=== PATIENT | male | born 1965 | race Caucasian/White ===

== ENCOUNTER 2017-02-23 14:18 | Inpatient (IN) | payer MEDICARE ==
[2017-02-23 14:49] LABS: #Lymphocytes 0.5 thou/uL (1.20-3.40); #Monocytes 0.7 thou/uL (0.11-0.59); #Neutrophils 11.6 thou/uL (1.40-6.50); %Basophils 0.2 % (0.0-1.0); %Eosinophils 0.1 % (0.0-10.0); %Lymphocytes 3.8 % (21.0-51.0); %Monocytes 5.2 % (0.0-10.0); Hematocrit 30.6 % (42.0-52.0); Mean Platelet Volume 8.8 fL (7.4-10.4); White Blood Cell (WBC) Count 12.8 thou/uL (4.8-10.8)
[2017-02-23] MEDS ORDERED: Calcium Chloride 1 GM/10 ML Abboject SYRINGE ONE (14:59)
[2017-02-23 15:01] LABS: Lactic Acid - Sepsis 1.6 mmol/L (0.5-2.2)
[2017-02-23] MEDS ORDERED: Sodium Chloride For Inhalation 0.9% 3 ML NEB ONE (15:05)
[2017-02-23] MEDS ORDERED: Albuterol Sulfate 2.5 mg/0.5 ml Neb ONE (15:05)
[2017-02-23] MEDS ORDERED: Insulin Regular 300 UNITS/3 ML VIAL ONE (15:05)
[2017-02-23] MEDS ORDERED: Dextrose 50% Abboject 50 ML SYRINGE ONE (15:05)
[2017-02-23 15:13] LABS: ALT (SGPT) 13 U/L (8-55); AST (SGOT) 18 U/L (5-34); Alkaline Phosphatase 51 U/L (40-150); Anion Gap 32 mmol/L (10-20); BUN (Urea Nitrogen) 142 mg/dL (8.4-25.7); Bilirubin, Total 0.5 mg/dL (0.2-1.2); Calc. Creatinine Clearance 0 mL/min (70-130); Carbon Dioxide 21 mmol/L (22-29); Chloride 86 mmol/L (98-107); Estimated GFR-MDRD 3; Globulin 3.4 g/dL (2.4-3.5); Lipase 28 U/L (8-78); Protein, Total 6.3 g/dL (6.0-8.3)
--- NOTE | 2017-02-23 15:26 | RAD ---
PORTABLE AP CHEST: Date: 02-23-17 History: Nausea, vomiting, dehydration. Comparison: 01-22-11 FINDINGS: Tunneled right internal jugular vein hemodialysis catheter has been removed. Cardiac silhouette is ma gnified by projection but does appear mildly enlarged. This is stable from prior exam. Linear densiti es are seen in the right perihilar location at the right lung base, probably related to linear areas of scarring versus atelectasis. There is mild atelectasis at the left lung base which mild elevation of the left hemidiaphragm. Lungs are otherwise clear. Pulmonary vasculature is within normal limits. No other interval change. IMPRESSION: 1. Cardiomegaly without overt CHF. 2. Mild scarring versus atelectasis in a right perihilar location and at the medial right lung base. POS: DREW
[2017-02-23] MEDS ORDERED: Norepinephrine 8 MG/0.9% NS 250 ML ONE (17:00)
[2017-02-23] MEDS ORDERED: Ondansetron ODT 4 MG TAB PO PRN (17:07)
[2017-02-23] MEDS ORDERED: Ondansetron HCl/PF 4 MG/2 ML Vial IVP PRN (17:07)
[2017-02-23] MEDS ORDERED: Acetaminophen 325 MG TAB PO PRN (17:07)
[2017-02-23] MEDS ORDERED: Bisacodyl 5 MG TAB PO PRN (17:07)
[2017-02-23] MEDS ORDERED: Sodium Chloride 0.9% 1,000 ML IV SCH (17:15)
[2017-02-23] MEDS ORDERED: Norepinephrine 8 MG/0.9% NS 250 ML IVPB SCH (17:15)
[2017-02-23] MEDS: Sodium Chloride 0.9% 1,000 ML IV SCH (18:06)
[2017-02-23] MEDS ORDERED: Digoxin 0.5 MG/2 ML AMP SLOW IVP SCH ×2 (18:30→19:30)
[2017-02-23] MEDS ORDERED: Amiodarone HCl 150 MG, Admixture Fee 1 EACH in Dextrose 5% in Water 100 ML IVPB SCH ×3 (19:30)
[2017-02-23] MEDS: Amiodarone HCl 450 MG in Dextrose 5% in Water 250 ML IVPB SCH ×2 (20:00)
--- NOTE | 2017-02-23 20:51 | CON ---
DATE OF CONSULTATION: 02/23/2017 CONSULTING PHYSICIAN: [facility]. REASON FOR CONSULTATION: ICU management. HISTORY OF PRESENT ILLNESS: The patient is a 51-year-old male who is on chronic peritoneal dialysis for polycystic kidney disease and chronic renal failure. He has not been able to dialyze completely for the last 5 days. He has had some type of gastrointestinal illness. He has been nauseated and chaudhari s had diarrhea. He has had vomiting. He says that he typically dialyzes 5 times a day, but has been unable to do more than 2 times a day. He has had significantly decreased oral intake. PAST MEDICAL HISTORY: 1. Chronic kidney disease. 2. Polycystic kidney disease. 3. Hypertension. PAST SURGICAL HISTORY: 1. Peritoneal dialysis catheter placement. 2. Bilateral knee surgery. SOCIAL HISTORY: Nonsmoker, does not consume alcohol. ALLERGIES: SULFA DRUGS. MEDICATIONS PRIOR TO ADMISSION: See chart. REVIEW OF SYSTEMS: Remarkable for the nausea, vomiting, poor oral intake. Denies any chest pain. PHYSICAL EXAMINATION: VITAL SIGNS: Blood pressure 100/59, heart rate 153, currently atrial fibrillation, right ventricular response, respiratory rate 25, O2 sat 95%. GENERAL: The patient is awake, has an ashen color. HEENT: Pupils react, sclera anicteric. Oropharynx is dry. NECK: No JVD. LUNGS: Fairly clear anteriorly. CARDIOVASCULAR: S1, S2 irregularly irregular, tachycardic. ABDOMEN: Soft and nontender. Peritoneal dialysis catheter is noted. EXTREMITIES: No clubbing, cyanosis, or edema. EKG demonstrated atrial fibrillation. He had some ST segment elevation, which is probably peaked T w aves from the hyperkalemia. Troponin was not significantly elevated. ASSESSMENT: 1. Acute hyperkalemia secondary to inability to do peritoneal dialysis completely over the last chilo ral days. 2. Gastroenteritis versus cholelithiasis. 3. Atrial fibrillation with rapid ventricular response. 4. Clinically dehydrated. PLAN: 1. The patient has been hydrated. He will receive either peritoneal dialysis or hemodialysis at the discretion of Dr. Raman. 2. Cardiology has been consulted for management of the atrial fibrillation. 3. Levophed has been started to help with the blood pressure. Thank you for the referral. We will follow.
[2017-02-23 21:27] LABS: Troponin I 0.694 ng/mL (< 0.028)
--- NOTE | 2017-02-23 21:52 | HP ---
PRIMARY BANQUET SERVER ON CALL: Dr. Raman. CHIEF COMPLAINT: Weakness and dehydration. HISTORY OF PRESENT ILLNESS: This is a 51-year-old white male with history of genetic polycystic kidn ey disease resulting in end-stage renal disease, who has been on peritoneal dialysis for the last 5 y ears. The patient reports that 3-5 days before admission, he had mid epigastric pain. The pain felt crampy, thought it might be as gallbladder. The patient took some Darvocet, which he had left over from years ago when they still made that, this resolved the pain. However, the next day, he noticed he was extremely constipated. He eventually took 3 laxatives tablets and then yesterday he started h aving diarrhea and vomiting. He had continuous diarrhea this morning, he has not vomited any more th an today. He went to see his doctor and was sent to the emergency room. In the ER, he was found to have blood pressure in the 80s and hyperkalemia with potassium greater than 6. He was also noted to have some ST elevation on his EKG in leads V2 and V3. Dr. Solorzano was notified and looked at the EKG al patricia with his enzymes, which were elevated, but not terribly for an end-stage renal disease. The joanne ent stated that he was treated with aspirin for now as he was not having any active pain and then be evaluated in the hospital he said that she will consult when he gets here. Dr. Raman was notified and prepared to dialyze the patient when he got here. As the patient was up to leave the ER, he converte d into atrial fibrillation with rapid ventricular rate in the 130s to 140s and his blood pressure marleni pped into the 60s. The patient had 2 liters of IV fluids of normal saline at the emergency room, his blood pressure came to the low 100s and he was transported here to the ICU. In the ICU, his blood p ressure dropped again to the 60s and then in the 50s. He was still awake, but felt tired, no active pain. The patient has had a fluid bolus, now started on Levophed drip with blood pressure back to a systolic of 100. His heart rate remains in the 130s to 140s. PAST MEDICAL HISTORY: 1. Polycystic kidney disease with end-stage renal disease, on peritoneal dialysis. 2. Previous heart problems. He is not certain what it was, but he was put on he thinks metoprolol t o control his heart rate because of it. PAST SURGICAL HISTORY: 1. Peritoneal dialysis shunt placement. 2. Bilateral knee surgeries. SOCIAL HISTORY: Patient denies tobacco, alcohol or illicit drug use. FAMILY HISTORY: There are family members who have polycystic kidney disease as well in his family. ALLERGIES: 1. CHLOROPHYLL. 2. IRON. 3. SULFA ANTIBIOTICS. CURRENT MEDICATIONS: Unknown, patient does not remember them. REVIEW OF SYSTEMS: Constitutional: No fevers, no chills, no weight changes. Eyes: No double visio n or blurred vision. ENT: No congestion, drainage or sore throat. Cardiovascular: No chest pain, no palpitations, no racing heart. Pulmonary: No coughing, wheezing or trouble breathing. He did chaudhari ve some shortness of breath with the mid epigastric pain a few days ago, but none since. Gastrointes tinal: No current abdominal pain. He had the midepigastric pain as per HPI several days ago. Nause a and vomiting has now resolved. He has had diarrhea with no blood in the bowel movements. Genitour inary: No dysuria or hematuria. Extremities: No muscle aches or joint pains. Skin: He has not no ticed any rashes or skin lesions. Neurologic: No numbness or tingling. He has not noticed any foca l weakness, just generalized weakness. PHYSICAL EXAMINATION: VITAL SIGNS: Currently, blood pressure 98/59, pulse 135, respirations 17, O2 sat currently difficult to read, was previously in the mid 90s on oxygen. GENERAL: This is a well-developed, obese white male who appears slightly ashen, but is alert. HEENT: Pupils are equal, round and reactive to light. Oropharynx is clear without lesions, erythema or exudate. He does have dry mucous membranes. HEART: Irregularly irregular rhythm. Tachycardic. No murmurs. He does have intact peripheral puls es, though they were weak before starting the Levophed. PULMONARY: Clear to auscultation bilaterally. No wheezes, crackles or rhonchi. ABDOMEN: Soft, obese and distended. Normoactive bowel sounds. No hepatosplenomegaly. He does have some tenderness in the right lower quadrant without any guarding. EXTREMITIES: He has some trace pretibial edema. No cyanosis, no clubbing. SKIN: Patient has few red sanchez what looked like petechiae on his knees. He states that he fell a c ouple of days ago and that is what that is from. NEUROLOGIC: He moves all extremities with equal strength. No lateralizing signs. He does have no f acial droop and has clear speech. PSYCHIATRIC: Alert and oriented x3, normal mood and affect. LABORATORY DATA: Complete metabolic panel was notable for a sodium of 132, potassium of 6.8, chlorid e is 86, bicarbonate of 21, anion gap of 32, BUN of 142, creatinine of 17.59, glucose of 96 and calci um of 9.0. Liver function tests are normal except for an albumin of 2.9. His initial cardiac marker set; CK-MB of 11.7, troponin was 0.94. Brain natriuretic peptide elevated at 353, lactic acid was n egative at 1.6. CBC with a white blood cell count of 12.8, hemoglobin 10, hematocrit 30, platelets 2 04, neutrophils 90. IMAGING DATA: EKG: I did review the EKGs done in the emergency room. Originally, EKG does show nor mal sinus rhythm with some ST elevation in V2, V3 and possibly in V4. A repeat EKG later showed atri al fibrillation with rate of [address] changes in V2. Chest x-ray: I did review th e chest x-ray done in the emergency room along with the radiologist's report. It does show cardiomeg rodri without overt CHF, some mild scarring atelectasis in the right perihilar location, also shows a t unneled right internal jugular vein. Hemodialysis catheter has been removed since previously. ASSESSMENT AND PLAN: 1. Hypotension appears to be due to volume depletion, though there may be a component of the atrial fibrillation with rapid ventricular response contributing. The patient is currently responding to IV fluids and now with some norepinephrine with his blood pressure stable in the low 100s. No current evidence for bleeding, most likely he is volume depleted from his recent diarrhea and vomiting. We d o need to take the consideration of possibly sepsis given his elevated white blood cell count and the diarrhea and vomiting. We will go ahead and draw a couple of blood cultures if patient allow us to draw one blood. He was refusing needle sticks earlier. We will hold off antibiotics for now unless his blood pressure becomes refractory or other source of infection is identified. He currently is no t having any vomiting or diarrhea, no significant pain anywhere. No pneumonia evident upon chest x-r ay. No other signs of infection. 2. Atrial fibrillation with rapid ventricular rate. The patient possibly has a history of paroxysma l atrial fibrillation. Given his history of a fast heart rate, it had to be controlled by metoprolol . Uncertain if the atrial fibrillation is just a response to his volume depleted hypertensive status or if it is a contributing instigator. At this time, he is too hypotensive to give beta-blockers or diltiazem too and with his ramp failure we cannot use digoxin. We will monitor and consult Cardiolo gy for evaluation and treatment. If his blood pressure does improve, we may be able to start him on a diltiazem drip. 3. End-stage renal disease with hyperkalemia. Dr. Raman has been consulted. He is going to do a low volume due low volume dialysis tonight to remove potassium. Patient did already receive Kayexalate, albuterol and insulin with dextrose and calcium chloride at the outside emergency room along with asp irin. We will recheck his potassium here. 4. Elevated troponins with ST elevation on the EKG. The patient has not had any active signs of isc hemia currently. He may have had some ischemic disease 3 days ago, but nothing to indicate his ST el evation myocardial infarction at this time. The troponin level was definitely elevated, may be more due to strain with the hypotension and then an acute ST elevation myocardial infarction. Given his e nd-stage renal disease, troponin less than [address] elevation myocardial infarction at t his time. Dr. Solorzano has been consulted and will follow. The patient will get repeat troponins overni t. The patient is on aspirin. 5. Gastrointestinal prophylaxis. We will put the patient on Protonix daily. 6. Deep venous thrombosis prophylaxis. We will put the patient on sequential compression devices an d SYL while in bed. CODE STATUS: I did discuss this with the patient, he is a FULL CODE. Should he be incapacitated, he states that his mother would be his medical power of clam treader; her name is Anthony Correa.
--- NOTE | 2017-02-23 23:32 | ADD-CON ---
DATE OF ADMISSION: 02/23/2017 DATE OF CONSULTATION: 02/23/2017 INDICATION FOR CONSULTATION: A 51-year-old patient with a history of end-stage renal disease on timoteo toneal dialysis, who had been doing relatively well, had no previous cardiac history except he does h ave some intermittent atrial fibrillation, he has noted in the past and was taking just metoprolol 25 mg b.i.d. and then he stopped, taking it only just once a day. He had been doing relatively well un til recently he has developed some abdominal discomfort. He has some abdominal pain, took some oral medication in the form of Darvocet and then he developed some diarrhea. He presented to the emergenc y room to an outside clinic and they were was advised to seek out emergency room help as he was found in the emergency room to have some nonspecific EKG changes and then prior to being transferred to [facility], he also was found to have borderline or indeterminate cardiac enzymes and then developed atrial fibrillation while even before the transfer to the emergency room to our main facility where sarah was at that time. Since being here, he continues to have atrial fibrillation. He denies any chest pain with atrial fibrillation, there have been no significant ST segment changes that would indicate ischemia. He has had no history in the past of coronary artery disease. He actually was on the tra nsplant list at one point in time, but became frustrated with the process and then decided to withdra w himself on the transplant list. He has polycystic kidney disease as the cause of his end-stage victorino al disease and has been doing relatively well with his peritoneal dialysis. At this time, his blood pressure is slightly decreased at 95/65, but approximately 15-20 minutes, his blood pressure was up a s much as 110 when the heart rate is slow, he was given 0.5 mg of IV digoxin in Intensive Care Unit f or heart rate in the 150s and it has dropped down in between the 120s to 150s again. We will need to try to start him on some amiodarone to hopefully convert him back to a sinus rhythm. At earlier tod ay, he was in a sinus rhythm prior to being transferred to our facility. At this time, the EKG did s how a right bundle branch block with the EKG changes noted, but cardiac enzymes do not indicate myoca rdial infarction. There was some suspicion of that, but does not appear to be myocardial infarction; if anything, he had possibly an old septal infarct, but there is a small R-wave in V2. Further caryl elodia of the past medical history, social history, family, and review of systems, please refer to the notes dictated by the nurse practitioner, Christiane. PHYSICAL EXAMINATION: GENERAL: Reveals a middle-aged gentleman who is in no acute distress. VITAL SIGNS: Blood pressure is 95/65, his heart rate 136 and irregular with atrial fibrillation. O2 saturation 95%. His respiratory rate is about 20 beats per minute. HEENT: Shows the head to be normocephalic, atraumatic. Carotid pulses are present. I could not hea r any bruits. CHEST: Clear to auscultation without any rales, rhonchi, or wheezing. CARDIOVASCULAR: Reveals an irregularly irregular rhythm. I did not hear any gross murmurs. ABDOMEN: Soft, but has large obesity. He does have a catheter in place. He does have some tenderne ss which he feels may be due to his polycystic kidney disease. EXTREMITIES: Showed no clubbing or cyanosis. He has trace ankle edema, but this is only minimal and would not be more than expected. Pedal pulses were present, but were difficult to palpate. NEUROLOGIC: The patient appears to be intact. LABORATORY DATA: Please refer to the notes already dictated. Troponin was 0.9. Hemoglobin was 10.2 . His potassium level was 6.8 and the patient will be dialyzed this evening. His creatinine was 17. 59 with a BUN of 142. His MB was 11.7 and BNP was 353. We are more than happy to continue to follow the patient with you. IMPRESSION: 1. End-stage renal disease for which he is on peritoneal dialysis for most likely he will need to un dergo a peritoneal dialysis tonight. 2. Atrial fibrillation with rapid ventricular response. We will try to start amiodarone since he chaudhari s not responded to the digoxin and was started on amiodarone and see whether or not he may convert to sinus rhythm. 3. Abnormal EKG that appears to be a sinus rhythm with some early repolarization changes which may b e due associated with some of his hyperkalemia with peak T waves in V2. 4. Diarrhea, which has just started the last day or two after taking medications for constipation.
--- NOTE | 2017-02-23 23:57 | CON ---
DATE OF CONSULTATION: 02/23/2017 LOCATION: Room number, C11. CUSTOMER SUPPORT ANALYST: Edwige Solorzano M.D. REFERRING PHYSICIAN: Jair Short M.D. REASON FOR CARDIOLOGY CONSULTATION: Atrial fibrillation with RVR and elevated troponin. HISTORY OF PRESENT ILLNESS: Mr. Kamara is a 51-year-old male with significant history of end-stage renal disease and peritoneal dialysis 5 times per week with weak and hypertension and hyperlipidemia . The patient presents to [facility] due to worsening fatigue, weakness and vom iting. According to patient's report, some kidney phosphorus medication was increased since 02/18 by patient's partner integration planner and since then, the patient feels weak, fatigued, nauseated, vomited and also constipation since then. The patient denies shortness of breath, dizziness, palpitation or flutteri ng in his chest or any other cardiac complaints besides very light chest tightness in his middle ster nal area. He has a history of gallbladder issue, he is not sure what, however, he was prescribed Cip ro and Levophed. He took those medications because he thought the symptom was from the gallbladder i ssue. His normal blood pressure at home was 120/70s and heart rate in the 90s. He denies any cardia c related problem. At this moment, he complained about cold, but denies any cardiac complaints. Acc ording to all of patient's chart and computer records, he does have any cardiac related workup studie s. A 12-lead EKG at the ER shows the patient in sinus rhythm with heart rate of 87. However, when anila hung arrived to urinate right before 5:00 p.m. today, patient's heart rhythm was in atrial fibrilla tion with rapid ventricular response with heart rates in 140-150s and he is on the Levophed for hypot ension. PAST MEDICAL HISTORY: 1. End-stage kidney disease with peritoneal dialysis 5 times a week. 2. Hypertension. 3. Hyperlipidemia. 4. Some gallbladder issue. 5. Restless leg syndrome. He is taking clonazepam. PAST SURGICAL HISTORY: Peritoneal catheter placement by Dr. Mullins. FAMILY HISTORY: There is history in the patient's father and his brother has kidney problems. The anila hung's brother has a blood pressure issue also. SOCIAL HISTORY: Patient is . He lives with his mother. 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 He denies tobacco abuse, ETOH abuse or illicit drug abuse. ALLERGIES: He is allergic to CHLOROPHYLL, IRON SUPPLEMENT and SULFA DRUGS. REVIEW OF SYSTEMS: The review following complete review of systems was negative, unless otherwise me ntioned in the HPI or below. Constitutional: Weight loss or gain, sense of well being, ability to conduct usual activities, exerc ise tolerance. Skin: Rash, itching, change in hair growth or loss, nail changes, breast lumps, tend erness, swelling, nipple discharge. Eyes: Vision change, double vision, tearing, blind spots or lilo n. HEENT: Headache, vertigo, lightheadedness, nasal bleeding, cold obstruction or discharge, dental difficulties, gingival bleeding, dentures. Neck: Neck stiffness, pain, tenderness, mass in the thy roid or other areas. Cardiovascular: Precordial pain, substernal distress, palpitations, syncope, d yspnea on exertion, orthopnea, nocturnal dyspnea, edema, cyanosis, heart murmur, varicosis, claudicat ion. Respiratory: Pain, shortness of breath, wheezing, stridor, cough, hemoptysis. Gastrointestina l: Poor appetite, dysphagia, indigestion, abdominal pain, heartburn, eructation, nausea, vomiting, j aundice. Constipation and diarrhea besides history of 3 days of constipation prior to this admission , bloody stool or recent abnormal stool. Genitourinary: Urgency, frequency, dysuria, nocturia, brandie turia, polyuria, oliguria. He is still making urine even though he has peritoneal dialysis. Musculo skeletal: Pain, swelling, redness, heat of muscle or joint, limitation of motion. Neurologic: Conv ersion, seizure, paralysis, tremor, incoordination, difficulty with memory of speech. Psychiatric: Emotional problem, anxiety, depression, previous psychiatric care, unusual perception, hallucinations . PHYSICAL EXAMINATION: VITAL SIGNS: Last blood pressure is 109/60, heart rate is 147 and atrial fibrillation, respiratory r ate 25, O2 sat 95% with 2 liters nasal cannula, temperature 97.5. GENERAL: Well-developed, well-nourished without any acute distress. HEAD: Normocephalic, atraumatic. EYES: Extraocular muscle movements are intact. ENT: Oral and nasal mucosa moist without lesion. NECK: No JVD. Neck is supple. Normal range of motion. LUNGS: Clear to auscultation bilaterally, but diminished at the bases. No wheezing, rales or rhonch i noted. CARDIOVASCULAR: Irregularly irregular. No significant murmur, hives, thrill, bruit or rub noted. EXTREMITIES: There are 2+ pulses in the bilateral dorsal pedis, posterior tibial, and popliteal and left femoral pulses, but unable to assess the pulsation in his right femoral pulse due to central atnia e present. Carotid pulses are present without bruit or thrill. There is 1 pitting edema in his bila teral lower extremities, more in the right side than left side. ABDOMEN: Soft, nontender or mass to palpate, nondistended. Bowel sounds are present, but diminished . MUSCULOSKELETAL: The patient is able to move all extremities. SKIN: Warm and dry. No skin rash, lesion, or bruise noted. NEUROLOGIC: Alert, oriented x4, awake. Normal affect. Nonfocal. PSYCHIATRIC: The patient seem to be anxious. Other than that, affect are normal. EKG: A 12-lead EKG in the ER shows sinus rhythm with ST elevation in almost all lead. LABORATORY DATA: WBC 12.8, hemoglobin 10.2, hematocrit 30.6, platelet 204,000. Chemistry: Sodium 1 32, potassium 6.8, BUN is 142, creatinine 7.59. Lactic acid 1.6. AST is 18, ALT is 13, CK-MB 11.7, troponin 0.940. BNP is 353.8. IMAGING: The patient's chest x-ray revealed no cardiomegaly without overt congestive heart failure a nd mild scarring versus atherosclerosis in the right perihilar location and at the medial right lung base. The patient's abdomen ultrasound shows enlarged polycystic right kidney, trace ascites, no shasta dence of gallstones. ASSESSMENT AND PLAN: 1. Atrial fibrillation with rapid ventricular response. The 12-lead EKG in the ER showed sinus rhyt hm; however, when the patient arrived to our unit, patient's heart rhythm already have been in atrial fibrillation with rapid ventricular response with heart rate of 140 to 150s. We would like to start diltiazem 5 mg per an hour and we would like to titrate. Also, patient's blood pressure tend to low side. He is on the Levophed. So hopefully patient's blood pressure is stabilized with that and als o once the patient's heart rates were going down hopefully patient's blood pressure will increase. 2. Elevated troponin level. The patient's first troponin level increased to 0.940, possibly due to atrial fibrillation with rapid ventricular response or dehydration. He is receiving normal saline a t 150 mL/hour at this moment, we would like to continue to monitor with diltiazem and IV drip and we may add digoxin if we cannot control the patient's heart rate with diltiazem drip. Because patient's 12-lead EKG shows no significant ST segment change besides ST segment changes in all leads. The pat ient denies any cardiac related complaints. We like to continue to recheck the patient's troponin le kayla. 3. End-stage renal disease. The patient is going to have a peritoneal dialysis tonight which is man aged by the patient's partner integration planner. 4. Hypertension. At this moment, the patient's blood pressure tends to hypotensive. Patient is on the Levophed 15 mg per minute at this moment and we like to hold the patient's blood pressure medicin e at this moment. 5. Hyperlipidemia. Once patient's condition is stable, we like to resume patient on cholesterol med icine. Thank you very much for Cardiology service to participate in the care of the patient. We will follow with the patient's care team and make further recommendations as appropriate.
[2017-02-24] MEDS: Sodium Chloride 0.9% 1,000 ML IV SCH ×4 (00:29→21:08)
[2017-02-24] MEDS: Digoxin 0.5 MG/2 ML AMP SLOW IVP SCH ×2 (00:33→07:54)
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
[2017-02-24 06:14] LABS: Anion Gap 24 mmol/L (10-20); Calc. Creatinine Clearance 9 mL/min (70-130); Calcium 8.2 mg/dL (7.8-10.44); Carbon Dioxide 19 mmol/L (22-29); Chloride 94 mmol/L (98-107); Estimated GFR-MDRD 3
[2017-02-24 06:19] LABS: Critical Call Chem Troponin I RESULT DECREASING; Troponin I 0.622 ng/mL (< 0.028)
[2017-02-24 06:25] LABS: BUN (Urea Nitrogen) 117 mg/dL (8.4-25.7)
[2017-02-24 06:27] LABS: #Lymphocytes 0.5 thou/uL (1.20-3.40); #Monocytes 0.9 thou/uL (0.11-0.59); #Neutrophils 14.2 thou/uL (1.40-6.50); %Eosinophils 0.2 % (0.0-10.0); %Lymphocytes 3.3 % (21.0-51.0); %Monocytes 5.6 % (0.0-10.0); Hematocrit 31.4 % (42.0-52.0); Mean Platelet Volume 8.1 fL (7.4-10.4); Red Blood Cell (RBC) Count 3.38 mill/uL (4.70-6.10); White Blood Cell (WBC) Count 15.7 thou/uL (4.8-10.8)
[2017-02-24] MEDS: Amiodarone HCl 450 MG in Dextrose 5% in Water 250 ML IVPB SCH ×4 (06:47→21:03)
--- NOTE | 2017-02-24 09:23 | PRG ---
DATE OF SERVICE: 02/24/2017 SUBJECTIVE: The patient is more awake and alert today. He is no longer having abdominal pain. PHYSICAL EXAMINATION: VITAL SIGNS: His temperature is 98.0, pulse 96, blood pressure 132/83, total intake for the last 24 hours was about 6000 in, including what was given in the emergency room, 724 out net from the dialysi s. HEENT: Unremarkable. NECK: No JVD, no bruits. LUNGS: Clear anteriorly. CARDIOVASCULAR: S1, S2 regular. ABDOMEN: Soft. EXTREMITIES: No edema. LABORATORY DATA: White blood cell count 15.7, hemoglobin 10, hematocrit 31.4, platelet count 333. S odium 131, potassium 5.8, chloride 94, CO2 19, BUN 117, creatinine 15, glucose 157. Troponin 0.6. ASSESSMENT: Ineffective peritoneal dialysis which led to electrolyte abnormalities and dehydration. PLAN: 1. Continue peritoneal dialysis. 2. Management per Dr. Raman. 3. Wean off the Levophed drip as tolerated.
--- NOTE | 2017-02-24 10:39 | PRG ---
DATE OF SERVICE: 02/24/2017 SUBJECTIVE: Mr. Kamara has been seen by the Renal Service for his maintenance peritoneal dialysis. He was noted to be hypertensive when he came in. He was also hyperkalemic. Emergent peritoneal di alysis was done with the patient. This morning he is feeling a little better, but he complains of be ing tired. PHYSICAL EXAMINATION: VITAL SIGNS: Blood pressure is 104/76, heart rate 97, respiratory rate 36, pulse ox 98%. GENERAL: Awake, supine, comfortable, morbidly obese. SKIN: Adequate turgor. HEENT: Pinkish conjunctivae, anicteric sclerae. NECK: No neck mass, no carotid bruits, no JVD. CHEST: No deformities. LUNGS: Clear breath sounds. No wheezing, no crackles. HEART: Normal sinus rhythm. No murmur, no gallops or rubs. ABDOMEN: Globular, soft. Positive for PD catheter. EXTREMITIES: No edema. MEDICATIONS 02/24/2017 - Reviewed. LABORATORY: 02/24/2017 - Sodium 131, potassium 4.8, chloride 94, carbon dioxide 19, BUN 170, creatin ine 15.03, calcium 8.2. Troponin I 0.622. White count 15.7, hemoglobin 10. ASSESSMENT AND PLAN: 1. Hypertension, improving. Continue current pressor support and normal saline. We will adjust nor mal saline from 150 to 100 mL per hour. 2. End-stage renal disease, stable. Continuing current CCPD regimen. Tolerating said treatment. 3. Hyperkalemia, much improved with initiation of dialysis. 4. Tachycardia/supraventricular tachycardia IV amiodarone. I agree with current management.
--- NOTE | 2017-02-24 12:37 | PDOC.PN ---
- Subjective Encounter Start Date: 02/24/17 Encounter Start Time: 12:30 Subjective: Patient feeling better. No SOB/CP. No abdominal pain/N/V/D. Heart rate -: improved on amio drip. Still requiring some Levophed, but titrated shelter -: off. - Objective Resuscitation Status: Resuscitation Status FULL:Full Resuscitation MAR Reviewed: Yes Vital Signs & Weight: Vital Signs (12 hours) Temp Pulse Resp Pulse Ox 02/24/17 08:00 95.1 F L 92 31 H 99 02/24/17 07:54 120 H 02/24/17 04:00 98.8 F Weight Admit Weight 248 lb 7.375 oz Weight 250 lb 14.177 oz Most Recent Monitor Data Heart Rate from ECG 89 NIBP 114/86 NIBP BP-Mean 93 Respiration from ECG 18 SpO2 100 I&O: 02/23/17 02/24/17 02/25/17 06:59 06:59 06:59 Intake Total 3437 Balance 3437 Result Diagrams: 02/24/17 06:00 02/24/17 05:30 EKG Reviewed by me: Yes (strip with alternating Afib with occ. SR runs) Phys Exam - Physical Examination Constitutional: NAD HEENT: moist MMs Respiratory: no wheezing, no rales, no rhonchi Cardiovascular: no significant murmur, irregular Gastrointestinal: soft, positive bowel sounds distended, soft Neurological: non-focal, moves all 4 limbs Psychiatric: normal affect, A&O x 3 Dx/Plan (1) Hypotension Status: Resolved (2) Atrial fibrillation with RVR Code(s): I48.91 - UNSPECIFIED ATRIAL FIBRILLATION Status: Acute (3) Hyperkalemia Code(s): E87.5 - HYPERKALEMIA Status: Acute Comment: Improved to 5.8 after dialysis yesterday (4) Polycystic kidney, adult type Code(s): Q61.2 - POLYCYSTIC KIDNEY, ADULT TYPE Status: Chronic (5) ESRD on peritoneal dialysis Code(s): N18.6 - END STAGE RENAL DISEASE; Z99.2 - DEPENDENCE ON RENAL DIALYSIS Status: Chronic Comment: Dr. Raman managing dialysis - Plan cont current plan of care, DVT proph w/SCDs * . - Discharge Day Encounter end time: 12:55
--- NOTE | 2017-02-24 13:07 | PDOC.CTH ---
<Christiane Ryan - Last Filed: 02/24/17 13:05> Cardiology Progress Note - Subjective the pt was seen and examined. No overnight events. No cardiac complaints. - Objective Vital Signs Temp Pulse Resp Pulse Ox 02/24/17 08:00 95.1 F L 92 31 H 99 02/24/17 07:54 120 H 02/24/17 04:00 98.8 F Admit Weight 248 lb 7.375 oz Weight 250 lb 14.177 oz 02/23/17 02/24/17 02/25/17 06:59 06:59 06:59 Intake Total 3437 Balance 3437 - Physical Examination General/Neuro: alert & oriented x3 Neck: no JVD present Lungs: CTA Heart: RRR Abdomen: soft, other: (distended) Extremities: other: (No edemas) - Telemetry Telemetry Rhythm: SR 90s - Labs Result Diagrams: 02/24/17 06:00 02/24/17 05:30 Troponin/CKMB CK-MB (CK-2) 11.7 ng/mL (0-6.6) H* 02/23/17 14:45 Troponin I 0.622 ng/mL (< 0.028) H* 02/24/17 05:30 - Assessment/Plan 1. Afib with RVR - Converted back to SR at 0952 today with Amiodarone driip; cont. monitor on tele 2. ESRD - his K level is better today; managed by Dr. Raman 3. Hypotension - Stable with Levophed 5mg/mins; cont. monitor MAR reviewed Review of Systems - Review of Systems Constitutional: reports: no symptoms reported EENTM: reports: no symptoms reported Respiratory: reports: no symptoms reported Cardiac (ROS): reports: no symptoms reported ABD/GI: reports: no symptoms reported : reports: no symptoms reported Musculoskeletal: reports: no symptoms reported <Barrett Solorzano - Last Filed: 02/24/17 17:17> Cardiology Progress Note - Objective Vital Signs Temp Pulse Pulse Resp BP Pulse Ox Pulse Ox 02/24/17 15:00 97.4 F L 02/24/17 14:33 93 88/64 L 94 L 02/24/17 13:40 93 107/84 02/24/17 12:00 96.7 F L 02/24/17 08:00 95.1 F L 92 31 H 99 02/24/17 07:54 120 H Admit Weight 248 lb 7.375 oz Weight 250 lb 14.177 oz 02/23/17 02/24/17 02/25/17 06:59 06:59 06:59 Intake Total 3437 200 Balance 3437 200 - Labs Result Diagrams: 02/24/17 06:00 02/24/17 05:30 Troponin/CKMB CK-MB (CK-2) 11.7 ng/mL (0-6.6) H* 02/23/17 14:45 Troponin I 0.622 ng/mL (< 0.028) H* 02/24/17 05:30 - Assessment/Plan Pt. seen and eval. by me. He has remained in NSR today. He denies any cardiac symptoms. I spoke with him again today about his pre-transplant workup and he says that he has had 3 cardiac caths in the past without any significant stenosis. It would be helpful perhaps if we had that info. I will order an echo to eval. his LV function and chamber dimensions. His exam is as above by the REFRIGERATION MECHANIC HELPER. I agree with the A/P.
[2017-02-25] MEDS: Sodium Chloride 0.9% 1,000 ML IV SCH ×4 (03:13→20:12)
[2017-02-25 06:21] LABS: #Lymphocytes 0.5 thou/uL (1.20-3.40); #Monocytes 0.7 thou/uL (0.11-0.59); #Neutrophils 7.1 thou/uL (1.40-6.50); %Eosinophils 0.5 % (0.0-10.0); %Lymphocytes 5.4 % (21.0-51.0); %Monocytes 8.8 % (0.0-10.0); Hematocrit 29.8 % (42.0-52.0); Mean Platelet Volume 8.3 fL (7.4-10.4); Red Blood Cell (RBC) Count 3.21 mill/uL (4.70-6.10); White Blood Cell (WBC) Count 8.4 thou/uL (4.8-10.8)
[2017-02-25 06:43] LABS: Anion Gap 23 mmol/L (10-20); BUN (Urea Nitrogen) 117 mg/dL (8.4-25.7); Calc. Creatinine Clearance 11 mL/min (70-130); Calcium 7.7 mg/dL (7.8-10.44); Carbon Dioxide 19 mmol/L (22-29); Chloride 97 mmol/L (98-107); Estimated GFR-MDRD 4
--- NOTE | 2017-02-25 08:34 | PRG ---
DATE OF SERVICE: 02/25/2017 The patient is doing reasonably well, he had no acute complaints. He has been able to keep his food down. PHYSICAL EXAMINATION: VITAL SIGNS: On exam, his temperature is 97.9, pulse 88, blood pressure 109/63. 24 hour intake 3780 , output is all peritoneal dialysis. HEENT: Unremarkable. NECK: No JVD. CHEST: Clear to auscultation. CARDIAC: S1 and S2 now regular since last night. ABDOMEN: Soft, nontender. EXTREMITIES: No edema. LABORATORY DATA: Sodium 134, potassium 5.1, chloride 97, CO2 23, BUN 117, creatinine 13.2, glucose 1 09, white blood cell count 8.4, hematocrit 29.8, platelet count 208. ASSESSMENT: 1. Status post hyperkalemia and profound uremia. 2. Dehydration, which resolved. PLAN: The patient will be transferred out to the telemetry floor. He will continue amiodarone as lo ng as needed per Cardiology. He has been taken off the Levophed drip. There are no active pulmonary issues at this time. We will sign off. Please recall if further assistance needed.
--- NOTE | 2017-02-25 08:42 | PDOC.CTH ---
<Christiane Ryan - Last Filed: 02/25/17 12:26> Cardiology Progress Note - Subjective The Pt seen and examined. No overnight events. No cardiac complaints. - Objective Vital Signs Temp Pulse Resp Pulse Ox 02/25/17 08:00 97.7 F 86 19 99 02/25/17 07:00 97.7 F 02/25/17 00:00 97.9 F Admit Weight 248 lb 7.375 oz Weight 256 lb 6.362 oz 02/24/17 02/25/17 02/26/17 06:59 06:59 06:59 Intake Total 3437 3780 169 Balance 3437 3780 169 - Physical Examination General/Neuro: alert & oriented x3 Neck: no JVD present Lungs: CTA Heart: RRR Abdomen: soft Extremities: other: (No edemas) - Telemetry Telemetry Rhythm: SR 80s - Labs Result Diagrams: 02/25/17 05:50 02/25/17 05:50 Troponin/CKMB CK-MB (CK-2) 11.7 ng/mL (0-6.6) H* 02/23/17 14:45 Troponin I 0.622 ng/mL (< 0.028) H* 02/24/17 05:30 - Assessment/Plan 1. Afib with RVR - Converted back to SR at 0952 today with Amiodarone drip; Will start Amiodarone 200mg PO BID from tonight; cont. monitor on tele 2. ESRD - his K and Cr level are better today; managed by Dr. Raman 3. Hypotension - Stable; Off Levophed at this moment; cont. monitor MAR reviewed Review of Systems - Review of Systems Constitutional: reports: no symptoms reported EENTM: reports: no symptoms reported Respiratory: reports: no symptoms reported Cardiac (ROS): reports: no symptoms reported ABD/GI: reports: no symptoms reported : reports: no symptoms reported Musculoskeletal: reports: no symptoms reported Skin: reports: no symptoms reported <Barrett Solorzano - Last Filed: 02/25/17 12:59> Cardiology Progress Note - Objective Vital Signs Temp Pulse Resp BP Pulse Ox 02/25/17 11:41 97.5 F L 85 20 108/67 02/25/17 09:50 97.9 F 87 18 104/62 97 02/25/17 08:00 97.7 F 86 19 99 02/25/17 07:00 97.7 F Admit Weight 248 lb 7.375 oz Weight 256 lb 6.362 oz 02/24/17 02/25/17 02/26/17 06:59 06:59 06:59 Intake Total 3437 3780 416 Balance 3437 3780 416 - Labs Result Diagrams: 02/25/17 05:50 02/25/17 05:50 Troponin/CKMB CK-MB (CK-2) 11.7 ng/mL (0-6.6) H* 02/23/17 14:45 Troponin I 0.622 ng/mL (< 0.028) H* 02/24/17 05:30 - Assessment/Plan Pt. seen and evaluated. No significant change. Note that the pt. converted back to NSR yest. AM. Echo reveals a moderate pericardial effusion. I discussed this with Dr. Raman and he will try to modify the peritoneal dialysis and see if the effusion will decrease. I agree with the A/P by the SINGLE FOLD MACHINE OPERATOR. Continue po amiodarone .
[2017-02-25] MEDS ORDERED: Epoetin (ESRD) 20,000 UNITS/ML SC SCH (09:15)
--- NOTE | 2017-02-25 09:43 | PRG ---
DATE OF SERVICE: 02/25/2017 SUBJECTIVE: Mr. Kamara is a 51-year-old white male being followed by the Renal Service for his maintenance peritoneal dialysis. He is tolerating current CCPD regimen. His hyperkalemia also has resolved. He feels better this morning. He has no new complaints. The plan is to transfer him to telemetry. PHYSICAL EXAMINATION: VITAL SIGNS: Blood pressure is 106/67, heart rate 86, respiratory rate 19, temperature 97.7, pulse ox 99%. GENERAL: Noted to be awake, alert, comfortable, not in distress. SKIN: Adequate turgor. HEENT: He has pinkish conjunctivae, anicteric sclerae. NECK: No neck mass, no carotid bruits, no JVD. CHEST: No deformities. LUNGS: Clear breath sounds. HEART: Normal sinus rhythm. No murmur, no gallops, no rubs. ABDOMEN: Globular, soft, nontender, no masses. EXTREMITIES: No edema, no deformities. Please note he is positive for PD catheter. MEDICATIONS 02/25/2017 - Reviewed. LABORATORY: 02/25/2017 - White count 8.4, hemoglobin 9.6, hematocrit 29.8. Sodium 134, potassium 5.1, chloride 97, carbon dioxide 19, BUN 117, creatinine 13.28, calcium 7.7. ASSESSMENT AND PLAN: 1. Hyperkalemia, resolved with hemodialysis. Most recent potassium 5.1. 2. End-stage renal disease. Continue current CCPD regimen. Improving creatinine, BUN is still the same at 117. We can consider increasing dialysis time with this patient. I will review another lab work in a.m. 3. Anemia. Start Epogen 10,000 units subcu q. week. 4. Hypertension, much improved. Addendum: Case discussed with Dr. Solorzano - early pericardial tamponad - for pericardial window placement. [facility]
--- NOTE | 2017-02-25 09:46 | PQF ---
CLINICAL DOCUMENTATION IMPROVEMENT CLARIFICATION FORM: ICD-10 Updated PLEASE DO AN ADDENDUM TO THE PROGRESS NOTE WITH ANY DOCUMENTATION UPDATES OR ADDITIONS AND CARRY THROUGH TO DC SUMMARY. THANK YOU. DATE: 02/25 ATTN: DR. ZEKE RAHMAN Please exercise your independent, professional judgment in responding to the clarification form. Clinical indicators are provided on the bottom of this form for your review Please check appropriate box(s): [ ] Shock (please further specify type): [ ] Hypovolemic [ ] Shock Unspecified [ ] Other diagnosis [ ] Unable to determine For continuity of documentation, please document condition throughout progress notes and discharge summary. Thank You. CLINICAL INDICATORS - SIGNS / SYMPTOMS / LABS ER PRESENTATION 02/23: BP 68/41-88/60 HR: 151 ER PHYSICIAN DOCUMENTATION 02/23: PRESENTS WITH N/V/D SINCE THURSDAY. ...PT IS A PERITONEAL DIALYSIS PT & HAS BEEN UNABLE TO DIALYZE SCHEDULED DUE TO ILLNESS. DIAGNOSES: HYPERKALEMIA; DEHYDRATION W/HYPOTENSION PHYSICIAN H&P DOCUMENTATION 02/23: ASSESSMENT/PLAN: 1. HYPOTENSION APPEARS TO BE D/T VOLUME DEPLETION. THE PT IS CURRENTLY RESPONDING TO IVF & NOW WITH SOME NOREPINEPHRINE WITH HIS BLOOD PRESSURE STABLE IN THE LOW 100S. ...MOST LIKELY HE IS VOLUME DEPLETED FROM HIS RECENT DIARRHEA & VOMITING. ATTENDING PN DATED 02/24: STILL REQUIRING SOME LEVOPHED PULMONOLOGY CONSULT DOCUMENTATION 02/24: ASSESSMENT: 4. CLINICALLY DEHYDRATED ; PLAN: 3. LEVOPHED HAS BEEN STARTED TO HELP W/THE BLOOD PRESSURE RISK FACTORS: VOLUME DEPLETION D/T N/V/D METABOLIC ACIDOSIS AFIB W/RVR TREATMENTS: ICU MONITORING IV LEVOPHED (02/23 -) IVF (NS 02/23 - PRESENT) THANK YOU! Dorita (This form is maintained as a part of the permanent medical record) 2014 [employer]. All Rights Reserved Dorita Morton RN, BSN [email or web address] Office: [phone] [facility]
--- NOTE | 2017-02-25 11:10 | PDOC.PN ---
- Subjective Encounter Start Date: 02/25/17 Encounter Start Time: 10:15 doing better today. converted to NSR earlier this morning. no acute night events - Objective Resuscitation Status: Resuscitation Status FULL:Full Resuscitation Vital Signs & Weight: Vital Signs (12 hours) Temp Pulse Resp BP Pulse Ox 02/25/17 09:50 97.9 F 87 18 104/62 97 02/25/17 08:00 97.7 F 86 19 99 02/25/17 07:00 97.7 F 02/25/17 00:00 97.9 F Weight Admit Weight 248 lb 7.375 oz Weight 256 lb 6.362 oz Most Recent Monitor Data Heart Rate from ECG 85 NIBP 113/65 NIBP BP-Mean 95 Respiration from ECG 18 SpO2 97 I&O: 02/24/17 02/25/17 02/26/17 06:59 06:59 06:59 Intake Total 3437 3780 416 Balance 3437 3780 416 Result Diagrams: 02/25/17 05:50 02/25/17 05:50 Phys Exam - Physical Examination Constitutional: NAD HEENT: PERRLA, moist MMs Neck: no JVD Respiratory: no wheezing Cardiovascular: RRR Gastrointestinal: soft, non-tender Musculoskeletal: pulses present Neurological: non-focal Psychiatric: normal affect, A&O x 3 Dx/Plan (1) Hypovolemic shock Code(s): R57.1 - HYPOVOLEMIC SHOCK Status: Acute (2) Atrial fibrillation with RVR Code(s): I48.91 - UNSPECIFIED ATRIAL FIBRILLATION Status: Acute (3) Hyperkalemia Code(s): E87.5 - HYPERKALEMIA Status: Acute Comment: Improved to 5.8 after dialysis yesterday (4) ESRD on peritoneal dialysis Code(s): N18.6 - END STAGE RENAL DISEASE; Z99.2 - DEPENDENCE ON RENAL DIALYSIS Status: Chronic Comment: Dr. Raman managing dialysis - Plan cont current plan of care, plan discussed w/ family * . to be switched to amio PO BID. drip stopped this morning.
[2017-02-25] MEDS ORDERED: Fentanyl 250 MCG/5 ML VIAL ONE (16:54)
[2017-02-25] MEDS ORDERED: Bupivacaine/Epinephrine 0.25% 30 ML VIAL ONE (18:15)
[2017-02-25] MEDS ORDERED: PHENYLEPHRINE-NS 100 MCG/ML 10 ML SYRINGE ONE (18:39)
[2017-02-25] MEDS ORDERED: Ondansetron HCl/PF 4 MG/2 ML Vial ONE (18:39)
[2017-02-25] MEDS ORDERED: Glycopyrrolate 0.2 MG/ML 5 ML SYRINGE ONE (18:39)
[2017-02-25] MEDS ORDERED: Sterile Water 10 ML VIAL ONE (18:39)
[2017-02-25] MEDS ORDERED: CEFAZOLIN 1 GM VIAL ONE (18:39)
[2017-02-25] MEDS ORDERED: Esmolol 100 MG/10 ML VIAL ONE (18:54)
[2017-02-25] MEDS ORDERED: Ondansetron HCl/PF 4 MG/2 ML Vial IVP PRN (18:57)
[2017-02-25] MEDS ORDERED: Promethazine HCl 25 MG/ML VIAL IM PRN (18:57)
[2017-02-25] MEDS ORDERED: Promethazine HCl 25 MG/ML VIAL SLOW IVP PRN (18:57)
--- NOTE | 2017-02-25 20:06 | CON ---
DATE OF CONSULTATION: 02/25/2017 HISTORY OF PRESENT ILLNESS: Mr. Kamara is a 51-year-old gentleman who is admitted to the emergency room. He is on chronic peritoneal dialysis for polycystic kidneys and chronic renal failure. He has had lots of gastrointestinal problems recently and had difficulty dialyzing. While he was in the Intensive Care Unit, echocardiogram was performed showing a large pericardial effusion with right ventricular and right atrial compression and early tamponade signs on mitral valve interrogation. I have been asked to see him to perform a pericardial window. PAST MEDICAL HISTORY: 1. Chronic renal failure. 2. Polycystic kidney disease. 3. Hypertension. 4. Atrial fibrillation PAST SURGICAL HISTORY: 1. Peritoneal dialysis catheter. 2. Bilateral knee surgery. SOCIAL HISTORY: He does not use tobacco or alcohol. ALLERGIES: SULFA. CURRENT MEDICATIONS: Noted. REVIEW OF SYSTEMS: Ten point review of systems is performed and is negative except as above. PHYSICAL EXAMINATION: GENERAL: This is an obese gentleman resting in bed upright. VITAL SIGNS: Height 5 feet 11 inches, weight 256 pounds, BSA is 2.41. Heart rate 86 and regular, blood pressure 108/65. LUNGS: Clear bilaterally. HEART: Tones are muffled with a swish. ABDOMEN: Obese, soft and nontender. Peritoneal dialysis catheter in his right lower quadrant. EXTREMITIES: There is 1-2+ pitting edema. LABORATORY DATA: Hemoglobin is 9.6, platelet count is 208,000. Creatinine is 13.2, potassium is 5.1. ASSESSMENT AND PLAN: This is a morbidly obese gentleman with early pericardial tamponade from poor dialysis via peritoneal catheter. I feel that this is urgent enough that we need to go ahead and proceed this evening with a pericardial window. He shows early tamponade signs on echocardiogram. I have discussed the procedure in detail with him and he is consented. NESTOR
--- NOTE | 2017-02-25 22:05 | OP ---
DATE OF OPERATION: 02/25/2017 PREOPERATIVE DIAGNOSIS: Pericardial effusion with early tamponade. POSTOPERATIVE DIAGNOSIS: Pericardial effusion with early tamponade. PROCEDURE: Pericardial window. SURGEON: Jose Martin Osborne MD ANESTHESIA: General endotracheal. ESTIMATED BLOOD LOSS: Less than 50 mL DRAINS: 24-Setswana Jorge drain. SPECIMENS: 1. Pericardium for routine pathologic exam. 2. Pericardial fluid for cytology and culture. FINDINGS: 700 mL of bloody pericardial fluid. DESCRIPTION OF PROCEDURE: After consent was obtained, the patient was brought to the operating room and placed in the supine position on the operating room table. Appropriate anesthetic monitor was pl aced and general endotracheal anesthesia induced. Chest was prepped and draped in usual sterile fash ion. Skin incision was made over the xiphoid. Xiphoid was excised. Dissection was then carried ashleigh n toward the pericardium. The pericardium was sharply incised and fluid evacuated. A 700 mL total o f bloody fluid was evacuated and sent for the above studies. An approximately 1 square centimeter pi james of pericardium was then removed. After evacuating all the fluid, a 24-Setswana Jorge drain was chilango megan within the pericardium, brought to the chest wall and secured with silk suture. The wound was in filtrated with 0.25% Marcaine with epinephrine. The fascia was closed with 0 Vicryl suture. Wound w as then closed in layers and Dermabond was applied to the skin. The patient tolerated the procedure well, was awakened, extubated, and transferred to the recovery room in stable condition.
[2017-02-26] MEDS: CEFAZOLIN/Water 2 GM/20 ML SYRINGE SLOW IVP SCH ×5 (03:42→20:27)
[2017-02-26] MEDS: Amiodarone HCl 450 MG in Dextrose 5% in Water 250 ML IVPB SCH ×4 (04:20→20:27)
[2017-02-26 06:16] LABS: #Lymphocytes 0.4 thou/uL (1.20-3.40); #Monocytes 0.9 thou/uL (0.11-0.59); #Neutrophils 7.7 thou/uL (1.40-6.50); %Basophils 0.2 % (0.0-1.0); %Eosinophils 0.4 % (0.0-10.0); %Lymphocytes 3.9 % (21.0-51.0); %Monocytes 9.6 % (0.0-10.0); Hematocrit 31.1 % (42.0-52.0); Mean Platelet Volume 8.1 fL (7.4-10.4); Red Blood Cell (RBC) Count 3.36 mill/uL (4.70-6.10); White Blood Cell (WBC) Count 8.9 thou/uL (4.8-10.8)
[2017-02-26 06:36] LABS: Anion Gap 22 mmol/L (10-20); BUN (Urea Nitrogen) 117 mg/dL (8.4-25.7); Calc. Creatinine Clearance 11 mL/min (70-130); Calcium 7.7 mg/dL (7.8-10.44); Carbon Dioxide 20 mmol/L (22-29); Chloride 96 mmol/L (98-107); Estimated GFR-MDRD 4
--- NOTE | 2017-02-26 09:39 | PRG ---
DATE OF SERVICE: 02/26/2017 SERVICE: Renal Medicine. SUBJECTIVE: Mr. Kamara is a 51-year-old white male being followed up for his end-stage renal disea se. He is currently on maintenance peritoneal dialysis. I have extended his peritoneal dialysis fro m 9 hours to a total of 10 hours. Currently, we are using 1.5% PD solution. A cardiology evaluation was done and the patient and was found to have significant pericardial effusion. The concern is patricia t he might be bordering on pericardial tamponade. For this reason, a surgical consult was done and a pericardial window placement was also done. This morning, he is feeling better. He denies any chest pain or shortness of breath. He does compla in of postoperative pain. OBJECTIVE: VITAL SIGNS: Blood pressure is 114/61, heart rate 83, respiratory rate 18, temperature 97.7, pulse o x 94%. GENERAL: Noted to be awake, alert, comfortable, not in overt distress. SKIN: Adequate turgor. HEENT: He has pinkish conjunctivae, anicteric sclerae. NECK: No neck mass, no carotid bruits, no JVD. CHEST: No deformities. LUNGS: Clear breath sounds. HEART: Normal sinus rhythm. No murmur, no gallops, no rubs. Positive for pericardial window tube. ABDOMEN: Globular, soft, nontender, no masses. EXTREMITIES: No edema, no deformities. MEDICATIONS: Of 02/26/2017 was reviewed. LABORATORY DATA: Of 02/26/2017, white count 8.9, hemoglobin 9.9, hematocrit 31.1. Sodium 133, potas sium 5, chloride 96, carbon dioxide 20, BUN 117, creatinine 12.82, glucose 129, calcium 7.7. ASSESSMENT AND PLAN: 1. Pericardial effusion - status post pericardial window placement, doing well. Surgery is followin g. 2. End-stage renal disease - stable. We will continue current peritoneal dialysis regimen. Please note, his peritoneal dialysis time has increased from 9 hours to 10 hours to max out fluid removal wi th this patient. We may need to consider changing the PD solution with 1.5% alternating with 2.5% PD solution. The patient has history of compliance issues regarding with his dialysis regimen in the p ast. 3. Anemia - patient started on weekly Epogen. Overall, agree with current management.
--- NOTE | 2017-02-26 10:07 | RAD ---
PORTABLE AP CHEST: Date: 02/26/17 HISTORY: Post pericardial window. COMPARISON: 02/23/17. FINDINGS: Cardiac silhouette is magnified by projection, but does appear mildly enlarged. There are increased i nterstitial densities in the perihilar regions bilaterally, which may be related to atelectasis. Bron chovascular markings are accentuated by shallow depth of inspiration. Radiopaque tubing overlies the upper abdomen and lower aspect of the mediastinum. No pneumothorax is seen. Pulmonary vasculature is within normal limits. No other interval change. IMPRESSION: 1. Enlargement of the cardiac silhouette. 2. Increased perihilar and interstitial densities, probably related to atelectasis. 3. Radiopaque tubing overlying the upper abdomen and lower mediastinum. POS: [facility]
--- NOTE | 2017-02-26 11:18 | PDOC.PN ---
- Subjective Encounter Start Date: 02/26/17 Encounter Start Time: 11:16 Patient seen at bedside. No overnight events, no new complaints. - Objective Resuscitation Status: Resuscitation Status FULL:Full Resuscitation MAR Reviewed: Yes Vital Signs & Weight: Vital Signs (12 hours) Temp Pulse Resp BP Pulse Ox 02/26/17 08:33 97.7 F 83 18 114/61 94 L 02/26/17 08:10 97.7 F 83 18 02/26/17 04:00 97.6 F 75 20 109/70 Weight Admit Weight 248 lb 7.375 oz Weight 254 lb 11.2 oz Most Recent Monitor Data Heart Rate from ECG 85 NIBP 113/65 NIBP BP-Mean 95 Respiration from ECG 18 SpO2 97 I&O: 02/25/17 02/26/17 02/27/17 06:59 06:59 06:59 Intake Total 3780 1288 Output Total 30 Balance 3780 1258 Result Diagrams: 02/26/17 06:00 02/26/17 06:00 Phys Exam - Physical Examination Constitutional: NAD HEENT: moist MMs Respiratory: clear to auscultation bilateral Cardiovascular: irregular Gastrointestinal: soft Musculoskeletal: pulses present Psychiatric: A&O x 3 Deviation from normal: Surgical site clean Dx/Plan (1) Pericardial effusion Code(s): I31.3 - PERICARDIAL EFFUSION (NONINFLAMMATORY) Status: Acute Comment: s/p Pericardial window (2) Atrial fibrillation with RVR Code(s): I48.91 - UNSPECIFIED ATRIAL FIBRILLATION Status: Acute (3) ESRD on peritoneal dialysis Code(s): N18.6 - END STAGE RENAL DISEASE; Z99.2 - DEPENDENCE ON RENAL DIALYSIS Status: Chronic Comment: Dr. Raman managing dialysis - Plan cont current plan of care, plan discussed w/ family, PT/OT, administrator social welfare, DVT proph w/SCDs * Continue with postoperative care per [facility]. * Monitor ROSA drainage * Dialysis per Nephrology * Daily labs * Amiodarone IV for atrial fibrillation *
--- NOTE | 2017-02-26 17:21 | PRG ---
DATE OF SERVICE: 02/26/2017 SUBJECTIVE: Mr. Kamara is doing well, no chest pain or pressure noted. He recently had a pericard ial window with 700 mL is removed. OBJECTIVE: VITAL SIGNS: Blood pressure 114/61, pulse 83, and temperature 97.7. LUNGS: Clear to auscultation. HEART: Regular rate and rhythm. ABDOMEN: Soft, nontender, nondistended. EXTREMITIES: No edema. IMPRESSION: 1. Pericardial effusion status post window. 2. End-stage renal disease. RECOMMENDATIONS: 1. Continue current treatment. 2. CV surgery following. 3. Continue amiodarone IV, would change to p.o.
[2017-02-27] MEDS: Sodium Chloride 0.9% 1,000 ML IV SCH (03:49)
[2017-02-27 06:06] LABS: #Eosinphils 0.1 thou/uL (0.0-0.7); #Lymphocytes 0.6 thou/uL (1.20-3.40); #Monocytes 1.2 thou/uL (0.11-0.59); %Basophils 0.1 % (0.0-1.0); %Eosinophils 0.9 % (0.0-10.0); %Lymphocytes 5.7 % (21.0-51.0); %Monocytes 10.9 % (0.0-10.0); Hematocrit 32.8 % (42.0-52.0); Mean Platelet Volume 7.9 fL (7.4-10.4); Red Blood Cell (RBC) Count 3.55 mill/uL (4.70-6.10); White Blood Cell (WBC) Count 10.9 thou/uL (4.8-10.8)
[2017-02-27 06:25] LABS: Anion Gap 21 mmol/L (10-20); BUN (Urea Nitrogen) 113 mg/dL (8.4-25.7); Calc. Creatinine Clearance 12 mL/min (70-130); Calcium 7.9 mg/dL (7.8-10.44); Carbon Dioxide 20 mmol/L (22-29); Chloride 97 mmol/L (98-107); Estimated GFR-MDRD 4
--- NOTE | 2017-02-27 10:17 | PDOC.PN ---
- Subjective Encounter Start Date: 02/27/17 Encounter Start Time: 10:15 Patient seen at bedside. Overnight converted to NSR. Still feels weak, with mild SOB. - Objective Resuscitation Status: Resuscitation Status FULL:Full Resuscitation Vital Signs & Weight: Vital Signs (12 hours) Temp Pulse Resp BP Pulse Ox 02/27/17 09:08 97.2 F L 100 16 120/69 97 02/27/17 03:51 97.5 F L 88 20 109/76 Weight Admit Weight 248 lb 7.375 oz Weight 255 lb 14.4 oz Most Recent Monitor Data Heart Rate from ECG 85 NIBP 113/65 NIBP BP-Mean 95 Respiration from ECG 18 SpO2 97 I&O: 02/26/17 02/27/17 02/28/17 06:59 06:59 06:59 Intake Total 1288 1387 Output Total 30 551 Balance 1258 836 Result Diagrams: 02/27/17 05:55 02/27/17 05:55 Phys Exam - Physical Examination Constitutional: NAD HEENT: moist MMs Neck: no JVD Respiratory: clear to auscultation bilateral Cardiovascular: RRR Gastrointestinal: soft Musculoskeletal: pulses present Neurological: moves all 4 limbs Psychiatric: A&O x 3 Deviation from normal: ROSA Drain in place Dx/Plan (1) Pericardial effusion Code(s): I31.3 - PERICARDIAL EFFUSION (NONINFLAMMATORY) Status: Acute Comment: s/p Pericardial window (2) Atrial fibrillation with RVR Code(s): I48.91 - UNSPECIFIED ATRIAL FIBRILLATION Status: Resolved (3) ESRD on peritoneal dialysis Code(s): N18.6 - END STAGE RENAL DISEASE; Z99.2 - DEPENDENCE ON RENAL DIALYSIS Status: Chronic Comment: Dr. Raman managing dialysis - Plan cont current plan of care, PT/OT, social insurance administrator, out of bed/ambulate, DVT proph w/SCDs * Continue with Amiodarone. Transition to PO when ok with cardiology. * Will hold anticoagulation due to bloody pericardial effusion. Will D/W cardiology at time of discharge * Monitor ROSA drain output * Incentive spirometer * Dialysis per nephrology * OOB as tolerates *
--- NOTE | 2017-02-27 11:03 | PRG ---
DATE OF SERVICE: 02/27/2017 SUBJECTIVE: Mr. Kamara is a 51-year-old white male with ESRD and being followed up by the Renal Service for his peritoneal dialysis. He did develop pericardial effusion with early tamponade. Pericardial window has been placed. Last night he complained of some belly pain with the drainage of the peritoneal dialysis. The plan is to place him back on a 1.5% PD solution and placing a tidal volume to cushion the draining of the PD fluid. He agrees with this current management. He voices no complaints of chest pain. However, he had some shortness of breath on exertion. PHYSICAL EXAMINATION: VITAL SIGNS: Blood pressure 120/69, heart rate 100, respiratory rate 16, temperature 97.2, pulse ox 97%. GENERAL: Noted to be awake, supine, obese, not in distress. SKIN: Adequate turgor. HEENT: He has slightly pale conjunctivae, anicteric sclerae. NECK: No neck mass, no carotid bruits, no JVD. CHEST: No deformities. LUNGS: Decreased breath sounds. HEART: Normal sinus rhythm. No murmur, no gallops, no rubs. ABDOMEN: Globular, soft, nontender, no masses. Positive for PD catheter. EXTREMITIES: Trace edema. MEDICATIONS: 02/27/2017 - Reviewed. LABORATORY: 02/27/2017 - White count 10.9, hemoglobin 10.3. Sodium 133, potassium 4.5, chloride 97, carbon dioxide 20, BUN 113, creatinine 12.43, glucose 112, calcium 7.9. ASSESSMENT AND PLAN: 1. End-stage renal disease, stable. I have increased his dialysis time - peritoneal dialysis total of 10 hours. Currently, requesting to go down to his fill volume. Currently, he is a 2 liter fill volume. I will try to use a 2 liter volume. If the patient declines he can go to 1.5 fill volume. I did advise against this with the patient. 2. Anemia, will resume continuing weekly Epogen 10,000 units daily. 3. History of hyperphosphatemia. I would start this patient back on PhosLo 667 mg 2 tabs t.i.d. 4. Pericardial effusion - s/p pericardial window placement - Stable; surgery following with meals. MTDD
[2017-02-27] MEDS: Calcium Acetate 667 MG CAP PO SCH ×2 (11:50→17:38)
[2017-02-28] MEDS: Calcium Acetate 667 MG CAP PO SCH ×3 (08:20→18:30)
--- NOTE | 2017-02-28 10:51 | PDOC.PN ---
- Subjective Encounter Start Date: 02/28/17 Encounter Start Time: 09:30 Subjective: no sob, has pain around surgical site - Objective Resuscitation Status: Resuscitation Status FULL:Full Resuscitation MAR Reviewed: Yes Vital Signs & Weight: Vital Signs (12 hours) Temp Pulse Resp BP Pulse Ox 02/28/17 08:20 98.1 F 116 H 18 102/70 100 02/28/17 04:25 97.1 F L 101 H 18 124/78 100 02/28/17 00:15 100 Weight Admit Weight 248 lb 7.375 oz Weight 256 lb 4.8 oz Most Recent Monitor Data Heart Rate from ECG 85 NIBP 113/65 NIBP BP-Mean 95 Respiration from ECG 18 SpO2 97 I&O: 02/27/17 02/28/17 03/01/17 06:59 06:59 06:59 Intake Total 1387 620 Output Total 551 441 Balance 836 179 Result Diagrams: 02/27/17 05:55 02/27/17 05:55 Phys Exam - Physical Examination HEENT: PERRLA, moist MMs Neck: no JVD, supple Respiratory: no wheezing, no rales Cardiovascular: no significant murmur, irregular pericardial drain+ Gastrointestinal: soft, non-tender, positive bowel sounds Musculoskeletal: pulses present, edema present Neurological: non-focal, moves all 4 limbs Psychiatric: A&O x 3 Dx/Plan (1) Pericardial effusion Code(s): I31.3 - PERICARDIAL EFFUSION (NONINFLAMMATORY) Status: Acute Comment: s/p Pericardial window with removal of 700ml 02/25/17 (2) Hypoalbuminemia Code(s): E88.09 - OTH DISORDERS OF PLASMA-PROTEIN METABOLISM, NEC Status: Chronic (3) Metabolic acidosis Code(s): E87.2 - ACIDOSIS Status: Acute (4) ESRD on peritoneal dialysis Code(s): N18.6 - END STAGE RENAL DISEASE; Z99.2 - DEPENDENCE ON RENAL DIALYSIS Status: Chronic Comment: Dr. Raman managing dialysis (5) Atrial fibrillation with RVR Code(s): I48.91 - UNSPECIFIED ATRIAL FIBRILLATION Status: Resolved (6) Hypotension Status: Resolved - Plan his renal function numbers are still very high -: high protein diet -: afib per cardio advice, not on any av marly blockers now -: alb is low at 2.8 due to renal disease -: sbp around 100 * . Review of Systems - Medications/Allergies Allergies/Adverse Reactions: Allergies Allergy/AdvReac Type Severity Reaction Status Date / Time iron Allergy Verified 02/23/17 17:27 Sulfa (Sulfonamide Allergy Verified 02/23/17 17:27 Antibiotics) Medications: Current Medications Acetaminophen (Tylenol) 650 mg PO Q4H PRN PRN Reason: Headache/Fever or Pain Last Admin: 02/26/17 08:48 Dose: 650 mg Bisacodyl (Dulcolax) 10 mg PO DAILYPRN PRN PRN Reason: Constipation Calcium Acetate (Phoslo) 1,334 mg PO TID-[facility] Last Admin: 02/28/17 08:20 Dose: 1,334 mg Epoetin Ayaz (Procrit) 10,000 units SC Q7D [facility] Last Admin: 02/25/17 11:29 Dose: 10,000 units Ondansetron HCl (Zofran Odt) 4 mg PO Q6H PRN PRN Reason: Nausea/Vomiting Ondansetron HCl (Zofran) 4 mg IVP Q6H PRN PRN Reason: Nausea/Vomiting Pantoprazole Sodium (Protonix) 40 mg PO DAILY [facility] Last Admin: 02/28/17 08:20 Dose: 40 mg Sodium Chloride (Flush - Normal Saline) 10 ml IVF Q12HR [facility] Last Admin: 02/28/17 08:20 Dose: 10 ml Sodium Chloride (Flush - Normal Saline) 10 ml IVF PRN PRN PRN Reason: Saline Flush
--- NOTE | 2017-02-28 14:50 | PRG ---
DATE OF SERVICE: 02/28/2017 SERVICE: Renal Medicine. SUBJECTIVE: Mr. Kamara was admitted with a history of hypertension. He was found to have very sig nificant pericardial effusion with early tamponade. Pericardial window has been placed. His speakin g is slowly improving. He still complains of some abdominal pain during the drainage of the PD early this morning. Otherwise, he was tolerating the current peritoneal dialysis. We are currently using a fill volume 2 liters with 1.5% PD solution. No other new complaints. OBJECTIVE: VITAL SIGNS: Blood pressure 124/78, heart rate 101, respiratory rate 18, temperature 97.1, pulse ox 100%. GENERAL: Noted to be awake, supine, comfortable, obese, not in distress. SKIN: Adequate turgor. HEENT: He has pinkish conjunctivae, anicteric sclerae. NECK: No neck mass, no carotid bruits, no JVD. CHEST: No deformities. LUNGS: Clear breath sounds. No wheezing, no crackles. HEART: Normal sinus rhythm. No murmur, no gallops, no rubs. ABDOMEN: Globular, soft, nontender, no masses. Positive for PD catheter. EXTREMITIES: No edema. MEDICATIONS: Medications of 02/28/2017 reviewed. LABORATORY DATA: Laboratories of 02/27/2017, white count 10.9, hemoglobin 10.3, sodium 133, potassiu m 4.5, chloride 97, carbon dioxide 20, BUN 113, creatinine 12.43, calcium 7.9. Troponin I 0.6-2. ASSESSMENT AND PLAN: 1. Early pericardial tamponade -- status post pericardial window placement, doing well. Shortness o f breath is improving. 2. End-stage renal disease, stable. We will continue current peritoneal dialysis regimen -- CCPD. Of interest, this patient does not do CCPD at home, but he does 5 exchanges with his PD. 3. Anemia. We will continue current weekly Epogen with this patient. Continue supportive care. Re check base met and CBC in a.m.
--- NOTE | 2017-02-28 16:26 | PDOC.CTH ---
Cardiology Progress Note - Subjective Mr Asad is doing well. he had his drain removed and is doing well. He is cursing a lot during our visit. He does not like to be in the hospital and does not like hospital personnel no matter who you are or how well you treat him. - Objective Vital Signs Temp Pulse Pulse Pulse Resp BP BP 02/28/17 15:20 97.9 F 106 H 12 02/28/17 15:15 106 H 109 H 118/72 127/63 02/28/17 12:55 97.7 F 100 16 02/28/17 08:20 98.1 F 116 H 18 02/28/17 04:25 97.1 F L 101 H 18 BP Pulse Ox 02/28/17 15:20 118/72 98 02/28/17 15:15 02/28/17 12:55 116/57 L 100 02/28/17 08:20 102/70 100 02/28/17 04:25 124/78 100 Admit Weight 248 lb 7.375 oz Weight 256 lb 4.8 oz 02/27/17 02/28/17 03/01/17 06:59 06:59 06:59 Intake Total 1387 620 Output Total 551 441 Balance 836 179 - Physical Examination General/Neuro: alert & oriented x3, NAD Neck: no JVD present Lungs: CTA Heart: RRR Abdomen: NT/ND Extremities: + edema B (2+) - Telemetry Telemetry Rhythm: NSR - Labs Result Diagrams: 02/27/17 05:55 02/27/17 05:55 Troponin/CKMB CK-MB (CK-2) 11.7 ng/mL (0-6.6) H* 02/23/17 14:45 Troponin I 0.622 ng/mL (< 0.028) H* 02/24/17 05:30 - Assessment/Plan 1. Pericardial effusion 2. Tamponade physiology 3. S/P Window. 4. ESRD PLAN: - Will switch Amio to PO. - Repeat echo tomorrow.
[2017-03-01] MEDS ORDERED: Metoprolol Tartrate 5 MG/5 ML VIAL IVP SCH (03:45)
[2017-03-01 08:21] LABS: Anion Gap 20 mmol/L (10-20); BUN (Urea Nitrogen) 116 mg/dL (8.4-25.7); Calc. Creatinine Clearance 12 mL/min (70-130); Calcium 8.6 mg/dL (7.8-10.44); Carbon Dioxide 24 mmol/L (22-29); Chloride 96 mmol/L (98-107); Estimated GFR-MDRD 4
[2017-03-01] MEDS: Calcium Acetate 667 MG CAP PO SCH ×3 (08:35→17:45)
--- NOTE | 2017-03-01 08:45 | EKG ---
Test Reason : Blood Pressure : / mmHG Vent. Rate : 123 BPM Atrial Rate : 092 BPM P-R Int : 000 ms QRS Dur : 120 ms QT Int : 308 ms P-R-T Axes : 000 041 043 degrees QTc Int : 440 ms Atrial fibrillation with rapid ventricular response Low voltage QRS Non-specific intra-ventricular conduction delay Nonspecific T wave abnormality Abnormal ECG When compared with ECG of 22-JAN-2011 11:41, Atrial fibrillation has replaced Sinus rhythm Questionable change in QRS duration Confirmed by Gisela TINOCO ([id number]) on 03/01/2017 8:45:12 AM Referred By: ZACH Confirmed By:Gisela TINOCO
--- NOTE | 2017-03-01 09:59 | PDOC.PN ---
- Subjective Encounter Start Date: 03/01/17 Encounter Start Time: 09:10 Subjective: no chest pain/palp or sob now -: had an episode of things going anticlockwise last night - Objective Resuscitation Status: Resuscitation Status FULL:Full Resuscitation MAR Reviewed: Yes Vital Signs & Weight: Vital Signs (12 hours) Pulse BP Pulse Ox 03/01/17 03:07 51 L 123/78 03/01/17 02:53 92 L Weight Admit Weight 248 lb 7.375 oz Weight 260 lb 8 oz Most Recent Monitor Data Heart Rate from ECG 85 NIBP 113/65 NIBP BP-Mean 95 Respiration from ECG 18 SpO2 97 I&O: 02/28/17 03/01/17 03/02/17 06:59 06:59 06:59 Intake Total 620 840 Output Total 441 1180 Balance 179 -340 Result Diagrams: 02/27/17 05:55 03/01/17 07:25 Phys Exam - Physical Examination HEENT: PERRLA, moist MMs Neck: no JVD, supple Respiratory: no wheezing, no rales Cardiovascular: RRR, no significant murmur Gastrointestinal: soft, non-tender, positive bowel sounds abd wall edema+ Musculoskeletal: pulses present, edema present Neurological: non-focal, moves all 4 limbs Psychiatric: A&O x 3 Dx/Plan (1) Pericardial effusion Code(s): I31.3 - PERICARDIAL EFFUSION (NONINFLAMMATORY) Status: Acute Comment: s/p Pericardial window with removal of 700ml 02/25/17 (2) Hypoalbuminemia Code(s): E88.09 - OTH DISORDERS OF PLASMA-PROTEIN METABOLISM, NEC Status: Chronic (3) Metabolic acidosis Code(s): E87.2 - ACIDOSIS Status: Acute (4) ESRD on peritoneal dialysis Code(s): N18.6 - END STAGE RENAL DISEASE; Z99.2 - DEPENDENCE ON RENAL DIALYSIS Status: Chronic Comment: Dr. Raman managing dialysis (5) Atrial fibrillation with RVR Code(s): I48.91 - UNSPECIFIED ATRIAL FIBRILLATION Status: Resolved (6) Hypotension Status: Resolved - Plan is on amiodarone, this am pt is in sinus rhythm -: had an episode of rvr with hr going to 160's, got lopressor iv 5mgx1 -: dc plan per cardio advice -: not sure if he is compliant with PD at home? -: still has elevated renal function, low alb and anasarca * . Review of Systems - Medications/Allergies Allergies/Adverse Reactions: Allergies Allergy/AdvReac Type Severity Reaction Status Date / Time iron Allergy Verified 02/23/17 17:27 Sulfa (Sulfonamide Allergy Verified 02/23/17 17:27 Antibiotics) Medications: Current Medications Acetaminophen (Tylenol) 650 mg PO Q4H PRN PRN Reason: Headache/Fever or Pain Last Admin: 02/26/17 08:48 Dose: 650 mg Amiodarone HCl (Cordarone) 400 mg PO BID [facility] Last Admin: 02/28/17 21:25 Dose: 400 mg Bisacodyl (Dulcolax) 10 mg PO DAILYPRN PRN PRN Reason: Constipation Calcium Acetate (Phoslo) 1,334 mg PO TID-F [facility] Last Admin: 03/01/17 08:35 Dose: 1,334 mg Epoetin Ayaz (Procrit) 10,000 units SC Q7D [facility] Last Admin: 02/25/17 11:29 Dose: 10,000 units Ondansetron HCl (Zofran Odt) 4 mg PO Q6H PRN PRN Reason: Nausea/Vomiting Ondansetron HCl (Zofran) 4 mg IVP Q6H PRN PRN Reason: Nausea/Vomiting Pantoprazole Sodium (Protonix) 40 mg PO DAILY [facility] Last Admin: 03/01/17 08:35 Dose: 40 mg Sodium Chloride (Flush - Normal Saline) 10 ml IVF Q12HR [facility] Last Admin: 03/01/17 08:36 Dose: 10 ml Sodium Chloride (Flush - Normal Saline) 10 ml IVF PRN PRN PRN Reason: Saline Flush
[2017-03-01 10:04] LABS: #Eosinphils 0.2 thou/uL (0.0-0.7); #Lymphocytes 0.8 thou/uL (1.20-3.40); #Monocytes 1.1 thou/uL (0.11-0.59); #Neutrophils 13.9 thou/uL (1.40-6.50); %Eosinophils 1.4 % (0.0-10.0); %Lymphocytes 4.9 % (21.0-51.0); %Monocytes 6.9 % (0.0-10.0); Hematocrit 33.2 % (42.0-52.0); Mean Platelet Volume 7.9 fL (7.4-10.4); Red Blood Cell (RBC) Count 3.58 mill/uL (4.70-6.10)
[2017-03-01] MEDS: Amiodarone HCl 450 MG, Admixture Fee 1 EACH in Dextrose 5% in Water 250 ML IVPB SCH ×3 (11:12)
--- NOTE | 2017-03-01 15:04 | PRG ---
DATE OF SERVICE: 03/01/2017 SUBJECTIVE: Mr. Kamara is a 51-year-old white male with ESRD - currently on peritoneal dialysis, d eveloped rapid atrial fibrillation. He was restarted back on his IV amiodarone. He was complaining of some visual changes with IV amiodarone. My plan is to hold the p.o. amiodarone while he is on IV amiodarone. No complaints of chest pain or shortness of breath. He is tolerating the current perito juan dialysis. PHYSICAL EXAMINATION: VITAL SIGNS: Blood pressure is 109/71, heart rate is 118, respiratory rate 18, temperature 96.8, pul se ox 95%. GENERAL: Noted to be awake, alert, comfortable, obese. SKIN: Adequate turgor. HEENT: He has pinkish conjunctivae, anicteric sclerae. NECK: No neck mass, no carotid bruits, no JVD. CHEST: No deformities. LUNGS: Clear breath sounds. HEART: Normal sinus rhythm. No murmur, no gallops, no rubs. ABDOMEN: Globular, soft, nontender, no masses. Positive for PD catheter. EXTREMITIES: No edema. MEDICATIONS: on 03/01/2017 reviewed. LABORATORY: From 03/01/2017, white count 16, hemoglobin 10.7. Sodium 135, potassium 4.6, chloride 9 6, carbon dioxide 24, BUN 116, creatinine 12.37, glucose 90, calcium 8.6. ASSESSMENT AND PLAN: 1. End-stage renal disease, stable. Continue current continuous cycling peritoneal dialysis regimen . Peritoneal dialysis time is currently noted at 10 hours. No changes to be made today. 2. Atrial fibrillation - rapid rate - restarted intravenous amiodarone. P.o. amiodarone is currentl y on hold. 3. Anemia, on weekly Epogen. 4. Pericardial effusion - status post pericardial window placement, doing well. Agree with current management.
--- NOTE | 2017-03-01 15:11 | PDOC.CTH ---
Cardiology Progress Note - Subjective He is doing well. No new issues. He remains very belligerent to staff. - Objective Vital Signs Temp Pulse Resp BP Pulse Ox 03/01/17 11:15 97.4 F L 20 109/71 03/01/17 09:45 96/57 L 03/01/17 09:15 96.8 F L 118 H 18 96/57 L 95 Admit Weight 248 lb 7.375 oz Weight 260 lb 8 oz 02/28/17 03/01/17 03/02/17 06:59 06:59 06:59 Intake Total 620 840 Output Total 441 1180 Balance 179 -340 - Physical Examination General/Neuro: alert & oriented x3, NAD Neck: no JVD present Lungs: unlabored respirations Heart: other: (Irreg) Abdomen: NT/ND Extremities: + edema B (2+) - Telemetry Telemetry Rhythm: Afib HR 110's. - Labs Result Diagrams: 03/01/17 09:57 03/01/17 07:25 Troponin/CKMB CK-MB (CK-2) 11.7 ng/mL (0-6.6) H* 02/23/17 14:45 Troponin I 0.622 ng/mL (< 0.028) H* 02/24/17 05:30 - Assessment/Plan 1. Pericardial effusion 2. Tamponade physiology 3. S/P Window. 4. ESRD 5. Afib rvr PLAN: - Rate control better now that we switched back to amiodarone drip. - Repeat echo shows trace effusion, no tamponade. Large pleural effusion .
[2017-03-02] MEDS: Amiodarone HCl 450 MG, Admixture Fee 1 EACH in Dextrose 5% in Water 250 ML IVPB SCH ×3 (02:59)
[2017-03-02] MEDS ORDERED: Terazosin HCl 5 MG CAP PO SCH ×2 (08:15→21:00)
--- NOTE | 2017-03-02 08:50 | PRG ---
DATE OF SERVICE: 03/02/2017 SUBJECTIVE: Mr. Kamara is a 51-year-old white male with ERSD - currently on maintenance CCPD. No peritoneal dialysis - and also developed early tamponade. He underwent a pericardial window placemen t. He has also developed intermittent atrial fibrillation and has been placed on IV amiodarone. He is complaining about PhosLo is making his stomach upset. We will discontinue the PhosLo. He wants t o take his home medications - phosphate binders. I told him he can do that, but he needs to notified the nurse. No complaints of chest pain or shortness of breath. PHYSICAL EXAMINATION: VITAL SIGNS: Blood pressure 101/59, heart rate 77, respiratory rate 18, temperature 97.6, pulse ox 9 7%. GENERAL: Noted to be awake, supine, comfortable, obese, not in distress. SKIN: Adequate turgor. HEENT: He has pinkish conjunctivae, anicteric sclerae. NECK: No neck mass, no carotid bruits, no JVD. CHEST: No deformities. LUNGS: Clear breath sounds. No wheezing, no crackles. HEART: Normal sinus rhythm. No murmur, no gallops or rubs. ABDOMEN: Globular, soft, nontender. No masses. Positive for PD catheter. EXTREMITIES: Trace edema. MEDICATIONS: 03/02/2017 - Reviewed. LABORATORY: 03/01/2017 - White count 16, hemoglobin 10.7. Sodium 135, potassium 4.6, chloride 96, c arbon dioxide 24, BUN 116, creatinine 12.37, glucose 90, calcium 8.6. ASSESSMENT AND PLAN: 1. Hyperphosphatemia - the patient is declining PhosLo. We will convert back to his home medication s - phosphate binders of Renvela and Arixia. Note; the patient told to notify the nurse. 2. End-stage renal disease, stable. Continue current continuous cycling peritoneal dialysis regimen . No changes to be made. The patient is declining to make any adjustments with his peritoneal dialy sis. 3. Anemia, continuing weekly Epogen. 4. Early pericardial tamponade - status post pericardial window placement, doing well. Surgery is f ollowing. Recheck basic met and CBC in a.m.
[2017-03-02] MEDS ORDERED: Sevelamer Carbonate 800 MG TAB PO SCH (09:00)
[2017-03-02] MEDS ORDERED: Calcitriol 0.25 MCG CAP PO SCH (09:00)
[2017-03-02] MEDS: Calcium Acetate 667 MG CAP PO SCH (09:00)
--- NOTE | 2017-03-02 09:13 | PDOC.CTH ---
Cardiology Progress Note - Subjective Pt. seen and evaluated. He converted back to NSR after about 12 hours of Afib/ flutter. He denies any cardiac complaints. He feels that he had an adverse reaction to po amiodarone. No problem with IV amiodarone.. - Objective Vital Signs Temp Pulse Resp BP Pulse Ox 03/02/17 08:29 97.6 F 77 20 167/94 H 03/02/17 04:00 97.6 F 77 18 101/59 L 97 03/02/17 00:15 83 107/58 L Admit Weight 248 lb 7.375 oz Weight 257 lb 14.4 oz 03/01/17 03/02/17 03/03/17 06:59 06:59 06:59 Intake Total 840 1020 Output Total 1180 Balance -340 1020 - Physical Examination General/Neuro: alert & oriented x3 Lungs: CTA Heart: RRR Abdomen: NT/ND, soft Other PE findings: some discomfort with movement around the central line site in the R groin. - Labs Result Diagrams: 03/01/17 09:57 03/01/17 07:25 Troponin/CKMB CK-MB (CK-2) 11.7 ng/mL (0-6.6) H* 02/23/17 14:45 Troponin I 0.622 ng/mL (< 0.028) H* 02/24/17 05:30 - Assessment/Plan 1. Pericardial effusion: resolved. 2. Tamponade physiology. Resolved. 3. S/P Window. 4. ESRD. on peritoneal dialysis. refuses hemodialysis. 5. Afib / flutter with rvr. On IV amio and back in NSR. He feels that he had an adverse reaction to po Amio. but this occurred 10 min after he took the medication. The options are to try po amio again or multaq. I will ask EP to see him, not only for the Afib but for the flutter. This may be atypical fib. but if flutter he may need an ablation to control the rate. PLAN: - back in NSR now that we switched back to amiodarone drip. - Repeat echo shows trace effusion, no tamponade. Large pleural effusion . Review of Systems - Review of Systems Respiratory: reports: no symptoms reported Cardiac (ROS): reports: no symptoms reported ABD/GI: reports: no symptoms reported Musculoskeletal: reports: no symptoms reported
--- NOTE | 2017-03-02 09:37 | PDOC.PN ---
- Subjective Encounter Start Date: 03/02/17 Encounter Start Time: 08:00 Subjective: no sob or chest pain or palp now -: tolerating iv amio with no untoward events - Objective Resuscitation Status: Resuscitation Status FULL:Full Resuscitation MAR Reviewed: Yes Vital Signs & Weight: Vital Signs (12 hours) Temp Pulse Resp BP Pulse Ox 03/02/17 08:29 97.6 F 77 20 167/94 H 03/02/17 04:00 97.6 F 77 18 101/59 L 97 03/02/17 00:15 83 107/58 L Weight Admit Weight 248 lb 7.375 oz Weight 257 lb 14.4 oz Most Recent Monitor Data Heart Rate from ECG 85 NIBP 113/65 NIBP BP-Mean 95 Respiration from ECG 18 SpO2 97 I&O: 03/01/17 03/02/17 03/03/17 06:59 06:59 06:59 Intake Total 840 1020 Output Total 1180 Balance -340 1020 Result Diagrams: 03/01/17 09:57 03/01/17 07:25 Phys Exam - Physical Examination HEENT: PERRLA, moist MMs Neck: no JVD, supple Respiratory: no wheezing, no rales Cardiovascular: RRR, no significant murmur Gastrointestinal: soft, non-tender, positive bowel sounds Musculoskeletal: pulses present, edema present Neurological: non-focal, moves all 4 limbs Psychiatric: A&O x 3 Dx/Plan (1) Pericardial effusion Code(s): I31.3 - PERICARDIAL EFFUSION (NONINFLAMMATORY) Status: Acute Comment: s/p Pericardial window with removal of 700ml 02/25/17 (2) Hypoalbuminemia Code(s): E88.09 - OTH DISORDERS OF PLASMA-PROTEIN METABOLISM, NEC Status: Chronic (3) Metabolic acidosis Code(s): E87.2 - ACIDOSIS Status: Acute (4) ESRD on peritoneal dialysis Code(s): N18.6 - END STAGE RENAL DISEASE; Z99.2 - DEPENDENCE ON RENAL DIALYSIS Status: Chronic Comment: Dr. Raman managing dialysis (5) Atrial fibrillation with RVR Code(s): I48.91 - UNSPECIFIED ATRIAL FIBRILLATION Status: Chronic Comment: in sinus rhythm now (6) Hypotension Status: Resolved - Plan pt is on iv amio, d/w and -: EP consultation -: will get PICC line for access, he wants his femoral central line removed -: PT to mobilize pt as tolerated -: stool for cdiff (diarrhea 2-3 times) * . is ok with his renal numbers and to continue PD as of now. Pt refuses HD anyway. Review of Systems - Medications/Allergies Allergies/Adverse Reactions: Allergies Allergy/AdvReac Type Severity Reaction Status Date / Time iron Allergy Verified 02/23/17 17:27 Sulfa (Sulfonamide Allergy Verified 02/23/17 17:27 Antibiotics) Medications: Current Medications Acetaminophen (Tylenol) 650 mg PO Q4H PRN PRN Reason: Headache/Fever or Pain Last Admin: 02/26/17 08:48 Dose: 650 mg Amiodarone HCl (Cordarone) 400 mg PO BID [facility] Last Admin: 03/02/17 09:12 Dose: Not Given Bisacodyl (Dulcolax) 10 mg PO DAILYPRN PRN PRN Reason: Constipation Calcitriol (Rocaltrol) 0.5 mcg PO DAILY [facility] Last Admin: 03/02/17 09:12 Dose: Not Given Cholecalciferol (Vitamin D3) 200 units PO DAILY [facility] Epoetin Ayaz (Procrit) 10,000 units SC Q7D [facility] Last Admin: 02/25/17 11:29 Dose: 10,000 units Amiodarone HCl 450 mg/Miscellaneous Medication 1 each/ Dextrose/Water 259 mls @ 0 mls/hr IVPB INF PATRICIA; As Directed PRN Reason: Protocol Last Admin: 03/02/17 02:59 Dose: 259 mls Ondansetron HCl (Zofran Odt) 4 mg PO Q6H PRN PRN Reason: Nausea/Vomiting Ondansetron HCl (Zofran) 4 mg IVP Q6H PRN PRN Reason: Nausea/Vomiting Pantoprazole Sodium (Protonix) 40 mg PO DAILY [facility] Last Admin: 03/01/17 08:35 Dose: 40 mg Sevelamer Carbonate (Renvela) 2,400 mg PO TID PATRIC[facility] Sodium Chloride (Flush - Normal Saline) 10 ml IVF Q12HR [facility] Last Admin: 03/01/17 21:58 Dose: 10 ml Sodium Chloride (Flush - Normal Saline) 10 ml IVF PRN PRN PRN Reason: Saline Flush Terazosin HCl (Hytrin) 5 mg PO QPM [facility] Terazosin HCl (Hytrin) 5 mg PO 0815 [facility] Stop: 03/02/17 10:00 Last Admin: 03/02/17 09:12 Dose: Not Given
--- NOTE | 2017-03-02 11:56 | CON ---
DATE OF CONSULTATION: 03/02/2017 REFERRING PHYSICIAN: Dr. Solorzano HISTORY OF PRESENT ILLNESS: I am seeing Mr. 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 Paroxysmal atrial arrhythmias. A. Newly found atrial fibrillation in the setting of uremic pericarditis requiring IV amiodarone for suppression. B. Development of atrial flutter, possibly typical on IV amiodarone then spontaneously converted to s inus rhythm. C. Not on anticoagulation due to recent pericardial window placement. 2. Possible uremic pericarditis with tamponade like physiology prompting a pericardial window placem ent and 700 mL of bloody pericardial fluid drainage on 02/25/2017. 3. No prior history of heart disease. A. 2D echo on 02/23/2017, post-pericardial window previous ejection fraction 60-65%, mild LVH, mild M R and TR, large pleural effusion as well. B. Prior history of a heart catheterization without significant stenosis noted in the past. 4. End-stage renal disease due to polycystic kidney disease, on peritoneal dialysis. 5. Diarrhea. ALLERGIES: IRON and SULFA. MEDICATIONS AT HOME: Included vitamin D3, terazosin, lactobacillus, metoprolol succinate 25 mg daily , clonazepam, Renvela, Calcitriol. SUBJECTIVE: Mr. Kamara was admitted on 02/23/2017 with abdominal pain, constipation and diarrhea a nd had borderline cardiac enzymes, but then developed atrial fibrillation while being transferred to our facility at an outside facility. Due to persistent atrial fibrillation he was transferred to [place]. He denies any chest pains. No fever, chills, cough. He does not feel his palpitations. D oes not pass out, but has borderline blood pressures at that time. No stroke-like symptoms, no neuro logical deficits, no fever, chills or cough. REVIEW OF SYSTEMS: Twelve point system otherwise unremarkable apart from that noted above. PAST MEDICAL HISTORY: As above. SOCIAL HISTORY: Patient denies smoking, ETOH or drug abuse. He lives independently. PAST SURGICAL HISTORY: Significant for bilateral knee surgery and peritoneal dialysis shunt placemen t as well as the recent pericardial window placement. FAMILY HISTORY: Significant for polycystic kidney disease runs in the family. OBJECTIVE DATA: VITAL SIGNS: Blood pressure is 167/94, heart rate 77, respirations 20, temperature 97.6 degrees Fahr enheit. GENERAL: He is alert and oriented man in no apparent distress. NECK: Supple. Jugular veins not distended. CHEST: Coarse without crackles. CARDIAC: Regular rate and rhythm, no murmur, gallop or rub is appreciated. ABDOMEN: Distended, tender at the peritoneal dialysis catheter site. EXTREMITIES: Lower extremity with is 1+ edema. Pulses are diminished. NEUROLOGIC: Patient is nonfocal. MUSCULOSKELETAL: No joint swelling or deformities. SKIN: Without rash. DATABASE: The EKG is reviewed initially reveals sinus rhythm with low amplitude QRSs with ST elevati on, global ST elevation and SD depression, present pericarditis. Subsequent EKGs reveal resolution o f ST elevation, but atrial fibrillation ensues at rate of 125 beats per minute. Subsequent EKG again on reveals continued atrial fibrillation. Eventually rhythm strips also suggestive of more organize d atrial flutter as of last night, eventually converting the atrial arrhythmia to sinus rhythm. LABORATORY DATA: White cell count is 16, hemoglobin 10.7, platelet count is 243. Sodium 135, potass ium 4.6, BUN is 116, creatinine is 12.37. Troponin I is 0.622 on the , 0.94 the . ASSESSMENT AND PLAN: Mr. Kamara is a 51-year-old man with end-stage renal disease due to polycysti c kidneys, who presented with abdominal discomfort. Evaluation of constipation, diarrhea, but also w as noted to have a large pericardial effusion with borderline tamponade physiology requiring a perica rdial window placement. He also developed atrial fibrillation, which I suspect is due to the possibl e uremic pericarditis process. He has no prior history of atrial fibrillation prior to this. He was started on IV amiodarone. Initially tried to transition to p.o. amiodarone at 400 mg twice a day do se. He had some spinning sensation and dizziness, with no definite documentation of confirmed hypert ension. On the other hand, he did have episodes of low blood pressure ranging below 90 at one point yesterday. Most of the time his blood pressure is between 110-120 range. Heart rates also 118, decr easing to 77, now back in sinus rhythm. I discussed the mechanism of atrial fibrillation especially in relation to his pericarditis process a s well as potential treatment options. I agree with the use of amiodarone. Hence atrial fibrillatio n with pericardial process was usually difficult to suppress. He is doing well in sinus rhythm. Himanshu downing is how to transition him to p.o. dose, hence he had some abnormal response to higher dose. We will try to lower the loading dose to 400 mg a day in 4 divided dosages. He seems to be in agreement with this plan. I did mention potential risk involving amiodarone therapy. Custodial tapering amiod arone down to 200, even maybe 100 mg dose could be considered and after resolution of his pericarditi s process it could be discontinued to see if he has atrial fibrillation after that. If atrial flutte r seems to be an issue, consideration for cavotricuspid isthmus ablation could be made. At this poin t he is somewhat suboptimal candidate for pulmonary venous isolation procedure until the resolution o f his pericarditis process. Anticoagulation is an issue, likely now due to the history of pericarditis and risk for hemorrhagic t ransformation would prefer not to start it despite obvious stroke risk. alf this could be cons idered. I will follow with you. Thank you again for allowing me to participate in the care of this patient.
[2017-03-02] MEDS: Sevelamer Carbonate 800 MG TAB PO SCH ×2 (12:11→19:14)
[2017-03-02 14:19] VITALS: BMI 35.9
[2017-03-02] MEDS: Terazosin HCl 1 MG CAP PO SCH (19:13)
[2017-03-02] MEDS: Vancomycin HCl 25 MG/ML Oral PO SCH ×2 (19:13→21:53)
--- NOTE | 2017-03-02 20:35 | ULT ---
RIGHT LOWER EXTREMITY VENOUS ULTRASOUND WITH DOPPLER: Date: 03/02/17 HISTORY: Right leg swelling. COMPARISON: None. TECHNIQUE: Tomas scale, color flow, Doppler imaging, and spectral waveform analysis performed of the right lower extremity venous system. FINDINGS: There is compressibility, presence of flow, and augmentation of the common femoral vein, femoral vein , and popliteal vein. There is flow in the profunda vein, greater saphenous vein, and posterior tibia l vein. Incidental triple lumen catheter in the common femoral vein is noted. Minimal soft tissue swelling. IMPRESSION: 1. No evidence of thrombus in the right lower extremity deep venous system. 2. Minimal soft tissue swelling in the groin, at the level of the common femoral vein. POS: VIVIEN
[2017-03-02] MEDS: Calcitriol 0.25 MCG CAP PO SCH (20:48)
[2017-03-03] MEDS: Sevelamer Carbonate 800 MG TAB PO SCH ×4 (08:01→21:11)
[2017-03-03] MEDS: Vancomycin HCl 25 MG/ML Oral PO SCH (08:03)
[2017-03-03] MEDS: Terazosin HCl 1 MG CAP PO SCH ×2 (08:03→18:35)
--- NOTE | 2017-03-03 08:27 | PDOC.CTH ---
<Christiane Ryan - Last Filed: 03/03/17 08:27> Cardiology Progress Note - Subjective The pe seen and examined. No overnight events. No cardiac complaints. His heart rhythm was back to AFib at 0530 this AM. He was asymptomatic. He still refuses any blood work, IV placement, and HD. - Objective Vital Signs Temp Pulse Resp BP Pulse Ox 03/03/17 07:55 97.6 F 98 16 102/58 L 100 03/03/17 04:00 97.7 F 90 18 110/53 L 99 03/03/17 03:54 99 Admit Weight 248 lb 7.375 oz Weight 252 lb 03/02/17 03/03/17 03/04/17 06:59 06:59 06:59 Intake Total 1020 1280 Balance 1020 1280 - Physical Examination General/Neuro: alert & oriented x3 Neck: no JVD present Lungs: CTA (diminished at bases) Heart: other: (Irregular) Abdomen: other: (distended) Extremities: other: (3+ pitting edema in BLE) - Telemetry Telemetry Rhythm: Afib HR 90-100s - Labs Result Diagrams: 03/01/17 09:57 03/01/17 07:25 Troponin/CKMB CK-MB (CK-2) 11.7 ng/mL (0-6.6) H* 02/23/17 14:45 Troponin I 0.622 ng/mL (< 0.028) H* 02/24/17 05:30 - Assessment/Plan 1. Afib / flutter with RVR - Back to Afib @ 0530 this AM; He is on Amiodarone 100mg QID instead of 400mg BID due to questionable adverse reaction to po Amiodarone which occurred 10 min after he took the medication. Not on OAC at this moment due to high risk of hemorrhage from pericardial efusion and s/p Window. 2. Pericardial effusion with Tamponade physiology and S/P Window on - Repeat echo shows trace effusion, no tamponade. Large pleural effusion . 3. ESRD. on peritoneal dialysis. refuses hemodialysis. Managed by seismic survey assistant 4. Hypotension - stable with current medication. Cont. monitor 5. C diff - on PO Vancomycin; managed by PCP 6. Edema - 3+ pitting edema in BLE; order SYL and instructed to watch his fluid and Na intakes, and raise his BLE while resting MAR reviewed Review of Systems - Review of Systems Constitutional: reports: weakness EENTM: reports: no symptoms reported Respiratory: reports: no symptoms reported Cardiac (ROS): reports: no symptoms reported ABD/GI: reports: no symptoms reported : reports: no symptoms reported Musculoskeletal: reports: no symptoms reported <Barrett Solorzano - Last Filed: 03/03/17 11:33> Cardiology Progress Note - Objective Vital Signs Temp Pulse Resp BP Pulse Ox 03/03/17 07:55 97.6 F 98 16 102/58 L 100 03/03/17 04:00 97.7 F 90 18 110/53 L 99 03/03/17 03:54 99 Admit Weight 248 lb 7.375 oz Weight 252 lb 03/02/17 03/03/17 03/04/17 06:59 06:59 06:59 Intake Total 1020 1280 Balance 1020 1280 - Labs Result Diagrams: 03/01/17 09:57 03/01/17 07:25 Troponin/CKMB CK-MB (CK-2) 11.7 ng/mL (0-6.6) H* 02/23/17 14:45 Troponin I 0.622 ng/mL (< 0.028) H* 02/24/17 05:30 - Assessment/Plan Pt. seen and evaluated. I agree with the A/P by the PIG BREEDER. Difficult pt. to deal with. He refuses an IV and therefore i can not give IV meds for the Afib. At this time the rate is reasonable well controlled. Exam as above. and 2+edema. Will apply SYL hose.
--- NOTE | 2017-03-03 09:07 | PRG ---
DATE OF SERVICE: 03/03/2017 RENAL MEDICINE SUBJECTIVE: Mr. Kamara is a 51-year-old white male with ESRD, currently on CCPD. I have been adju sting his peritoneal dialysis due to abdominal fullness. I did explain to the patient eventually whe n he gets home. We will go back to his regular CCPD regimen over minimum of 2.5 liters fill volume. He will be alternating 1.5-2.5% solution. Please note that the patient's PD volume has been increas ed in the past, but he did not tolerate it because of his big kidney size secondary to polycystic kid noemy disease. He has in the past declined any nephrectomy. This morning, he is feeling better. He has declined PhosLo. PHYSICAL EXAMINATION: VITAL SIGNS: Blood pressure 110/53, heart rate 90, respiratory rate 18, temperature 97.7. GENERAL: Noted to be awake, alert, supine, comfortable, obese, and not in distress. SKIN: Adequate turgor. HEENT: Pinkish conjunctivae. Anicteric sclerae. NECK: No neck mass, no carotid bruits, no JVD. CHEST: No deformities. LUNGS: Clear breath sounds. No wheezing, no crackles. HEART: Normal sinus rhythm. No murmur, no gallops, no rubs. ABDOMEN: Globular, soft, nontender, no masses. Positive for PEG tube. EXTREMITIES: No edema. MEDICATIONS: Medications of 03/03/2017 reviewed. LABORATORY DATA: Laboratories of 03/01/2017; hemoglobin 10.7. Sodium 135, potassium 4.6, chloride 9 6, carbon dioxide 24, BUN 116, creatinine 12.37, and calcium 8.6. ASSESSMENT AND PLAN: 1. Early pericardial tamponade - status post pericardial window placement, stable, doing well. 2. Anemia, continuing weekly Epogen. 3. End-stage renal disease, stable. We will continue current continuous cycling peritoneal dialysis regimen. He is tolerating between 1.8 liters to 2.0 liters of fill volume. We are doing 5 exchange s at the nocturnal cycle. Continuous cycling peritoneal dialysis regimen once the patient is home. Agree with current management.
--- NOTE | 2017-03-03 11:24 | PDOC.PN ---
- Subjective Encounter Start Date: 03/03/17 Encounter Start Time: 12:00 Subjective: Patient with afib overnight, but no symptoms. Getting up some with PT, -: was quite SOB, but getting better. Eager to try again today. Patient -: adamantly refusing any more IVs. On Amiodarone small dose QID. - Objective Resuscitation Status: Resuscitation Status FULL:Full Resuscitation MAR Reviewed: Yes Vital Signs & Weight: Vital Signs (12 hours) Temp Pulse Resp BP Pulse Ox 03/03/17 07:55 97.6 F 98 16 102/58 L 100 03/03/17 04:00 97.7 F 90 18 110/53 L 99 03/03/17 03:54 99 Weight Admit Weight 248 lb 7.375 oz Weight 252 lb Most Recent Monitor Data Heart Rate from ECG 85 NIBP 113/65 NIBP BP-Mean 95 Respiration from ECG 18 SpO2 97 I&O: 03/02/17 03/03/17 03/04/17 06:59 06:59 06:59 Intake Total 1020 1280 Balance 1020 1280 Result Diagrams: 03/01/17 09:57 03/01/17 07:25 Phys Exam - Physical Examination Constitutional: NAD HEENT: moist MMs Respiratory: no wheezing, no rales, no rhonchi decrease BS in bilateral bases Cardiovascular: irregular rate well controlled currently Gastrointestinal: soft, positive bowel sounds bilateral significant edema Neurological: non-focal, moves all 4 limbs Psychiatric: normal affect, A&O x 3 Dx/Plan (1) Hypotension Status: Resolved (2) Atrial fibrillation with RVR Code(s): I48.91 - UNSPECIFIED ATRIAL FIBRILLATION Status: Chronic Comment: in sinus rhythm, now returned to afib but with controlled rate (3) Hyperkalemia Code(s): E87.5 - HYPERKALEMIA Status: Resolved (4) Polycystic kidney, adult type Code(s): Q61.2 - POLYCYSTIC KIDNEY, ADULT TYPE Status: Chronic (5) ESRD on peritoneal dialysis Code(s): N18.6 - END STAGE RENAL DISEASE; Z99.2 - DEPENDENCE ON RENAL DIALYSIS Status: Chronic Comment: Dr. Raman managing dialysis (6) C. difficile diarrhea Code(s): A04.72 - ENTEROCOLITIS D/T CLOSTRIDIUM DIFFICILE, NOT SPCF RECUR Status: Acute Comment: Will switch to oral metronidazole. Not severe and never had before. Will continue for 14 days. - Plan cont current plan of care, continue antibiotics, out of bed/ambulate Patient refusing repeat IV for more Amiodarone bolus. Rate decent on po -: currently. If patient continues to be stable on oral meds only, can -: consider d/c home if ok with cardiology. * . - Discharge Day Encounter end time: 12:30
--- NOTE | 2017-03-03 14:51 | PRG ---
DATE OF SERVICE: 03/03/2017 SUBJECTIVE: Mr. Kamara is here, doing fairly much the same as yesterday, although his abdominal di scomfort may be better. He has gone back to atrial fibrillation, was not markedly symptomatic, his r ates are mildly elevated. OBJECTIVE. VITAL SIGNS: Blood pressure is 92/52, heart rate 103, respirations 18, temperature 98 degrees Fahren heit. GENERAL: He is alert and oriented man in no apparent distress. NECK: Supple. Jugular veins not distended. CHEST: Coarse without crackles. CARDIOVASCULAR: Heart sounds are irregularly irregular. S1, S2, variable. No rub noted. The thora costomy scar is noted. ABDOMEN: Benign. Distended, bowel sounds positive. EXTREMITIES: With 1-2+ bilateral edema in support stockings. DATABASE: The telemetry strips reveals recurrent atrial fibrillation with variable rates in the 90-1 10 beats per range. LABORATORY DATA: White cell count 16, hemoglobin 10.7, platelet count is 243. This is from 03/01/20 17. No new labs were drawn today. ASSESSMENT AND PLAN: 1. Mr. Kamara is a 51-year-old man with prior history of end-stage renal disease due to polycystic kidney disease who presented with a large pericardial effusion. He has required a window placement this admission. Subsequent to that, he developed atrial fibrillation which he was well suppressed wi th IV amiodarone, but there were some issues with high dose of p.o. amiodarone with him being dizzy w ith that. We attempted to transition him to a lower dose of amiodarone at 100 mg 4 times a day, but he went back to atrial fibrillation. My plan would be at this point to increase the amiodarone to 20 0 mg 4 times a day and consider cardioversion tomorrow. 2. He is not on anticoagulation currently due to the recent cardiac surgery and the bloody pericardi al effusion. 3. Lower extremity edema, likely due to fluid overload. Continue dialysis as per Dr. Raman. 3. History of Clostridium difficile on vancomycin.
[2017-03-03] MEDS: metroNIDAZOLE 500 MG TAB PO SCH ×2 (16:13→21:12)
[2017-03-03 16:27] LABS: #Eosinphils 0.2 thou/uL (0.0-0.7); #Lymphocytes 0.7 thou/uL (1.20-3.40); #Monocytes 0.7 thou/uL (0.11-0.59); #Neutrophils 9.2 thou/uL (1.40-6.50); %Basophils 0.1 % (0.0-1.0); %Eosinophils 1.8 % (0.0-10.0); %Lymphocytes 6.2 % (21.0-51.0); %Monocytes 6.5 % (0.0-10.0); Hematocrit 31.6 % (42.0-52.0); Mean Platelet Volume 8.8 fL (7.4-10.4); Red Blood Cell (RBC) Count 3.37 mill/uL (4.70-6.10); White Blood Cell (WBC) Count 10.8 thou/uL (4.8-10.8)
[2017-03-03 16:50] LABS: Anion Gap 22 mmol/L (10-20); BUN (Urea Nitrogen) 109 mg/dL (8.4-25.7); Calc. Creatinine Clearance 11 mL/min (70-130); Calcium 7.9 mg/dL (7.8-10.44); Carbon Dioxide 17 mmol/L (22-29); Chloride 100 mmol/L (98-107); Estimated GFR-MDRD 4
[2017-03-03] MEDS: Calcitriol 0.25 MCG CAP PO SCH (21:12)
--- NOTE | 2017-03-04 08:09 | PDOC.PN ---
- Subjective Encounter Start Date: 03/04/17 Encounter Start Time: 08:15 Subjective: Patient doing better this AM. Converted to SR with increased Amiodarone -: dose. No more hypotension since conversion and stopped Terazosin. - Objective Resuscitation Status: Resuscitation Status FULL:Full Resuscitation MAR Reviewed: Yes Vital Signs & Weight: Vital Signs (12 hours) Temp Pulse Resp BP BP Pulse Ox 03/04/17 04:00 97.8 F 87 22 H 106/58 L 99 03/04/17 01:50 95 03/04/17 00:00 98.6 F 91 20 107/57 L 96 03/03/17 21:18 97.5 F L 97 16 108/60 95 03/03/17 21:07 97.5 F L 97 16 95 Weight Admit Weight 248 lb 7.375 oz Weight 252 lb 9.6 oz Most Recent Monitor Data Heart Rate from ECG 85 NIBP 113/65 NIBP BP-Mean 95 Respiration from ECG 18 SpO2 97 I&O: 03/03/17 03/04/17 03/05/17 06:59 06:59 06:59 Intake Total 1280 840 Balance 1280 840 Result Diagrams: 03/03/17 16:14 03/03/17 16:14 Phys Exam - Physical Examination Constitutional: NAD HEENT: moist MMs Respiratory: no wheezing, no rales, no rhonchi decreased BS in bases bilaterally Cardiovascular: RRR, no significant murmur Gastrointestinal: soft, positive bowel sounds Neurological: non-focal, moves all 4 limbs Psychiatric: normal affect, A&O x 3 Dx/Plan (1) Hypotension Status: Resolved Plan: recurred during attempted ambulation with PT yesterday and dizzy on standing, now resolved again (2) Atrial fibrillation with RVR Code(s): I48.91 - UNSPECIFIED ATRIAL FIBRILLATION Status: Chronic Comment: Back in sinus rhythm with increase Amiodarone (3) Hyperkalemia Code(s): E87.5 - HYPERKALEMIA Status: Resolved (4) Polycystic kidney, adult type Code(s): Q61.2 - POLYCYSTIC KIDNEY, ADULT TYPE Status: Chronic (5) ESRD on peritoneal dialysis Code(s): N18.6 - END STAGE RENAL DISEASE; Z99.2 - DEPENDENCE ON RENAL DIALYSIS Status: Chronic Comment: Dr. Raman managing dialysis (6) C. difficile diarrhea Code(s): A04.72 - ENTEROCOLITIS D/T CLOSTRIDIUM DIFFICILE, NOT SPCF RECUR Status: Acute Comment: Will switch to oral metronidazole. Not severe and never had before. Will continue for 14 days. - Plan cont current plan of care, continue antibiotics patient cleared from cardio standpoint to d/c. Will need to get him up and -: moving without hypotension. Once ambulating well and renal ok will d/c home * . - Discharge Day Encounter end time: 08:45
[2017-03-04 08:29] VITALS: TEMP 97.5
[2017-03-04] MEDS: metroNIDAZOLE 500 MG TAB PO SCH (08:32)
[2017-03-04] MEDS: Sevelamer Carbonate 800 MG TAB PO SCH ×2 (08:32→12:17)
--- NOTE | 2017-03-04 08:39 | PRG ---
DATE OF SERVICE: 03/04/2017 SUBJECTIVE: Mr. Kamara is a 51-year-old white male followed up for his ESRD. Currently on CCPD. He declined to use the nocturnal CCPD machine. I did discuss it with him and we will try to use it, we will try to use the nocturnal CCPD. He was complaining of more leg edema. For this reason, I am going to convert him to a 2.5% PD solution all throughout the night. In addition, his blood pressure has been running low and we will discontinue the terazosin. No other complaints. No chest pain or shortness of breath. He has agreed not to use CAPD. PHYSICAL EXAMINATION: VITAL SIGNS: Blood pressure 106/58, heart rate 87, respiratory rate 22, temperature 97.8, pulse ox 9 9%. GENERAL: Noted to be awake, feeling comfortable, obese. SKIN: Adequate turgor. HEENT: He has pinkish conjunctivae, anicteric sclerae. NECK: No neck mass, no carotid bruits, no JVD. CHEST: No deformities. LUNGS: Clear breath sounds. No wheezing, no crackles. HEART: Normal sinus rhythm. No murmur, no gallops or rubs. ABDOMEN: Globular, soft, nontender, no masses. Positive for PD catheter. EXTREMITIES: Positive for edema. MEDICATIONS: 03/04/2017 - Reviewed. LABORATORY: 03/03/2017 - Sodium 135, potassium 4.3, chloride 100, carbon dioxide 17, BUN 109, creati nine 12.85, glucose 115, calcium 7.9, hemoglobin 10. ASSESSMENT AND PLAN: 1. Anemia - currently on weekly Epogen. 2. End-stage renal disease, stable. We will continue current CCPD regimen. He has agreed to use th e nocturnal peritoneal dialysis. We will use a 2.5% peritoneal dialysis solution to enhance fluid re moval with this patient. 3. Pericardial effusion - status post pericardial window placement. 4. Hypotension - will discontinue terazosin.
--- NOTE | 2017-03-04 09:07 | PDOC.CTH ---
<Christiane Ryan - Last Filed: 03/04/17 09:10> Cardiology Progress Note - Subjective The pt seen and examined. No overnight events. No cardiac complaints. Converted back to SR from Afib at 1900 on 03/03/17. - Objective Vital Signs Temp Pulse Resp BP BP Pulse Ox 03/04/17 08:38 97.5 F L 82 18 100 03/04/17 08:28 97.5 F L 82 18 101/60 100 03/04/17 04:00 97.8 F 87 22 H 106/58 L 99 03/04/17 01:50 95 03/04/17 00:00 98.6 F 91 20 107/57 L 96 03/03/17 21:18 97.5 F L 97 16 108/60 95 03/03/17 21:07 97.5 F L 97 16 95 Admit Weight 248 lb 7.375 oz Weight 252 lb 9.6 oz 03/03/17 03/04/17 03/05/17 06:59 06:59 06:59 Intake Total 1280 840 Balance 1280 840 - Physical Examination General/Neuro: alert & oriented x3 Neck: no JVD present Lungs: CTA Heart: RRR Abdomen: soft Extremities: + edema B (2-3+ pitting edemas w/o TEDs) - Telemetry Telemetry Rhythm: Sr 70-80s - Labs Result Diagrams: 03/03/17 16:14 03/03/17 16:14 Troponin/CKMB CK-MB (CK-2) 11.7 ng/mL (0-6.6) H* 02/23/17 14:45 Troponin I 0.622 ng/mL (< 0.028) H* 02/24/17 05:30 - Assessment/Plan 1. Afib / flutter with RVR - Converted back to SR at 1900 on 03/03/17 with Amiodarone 200mg PO QID and no adverse reaction from the medication Not on OAC at this moment due to high risk of hemorrhage from pericardial effusion and s/p Window. 2. Pericardial effusion with Tamponade physiology and S/P Window on - Repeat echo shows trace effusion, no tamponade. Large pleural effusion . 3. ESRD. on peritoneal dialysis. refuses hemodialysis. Managed by title supervisor 4. Hypotension - stable with current medication. Cont. monitor 5. C diff - on PO Vancomycin; managed by PCP 6. Edema - 2+ pitting edema in BLE; reufsed TEDmaxim; re-instructed to watch his fluid and Na intakes, and raise his BLE while resting MAR reviewed * From Cardiac standpoint, the pt is stable to d/c home. The pt will f/u with Dr Solorzano' office within 2-4 wks. Thank you very much for cardiology consult request Review of Systems - Review of Systems Constitutional: reports: no symptoms reported EENTM: reports: no symptoms reported Respiratory: reports: no symptoms reported Cardiac (ROS): reports: no symptoms reported ABD/GI: reports: no symptoms reported : reports: no symptoms reported Musculoskeletal: reports: no symptoms reported <Barrett Solorzano - Last Filed: 03/04/17 11:08> Cardiology Progress Note - Objective Vital Signs Temp Pulse Resp BP Pulse Ox 03/04/17 08:38 97.5 F L 82 18 100 03/04/17 08:28 97.5 F L 82 18 101/60 100 03/04/17 04:00 97.8 F 87 22 H 106/58 L 99 03/04/17 01:50 95 03/04/17 00:00 98.6 F 91 20 107/57 L 96 Admit Weight 248 lb 7.375 oz Weight 252 lb 9.6 oz 03/03/17 03/04/17 03/05/17 06:59 06:59 06:59 Intake Total 1280 840 Balance 1280 840 - Labs Result Diagrams: 03/03/17 16:14 03/03/17 16:14 Troponin/CKMB CK-MB (CK-2) 11.7 ng/mL (0-6.6) H* 02/23/17 14:45 Troponin I 0.622 ng/mL (< 0.028) H* 02/24/17 05:30 - Assessment/Plan Pt. seen and evaluated. he continues to be in and out of atrial fibrillation and sinus rhythm. This AM around 9:45 he again returned to A-fib. HR is presently in the 120's. otherwise I agree with the A/P by the COUNTER ATTENDANT.I would suggest starting coumadin to decrease the risk of embolic phenomenon if no contraindications from a surgical standpoint. He will need to have the INR followed by the coumadin clinic.
[2017-03-04 12:16] VITALS: BP 99/51
--- NOTE | 2017-03-04 12:36 | PDOC.EVN ---
Event Note - Event Note Event Note: Patient ambulated well. No hypotension since stopped alpha rhona. Cleared by cardiology to d/c home. Patient feels better and eager to get back home. Has plenty of dialysis supplies at home.
--- NOTE | 2017-03-04 15:59 | PRG ---
DATE OF SERVICE: 03/04/2017 SUBJECTIVE: Mr. Kamara seems to be doing well today. He has no dizziness or loss of consciousness. No palpitations noted. His atrial fibrillation has resolved as of 5:00 p.m. yesterday. OBJECTIVE DATA: VITAL SIGNS: Blood pressure is 101/60, heart rate is 80, respirations 18, temperature 97.5 degrees Fahrenheit. GENERAL: He is alert and oriented man in no apparent distress. NECK: Supple. Jugular veins not distended. CHEST: Coarse without crackles. CARDIOVASCULAR: Heart sounds are regular to rate and rhythm. No murmur or gallop. Thoracotomy scar is noted. ABDOMEN: Benign. Bowel sounds positive. EXTREMITIES: Lower extremities without edema, clubbing, or cyanosis. DATABASE: Telemetry strips revealed resolution of atrial fibrillation at 5:00 p.m., in sinus rhythm. LABORATORY DATA: White count 10.8, hemoglobin 10, platelet count is 177. Sodium 135, potassium 4.3, BUN 109, creatinine 12.85. ASSESSMENT AND PLAN: Mr. Kamara is a pleasant 51-year-old man with prior history of polycystic kidney disease rated end-stage renal disease, who presented with bloody pericardial effusion, possibly to uremic pericarditis, had developed atrial fibrillation postoperative requiring amiodarone suppression. He has been p.o. amiodarone taper. Yesterday, we had to increase amiodarone to a total dose of 800 mg with recurrence of atrial fibrillation noted, but . 1. As we discussed, he still continues to load with amiodarone at his current dose. He should be staying on this at least 1 more week, then considering cutting it back to a total dose of 400 mg a day for the next 1 weeks, 200BID for 2 more weeks then after that to decrease his dose to 200 mg a day. We did discuss the pros and cons of continuing amiodarone therapy. Consideration should be made after bringing him off entirely from the amiodarone or switch him to Multaq once his acute pericarditis spell has resolved. 2. We discussed also option of anticoagulation, likely only realistic medication for him would be Coumadin hence renal insufficiency. 3. Pericardial effusion, now resolved. Continue monitoring. 4. Routine followup as an outpatient is requested. MIRELLAD
--- NOTE | 2017-03-04 18:56 | DIS ---
PRIMARY CARE PHYSICIAN: Dr. Felix Dow. PRIMARY SAP INTEGRATION ARCHITECT: Dr. Raman. DIAGNOSES ON ADMISSION: 1. Hypotension secondary to volume depletion. 2. Atrial fibrillation with rapid ventricular rate. 3. End-stage renal disease with hyperkalemia. 4. Elevated troponins with abnormal EKG. DISCHARGE DIAGNOSES: 1. Hypotension, resolved. 2. Atrial fibrillation with rapid ventricular rate, improved control with amiodarone. 3. Hyperkalemia, resolved. 4. End-stage renal disease, on peritoneal dialysis. 5. Clostridium difficile diarrhea. CONSULTATIONS: 1. Pulmonology, Dr. Price. 2. Cardiology, Dr. Solorzano. 3. Nephrology, Dr. Raman. 4. Cardiovascular Surgery, Dr. Osborne. PROCEDURES: 1. Transthoracic echocardiogram showing an ejection fraction of 60% to 65%, mild left ventricular hypertrophy and mildly dilated left atrium and a large pleural effusion initially showed tamponade. A repeat echocardiogram after pericardial window showed resolution of that. 2. Pericardial window with evidence of a bloody pericardial effusion. 3. Right lower extremity venous Doppler showing no evidence for thrombosis in the deep venous system and some minimal soft tissue swelling in the groin at the level of the common femoral vein. SUMMARY OF HOSPITAL COURSE: This is a 51-year-old white male with a history of genetic polycystic kidney disease and end-stage renal disease who has been on peritoneal dialysis last 5 days. Three to five days prior to admission, he had some mid epigastric pain and took some really old Darvocet, and that made him very constipated, and it also made him nauseated. He took some laxatives and eventually the constipation resolved. Then, he started having diarrhea and vomiting. He went to see his doctor for this and was sent to the emergency room. In the ER, he was found to be hypotensive in the 80s systolic with hyperkalemia, potassium of greater than 6 and noted to have some ST changes on EKG. He was admitted to the hospital. Cardiology and Critical Care were consulted along with Dr. Raman for Nephrology. The patient was initially in the ICU, was on pressors and fluids along with amiodarone and digoxin for his heart rate. Eventually, his AFib did convert back to sinus rhythm and he has converted to oral amiodarone. His blood pressure also improved, though he did have some excess fluid on his body after that. The patient had an echocardiogram that did show significant pericardial effusion that was causing some tamponade, this was relieved with a pericardial window. Post-surgery, patient was able to be transferred to the floor. He had some intermittent return of atrial fibrillation in spite of titrating up his oral amiodarone; however, this was asymptomatic. The patient did have a return of hypotension on the floor the day before discharge; however, because he started taking his home BPH alpha-rhona that he had brought with him. We had him stop this and his blood pressure returned to normal. He was able to ambulate in the hallway well with a rolling walker and was felt ready to go home. On the day of discharge, he was cleared by Dr. Solorzano for Cardiology. She did talk to him about using anticoagulants for his atrial fibrillation; however, he decided he did not wanted Coumadin, then he has a low AVA score, he will be sent home on daily aspirin. The patient did develop diarrhea after his cefazolin was given preoperatively for his pericardial window. This came back positive for C. difficile toxin and antigen. He was started on oral vancomycin, which was later switched to oral metronidazole. The patient had resolution of his diarrhea that formed stool by the time of discharge. DISCHARGE MANAGEMENT: Discharge home. DISCHARGE FOLLOWUP: The patient is to follow up with Dr. Solorzano in 2-3 weeks, with Dr. Raman in 2 weeks and with his primary care doctor as needed. DISCHARGE ACTIVITY: As tolerated. Ambulate with rolling walker initially. DISCHARGE DIET: Healthy heart, low sodium and fluid restricted diet. DISCHARGE PLAN: He is to continue peritoneal dialysis. DISCHARGE MEDICATIONS: 1. Amiodarone 200 mg 4 times a day for 2 weeks followed by amiodarone 200 mg twice a day after that. 2. Metronidazole 500 mg 3 times a day for 2 weeks. 3. Aspirin 325 mg daily, 30 tablets dispensed. 4. Resume Calcitriol 0.5 mcg daily. 5. Renvela 2400 mg 3 times a day. 6. Velphoro 500 mg 3 times a day. 7. Clonazepam 1 mg q.p.m. as needed. 8. Lactobacillus 1 capsule daily. 9. Vitamin D3 2000 units p.o. daily. The patient is to stop his terazosin. MTDD
== END 2017-03-04 14:38 | disposition home or self-care (01) | DRG 981 ==
LOC: SCSER 14:18 → CCU 15:27 → 2NO 02-25 09:31
PROVIDERS: ADMIT Internal Medicine; ATTEND Internal Medicine
PROC: 3E1M39Z Irrigation of Peritoneal Cavity using Dialysate, Percutaneous Approach (ICD-10-PCS; 2017-02-23)
PROC: 06HY33Z Insertion of Infusion Device into Lower Vein, Percutaneous Approach (ICD-10-PCS; 2017-02-23)
PROC: 0W9D00Z Drainage of Pericardial Cavity with Drainage Device, Open Approach (ICD-10-PCS; principal; 2017-02-25)
DX: E86.0 Dehydration (principal); N18.6 End stage renal disease; A04.72 Enterocolitis due to Clostridium difficile, not specified as recurrent; R57.1 Hypovolemic shock; I31.4 Cardiac tamponade; I12.0 Hypertensive chronic kidney disease with stage 5 chronic kidney disease or end stage renal disease; E87.2 Acidosis; I95.9 Hypotension, unspecified; I31.3 Pericardial effusion (noninflammatory); I48.3 Typical atrial flutter; Q61.2 Polycystic kidney, adult type; I48.2 Chronic atrial fibrillation; E83.39 Other disorders of phosphorus metabolism; E87.5 Hyperkalemia; Z99.2 Dependence on renal dialysis; D64.9 Anemia, unspecified; I08.1 Rheumatic disorders of both mitral and tricuspid valves; E66.01 Morbid (severe) obesity due to excess calories; E78.5 Hyperlipidemia, unspecified; G25.81 Restless legs syndrome; Z91.19 Patient's noncompliance with other medical treatment and regimen; Z68.34 Body mass index [BMI] 34.0-34.9, adult
CPT/HCPCS: 36415; 36556; 71010; 80048; 80053; 82553; 83605; 83690; 83880; 84484; 85025; 87040; 87070; 87205; 87324; 87340; 87449; 88112; 88305; 88312; 90945; 93005; 93010; 93306; 94760; 96374; 96375; A4216; G0257; G8978-GP-CK; G8979-GP-CH; G8987-GO-CJ; G8988-GO-CI; J0282; J0690; J1160; J1815; J2405; J3010; J7050; J7070; J7611; Q4081

== ENCOUNTER 2017-08-23 18:34 | Inpatient (IN) | payer MEDICARE, OTHER ==
[2017-08-23 20:06] LABS: #Lymphocytes 0.5 thou/uL (1.20-3.40); #Monocytes 0.6 thou/uL (0.11-0.59); #Neutrophils 8.4 thou/uL (1.40-6.50); %Eosinophils 0.2 % (0.0-10.0); %Lymphocytes 5.1 % (21.0-51.0); %Monocytes 6.6 % (0.0-10.0); %Neutrophils 88.1 % (42.0-75.0); Hemoglobin 4.8 g/dL (14.0-18.0); Mean Corpuscular HGB CONC 31.3 g/dL (32.0-36.0); Mean Corpuscular Hemoglobin 24.4 pg (27.0-31.0); Mean Platelet Volume 8.5 fL (7.4-10.4); Platelet Count 321 thou/uL (130-400); RBC Distribution Width 19.8 % (11.5-14.5); Red Blood Cell (RBC) Count 1.96 mill/uL (4.70-6.10); White Blood Cell (WBC) Count 9.5 thou/uL (4.8-10.8)
[2017-08-23 20:18] LABS: ALT (SGPT) 23 U/L (8-55); AST (SGOT) 42 U/L (5-34); Albumin 1.6 g/dL (3.5-5.0); Alkaline Phosphatase 320 U/L (40-150); Anion Gap 21 mmol/L (10-20); Anisocytosis SLIGHT = 6-15 cells (100X) (0-5/hpf); Bilirubin, Total 0.5 mg/dL (0.2-1.2); Calc. Creatinine Clearance 0 mL/min (70-130); Calcium 6.2 mg/dL (7.8-10.44); Carbon Dioxide 19 mmol/L (22-29); Chloride 87 mmol/L (98-107); Estimated GFR-MDRD 5; Globulin 3.7 g/dL (2.4-3.5); Glucose 90 mg/dL (70-105); MDiff Complete? YES; Microcytosis SLIGHT = 6-15 cells (100X) (0-5/hpf); Ovalocytes SLIGHT = 2-5 cells (100X) (0-1/hpf); PLT Morphology Comment Appears Adequate; Polychromasia SLIGHT = 2-3 cells (100X) (0-2/hpf); Potassium 6.1 mmol/L (3.5-5.1); Protein, Total 5.3 g/dL (6.0-8.3); Reflex for Review?? YES; Schistocytes SLIGHT = 2-5 cells (100X) (0-1/hpf); Sodium 121 mmol/L (136-145)
[2017-08-23 20:30] LABS: BUN (Urea Nitrogen) 129 mg/dL (8.4-25.7)
--- NOTE | 2017-08-23 21:10 | RAD ---
AP CHEST: History: Dehydration. Patient on dialysis. Date: 08-23-17 Comparison: 02-26-17 FINDINGS: There is mild cardiomegaly and pulmonary vascular congestion. No evidence of effusions seen. No evide nce of pneumonia or pneumothorax is seen. IMPRESSION: Cardiomegaly. Otherwise, unremarkable AP chest. POS: [facility]
[2017-08-23] MEDS ORDERED: Calcium Gluc 4.6 MEQ/10 ML (100 MG/ML) SLOW IVP SCH (22:20)
[2017-08-23] MEDS ORDERED: Dextrose 50% Abboject 50 ML SYRINGE SLOW IVP PRN ×2 (22:21)
[2017-08-23] MEDS ORDERED: Insulin Regular 300 UNITS/3 ML VIAL IVP SCH (22:30)
[2017-08-23] MEDS ORDERED: cefTRIAXone\\ROCEPHIN 2 GM in Sodium Chloride 0.9% 100 ML IVPB SCH (22:45)
[2017-08-23 23:03] VITALS: BMI 33.8
[2017-08-23] MEDS ORDERED: clonazePAM 0.5 MG TAB PO SCH (23:45)
[2017-08-23] MEDS: clonazePAM 1 MG TAB PO SCH (23:50)
[2017-08-24] MEDS: clonazePAM 1 MG TAB PO SCH (00:57)
--- NOTE | 2017-08-24 02:27 | HP ---
CHIEF COMPLAINT: Generalized weakness. HISTORY OF PRESENT ILLNESS: Patient is a 52-year-old male who has a history of end-stage renal disea se on PD dialysis, who presents to the hospital with complaints of generalized weakness. Patient sta av that for the past few days, he has not been feeling well. Patient states that he has been having low energy. He has been doing his dialysis. Patient also complains of lower leg cramping for the p ast 3 or 4 days. He denies any chest pain or chest pressure or any shortness of breath, however, jus t has not been feeling well for the past few days. Patient states that he lives with his mother and came into the ER for further evaluation. Patient denies any fevers, chills, any shortness of breath, any nausea, vomiting, or diarrhea. Patient just stated that he did not feel well for the past few d ays and is unable to ambulate as he normally does. PAST MEDICAL HISTORY: History of polycystic kidney disease on PD dialysis at home. PAST SURGICAL HISTORY: He has a PD shunt placement, bilateral knee surgery. SOCIAL HISTORY: Denies any alcohol, drugs, or tobacco use. FAMILY HISTORY: Patient's family members will also have polycystic kidney disease. ALLERGIES: He is allergic to IRON, SULFA ANTIBIOTICS, and CHLOROPHYLL. CURRENT MEDICATIONS: Patient does not have a list of his medications. REVIEW OF SYSTEMS: Constitutional: No fevers, chills. No weight loss. Eyes: No double vision or blurry vision. ENT: No congestion, drainage or sore throat. Cardiovascular: No chest pain or palp itation, no racing heart. Pulmonary: No cough, wheezing, or trouble breathing. Gastrointestinal: No abdominal pain or midepigastric pain. No nausea, vomiting, and no diarrhea. Genitourinary: Sarai ent is on dialysis. Extremities: No muscle aches, joint pain. Skin: No rashes or lesions noted pe r patient. Neurologic: No numbness or tingling. He has not noticed any focal weakness or focal def icits. PHYSICAL EXAMINATION: VITAL SIGNS: He is 97.6, 16, 100, 85, 104/54. GENERAL: He is awake, alert, oriented x3, does not appear in any distress, is lying flat in bed. HEENT: Normocephalic, atraumatic. NECK: No lymphadenopathy. Patient, however, does appear very pale. Conjunctivae is also pale. CV: S1, S2 present. No murmurs, rubs, or gallops. CHEST: Clear to auscultation. No rhonchi, wheezes noted. ABDOMEN: Obese. Bowel sounds are present x2. His PD catheter is intact. No tenderness upon palpat ion. EXTREMITIES: Mild lower extremity, +1 pitting edema. NEURO: No focal deficits noted. Oriented x3. SKIN: No rashes or lesions noted. PSYCH: Affect is good. LABORATORY DATA: WBCs of 9.5, hemoglobin of 4.8, hematocrit of 15.3, MCV of 78. Chemistry: Sodium of 121, potassium of 6.1, BUN of 129, creatinine of 11.3. Serum osmolality is 311. Calcium 6.2, alk catrachito phosphatase 320 and AST is 42. ASSESSMENT AND PLAN: Patient is a very pleasant 52-year-old male who presents to the hospital with c omplaints of generalized weakness. 1. Anemia, we will check unknown cause of the anemia. I am not sure secondary to underlying kidney disease; however, patient denies any use of any ibuprofen or any Excedrin. He did state that he took two ibuprofens yesterday because he was having significant lower extremity cramping; however, prior to that he has not taken any ibuprofen. Denies any diarrhea or bloody stools; however, we will check stool for occult blood. We will check iron studies. We will give him 2 units of blood. Nephrology has been consulted. Patient might need Epogen. 2. Hyperkalemia. This could be secondary to his underlying end-stage renal disease. We will give h im D50 and insulin. We will also give him Kayexalate. We will repeat the BMP. 3. Hyponatremia, this could be secondary to delusional. We will check serum osmolality and we will continue to monitor. 4. End-stage renal disease. Patient is on PD dialysis. We will consult Dr. Raman. 5. Deep venous thrombosis prophylaxis. We will put patient on sequential compression devices. We w ill unable to put him on Lovenox or heparin due to his anemia.
[2017-08-24 05:43] LABS: Reticulocyte Count 3.3 % (0.5-1.5)
[2017-08-24 05:46] LABS: #Lymphocytes 0.3 thou/uL (1.20-3.40); #Monocytes 0.5 thou/uL (0.11-0.59); #Neutrophils 6.4 thou/uL (1.40-6.50); %Eosinophils 0.3 % (0.0-10.0); %Lymphocytes 4.7 % (21.0-51.0); %Monocytes 6.6 % (0.0-10.0); %Neutrophils 88.4 % (42.0-75.0); Hemoglobin 4.1 g/dL (14.0-18.0); Mean Corpuscular HGB CONC 31.3 g/dL (32.0-36.0); Mean Corpuscular Hemoglobin 25.2 pg (27.0-31.0); Mean Corpuscular Volume 80.7 fl (80.0-94.0); Mean Platelet Volume 7.9 fL (7.4-10.4); Platelet Count 330 thou/uL (130-400); RBC Distribution Width 16.2 % (11.5-14.5); Red Blood Cell (RBC) Count 1.64 mill/uL (4.70-6.10); White Blood Cell (WBC) Count 7.3 thou/uL (4.8-10.8)
[2017-08-24 05:49] LABS: Anion Gap 20 mmol/L (10-20); Calc. Creatinine Clearance 12 mL/min (70-130); Calcium 6.6 mg/dL (7.8-10.44); Carbon Dioxide 21 mmol/L (22-29); Chloride 88 mmol/L (98-107); Estimated GFR-MDRD 5; Glucose 93 mg/dL (70-105); Sodium 124 mmol/L (136-145)
[2017-08-24 06:02] LABS: BUN (Urea Nitrogen) 126 mg/dL (8.4-25.7)
[2017-08-24 06:20] LABS: Iron 26 ug/dL (65-175); Iron Binding Capacity, Total 86 mcg/dL (261-462)
[2017-08-24] MEDS: Sevelamer Carbonate 800 MG TAB PO SCH ×3 (08:25→22:06)
[2017-08-24] MEDS: Famotidine/PF 20 mg/2ml Vial SLOW IVP SCH (11:04)
[2017-08-24 11:39] LABS: Anion Gap 19 mmol/L (10-20); Calc. Creatinine Clearance 12 mL/min (70-130); Calcium 6.6 mg/dL (7.8-10.44); Carbon Dioxide 22 mmol/L (22-29); Chloride 89 mmol/L (98-107); Estimated GFR-MDRD 5; Glucose 83 mg/dL (70-105); Potassium 4.9 mmol/L (3.5-5.1); Sodium 125 mmol/L (136-145)
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
[2017-08-24 11:50] LABS: BUN (Urea Nitrogen) 120 mg/dL (8.4-25.7)
[2017-08-24] MEDS: Epoetin (ESRD) 10,000 UNITS/ML VIAL SC SCH (13:32)
[2017-08-24] MEDS: Calcium Acetate 667 MG CAP PO SCH ×3 (13:32→17:25)
--- NOTE | 2017-08-24 13:32 | PDOC.PN ---
- Subjective Encounter Start Date: 08/24/17 Encounter Start Time: 14:25 Subjective: Patient tired, otherwise without complaint. No chest pain. No SOB. - Objective MAR Reviewed: Yes Vital Signs & Weight: Vital Signs (12 hours) Temp Pulse Pulse Resp BP BP Pulse Ox 08/24/17 13:20 97.6 F 83 16 109/82 100 08/24/17 11:23 97.7 F 81 18 112/68 100 08/24/17 09:52 97.7 F 85 16 123/69 100 08/24/17 08:00 98.5 F 85 18 100 08/24/17 07:18 98.5 F 85 18 112/60 100 08/24/17 06:17 98 F 91 18 117/64 100 08/24/17 04:07 97.9 F 89 16 104/62 98 Weight Weight 237 lb I&O: 08/23/17 08/24/17 08/25/17 06:59 06:59 06:59 Intake Total 560 590 Output Total 1150 Balance 560 -560 Result Diagrams: 08/24/17 05:21 08/24/17 11:04 Additional Labs: Accuchecks 08/23/17 23:42 POC Glucose 85 Phys Exam - Physical Examination Constitutional: NAD HEENT: moist MMs Respiratory: no wheezing, no rales, no rhonchi Cardiovascular: RRR, no significant murmur Gastrointestinal: soft, positive bowel sounds Neurological: non-focal, moves all 4 limbs Psychiatric: normal affect, A&O x 3 Dx/Plan (1) Anemia due to end stage renal disease Code(s): N18.6 - END STAGE RENAL DISEASE; D63.1 - ANEMIA IN CHRONIC KIDNEY DISEASE Status: Chronic Comment: Severe anemia, due to renal failure and possible GI loss as well. Hemoccult pending. Transfuse blood as needed to get Hgb over 7. (2) ESRD on peritoneal dialysis Code(s): N18.6 - END STAGE RENAL DISEASE; Z99.2 - DEPENDENCE ON RENAL DIALYSIS Status: Chronic Comment: Dr. Raman managing dialysis (3) Hyperkalemia Code(s): E87.5 - HYPERKALEMIA Status: Resolved (4) Hyponatremia Code(s): E87.1 - HYPO-OSMOLALITY AND HYPONATREMIA Status: Acute - Plan cont current plan of care * . - Discharge Day Encounter end time: 14:35
[2017-08-24 18:48] LABS: Hemoglobin 7.7 g/dL (14.0-18.0)
[2017-08-24 18:59] LABS: INR-International Normal Ratio 1.2; PTT 35.4 SEC (22.9-36.1); Prothrombin Time 15.9 SEC (12.0-14.7)
--- NOTE | 2017-08-24 19:16 | CON ---
DATE OF CONSULTATION: 08/24/2017 SERVICE: Pulmonary Medicine. REASON FOR CONSULTATION: IMCU patient. HISTORY OF PRESENT ILLNESS: The patient is a 52-year-old white male with past medical history significant for polycystic kidney disease. He is in his usual state of health when he started having increasing weakness. He presented to the Emergency Department and was discovered to have anemia. This was not present to the severity late last year. His bowel habits have been essentially normal. He remembers having some diarrhea, which was black recently. That being said, he always has black stools based on his recollection. He has never had an EGD and colonoscopy before. He denies any current fevers, chills, nausea or vomiting. He is not coughing up any sputum and has not had any dysuria. He has got no hot, red, swollen joints or new rashes that are present. He is on peritoneal dialysis and has been like that for many years. PAST MEDICAL HISTORY: 1. Polycystic kidney disease. 2. Hypertension. 3. Dyslipidemia. 4. Iron deficiency anemia. 5. History of atrial fibrillation. 6. Anxiety disorder. PAST SURGICAL HISTORY: 1. Peritoneal dialysis catheter placement. 2. Knee surgeries, bilateral. SOCIAL HISTORY: Negative for alcohol, tobacco or illicit drug use. FAMILY HISTORY: Noncontributory outside of the polycystic kidney disease. ALLERGIES: IRON, SULFA, CHLOROPHYLL. MEDICATIONS: List of his inpatient medications were reviewed. No specific updates were made at this time. REVIEW OF SYSTEMS: General, head, ears, eyes, nose, throat, cardiovascular, respiratory, GI, , musculoskeletal, neurologic and skin is negative except as mentioned in the HPI. PHYSICAL EXAMINATION: VITAL SIGNS: Afebrile, pulse 81, blood pressure 112/68, respirations 18, saturation 100% on room air. GENERAL: The patient is awake and alert, no apparent distress. LUNGS: Decent air entry. There is no prolonged expiratory phase, wheezing, rhonchi, or crackles present. HEART: Normal rate, regular. ABDOMEN: Soft, nontender, nondistended. Bowel sounds are positive. MUSCULOSKELETAL: No cyanosis or clubbing. There is trace 1+ pitting in the bilateral lower extremities. NEUROLOGIC: Grossly nonfocal. LABORATORY DATA: Creatinine 11.4, BUN 126, sodium 124. Hemoglobin 4.1 and down trending. CBC is otherwise unremarkable/stable. Platelets 330,000. IMAGING: Chest x-ray demonstrates cardiomegaly without acute cardiopulmonary abnormality. ASSESSMENT: 1. Anemia, chronicity unknown. 2. End-stage renal disease, on peritoneal dialysis. 3. Polycystic kidney disease. PLAN: We will send a stool for guaiac. I will consult Gastroenterology as the patient will likely need to undergo an EGD/colonoscopy either on inpatient or outpatient basis. I will check an INR with tomorrow morning's labs. We will give him 1 more unit of blood and repeat hemoglobin this afternoon. He will need to stay in the IMCU until he more clearly has a stable hemoglobin. 70 minutes have been devoted to this patient in various activities. I personally reviewed all imaging studies and laboratory data noted within this document. For fifty percent of this time, I was interacting with the patient at the bedside or coordinating care with the care team. For the remainder of the time I was immediately available to the patient in the hospital unit. NESTOR
[2017-08-24] MEDS ORDERED: clonazePAM 1 MG TAB PO SCH (21:00)
[2017-08-24] MEDS: clonazePAM 0.5 MG TAB PO SCH (22:04)
--- NOTE | 2017-08-24 23:00 | CON ---
DATE OF CONSULTATION: 08/24/2017 HISTORY OF PRESENT ILLNESS: The patient is a 52-year-old male with end-stage renal disease on ambulatory peritoneal dialysis, who presented with progressive weakness over the last several wee ks. He was noted to have a hemoglobin of 4. Reviewing previous hemoglobin on the electronic medical record, his last hemoglobin was in the 10 range. He denies any abdominal pain, any nausea or vomiti ng, any weight loss, any melena or hematochezia. He does report his stools were quite dark from medi cation which he takes. He has not had prior GI evaluation. He denies any NSAID use. PAST MEDICAL HISTORY: Includes polycystic kidney disease, on ambulatory peritoneal dialysis. PAST SURGICAL HISTORY: Peritoneal dialysis shunt placement and knee surgery. SOCIAL HISTORY: Does not smoke or drink. ALLERGIES: IRON and SULFA. MEDICATIONS: Ferrous sulfate 1 p.o. daily, ferric citrate 3 p.o. t.i.d., calcitriol 0.5 mcg p.o. lisa ly, aspirin 325 mg p.o. daily, amiodarone 200 mg p.o. b.i.d., Renvela 2400 mg p.o. t.i.d., clonazepam 1.5 mg p.o. q.p.m. FAMILY HISTORY: Negative for GI or liver disease. REVIEW OF SYSTEMS: Constitutional: No fever, chills. No weight loss. Eyes: No blurred vision or double vision. ENT: No sore throat or earache. Cardiovascular: No chest pain or palpitation. Pul monary: No shortness of breath, cough, or wheezing. Gastrointestinal: See above. Genitourinary: No hematuria or dysuria. Musculoskeletal: No joint pain or muscle weakness. Skin: No rashes. PHYSICAL EXAMINATION: GENERAL: Shows overweight male in no acute distress. VITAL SIGNS: Temperature is 97.8, pulse 92, respiratory rate 16, blood pressure 111/66. HEENT: Unremarkable. NECK: Supple. CHEST: Clear. CARDIOVASCULAR: Regular rate and rhythm. ABDOMEN: Soft, obese. Peritoneal dialysis catheter is in the right upper quadrant. RECTAL: Deferred. EXTREMITIES: Normal. NEUROLOGIC: Nonfocal. LABORATORY DATA: Shows a hemoglobin on admission of 4.8, this decreased to 4.1; hematocrit 15.3 with an MCV of 78. Retic count is 3.3, immature retic fraction is 0.391. Chemistry shows sodium 125, ch loride 89, BUN 120, creatinine 10.63, calcium 6.6, iron of 26, TIBC of 86, total bilirubin 0.5, AST o f 42, alkaline phosphatase of 320, albumin of 1.6. ASSESSMENT: 1. Severe microcytic anemia. 2. End-stage renal disease. 3. Hypoalbuminemia. RECOMMENDATIONS: 1. EGD and colonoscopy on Thursday. 2. Clear liquid diet tomorrow. 3. Transfuse at least to hemoglobin of 7.
[2017-08-25 04:25] LABS: Actual Bicarbonate (HCO3v) 20 mEq/L (22-26); Analyzer IN Cardio ER; Base Excess -1.8 mEq/L (0 (+/- 2.5)); pH (venous) 7.54 (7.35-7.45)
[2017-08-25 04:26] LABS: Calcium, Ionized 0.76 mmol/L (1.16-1.32); Chloride (ABG LAB) 94 mmol/L (98-106); Hematocrit-VBG 28.2 % (39-50); Hemoglobin (Hb) 7.3 g/dL (13.1-17.2); Potassium - ABG Lab 4.1 mmol/L (3.70-5.30); Sodium 120.9 mmol/L (133-146)
[2017-08-25 07:56] LABS: Anion Gap 21 mmol/L (10-20); BUN (Urea Nitrogen) 118 mg/dL (8.4-25.7); Calc. Creatinine Clearance 13 mL/min (70-130); Carbon Dioxide 20 mmol/L (22-29); Chloride 91 mmol/L (98-107); Estimated GFR-MDRD 5; Glucose 82 mg/dL (70-105); Phosphorus 7.7 mg/dL (2.3-4.7); Potassium 4.6 mmol/L (3.5-5.1); Sodium 127 mmol/L (136-145); Transferrin, Serum 84 mg/dL (174-364)
[2017-08-25 08:21] LABS: HBSAg Index 0.19 S/CO (0-0.99); Hep B Surf Ag Non-Reactive S/CO (NonReactive)
[2017-08-25] MEDS: Calcium Acetate 667 MG CAP PO SCH ×3 (08:31→15:53)
[2017-08-25] MEDS: Famotidine/PF 20 mg/2ml Vial SLOW IVP SCH (08:31)
[2017-08-25] MEDS: Sevelamer Carbonate 800 MG TAB PO SCH ×3 (08:32→20:35)
--- NOTE | 2017-08-25 09:54 | PDOC.PN ---
- Subjective Encounter Start Date: 08/25/17 Encounter Start Time: 11:50 Subjective: Patient reports continued fatigue. Mostly discouraged by how weak he has -: gotten and realizes he will need to go to SNF/rehab before can go home. -: Some pain in abdomen after dialysis, improving. Ready to start HD. - Objective MAR Reviewed: Yes Vital Signs & Weight: Vital Signs (12 hours) Temp Pulse Resp BP BP Pulse Ox 08/25/17 07:45 90 17 105/63 95 08/25/17 04:04 97.1 F L 84 18 123/71 98 08/24/17 23:52 97.0 F L 91 19 106/65 96 Weight Weight 234 lb 6 oz I&O: 08/24/17 08/25/17 08/26/17 06:59 06:59 06:59 Intake Total 560 1180 Output Total 1250 Balance 560 -70 Result Diagrams: 08/24/17 18:01 08/25/17 07:22 Phys Exam - Physical Examination Constitutional: NAD obese HEENT: moist MMs Respiratory: no wheezing, no rales, no rhonchi Cardiovascular: RRR, no significant murmur Gastrointestinal: soft, non-tender, positive bowel sounds Neurological: non-focal, moves all 4 limbs Psychiatric: normal affect, A&O x 3 Dx/Plan (1) Anemia due to end stage renal disease Code(s): N18.6 - END STAGE RENAL DISEASE; D63.1 - ANEMIA IN CHRONIC KIDNEY DISEASE Status: Chronic Comment: Severe anemia, due to renal failure and possible GI loss as well. Hemoccult negative. Hgb 7.7 after 2 units. (2) ESRD on peritoneal dialysis Code(s): N18.6 - END STAGE RENAL DISEASE; Z99.2 - DEPENDENCE ON RENAL DIALYSIS Status: Chronic Comment: Dr. Raman managing dialysis (3) Hyperkalemia Code(s): E87.5 - HYPERKALEMIA Status: Resolved (4) Hyponatremia Code(s): E87.1 - HYPO-OSMOLALITY AND HYPONATREMIA Status: Acute - Plan cont current plan of care Plan for EGD/Colonoscopy by GI. -: Plan for switch to hemodialysis. * . - Discharge Day Encounter end time: 13:00
--- NOTE | 2017-08-25 10:12 | PRG ---
DATE OF SERVICE: 08/25/2017 SUBJECTIVE: Mr. Kamara is a 52-year-old White male with ESRD from autosomal dominant polycystic ki dney disease and admitted for symptomatic anemia. He received several units of packed RBC. He is al so undergoing peritoneal dialysis without any difficulty. He underwent PD yesterday with some fluid removal done. Please note we are using 1.5% PD solution due to the relatively lower BP. On evaluati on, he voiced his wish to proceed with hemodialysis. Surgical consult will be done for AV fistula pl acement. No other complaints, no chest pain or shortness of breath. PHYSICAL EXAMINATION: VITAL SIGNS: Blood pressure 105/63, heart rate 90, respiratory rate 17, pulse ox 95% on room air. GENERAL: Awake, alert, sitting comfortable. SKIN: Adequate turgor. HEENT: Pale conjunctivae, anicteric sclerae. NECK: No neck mass, no carotid bruits, no JVD. CHEST: No deformities. LUNGS: Clear breath sounds, no wheezing, no crackles. HEART: Normal sinus rhythm. No murmur, no gallops or rubs. ABDOMEN: Globular, soft, nontender. No masses. EXTREMITIES: No edema. MEDICATIONS: Of 08/25/2017 was reviewed. LABORATORY DATA: Of 08/24/2017, white count 7.7. 08/25/2017, sodium 127, potassium 4.6, chloride 91 , carbon dioxide 20, BUN 118, creatinine 10.1, phosphorus 7.7, calcium 87. PTH is 1202. ASSESSMENT AND PLAN: 1. End-stage renal disease - stable. Continue current continuous cycling peritoneal dialysis regime n. The patient rested hemodialysis. We will consult surgery for placement of AV fistula. 2. Anemia - will be ruling out for gastrointestinal bleed. GI is following for planned endoscopy in a.m. 3. Secondary hyperparathyroidism/hypocalcemia - calcitriol 0.25 mcg tab daily was started. In addit ion, he has been placed on PhosLo due to the hyperphosphatemia. Agree with current management. Will check base met and CBC in a.m.
--- NOTE | 2017-08-25 10:18 | PRG ---
DATE OF SERVICE: 08/25/2017 SERVICE: Pulmonary Medicine INTERVAL HISTORY: There was absolutely no events overnight. He made an appropriate response to the units of blood that we gave him. Otherwise, there has been no interval change to his condition. GI saw him and are planning on doing a colonoscopy and EGD tomorrow morning. Otherwise, there has been no change to his condition. The loose stool was negative for fecal occult blood. PHYSICAL EXAMINATION: VITAL SIGNS: Afebrile, pulse 84, blood pressure 123/71, respirations 18, saturation 98% on room air. GENERAL: The patient is awake, alert, in no apparent distress. LUNGS: Excellent air entry. There is no prolonged expiratory phase, wheezing, rhonchi, or crackles present. HEART: Normal rate, regular. ABDOMEN: Soft, nontender, nondistended. Bowel sounds are positive. MUSCULOSKELETAL: No cyanosis or clubbing. No pitting in the bilateral lower extremities. NEUROLOGIC: Grossly nonfocal. LABORATORY DATA: Hemoglobin 7.6. ASSESSMENT: 1. Anemia, severe, chronicity unknown. 2. End-stage renal disease on peritoneal dialysis. 3. Polycystic kidney disease. PLAN: The patient is stable for transition out of the IMCU to the medical unit as he had an appropri ate response to his transfusion. I will repeat hemoglobin tomorrow morning. Pulmonary Critical Care will continue to follow along for the time being.
--- NOTE | 2017-08-25 12:43 | PRG ---
DATE OF SERVICE: 08/25/2017 SUBJECTIVE: The patient is feeling much better today, a little bit more energetic. OBJECTIVE: VITAL SIGNS: Temperature 97.4, pulse 73, respiratory rate 18, blood pressure 110/76. HEENT: Unremarkable. CHEST: Clear. CARDIOVASCULAR: Regular rate and rhythm. ABDOMEN: Soft, nontender, without organomegaly or masses. LABORATORY DATA: Shows hemoglobin 7.7, hematocrit 24.4. Retic count is 3.3. Chemistry showed a sod ium of 127, chloride 91, CO2 of 20, BUN 118, creatinine 10.19, calcium 7.0, phosphorus 7.7, transferr in 84. ASSESSMENT: 1. Severe microcytic anemia. 2. End-stage renal disease. 3. Hypoalbuminemia. RECOMMENDATIONS: EGD and colonoscopy tomorrow.
--- NOTE | 2017-08-25 12:46 | EKG ---
Test Reason : Blood Pressure : / mmHG Vent. Rate : 082 BPM Atrial Rate : 082 BPM P-R Int : 176 ms QRS Dur : 116 ms QT Int : 414 ms P-R-T Axes : 063 020 058 degrees QTc Int : 483 ms Sinus rhythm with occasional Premature ventricular complexes Possible Lateral infarct , age undetermined Abnormal ECG Confirmed by BECKY SALMON, RONIT ([id number]), editor managing newspaper ZARI PENN ([id number]) on 08/25/2017 12:45:53 PM Referred By: AL PENA Confirmed By:RONIT PENA MD
--- NOTE | 2017-08-25 16:21 | ULT ---
VENOUS MAPPING OF THE UPPER EXTREMITIES: HISTORY: Dialysis access. The patient currently undergoes peritoneal dialysis. End-stage renal disease. COMPARISON: None. TECHNIQUE: Tomas-scale, color-flow, Doppler imaging, and spectral wave-form analysis was performed to the left an d right upper extremity venous and arterial system. FINDINGS: RIGHT UPPER EXTREMITY: CEPHALIC VEIN: Partial compressibility in the proximal, mid, and distal humerus and mid and distal f orearm. Noncompressibility in the antecubital fossa and proximal forearm. PROXIMAL HUMERUS: 0.6 mm MID HUMERUS: 0.6 mm DISTAL HUMERUS: 0.8 mm ANTECUBITAL FOSSA: 1.8 mm PROXIMAL FOREARM: 1.3 mm MID FOREARM: 0.6 mm DISTAL FOREARM: 0.5 mm BRACHIAL ARTERY: 4.2 mm RADIAL ARTERY: 1.8 mm ULNAR ARTERY: 1.29 mm BASILIC VEIN: PROXIMAL HUMERUS: 1.9 mm MID HUMERUS: 0.9 mm DISTAL HUMERUS: 1.6 mm ANTECUBITAL FOSSA: 1.4 mm PROXIMAL FOREARM: 1.2 mm MID FOREARM: 0.9 mm DISTAL FOREARM: 1.1 mm There is extensive edema in the right upper extremity. BRACHIAL ARTERY: 4.2 mm RADIAL ARTERY: 1.8 mm ULNAR ARTERY: 1.29 mm LEFT UPPER EXTREMITY: CEPHALIC VEIN: Partial compressibility in the proximal, mid, and distal humerus, and in the antecubi rogers fossa. PROXIMAL HUMERUS: 0.6 mm MID HUMERUS: 0.5 mm DISTAL HUMERUS: 0.3 mm ANTECUBITAL FOSSA: 0.6 mm PROXIMAL FOREARM: 0.8 mm MID FOREARM: 0.6 mm DISTAL FOREARM: 0.6 mm BASILIC VEIN: The humerus has partial compressibility in the proximal and mid aspects. Partial comp ressibility in the antecubital fossa. PROXIMAL HUMERUS: 1.0 mm MID HUMERUS: 1.3 mm DISTAL HUMERUS: 1.5 mm ANTECUBITAL FOSSA: 1.0 mm PROXIMAL FOREARM: 0.8 mm MID FOREARM: 0.5 mm DISTAL FOREARM: 0.6 mm BRACHIAL ARTERY: 3.3 mm RADIAL ARTERY: 1.7 mm ULNAR ARTERY: 1.8 mm There is extensive edema in the left upper extremity. IMPRESSION: 1. Edema in both upper extremities. 2. Partial compressibility and noncompressibility, as defined above. POS: [facility]
[2017-08-25] MEDS ORDERED: GoLYTELY 4,000 ml Bottle PO SCH (18:00)
[2017-08-25] MEDS: clonazePAM 0.5 MG TAB PO SCH (20:35)
--- NOTE | 2017-08-25 21:19 | PDOC.EVN ---
Event Note - Event Note Event Note: RN called - Patient refusing to drink Golytely. Advised RN to notify Dr Skyler Tomas in AM.
--- NOTE | 2017-08-25 21:36 | HP ---
HISTORY OF PRESENT ILLNESS: Shaheen Kamara is a 52-year-old male patient, who 11 years ago, I place d a laparoscopic peritoneal dialysis catheter and he has been dialyzing using that. In 02/2017, Dr. Osborne performed a pericardial window for tamponade. On 01/22/2011, for polycystic kidney disease, he underwent placement of hemodialysis catheter and laparoscopic placement of a peritoneal dialysis cat heter and he required sedation to remove his hemodialysis catheter due to his needle phobia. The pat jose has a long history of morbid obesity, polycystic kidneys. He has been admitted to [facility] and seen by Dr. Raman in consultation and Dr. Skyler Tomas. I have been asked to see him regardin g placement of a hemodialysis catheter in the arm fistula. His veins are very poor in his arms. He has extensive ecchymosis in his right arm from IV access, blood draws. The patient has not been comi ng to the renal clinic for his erythropoietin shots. Dr. Raman has required that he be placed on hemod ialysis. The patient admits that he has been noncompliant in followup resulting in his deteriorated state at this time. Ultrasound reveals poor veins for dialysis access. Plan is to place a hemodialy sis catheter on Thursday and left arm fistula, probably prosthetic graft. He understands the risk and benefits and consents. Echocardiogram in 02/2017 reveals 60%-65% ejection fraction, mild LVH. ALLERGIES: IRON, SULFA. TOBACCO: None. ALCOHOL: None. MEDICATIONS AT HOME: Iron sulfate, ferric citrate, ezetimibe, calcitriol, aspirin, amiodarone 300 mg b.i.d., clonazepam daily, sevelamer. PAST MEDICAL HISTORY: Polycystic kidney disease, on peritoneal dialysis. PAST SURGICAL HISTORY: The patient has surgical history of peritoneal dialysis, laparoscopic placeme nt, bilateral knee surgery, pericardial window, inguinal hernia repair. PHYSICAL EXAMINATION: GENERAL: Morbidly obese. 5 feet 10 inches, 234 pounds, 33 BMI. VITAL SIGNS: 97.3, 87, 114/78. HEAD, EARS, EYES, NOSE, AND THROAT: Unremarkable. LUNGS: Clear to auscultation. CARDIAC: Regular rate and rhythm without murmur or gallop. ABDOMEN: Obese, soft, protuberant. EXTREMITIES: Unremarkable. ASSESSMENT AND PLAN: Extensive polycystic disease, inadequate dialysis, on peritoneal dialysis. He has a colonoscopy planned tomorrow. We will plan on Thursday hemodialysis catheter, left arm dialysis graft, possible fistula placement pending availability of veins. By ultrasound vein mapping, veins a re poor.
[2017-08-26 04:48] LABS: #Eosinphils 0.1 thou/uL (0.0-0.7); #Lymphocytes 0.6 thou/uL (1.20-3.40); #Monocytes 0.4 thou/uL (0.11-0.59); #Neutrophils 4.7 thou/uL (1.40-6.50); %Eosinophils 0.9 % (0.0-10.0); %Lymphocytes 9.9 % (21.0-51.0); %Monocytes 7.1 % (0.0-10.0); %Neutrophils 82.1 % (42.0-75.0); Hemoglobin 7.6 g/dL (14.0-18.0); Mean Corpuscular HGB CONC 32.4 g/dL (32.0-36.0); Mean Corpuscular Hemoglobin 26.8 pg (27.0-31.0); Mean Corpuscular Volume 82.7 fl (80.0-94.0); Mean Platelet Volume 8.2 fL (7.4-10.4); Platelet Count 301 thou/uL (130-400); RBC Distribution Width 15.7 % (11.5-14.5); Red Blood Cell (RBC) Count 2.82 mill/uL (4.70-6.10); White Blood Cell (WBC) Count 5.8 thou/uL (4.8-10.8)
[2017-08-26 04:58] LABS: Anion Gap 17 mmol/L (10-20); BUN (Urea Nitrogen) 108 mg/dL (8.4-25.7); Calc. Creatinine Clearance 14 mL/min (70-130); Calcium 6.8 mg/dL (7.8-10.44); Carbon Dioxide 23 mmol/L (22-29); Chloride 91 mmol/L (98-107); Estimated GFR-MDRD 6; Glucose 82 mg/dL (70-105); Potassium 4.2 mmol/L (3.5-5.1); Sodium 127 mmol/L (136-145)
[2017-08-26] MEDS: Calcium Acetate 667 MG CAP PO SCH ×3 (07:32→16:33)
[2017-08-26] MEDS: Calcitriol 0.25 MCG CAP PO SCH (07:32)
[2017-08-26] MEDS: Sevelamer Carbonate 800 MG TAB PO SCH ×3 (07:32→20:33)
[2017-08-26] MEDS: Famotidine/PF 20 mg/2ml Vial SLOW IVP SCH (10:51)
[2017-08-26] MEDS ORDERED: PHENYLEPHRINE-NS 100 MCG/ML 10 ML SYRINGE ONE (12:45)
[2017-08-26] MEDS ORDERED: PROPOFOL 200 MG/20 ML VIAL ONE (12:45)
[2017-08-26] MEDS ORDERED: Ondansetron HCl/PF 4 MG/2 ML Vial ONE (12:45)
[2017-08-26] MEDS ORDERED: Lidocaine 1% PF 5 ML VIAL ONE (12:45)
[2017-08-26] MEDS ORDERED: Succinylcholine Chloride 20 MG/ML 10 ml SYRINGE FS ONE (12:45)
[2017-08-26] MEDS ORDERED: Fentanyl 100 MCG/2 ML VIAL ONE (13:51)
--- NOTE | 2017-08-26 15:23 | OP ---
DATE OF PROCEDURE: 08/26/2017 PROCEDURE: Esophagogastroduodenoscopy. PHYSICIAN: Dr. Jacobs. PREMEDICATION: Given by Anesthesiology Department. PREPROCEDURE DIAGNOSES: 1. Severe anemia with hemoglobin of 4+ g/dL. 2. Recurrent nausea and vomiting. POSTOPERATIVE DIAGNOSIS: Normal upper endoscopy. PROCEDURE IN DETAIL: A written consent was obtained prior to procedure. After adequate sedation, th e forward-viewing endoscope was advanced down the hypopharynx under direct vision to the third portio n of duodenum. Second and third portion appeared normal. The duodenal bulb appeared normal. Pyloru s is patent. The gastric antrum, body, fundus, and cardia all appeared normal. GE junction is locat ed at 45 cm from incisors. The Z-line was well demarcated. The distal, mid, and upper esophagus mary eared normal. No source of bleeding was identified. The patient tolerated the procedure well. ASSESSMENT: Normal upper endoscopy. PLAN: We will try a different bowel prep regimen diarrhea and schedule colonoscopy in a.m.
[2017-08-26] MEDS ORDERED: Polyethylene Glycol 3350 17 GM Packet PO SCH (15:30)
[2017-08-26] MEDS ORDERED: Ondansetron HCl/PF 4 MG/2 ML Vial IVP PRN (15:53)
--- NOTE | 2017-08-26 16:28 | PRG ---
DATE OF SERVICE: 08/26/2017 SERVICE: Pulmonary Medicine. INTERVAL HISTORY: The patient is doing great from a respiratory standpoint. His hemoglobins have re mained stable. He could not tolerate his bowel prep yesterday. Otherwise, there has been no interva l change to his condition. Denies any current fevers, chills, nausea, vomiting or overnight events. He is quite cantankerous this morning. PHYSICAL EXAMINATION: VITAL SIGNS: Afebrile, pulse 88, blood pressure 104/66, respirations 16, saturation 100% on room air . GENERAL: The patient is awake and alert. No apparent distress. LUNGS: Excellent air entry with no prolonged expiratory phase, wheezing, rhonchi or crackles. HEART: Normal rate, regular. ABDOMEN: Soft, nontender, nondistended. Bowel sounds are positive. MUSCULOSKELETAL: No cyanosis or clubbing. There is no pitting in the bilateral lower extremities. NEUROLOGIC: Grossly nonfocal. LABORATORY DATA: Creatinine 9.54, BUN 108. Basic metabolic profile is otherwise unremarkable. Calc ium 6.8. Hemoglobin 7.6. Basic metabolic profile is otherwise unremarkable. ASSESSMENT: 1. Anemia, severe, likely subacute. 2. End-stage renal disease, on peritoneal dialysis. 3. Polycystic kidney disease. PLAN: The patient has no further requirements for inpatient Pulmonary or Critical Care opinion. As such, I will sign off. I will provide him with some p.r.n. [place]. He has demonstrated some stabili ty with his hemoglobins over the last 2 days. There is no active site of bleeding identified. If he becomes unstable, please give me a phone call.
--- NOTE | 2017-08-26 18:04 | PRG ---
DATE OF SERVICE: 08/26/2017 Mr. Kamara is in need of left arm dialysis fistula, most likely prosthetic graft and placement of a central line. I have discussed with Dr. Dov Raman today, who wants to hold off hemodialysis cat heter. He does need a central line for IV access. We will plan placement of that tomorrow along wit h his left arm graft. Also, Dr. Raman has asked me to talk to the patient regarding nephrectomy. He h as been turned down for renal placement due to the fact that his kidneys are too large. I have asked Dr. Raman to obtain Cardiology consultation for cardiac evaluation anticipating future nephrectomy. O nce cardiac clearance is obtained, could consider nephrectomy in the future. He is a very large poly cystic right kidney without evidence of gallstones. He will discuss with Dr. Raman previous imaging fo r his kidneys.
[2017-08-26] MEDS ORDERED: Ondansetron ODT 8 MG TAB SL PRN (18:34)
--- NOTE | 2017-08-26 18:37 | PDOC.PN ---
- Subjective Encounter Start Date: 08/26/17 Encounter Start Time: 18:30 Subjective: f/u for ESRD secondary to polycystic kidney disease. s/p EGD with normal -: findings. Planning on AV fistula placement and colonoscopy. Pt c/o nausea -: and emesis after EGD. Feels confused and disoriented. - Objective MAR Reviewed: Yes Vital Signs & Weight: Vital Signs (12 hours) Temp Pulse Resp BP Pulse Ox 08/26/17 08:08 97.4 F L 88 16 104/66 100 08/26/17 08:00 97.4 F L 88 16 99 Weight Weight 234 lb 6 oz I&O: 08/25/17 08/26/17 08/27/17 06:59 06:59 06:59 Intake Total 1180 1280 Output Total 1250 500 Balance -70 780 Result Diagrams: 08/26/17 03:56 08/26/17 03:56 Additional Labs: Microbiology 08/24/17 23:45 Stool - Loose Stool Occult Blood (GARCIA) - Final Laboratory Tests 08/23/17 08/24/17 08/24/17 19:58 05:21 05:21 Hgb 4.8 L* 4.1 L* Retic Count 3.3 H Haptoglobin Sodium Whole Bld Sodium BUN Creatinine Hep Bs Antigen 08/24/17 08/24/17 08/24/17 05:21 11:04 18:01 Hgb 7.7 L Retic Count Haptoglobin 364 H Sodium Whole Bld Sodium BUN 120 H Creatinine 10.63 H Hep Bs Antigen 08/25/17 08/25/17 08/25/17 03:30 07:22 07:22 Hgb Retic Count Haptoglobin Sodium 127 L Whole Bld Sodium 120.9 L BUN 118 H Creatinine 10.19 H Hep Bs Antigen Non-Reactive Radiology Reviewed by me: Yes (CT abd/pel - massive bilateral hydronephrosis with global polycyst changes) Phys Exam - Physical Examination alert, talkative, ill-appearing HEENT: PERRLA, moist MMs, sclera anicteric, oral pharynx no lesions Neck: no nodes, no JVD, supple diminished in bases Respiratory: no wheezing, no rales, no rhonchi, clear to auscultation bilateral Cardiovascular: RRR, no significant murmur, no rub, gallop distended with palpable masses consistent with hydronephrosis mild TTP Gastrointestinal: positive bowel sounds Musculoskeletal: no edema, pulses present Neurological: non-focal, normal sensation, moves all 4 limbs Psychiatric: normal affect, A&O x 3 Deviation from normal: RUE with ecchymosis of forearm Skin: normal turgor, cap refill <2 seconds Dx/Plan (1) Anemia due to end stage renal disease Code(s): N18.6 - END STAGE RENAL DISEASE; D63.1 - ANEMIA IN CHRONIC KIDNEY DISEASE Status: Chronic Comment: Severe anemia, due to renal failure and possible GI loss as well. Hemoccult negative. s/p 3u PRBC's, Hbg stabilizing, plan for colonoscopy 08/27/17 (2) Hyponatremia Code(s): E87.1 - HYPO-OSMOLALITY AND HYPONATREMIA Status: Acute Comment: multifactorial including poor nutrition and ESRD, serial monitoring, expect improvement with volume removal (3) ESRD on peritoneal dialysis Code(s): N18.6 - END STAGE RENAL DISEASE; Z99.2 - DEPENDENCE ON RENAL DIALYSIS Status: Chronic Comment: PD with plans on eventual HD (4) Polycystic kidney, adult type Code(s): Q61.2 - POLYCYSTIC KIDNEY, ADULT TYPE Status: Chronic Comment: Advanced disease and likely will need nephrectomies, Gen surg evaluating (5) Hyperkalemia Code(s): E87.5 - HYPERKALEMIA Status: Acute Comment: Improved after PD, serial monitoring - Plan licensed clinical social worker, DVT proph w/SCDs Continue supportive mgmt -: Zofran 4mg IV q6h prn nausea/emesis -: Plan for AV fistula placement -: Continue bowel prep for planned colonoscopy to complete anemia workup -: AM lab: BMP, CBC, PO3 * .
--- NOTE | 2017-08-26 19:26 | CT ---
CT ABDOMEN AND PELVIS WITHOUT CONTRAST: 08/26/2017 PROVIDED CLINICAL HISTORY: Polycystic kidney disease. COMPARISON: CT examination dated 06/06/2010. FINDINGS: There are small bilateral pleural effusions. There is patchy bilateral ground glass opacity involvin g the visualized portions of the lung bases. There is marked enlargement of both kidneys due to enumerable bilateral cystic masses. The right kid noemy measures about 20.5 x 24.3 cm in greatest transverse dimensions by at least 29.3 cm in craniocaud al dimension. The left kidney measures about 21 cm x 20.5 cm in greatest axial dimensions by at leas t 24.2 cm in craniocaudal dimension. Both kidneys are further enlarged when compared to the prior st udy. Hyperdense cysts, as well as cysts with associated calcification and septa, are noted. Evaluat ion for associated renal malignancy is limited on this study without contrast. The solid abdominal organs are suboptimally evaluated without IV contrast but demonstrate an otherwis e unremarkable CT appearance, as visualized. The adrenal glands are poorly seen. There is diffuse r egional atherosclerotic vascular calcification. There is free intraperitoneal fluid seen, to a mild degree. The urinary bladder is conspicuously distended. There is no evidence for pneumoperitoneum, bowel obstruction, or lymphadenopathy. A peritoneal dialysis catheter is noted with the tip in the l eft lower quadrant. The osseous structures demonstrate no concerning lytic or blastic lesions. IMPRESSION: 1. Prominent changes of polycystic kidney disease bilaterally. This appears worsened with respect t o the prior study. 2. Small bilateral pleural effusions and mild free intraperitoneal fluid. 3. Patchy ground glass opacity involving the visualized portions of each lower lung. Differential c onsiderations would include infectious, edema, and, less likely, neoplasm. Followup is recommended. POS: DREW
--- NOTE | 2017-08-26 19:42 | PRG ---
DATE OF SERVICE: 08/26/2017 SUBJECTIVE: Mr. Kamara is a 52-year-old White male who was admitted for symptomatic anemia. Hemog lobin was noted at 4.6 at that time. He received several units of packed RBC. The patient was inter ested in doing hemodialysis. For that reason has been referred to Dr. Mullins for placement of AV fis tisha/AV graft. Request for central line placement has also been made. He underwent an upper GI endo scopy with negative findings. He is scheduled for a colonoscopy in a.m. Patient is interested in pu rsuing red cliff kidney nephrectomy so that he can qualify for renal transplantation. The transplant pr tae in the past had told them that they could not do the renal transplant due to the red [place] kidneys being too large. No other complaints today. PHYSICAL EXAMINATION: VITAL SIGNS: Blood pressure is 104/66, heart rate 88, respiratory rate 16, temperature 97.4, pulse o x 100%. GENERAL: Patient is awake, confused, not in overt distress. SKIN: Adequate turgor. HEENT: He has slightly pale conjunctivae, anicteric sclerae. NECK: No neck mass, no carotid bruits, no JVD. CHEST: No deformities. LUNGS: Clear breath sounds. HEART: Normal sinus rhythm. No murmur, no gallops, no rubs. ABDOMEN: Globular, soft, nontender, no masses. EXTREMITIES: No edema, no deformities. MEDICATIONS: 08/26/2017 reviewed. LABORATORY DATA: Of 08/26/2017, shows a white count 5.8, hemoglobin 7.6. Sodium 127, potassium 4.2, chloride 91, carbon dioxide 23, BUN 108, creatinine 9.54, glucose 82, calcium 6.8. ASSESSMENT AND PLAN: 1. Hypocalcemia. Patient has been started on Florastor as well as calcitriol. 2. Hyperphosphatemia, on Florastor as well as Renvela. 3. Status post symptomatic anemia - GI workup being done. Initial upper GI endoscopy was normal. H e will undergo colonoscopy. 4. End-stage renal disease, stable. We will continue current continuous cycling peritoneal dialysis regimen. No changes will be made with the current peritoneal dialysis regimen. 5. Autosomal dominant polycystic kidney disease - the patient' [place] kidneys are significantly lar ge and preventing to be placed in the renal transplant list. The plan is to consult Dr. Mullins for a planned nephrectomy. In addition, a Cardiology consultation will be done for cardiac clearance. Overall, agree with current management.
[2017-08-26] MEDS: clonazePAM 0.5 MG TAB PO SCH (20:33)
[2017-08-27] MEDS: Calcium Acetate 667 MG CAP PO SCH ×3 (08:50→15:52)
[2017-08-27] MEDS: Sevelamer Carbonate 800 MG TAB PO SCH ×3 (08:50→21:34)
[2017-08-27] MEDS: Calcitriol 0.25 MCG CAP PO SCH (08:50)
[2017-08-27] MEDS ORDERED: Polyethylene Glycol 3350 17 GM Packet PO SCH ×3 (09:15→09:45)
[2017-08-27 09:30] LABS: #Eosinphils 0.1 thou/uL (0.0-0.7); #Lymphocytes 0.5 thou/uL (1.20-3.40); #Monocytes 0.5 thou/uL (0.11-0.59); %Basophils 0.2 % (0.0-1.0); %Eosinophils 0.7 % (0.0-10.0); %Lymphocytes 6.4 % (21.0-51.0); %Monocytes 6.4 % (0.0-10.0); %Neutrophils 86.3 % (42.0-75.0); Hemoglobin 7.5 g/dL (14.0-18.0); Mean Corpuscular HGB CONC 31.3 g/dL (32.0-36.0); Mean Corpuscular Hemoglobin 25.4 pg (27.0-31.0); Mean Corpuscular Volume 81.1 fl (80.0-94.0); Mean Platelet Volume 8.1 fL (7.4-10.4); Platelet Count 298 thou/uL (130-400); Red Blood Cell (RBC) Count 2.97 mill/uL (4.70-6.10); White Blood Cell (WBC) Count 8.1 thou/uL (4.8-10.8)
[2017-08-27 09:37] LABS: Anion Gap 15 mmol/L (10-20); BUN (Urea Nitrogen) 96 mg/dL (8.4-25.7); Calc. Creatinine Clearance 14 mL/min (70-130); Calcium 7.1 mg/dL (7.8-10.44); Carbon Dioxide 25 mmol/L (22-29); Chloride 90 mmol/L (98-107); Estimated GFR-MDRD 6; Glucose 79 mg/dL (70-105); Phosphorus 7.6 mg/dL (2.3-4.7); Sodium 126 mmol/L (136-145)
[2017-08-27] MEDS: Famotidine/PF 20 mg/2ml Vial SLOW IVP SCH (11:27)
[2017-08-27] MEDS ORDERED: PHENYLEPHRINE-NS 100 MCG/ML 10 ML SYRINGE ONE (13:24)
[2017-08-27] MEDS ORDERED: Lidocaine 1% PF 5 ML VIAL ONE (13:24)
[2017-08-27] MEDS ORDERED: PROPOFOL 200 MG/20 ML VIAL ONE (13:24)
[2017-08-27] MEDS ORDERED: Calcium Chloride 1 GM/10 ML Abboject SYRINGE ONE (13:24)
--- NOTE | 2017-08-27 13:41 | HP ---
RENAL MEDICINE HISTORY OF PRESENT ILLNESS: Mr. Kamara is a 52-year-old white male with ESRD and currently on timoteo toneal dialysis. He underwent upper GI endoscopy with no significant findings. He is again reschedu led for colonoscopy. He is still confused today. He denies any chest pain or shortness of breath. Patient tells me that his memory is not as good in the last few days. OBJECTIVE: VITAL SIGNS: Blood pressure is 112/92, heart rate 79, respiratory rate 18, temperature 95.8, pulse o x 100%. GENERAL: Awake, alert, comfortable, not in distress. SKIN: Adequate turgor. HEENT: He has slightly pale conjunctivae, anicteric sclerae. NECK: No neck mass, no carotid bruits, no JVD. CHEST: No deformities. LUNGS: Clear breath sounds, no wheezing, no crackles. HEART: Normal sinus rhythm. No murmurs, no gallops or rubs. ABDOMEN: Globular, soft, nontender, no masses. Positive for PD catheter. EXTREMITIES: No edema. MEDICATIONS: Medications of 08/27/2017 was reviewed. LABORATORY DATA: Laboratories of 08/26/2017; white count 5.8, hemoglobin 7.6. Sodium 127, potassium 4.2, chloride 91, BUN 108, creatinine 9.54, calcium 6.8, PTH 1202. Base met and CBC for 08/27/2017 pending. ASSESSMENT AND PLAN: 1. End-stage renal disease, stable. Tolerating current continuous cycling peritoneal dialysis regim en. No changes will be made with the current peritoneal dialysis regimen. In the future, patient wa s converted to hemodialysis and AV fistula will be placed tomorrow. 2. Anemia/ ? gastrointestinal bleed - GI following. P.r.n. blood transfusion. Continuing Epogen - weekly regimen. 3. Secondary hyperparathyroidism. Calcitriol has been started. 4. Hypocalcemia. Currently on PhosLo and calcitriol. Recheck base met and CBC in a.m.
--- NOTE | 2017-08-27 15:30 | PDOC.PN ---
- Subjective Encounter Start Date: 08/27/17 Encounter Start Time: 15:25 Subjective: f/u for ESRD on nocturnal PD. Tolerating currently but likely will need -: transition to HD. Workup continuing for anemia with colonoscopy planned -: today. EGD unremarkable. Nausea and emesis resolved. - Objective MAR Reviewed: Yes Vital Signs & Weight: Vital Signs (12 hours) Temp Pulse Resp BP Pulse Ox 08/27/17 11:23 97.3 F L 87 18 107/67 98 08/27/17 09:11 97.4 F L 08/27/17 08:27 95.8 F L 79 18 112/92 H 100 08/27/17 08:00 95.8 F L 79 18 100 Weight Weight 234 lb 6 oz I&O: 08/26/17 08/27/17 08/28/17 06:59 06:59 06:59 Intake Total 1280 1500 Output Total 500 100 Balance 780 1400 Result Diagrams: 08/27/17 09:14 08/27/17 09:14 Additional Labs: Microbiology 08/24/17 23:45 Stool - Loose Stool Occult Blood (GARCIA) - Final Laboratory Tests 08/23/17 08/24/17 08/24/17 19:58 05:21 05:21 Hgb 4.8 L* 4.1 L* Retic Count Haptoglobin Sodium Whole Bld Sodium BUN Creatinine Iron 26 L TIBC 86 L Hep Bs Antigen 08/24/17 08/24/17 08/24/17 05:21 05:21 05:21 Hgb Retic Count 3.3 H Haptoglobin 364 H Sodium 124 L Whole Bld Sodium BUN 126 H Creatinine 11.04 H Iron TIBC Hep Bs Antigen 08/24/17 08/24/17 08/25/17 11:04 18:01 03:30 Hgb 7.7 L Retic Count Haptoglobin Sodium Whole Bld Sodium 120.9 L BUN 120 H Creatinine 10.63 H Iron TIBC Hep Bs Antigen 08/25/17 08/25/17 08/26/17 07:22 07:22 03:56 Hgb 7.6 L Retic Count Haptoglobin Sodium 127 L Whole Bld Sodium BUN 118 H Creatinine 10.19 H Iron TIBC Hep Bs Antigen Non-Reactive Radiology Reviewed by me: Yes (CT abd/pel - massive enlargement of bilat kidneys , progressive) Phys Exam - Physical Examination Constitutional: NAD alert, nods to questions HEENT: PERRLA, moist MMs, sclera anicteric, oral pharynx no lesions Neck: no nodes, no JVD, supple, full ROM diminished in bases Respiratory: no wheezing, no rales, no rhonchi, clear to auscultation bilateral Cardiovascular: RRR, no significant murmur, no rub, gallop distended with palpable kidneys bilat PD catheter in place Gastrointestinal: non-tender, positive bowel sounds Musculoskeletal: no edema, pulses present Neurological: non-focal, normal sensation, moves all 4 limbs Psychiatric: A&O x 3 Skin: no rash, normal turgor, cap refill <2 seconds Dx/Plan (1) Anemia due to end stage renal disease Code(s): N18.6 - END STAGE RENAL DISEASE; D63.1 - ANEMIA IN CHRONIC KIDNEY DISEASE Status: Chronic Comment: Severe anemia, due to renal failure and possible GI loss as well. Hemoccult negative. s/p 3u PRBC's, Hbg stabilizing, plan for colonoscopy 08/27/17 (2) Hyponatremia Code(s): E87.1 - HYPO-OSMOLALITY AND HYPONATREMIA Status: Acute Comment: multifactorial including poor nutrition and ESRD, serial monitoring, expect improvement with volume removal (3) ESRD on peritoneal dialysis Code(s): N18.6 - END STAGE RENAL DISEASE; Z99.2 - DEPENDENCE ON RENAL DIALYSIS Status: Chronic Comment: PD with plans on eventual HD (4) Polycystic kidney, adult type Code(s): Q61.2 - POLYCYSTIC KIDNEY, ADULT TYPE Status: Chronic Comment: Advanced disease and likely will need nephrectomies, Gen surg evaluating (5) Hyperkalemia Code(s): E87.5 - HYPERKALEMIA Status: Acute Comment: Improved after PD, serial monitoring - Plan PT/OT, social services technician, out of bed/ambulate, DVT proph w/SCDs Stable currently -: Serial H/H monitoring -: Colonoscopy planned 08/27/17 -: Continue Calcitriol, Phoslo -: Continue Epo weekly * PD nocturnally * Zofran prn * Plan for AV fistula placement 08/28/17
[2017-08-27] MEDS ORDERED: Bupivacaine HCl 0.5%/Epinephrine 1:200,000/PF 30 ml Vial ONE (16:01)
[2017-08-27] MEDS ORDERED: Ioversol 68 % 50 ML VIAL ONE (16:01)
[2017-08-27] MEDS ORDERED: Protamine Sulfate 50 MG/5 ML VIAL ONE (16:01)
[2017-08-27] MEDS ORDERED: Heparin 5,000 UNITS/ML VIAL ONE (16:01)
[2017-08-27] MEDS ORDERED: Lidocaine 2% 10 ML INJ ONE (16:01)
[2017-08-27] MEDS ORDERED: CEFAZOLIN/Water 2 GM/20 ML SYRINGE ONE (16:30)
--- NOTE | 2017-08-27 18:24 | RAD ---
PORTABLE CHEST: 08/27/2017 PROVIDED CLINICAL HISTORY: Central line placement. COMPARISON: 08/23/2017 FINDINGS: The cardiac and mediastinal silhouette are unchanged in appearance. Interval placement of left IJ ce ntral line, the tip of which terminates in the region of the cavoatrial junction. The lungs remain c lear. No pleural fluid or pneumothorax apparent. IMPRESSION: Interval central line placement, as above. POS: DREW
[2017-08-27] MEDS ORDERED: Sodium Chloride 0.65% Nasal 44 ML BOT EA NARE PRN (20:16)
--- NOTE | 2017-08-27 20:19 | OP ---
DATE OF PROCEDURE: 08/27/2017 PREOPERATIVE DIAGNOSIS: Anemia. PROCEDURE IN DETAIL: After informed consent was obtained, the patient placed in the left lateral dec ubitus position. Anesthesia was administered per the Anesthesia Department. Forward-viewing endosco pe was inserted into the rectum after perianal inspection and rectal exam were normal, passed to the cecum with ease. The cecum, ileocecal valve and appendiceal orifice were normal. The prep was excel lent. The terminal ileum was normal. The ascending, transverse, descending, sigmoid and rectum were normal. Retroflexion in the rectum was normal except for small internal hemorrhoids. A small 3-mm polyp was noted in the rectum and this was removed with cold snare polypectomy. Diverticula were not ed in the cecum, ascending, transverse, descending and sigmoid. ASSESSMENT: 1. Diffuse diverticulosis coli. 2. Small rectal polyp -- status post cold snare polypectomy. 3. Internal hemorrhoids. 4. Otherwise, normal colonoscopy. RECOMMENDATIONS: 1. Await histopathology. 2. Anemia, likely secondary to renal disease. No need for further GI evaluation.
[2017-08-27] MEDS: clonazePAM 0.5 MG TAB PO SCH (21:34)
--- NOTE | 2017-08-28 02:48 | OP ---
DATE OF PROCEDURE: 08/27/2017 PREOPERATIVE DIAGNOSES: Poor IV access, end-stage renal disease, anemia. POSTOPERATIVE DIAGNOSES: Poor IV access, end-stage renal disease, anemia. PROCEDURE: Left IJ triple-lumen central line. Successful access right IJ cannulation, but could not thread the wire, indicative of outflow obstruction due to previous hemodialysis catheter. Ultrasoun d used. SURGEON: Bharat Mullins M.D. ANESTHESIA: 1% Xylocaine. PROCEDURE IN DETAIL: At the patient's bedside in the Endo suite after Dr. Tomas completed colonoscopy , neck was prepared with ChloraPrep, draped in routine fashion. Local anesthetic infiltrated into th e skin and subcutaneous tissue about the operative site. A 1% Xylocaine was used. On the right side , I could visualize the internal jugular vein. It was cannulated with trocar catheter, but J wire wo uld not thread. Despite using the straight end. This site was aborted. On the left side, left inte rnal jugular vein was cannulated with trocar catheter and J-wire threaded. Trocar catheter removed a nd skin was then entry site enlarged sharply and dilator placed and removed. Seldinger technique use d to place a triple lumen catheter, removing the wire, securing the catheter two sutures of 3-0 silk and Biopatch Sterile dressing applied. Patient tolerated the procedure well. The patient's left arm fistula graft was canceled due to intraoperative hypotension. We will plan th is next week under regional anesthesia.
--- NOTE | 2017-08-28 04:59 | CON ---
DATE OF CONSULTATION: 08/27/2017 DATE OF ADMISSION: 08/23/2017 INDICATION FOR CONSULTATION: A 52-year-old patient with end-stage renal disease due to polycystic ki dney disease, who has been on peritoneal dialysis, who was admitted with severe anemia. We were aske d to see him from a cardiology standpoint due to his overall fatigue and history of atrial fibrillati on in the past. He has been on amiodarone and has not had any further episodes. He was last seen in the office on March 26, at which time he was in sinus rhythm. At this time, he mainly complain s that he is fatigued. He said he was having difficulty talking, but he could talk very easily durin g my evaluation. He did not have any problems apparently to do this. He just mainly complains of hi s fatigue. He denied any significant chest discomfort and otherwise appears to be relatively stable despite having a severe decrease in his hemoglobin. When he arrived, I believe, the hemoglobin was 4 .1. It is now increased up to 7.5 after he has been given transfusions. He mainly presented after h e had complained of just having no energy and being very fatigued, and it continued to worse over the last week or so, saying that the fact that he could hardly even walk. PAST MEDICAL HISTORY: Significant for history of paroxysmal atrial fibrillation; end-stage renal dis ease, on peritoneal dialysis. He has a history of hypertension, but at this time he became hypotensi ve. He has dyslipidemia, history of anxiety, history of C. diff in the past. He has history of timoteo cardial effusion in the past, which required pericardial window. He has also had peritoneal dialysis shunts placed. He had bilateral knee surgery. SOCIAL HISTORY: He has no history of alcohol or tobacco abuse. He lives with family members. ALLERGIES: He is allergic to SULFA ANTIBIOTICS, CHLOROPHYLL, and IRON. MEDICATIONS: His present medications prior to admission included vitamins; clonazepam 1 mg q.p.m.; R envela 800 mg 3 tablets t.i.d.; calcitriol 0.5 mcg capsules, 1 capsule daily; aspirin 325 mg a day; m etronidazole, he had been taking this from previous admission; amiodarone 200 mg p.o. daily. FAMILY HISTORY: Noncontributory from a cardiac standpoint. There may be some history of polycystic kidney disease according to the records. REVIEW OF SYSTEMS: He mainly complained of fatigue and some difficulty with weakness in lower extrem ities and not being able to walk very well. He also now complained of some problems with speaking; h owever, I did not elicit any problems with his speech during our evaluation. Otherwise, the 12-point review of systems is unremarkable. He complained of some atypical-type chest discomfort, but this d oes not appear to be cardiac related, appeared to be more musculoskeletal. PHYSICAL EXAMINATION: GENERAL: Reveals an ill-appearing gentleman. VITAL SIGNS: His blood pressure is 112/92, heart rate was 79 and regular, respiratory rate is 18, he is afebrile, O2 saturations 100%. HEENT: Shows the head to be normocephalic, atraumatic. NECK: Carotid pulses are present. I did not hear any significant bruits. CHEST: Clear to auscultation without rales, rhonchi, or wheezing. CARDIOVASCULAR: Reveals a regular rate and rhythm. There is a normal S1 and S2. I cannot hear an S 3 nor an S4. There were no significant murmurs, heaves, thrills, bruits, or rubs. ABDOMEN: Obesity. He has a large palpable mass in the left lower quadrant, which most likely is sim ilar to polycystic kidney disease, at least a fullness on both sides actually. Positive bowel sounds are present. EXTREMITIES: Mild lower extremity edema. Pedal pulses are present. NEUROLOGIC: The patient overall is fatigued and I could not elicit a very good and full evaluation. He did not get out of the bed for further evaluation. LABORATORY AND X-RAY FINDINGS: Hemoglobin of 4.1, which increased up to 7.5; WBC of 8.1; and hematoc rit of 24.1 with platelet count 298,000. Sodium was 126, creatinine was 9.36 with a BUN of 96 and po tassium of 4. His LDH was 33. Parathyroid hormone was 1202. His EKG shows a normal sinus rhythm with occasional PVCs. Chest x-ray was relatively unremarkable. I will order an echocardiogram for evaluation of his ejection fraction and also to ensure that there are no further pericardial effusions. IMPRESSION: 1. Elderly gentleman with multiple medical problems, who was admitted with severe anemia, which most likely is due to renal problems. He will be seen by the cell biology scientist and will undergo an endo scopy. He has been given a transfusion and this has improved his hematocrit and hemoglobin. It is p ossible that his anemia is just due to severe end-stage renal disease. 2. History of intermittent atrial fibrillation. He remains in sinus rhythm at this time. I will ac tually decrease his amiodarone 200 mg a day down to 100 mg a day and see whether or not he continues to maintain sinus rhythm. I suspect he will. 3. History of hypertension. He has actually been hypotensive and this is stable at this time. 4. Anemia, which has been most likely to his renal stage, but we will wait for the results of the en doscopy. 5. Hypercholesterolemia. We will continue his medications. I believe he is on Zetia at this time o r has been on Zetia in the past. 6. History of atrial fibrillation. He remains in sinus rhythm and as noted, we will decrease the am iodarone to 100 mg a day. We would be more than happy to continue to follow this patient with you, b ut at this time, I believe he remains relatively stable from a cardiac standpoint. His last ejection fraction in 02/2017 showed evidence of ejection fraction of 60%-65%. At that time, he had pleural a nd pericardial effusion, for which he underwent a pericardial window. Thank you very much for the consultation. We will continue to follow the patient with you. Further recommendations will depend on the results of the echocardiogram.
--- NOTE | 2017-08-28 07:44 | PRG ---
DATE OF SERVICE: 08/28/2017 SUBJECTIVE: Mr. Kamara is a 52-year-old white male being [facility] by [facility] He underwent peritoneal dialysis without any difficulty last night. He was initially admitted for symptomatic anemia. In the interim, a central line has also been place d on this patient. No other complaints except for a dry mouth and this gives him hard time articulating. No complaints of chest pain, shortness of breath. OBJECTIVE: VITAL SIGNS: Blood pressure is 117/72, heart rate is 89, respiratory rate 18, pulse ox 97%, and temp erature 98.3. GENERAL: Awake, alert, comfortable, not in distress, coherent. SKIN: Adequate turgor. HEENT: Slightly pale conjunctivae, anicteric sclerae. NECK: No neck mass, no carotid bruits. No JVD. CHEST: No deformities. LUNGS: Clear breath sounds. No wheezing, no crackles. HEART: Normal sinus rhythm. No murmur, no gallops, no rubs. ABDOMEN: Globular, soft, nontender, no masses. Positive for PD catheter. EXTREMITIES: No edema. NEUROLOGIC: Oriented to 3 spheres. Moving all extremities. No tremors, no asterixis. MEDICATIONS: 08/28/2017 - reviewed. LABORATORY DATA: On 08/27/2017, white count 8.1, hemoglobin 7.1. Sodium 126, potassium 4, chloride 90, carbon dioxide 25, BUN 96, creatinine 9.39, phosphorus 7.6, calcium 7.1. Base met for 08/28/2017, pending. ASSESSMENT AND PLAN: 1. End-stage renal disease, stable. We will continue current maintenance peritoneal dialysis. Arlin rating said treatment. 2. Case discussed with Dr. Mullins. We will delay placement of AV fistula. In addition, Dr. Mullins feels that he may need to be referred to his original transplant program for the planned nephrectomy. 3. Symptomatic anemia, much improved. Continue Epogen, p.r.n. blood transfusion. Patient underwent colonoscopy yesterday without any significant findings. In addition, he has undergone an upper GI e ndoscopy without any problems. No significant findings also with that said procedure.
--- NOTE | 2017-08-28 08:22 | PDOC.CTH ---
<Christiane Ryan - Last Filed: 08/28/17 08:18> Cardiology Progress Note - Subjective The pt seen and examined. No overnight events. No cardiac complaints. He complains of mild clamps to BLE. He also complains of intermittent discomfort in throat. He stated he can swallow fluid and solid food well. - Objective Vital Signs Temp Pulse Pulse Resp BP BP Pulse Ox 08/28/17 07:26 97.4 F L 90 16 109/75 98 08/28/17 03:20 98.3 F 89 18 117/72 97 08/27/17 23:36 97.7 F 103 H 18 110/61 08/27/17 23:26 97.7 F 98 18 120/73 Weight 234 lb 6 oz 08/27/17 08/28/17 08/29/17 06:59 06:59 06:59 Intake Total 1500 420 Output Total 100 Balance 1400 420 - Physical Examination General/Neuro: alert & oriented x3 Neck: no JVD present Lungs: CTA Heart: RRR Abdomen: soft Extremities: other: (2+ pitting BLE edema) - Labs Result Diagrams: 08/27/17 09:14 08/27/17 09:14 - Assessment/Plan 1. Anemia due to end stage renal disease - stable after receiving 4 units of PRBCs. Colonoscopy and EGD were negative. Cont. Epogen q 7 days per office support specialist. 2. ESRD on peritoneal dialysis - Tolerates PD; plan for transition to HD 3. Polycystic kidney - Possible nephrectomy in [place], [place] 4. Paroxysmal Afib - Regularly regular by auscultation; start Amiodarone 100mg daily from today. 5. Hyponatremia - gradually improving; Fluid restriction 1200ml/day 6. Hyperkalemia - improving; cont. to monitor MAR reviewed Review of Systems - Review of Systems Constitutional: reports: no symptoms reported EENTM: reports: see HPI Respiratory: reports: no symptoms reported Cardiac (ROS): reports: no symptoms reported ABD/GI: reports: no symptoms reported : reports: no symptoms reported Musculoskeletal: reports: no symptoms reported <Barrett Solorzano - Last Filed: 08/28/17 14:20> Cardiology Progress Note - Objective Vital Signs Temp Pulse Pulse Resp BP BP Pulse Ox 08/28/17 11:43 97.4 F L 88 16 107/70 98 08/28/17 08:00 97.4 F L 90 16 98 08/28/17 07:26 97.4 F L 90 16 109/75 98 08/28/17 03:20 98.3 F 89 18 117/72 97 Weight 234 lb 6 oz 08/27/17 08/28/17 08/29/17 06:59 06:59 06:59 Intake Total 1500 420 Output Total 100 Balance 1400 420 - Labs Result Diagrams: 08/27/17 09:14 08/27/17 09:14 - Assessment/Plan Pt. seen and eval. by me. I agree with the A/P by the VENTILATOR SPECIALIST. Chest clear. RRR. Echo indicates a possible small vegetation oin the MV or a possible small torn chordea tendinae. He denies fever and does not appear like someone with endocarditis but A PETTY may be considered prior to D/C depending on his clinical progress.
[2017-08-28] MEDS: Amiodarone 200 MG TAB PO SCH (08:40)
[2017-08-28] MEDS: Famotidine/PF 20 mg/2ml Vial SLOW IVP SCH (08:40)
[2017-08-28] MEDS: Calcium Acetate 667 MG CAP PO SCH ×4 (08:40→16:55)
[2017-08-28] MEDS: Sevelamer Carbonate 800 MG TAB PO SCH ×3 (08:41→21:31)
[2017-08-28] MEDS: Calcitriol 0.25 MCG CAP PO SCH (08:41)
--- NOTE | 2017-08-28 13:02 | PDOC.PN ---
- Subjective Encounter Start Date: 08/28/17 Encounter Start Time: 10:20 Pt seen for followup re: hyponatremia. Denies chest pain, shortness of breath, fevers or chills. - Objective MAR Reviewed: Yes Vital Signs & Weight: Vital Signs (12 hours) Temp Pulse Pulse Resp BP BP Pulse Ox 08/28/17 11:43 97.4 F L 88 16 107/70 98 08/28/17 08:00 97.4 F L 90 16 98 08/28/17 07:26 97.4 F L 90 16 109/75 98 08/28/17 03:20 98.3 F 89 18 117/72 97 Weight Weight 234 lb 6 oz I&O: 08/27/17 08/28/17 08/29/17 06:59 06:59 06:59 Intake Total 1500 420 Output Total 100 Balance 1400 420 Result Diagrams: 08/31/17 03:36 08/31/17 03:36 Additional Labs: Labs reviewed by me Phys Exam - Physical Examination Constitutional: NAD HEENT: moist MMs Neck: supple Respiratory: clear to auscultation bilateral Cardiovascular: RRR Gastrointestinal: soft Neurological: moves all 4 limbs Psychiatric: normal affect Dx/Plan (1) Hyponatremia Code(s): E87.1 - HYPO-OSMOLALITY AND HYPONATREMIA Status: Acute Comment: chronic due to poor nutrition, ESRD (2) ESRD on dialysis Code(s): N18.6 - END STAGE RENAL DISEASE; Z99.2 - DEPENDENCE ON RENAL DIALYSIS Status: Chronic Comment: plan for AV fistula next week. Gen surgery and nephrology following (3) Anemia due to end stage renal disease Code(s): N18.6 - END STAGE RENAL DISEASE; D63.1 - ANEMIA IN CHRONIC KIDNEY DISEASE Status: Chronic Comment: EGD/Colonoscopy negative, s/p 5u total PRBC 's, serial H/H, continue Epogen q7 days - Plan * . Review of Systems - Review of Systems Respiratory: negative: Cough, Shortness of Breath, SOB with Excertion, Pleuritic Pain, Wheezing Cardiovascular: negative: chest pain, palpitations, orthopnea, paroxysmal nocturnal dyspnea, edema, light headedness - Medications/Allergies Allergies/Adverse Reactions: Allergies Allergy/AdvReac Type Severity Reaction Status Date / Time iron Allergy Verified 08/24/17 02:16 Sulfa (Sulfonamide Allergy Verified 08/24/17 02:16 Antibiotics) Medications: Current Medications Amiodarone HCl (Cordarone) 100 mg PO DAILY [facility] Last Admin: 08/28/17 08:40 Dose: 100 mg Calcitriol (Rocaltrol) 0.25 mcg PO DAILY [facility] Last Admin: 08/28/17 08:41 Dose: 0.25 mcg Calcium Acetate (Phoslo) 1,334 mg PO TID-WM [facility] Last Admin: 08/28/17 12:16 Dose: Not Given Clonazepam (Klonopin) 1 mg PO QPM [facility] Last Admin: 08/27/17 21:34 Dose: Not Given Dextrose/Water (Dextrose 50%) 25 gm SLOW IVP ONE PRN PRN Reason: Hypoglycemia Stop: 09/22/17 22:22 Dextrose/Water (Dextrose 50%) 25 gm SLOW IVP PRN PRN PRN Reason: Hypoglycemia Epoetin Ayaz (Procrit) 10,000 units SC Q7D [facility] Last Admin: 08/24/17 13:32 Dose: 10,000 units Famotidine (Pepcid) 20 mg SLOW IVP 0900 [facility] Last Admin: 08/28/17 08:40 Dose: 20 mg Ondansetron HCl (Zofran) 4 mg IVP Q6H PRN PRN Reason: Nausea/Vomiting Last Admin: 08/26/17 19:30 Dose: 4 mg Ondansetron HCl (Zofran Odt) 8 mg SL BID PRN PRN Reason: Nausea/Vomiting Sevelamer Carbonate (Renvela) 2,400 mg PO TID [facility] Last Admin: 08/28/17 12:19 Dose: 2,400 mg Sodium Chloride (Flush - Normal Saline) 10 ml IVF Q12HR [facility] Last Admin: 08/28/17 08:41 Dose: 10 ml Sodium Chloride (Flush - Normal Saline) 10 ml IVF PRN PRN PRN Reason: Saline Flush Last Admin: 08/26/17 19:32 Dose: 10 ml Sodium Chloride (Juab Nasal Ione 0.65%) 0 ml EA NARE TIDPRN PRN PRN Reason: Nasal Dryness Last Admin: 08/27/17 21:31 Dose: 2 spr
--- NOTE | 2017-08-28 16:39 | PRG ---
DATE OF SERVICE: 08/28/2017 SUBJECTIVE: Mr. Kamara's central line was placed yesterday to facilitate IV access. During his co lonoscopy, his blood pressures in the 50s to 60s. Decision was made to not perform a dialysis access yesterday. He did stabilize and we thought it better to transfuse him first. Plan is to place a le ft arm dialysis fistula, possible dialysis graft next Thursday after holidays. We will do this as an outpatient. We will transfuse 2 units of blood, I have given one last night. We will order another one today. I have communicated to Dr. Dov Raman and also to the patient that I am unwilling to d o a bilateral nephrectomies and patient probably have this in [place]. He has already discontinued U rology Services with local urologist. At this point, I will plan on operation Thursday, aft er which he can go home, pending his medical condition.
[2017-08-28] MEDS: clonazePAM 0.5 MG TAB PO SCH (21:30)
[2017-08-29] MEDS: Calcium Acetate 667 MG CAP PO SCH ×3 (08:53→17:51)
[2017-08-29] MEDS: Sevelamer Carbonate 800 MG TAB PO SCH ×3 (08:54→17:51)
[2017-08-29] MEDS: Amiodarone 200 MG TAB PO SCH (08:58)
[2017-08-29] MEDS: Famotidine/PF 20 mg/2ml Vial SLOW IVP SCH (08:59)
[2017-08-29] MEDS: Calcitriol 0.25 MCG CAP PO SCH (08:59)
--- NOTE | 2017-08-29 11:13 | PRG ---
DATE OF SERVICE: 08/29/2017 RENAL MEDICINE SUBJECTIVE: Mr. Kamara is a 52-year-old white male with ESRD, currently on CCPD, and admitted for symptomatic anemia. He was given several units of packed RBC. In addition, he has undergone an uppe r and lower GI endoscopy without significant findings of active bleeding. He has also been seen by Gage reid. A central line has been placed with him. He has opted to consider hemodialysis. For that r ricardo, the patient is scheduled for AV fistula placement. Initially, consideration for nephrectomy was done for this patient, but as per discussion with Dr. Stuton, he recommended sending the patient back to his original transplant program. No other complaint s today. He tells me he had some indigestion after eating chicken yesterday. Please note he is stat us post colonoscopy with polypectomy. Patient denies any chest pain and shortness of breath. OBJECTIVE: VITAL SIGNS: Blood pressure is 121/83, heart rate 84, respiratory rate 18, temperature 97.5, pulse o x 100%. GENERAL: Awake, alert, comfortable, not in distress. SKIN: Adequate turgor. HEENT: Slightly pale conjunctivae, anicteric sclerae. NECK: No neck mass, no carotid bruits, no JVD. CHEST: No deformities. LUNGS: Clear breath sounds, no wheezing, no crackles. HEART: Normal sinus rhythm. No murmur, no gallops, no rubs. ABDOMEN: Globular, soft, nontender. No masses. EXTREMITIES: No edema, no deformities. Positive for PD catheter in the abdomen. MEDICATIONS: Medications of 08/29/2017 was reviewed. LABORATORY DATA: Laboratories of 08/27/2017; hemoglobin 7.5. Sodium 126, potassium 4, chloride 90, BUN 96, creatinine 9.39. On 08/28/2017, glucose 82. ASSESSMENT AND PLAN: 1. End-stage renal disease. Continuing current CCPD regimen. Fluid removal only as tolerated by th e patient. No changes will be made with his current PD regimen. 2. Secondary hyperparathyroidism. Patient has been restarted on calcitriol 0.25 mcg tab daily. 3. Hyperphosphatemia/hypocalcemia - on calcitriol. 4. Anemia. Continue p.r.n. blood transfusion. Continue weekly Epogen. 5. Status post symptomatic anemia - patient has received several units of blood. Upper and lower GI endoscopy showed no active bleeding. 6. We will recheck base met and CBC in a.m.
--- NOTE | 2017-08-29 15:29 | PDOC.PN ---
- Subjective Encounter Start Date: 08/29/17 Encounter Start Time: 15:25 Subjective: f/u for ESRD on PD. Apparently had hypotension 08/28/17 receiving -: 2u PRBC's and total of 5u PRBC's this hospital stay. Some abd pain -: but overall feels better. Weakness and fatigue with minimal movement - Objective MAR Reviewed: Yes Vital Signs & Weight: Vital Signs (12 hours) Temp Pulse Resp BP Pulse Ox 08/29/17 08:00 97.5 F L 84 18 100 08/29/17 07:54 97.5 F L 84 18 121/83 100 Weight Weight 234 lb 6 oz I&O: 08/28/17 08/29/17 08/30/17 06:59 06:59 06:59 Intake Total 420 350 Balance 420 350 Result Diagrams: 08/27/17 09:14 08/27/17 09:14 Additional Labs: Accuchecks 08/28/17 15:59 POC Glucose 82 Radiology Reviewed by me: Yes (2D echo - EF 55%, diast dysfxn) Phys Exam - Physical Examination Constitutional: NAD HEENT: PERRLA, moist MMs, sclera anicteric, oral pharynx no lesions Neck: no nodes, no JVD, supple Respiratory: no wheezing, no rales, no rhonchi, clear to auscultation bilateral PD catheter in place Gastrointestinal: soft, non-tender, no distention, positive bowel sounds Musculoskeletal: no edema, pulses present Neurological: normal sensation, moves all 4 limbs Psychiatric: normal affect, A&O x 3 Skin: no rash, normal turgor, cap refill <2 seconds Dx/Plan (1) Anemia due to end stage renal disease Code(s): N18.6 - END STAGE RENAL DISEASE; D63.1 - ANEMIA IN CHRONIC KIDNEY DISEASE Status: Chronic Comment: EGD/Colonoscopy negative, s/p 5u total PRBC 's, serial H/H, continue Epogen q7 days (2) Hyponatremia Code(s): E87.1 - HYPO-OSMOLALITY AND HYPONATREMIA Status: Acute Comment: chronic due to poor nutrition, ESRD (3) ESRD on peritoneal dialysis Code(s): N18.6 - END STAGE RENAL DISEASE; Z99.2 - DEPENDENCE ON RENAL DIALYSIS Status: Chronic Comment: PD with plans on eventual HD, plan for AV fistula in next 3 days (4) Polycystic kidney, adult type Code(s): Q61.2 - POLYCYSTIC KIDNEY, ADULT TYPE Status: Chronic Comment: Advanced disease and likely will need nephrectomies, will have perfomed in [place] (5) Hyperkalemia Code(s): E87.5 - HYPERKALEMIA Status: Acute Comment: Improved after PD, serial monitoring - Plan 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
[2017-08-29] MEDS: clonazePAM 0.5 MG TAB PO SCH (20:31)
[2017-08-30 05:40] LABS: Band 8 % (5-11); Eosinophils 1 % (0-10); Hemoglobin 9.3 g/dL (14.0-18.0); Lymphocytes 7 % (21-51); MDiff Complete? YES; Mean Corpuscular Hemoglobin 26.9 pg (27.0-31.0); Mean Corpuscular Volume 81.4 fl (80.0-94.0); Mean Platelet Volume 8.9 fL (7.4-10.4); Monocytes 6 % (0-10); Neutrophil 78 % (42-75); Platelet Count 199 thou/uL (130-400); RBC Distribution Width 16.3 % (11.5-14.5); Red Blood Cell (RBC) Count 3.45 mill/uL (4.70-6.10); White Blood Cell (WBC) Count 9.7 thou/uL (4.8-10.8)
[2017-08-30] MEDS: Sevelamer Carbonate 800 MG TAB PO SCH ×3 (07:45→16:25)
[2017-08-30] MEDS: Amiodarone 200 MG TAB PO SCH (07:45)
[2017-08-30] MEDS: Calcium Acetate 667 MG CAP PO SCH ×3 (07:45→16:24)
[2017-08-30] MEDS: Calcitriol 0.25 MCG CAP PO SCH (07:46)
--- NOTE | 2017-08-30 11:09 | PRG ---
DATE OF SERVICE: 08/30/2017 RENAL MEDICINE SUBJECTIVE: No new complaints except for some abdominal discomfort. He is able to tolerate p.o. He denies any chest pain or shortness of breath. He is also tolerating current continuous cycling timoteo toneal dialysis regimen. No changes will be made with the current peritoneal dialysis. He has been evaluated by Dr. Mullins and due to his desire to eventually convert to hemodialysis, an AV fistula wi ll be replaced this coming Thursday. Please note he was initially admitted for symptomatic anemia. H is hemoglobin was noted to be in the range of 4.6 mg percent. Please note that he received several u nits of packed RBC. Upper and lower GI endoscopy was done which showed no active gastrointestinal bleed. OBJECTIVE: VITAL SIGNS: Blood pressure is 102/72, heart rate 86, respiratory rate 20, temperature 97.9, pulse o x 100%. GENERAL: Noted to be awake, alert, comfortable, not in overt distress. SKIN: Adequate turgor. HEENT: He has slightly pale conjunctivae, anicteric sclerae. NECK: No neck mass, no carotid bruits, no JVD. CHEST: No deformities. LUNGS: Clear breath sounds, no wheezing, no crackles. HEART: Normal sinus rhythm. No murmurs, no gallops, no rubs. ABDOMEN: Globular, soft, nontender, no masses. Positive for bowel sounds. Positive for PD catheter . EXTREMITIES: No edema. MEDICATIONS: Medications of 08/30/2017 was reviewed. LABORATORY DATA: Laboratories of 08/30/2017; white count 9.7, hemoglobin 9.3. Sodium 126, potassium 4, chloride 90, carbon dioxide 25, BUN 96, creatinine 9.39, calcium 7.1, phosphorus 7.6. White count 9.7, hemoglobin 9.3. ASSESSMENT AND PLAN: 1. Symptomatic anemia, much improved with blood transfusion. No evidence of active gastrointestinal bleed. Continue current management. P.r.n. blood transfusion. Continue weekly Epogen. 2. End-stage renal disease, stable. We will continue current continuous cycling peritoneal dialysis regimen. He is tolerating current peritoneal dialysis regimen. 3. Hyperphosphatemia. The patient is currently on Renvela at 800 mg - 3 tabs t.i.d. with meals. Agree with current management. Recheck base met and CBC in a.m.
[2017-08-30] MEDS: Famotidine/PF 20 mg/2ml Vial SLOW IVP SCH (11:12)
[2017-08-30] MEDS ORDERED: Gentamicin 80 MG/2 ML VIAL IRR SCH (13:00)
--- NOTE | 2017-08-30 13:05 | PRG ---
DATE OF SERVICE: 08/30/2017 SUBJECTIVE: The patient has been having some abdominal pain. He says after his colonoscopy, he desc ribes as sharp periumbilical pain radiating down into the lower quadrants. He says it is after he ea ts. PHYSICAL EXAMINATION: VITAL SIGNS: Temperature is 97.9, pulse 86, respiratory rate 20, blood pressure 102/72. HEENT: Unremarkable. NECK: Supple. CHEST: Clear. CARDIOVASCULAR: Regular rate and rhythm. ABDOMEN: Diffusely tender, protuberant. LABORATORY DATA AND IMAGING DATA: Shows a white blood cell count of 9.7, hemoglobin 9.3, hematocrit of 28, platelet count 199. Chemistry shows sodium 126, chloride 90, BUN 96, and creatinine 9.39. Ab dominal and pelvic CT prior to procedure showed prominent polycystic kidney disease, small bilateral pleural effusion. ASSESSMENT: 1. Abdominal pain - unclear etiology. 2. Severe microcytic anemia - felt to be secondary to end-stage renal disease. 3. End-stage renal disease. RECOMMENDATIONS: Continue to observe the patient for worsening abdominal pain. May need to get resc anned if this occurs.
[2017-08-30 15:04] LABS: BF Color White; Body Fluid Source Dialysate Fluid; Clarity Hazy (Clear); Tube # EDTA; WBC/NonHematic-Auto 5750 /cumm
[2017-08-30 15:46] LABS: BF RBC Count - Manual 13 /cumm
[2017-08-30 15:53] LABS: BF Segmented Neutrophils 90 %; Cell Count Non Hematic 4 %; Lymphocytes 6 %
--- NOTE | 2017-08-30 19:57 | PDOC.PN ---
- Subjective Encounter Start Date: 08/30/17 Encounter Start Time: 19:45 Subjective: f/u for severe anemia s/p 5 total units PRBC's during hospital stay. States -: abd pain intermittent. Peritoneal fluid showing increase WBC's with plans -: for IP Gentamicin/Vancomycin. - Objective MAR Reviewed: Yes Vital Signs & Weight: Vital Signs (12 hours) Temp Pulse Resp BP Pulse Ox 08/30/17 08:00 97.9 F 86 20 99 08/30/17 07:55 97.9 F 86 20 102/72 100 Weight Weight 234 lb 6 oz I&O: 08/29/17 08/30/17 08/31/17 06:59 06:59 06:59 Intake Total 350 600 720 Output Total 358 Balance 350 242 720 Result Diagrams: 08/30/17 03:57 08/27/17 09:14 Additional Labs: Microbiology 08/24/17 23:45 Stool - Loose Stool Occult Blood (GARCIA) - Final 08/30/17 12:20 Dialysate Fluid Culture Body Fluid Culture - Preliminary Laboratory Tests 08/23/17 08/24/17 08/24/17 19:58 05:21 05:21 Hgb 4.8 L* 4.1 L* Retic Count Haptoglobin Sodium Whole Bld Sodium BUN Creatinine Iron 26 L TIBC 86 L Hep Bs Antigen 08/24/17 08/24/17 08/24/17 05:21 05:21 05:21 Hgb Retic Count 3.3 H Haptoglobin 364 H Sodium 124 L Whole Bld Sodium BUN 126 H Creatinine 11.04 H Iron TIBC Hep Bs Antigen 08/24/17 08/24/17 08/25/17 11:04 18:01 03:30 Hgb 7.7 L Retic Count Haptoglobin Sodium Whole Bld Sodium 120.9 L BUN 120 H Creatinine 10.63 H Iron TIBC Hep Bs Antigen 08/25/17 08/25/17 08/26/17 07:22 07:22 03:56 Hgb Retic Count Haptoglobin Sodium 127 L 127 L Whole Bld Sodium BUN 118 H 108 H Creatinine 10.19 H Iron TIBC Hep Bs Antigen Non-Reactive 08/26/17 03:56 Hgb 7.6 L Retic Count Haptoglobin Sodium Whole Bld Sodium BUN Creatinine Iron TIBC Hep Bs Antigen Phys Exam - Physical Examination Constitutional: NAD HEENT: PERRLA, moist MMs, sclera anicteric, oral pharynx no lesions Neck: no nodes, no JVD, supple, full ROM diminished in bases Respiratory: no wheezing, no rales, no rhonchi, clear to auscultation bilateral Cardiovascular: RRR, no significant murmur, no rub, gallop mild TTP generalized PD catheter in place Gastrointestinal: soft, no distention, positive bowel sounds Musculoskeletal: pulses present, edema present Neurological: non-focal, normal sensation, moves all 4 limbs Psychiatric: normal affect, A&O x 3 Skin: no rash, normal turgor, cap refill <2 seconds Dx/Plan (1) Peritonitis Code(s): K65.9 - PERITONITIS, UNSPECIFIED Status: Acute Comment: suspected with hazy peritoneal fluid with WBC's, peritoneal cx pending, Gentamicin and Vancomycin IP with nocturnal PD (2) Anemia due to end stage renal disease Code(s): N18.6 - END STAGE RENAL DISEASE; D63.1 - ANEMIA IN CHRONIC KIDNEY DISEASE Status: Chronic Comment: EGD/Colonoscopy negative, s/p 5u total PRBC 's, serial H/H, continue Epogen q7 days (3) Hyponatremia Code(s): E87.1 - HYPO-OSMOLALITY AND HYPONATREMIA Status: Acute Comment: chronic due to poor nutrition, ESRD (4) ESRD on peritoneal dialysis Code(s): N18.6 - END STAGE RENAL DISEASE; Z99.2 - DEPENDENCE ON RENAL DIALYSIS Status: Chronic Comment: PD with plans on eventual HD, plan for AV fistula in next 3 days (5) Polycystic kidney, adult type Code(s): Q61.2 - POLYCYSTIC KIDNEY, ADULT TYPE Status: Chronic Comment: Advanced disease and likely will need nephrectomies, will have perfomed in [place] (6) Physical deconditioning Code(s): R53.81 - OTHER MALAISE Status: Acute Comment: PT for mobilization, SNF options pending (7) Hyperkalemia Code(s): E87.5 - HYPERKALEMIA Status: Acute Comment: Improved after PD, serial monitoring - Plan continue antibiotics, PT/OT, social worker aide, out of bed/ambulate, DVT proph w/ SCDs Stable overall -: Continue PT for mobilization -: Gentamicin and Vancomycin IP with PD -: Serial H/H monitoring -: Epo 10K units sc q7 days * AM lab: BMP, CBC
[2017-08-30] MEDS: clonazePAM 0.5 MG TAB PO SCH (22:54)
[2017-08-31 04:23] LABS: #Lymphocytes 0.5 thou/uL (1.20-3.40); #Monocytes 0.5 thou/uL (0.11-0.59); #Neutrophils 8.2 thou/uL (1.40-6.50); %Eosinophils 0.2 % (0.0-10.0); %Monocytes 5.8 % (0.0-10.0); Hemoglobin 8.1 g/dL (14.0-18.0); Mean Corpuscular HGB CONC 31.9 g/dL (32.0-36.0); Mean Corpuscular Hemoglobin 26.1 pg (27.0-31.0); Mean Corpuscular Volume 81.9 fl (80.0-94.0); Mean Platelet Volume 8.6 fL (7.4-10.4); Platelet Count 154 thou/uL (130-400); RBC Distribution Width 16.3 % (11.5-14.5); Red Blood Cell (RBC) Count 3.11 mill/uL (4.70-6.10); White Blood Cell (WBC) Count 9.2 thou/uL (4.8-10.8)
[2017-08-31 04:50] LABS: Anion Gap 13 mmol/L (10-20); BUN (Urea Nitrogen) 75 mg/dL (8.4-25.7); Calc. Creatinine Clearance 17 mL/min (70-130); Calcium 7.2 mg/dL (7.8-10.44); Carbon Dioxide 27 mmol/L (22-29); Chloride 92 mmol/L (98-107); Estimated GFR-MDRD 8; Glucose 116 mg/dL (70-105); Potassium 3.3 mmol/L (3.5-5.1); Sodium 129 mmol/L (136-145)
[2017-08-31] MEDS: Amiodarone 200 MG TAB PO SCH (08:02)
[2017-08-31] MEDS: Calcitriol 0.25 MCG CAP PO SCH (08:02)
[2017-08-31] MEDS: Calcium Acetate 667 MG CAP PO SCH ×3 (08:04→17:29)
[2017-08-31] MEDS: Sevelamer Carbonate 800 MG TAB PO SCH ×3 (08:04→17:30)
[2017-08-31] MEDS ORDERED: Acetaminophen 500 MG TAB PO PRN (09:47)
[2017-08-31] MEDS: traMADol HCl 50 MG TAB PO PRN ×2 (10:24→16:47)
--- NOTE | 2017-08-31 10:32 | PRG ---
DATE OF SERVICE: 08/31/2017 SUBJECTIVE: The patient's pain is much worse today. He has been diagnosed with peritonitis. OBJECTIVE: VITAL SIGNS: Temperature 97.5, pulse 85, respiratory rate 20, blood pressure 107/74. CHEST: Clear. CARDIOVASCULAR: Regular rate and rhythm. ABDOMEN: Diffusely tender, protuberant. LABORATORY DATA: Shows a white blood cell count of 9.2, hemoglobin 8.1, hematocrit 25.5. Chemistry shows sodium 129, potassium 3.3, chloride 92, BUN 75, creatinine 7.6 peritoneal fluid shows 5750 wbcs with 90% neutrophils. ASSESSMENT: Peritonitis, secondary to infected peritoneal dialysate. RECOMMENDATIONS: We will sign off.
[2017-08-31] MEDS: Famotidine/PF 20 mg/2ml Vial SLOW IVP SCH (11:27)
[2017-08-31] MEDS: Cefepime 1 GM in Sodium Chloride 0.9% 100 ML IVPB SCH (11:42)
--- NOTE | 2017-08-31 11:54 | PRG ---
DATE OF SERVICE: 08/31/2017 SUBJECTIVE: Mr. Kamara is a 52-year-old white male being followed up for his ESRD and currently on maintenance peritoneal dialysis. We noted his PD fluid was cloudy. We sent it for culture, gram st ain and cell count. Initial PD culture showed gram positive cocci and gram negative sundeep. He was emp irically treated with vancomycin and gentamicin intraperitoneally. My plan is to convert him to intr avenous vancomycin. We will be checking a vancomycin level in a.m. In addition, I will be starting him on cefepime at 1 gram IV daily and discontinue the gentamicin. His abdominal pain is still there . No complaints of chest pain or shortness of breath. PHYSICAL EXAMINATION: VITAL SIGNS: Blood pressure is 107/74, heart rate 85, respiratory rate 20, temperature 97.5, pulse o x 96%. GENERAL: Awake, alert, comfortable, not in distress. SKIN: Adequate turgor. HEENT: He has pinkish conjunctivae, anicteric sclerae. NECK: No neck mass, no carotid bruits, no JVD. CHEST: No deformities. LUNGS: Clear breath sounds. HEART: Normal sinus rhythm. No murmur, no gallops or rubs. ABDOMEN: Globular, soft, nontender. No masses. EXTREMITIES: No edema, no deformities. MEDICATIONS: 08/31/2017 - Reviewed. LABORATORY: 08/31/2017 - White count 9.2, hemoglobin 8.1. Sodium 129, potassium 3.3, chloride 92, c arbon dioxide 27, BUN 75, creatinine 7.6, glucose 116, calcium 7.2. PD fluid culture showed gram pos itive cocci, gram negative sundeep. ASSESSMENT AND PLAN: 1. Peritonitis - finding of gram positive cocci, gram negative sundeep was noted. We will start on cefe pime 1 gram IV daily. In addition, we will continue vancomycin depending on the blood level of the v ancomycin. We will be rechecking a vancomycin level in a.m. 2. End-stage renal disease, stable. We will continue current CCPD regimen. Recheck base met and CBC in a.m. Check vancomycin level in a.m.
[2017-08-31] MEDS: Epoetin (ESRD) 10,000 UNITS/ML VIAL SC SCH (13:40)
--- NOTE | 2017-08-31 14:20 | PDOC.CTH ---
Cardiology Progress Note - Subjective Patient awake, watching tv c/ family at bedside. Denies chest pain, shortness of breath, N/V/D. Complains of persistent abdominal pain, worse after eating. No cardiac events, no overnight events. - Objective Vital Signs Temp Pulse Resp BP Pulse Ox 08/31/17 08:00 97.5 F L 85 20 97 08/31/17 07:35 97.5 F L 85 20 107/74 96 Weight 234 lb 6 oz 08/30/17 08/31/17 09/01/17 06:59 06:59 06:59 Intake Total 600 720 Output Total 358 Balance 242 720 - Physical Examination General/Neuro: alert & oriented x3, NAD Neck: no JVD present Lungs: unlabored respirations Heart: RRR Abdomen: other: (tender to palpation) Extremities: + edema B (1+ nonpitting BLE edema) - Labs Result Diagrams: 08/31/17 03:36 08/31/17 03:36 - Assessment/Plan 1. Anemia 2/2 ESRD - stable after receiving 4 units of PRBCs, Colonoscopy/EGD normal. Cont. Epogen q 7 days per section leader screen printing. 2. ESRD on peritoneal dialysis - Tolerating PD, followed by 3. Peritonitis-PD fluid gram + cocci, gram - rods, continue Cefepime 4. Polycystic kidney disease 5. Paroxysmal AFib-RRR, PO amiodarone 6. Hyponatremia -slowly improving; Fluid restriction 1200ml/day 7. Hyperkalemia 8.? vegetation on MV vs torn chordae tendinae
--- NOTE | 2017-08-31 14:45 | PDOC.PN ---
- Subjective Encounter Start Date: 08/31/17 Encounter Start Time: 14:40 Subjective: f/u for peritonitis and abd pain on current Cefepime with cx showing GNR -: and GPC. Still has some abd pain but no fever. Appetite decreased. -: No N/V. - Objective MAR Reviewed: Yes Vital Signs & Weight: Vital Signs (12 hours) Temp Pulse Resp BP Pulse Ox 08/31/17 08:00 97.5 F L 85 20 97 08/31/17 07:35 97.5 F L 85 20 107/74 96 Weight Weight 234 lb 6 oz I&O: 08/30/17 08/31/17 09/01/17 06:59 06:59 06:59 Intake Total 600 720 Output Total 358 Balance 242 720 Result Diagrams: 08/31/17 03:36 08/31/17 03:36 Additional Labs: Microbiology 08/30/17 12:20 Dialysate Fluid Culture Body Fluid Culture - Preliminary Gram Positive Cocci Gram Negative Andres 08/30/17 12:20 Dialysate Fluid Culture Body Fluid Culture - Preliminary Laboratory Tests 08/23/17 08/24/17 08/24/17 19:58 05:21 05:21 Hgb 4.8 L* 4.1 L* Hct Neutrophils % Neutrophils % (Manual) Retic Count Haptoglobin Sodium Whole Bld Sodium Potassium BUN Creatinine Iron 26 L TIBC 86 L Hep Bs Antigen 08/24/17 08/24/17 08/24/17 05:21 05:21 05:21 Hgb Hct Neutrophils % Neutrophils % (Manual) Retic Count 3.3 H Haptoglobin 364 H Sodium 124 L Whole Bld Sodium Potassium BUN 126 H Creatinine 11.04 H Iron TIBC Hep Bs Antigen 08/24/17 08/24/17 08/25/17 11:04 18:01 03:30 Hgb 7.7 L Hct Neutrophils % Neutrophils % (Manual) Retic Count Haptoglobin Sodium Whole Bld Sodium 120.9 L Potassium BUN 120 H Creatinine 10.63 H Iron TIBC Hep Bs Antigen 08/25/17 08/25/17 08/26/17 07:22 07:22 03:56 Hgb Hct Neutrophils % Neutrophils % (Manual) Retic Count Haptoglobin Sodium 127 L 127 L Whole Bld Sodium Potassium BUN 118 H 108 H Creatinine 10.19 H Iron TIBC Hep Bs Antigen Non-Reactive 08/26/17 08/27/1718 03:56 09:14 03:57 Hgb 7.6 L 9.3 L Hct 28.0 L Neutrophils % Neutrophils % (Manual) 78 H Retic Count Haptoglobin Sodium 126 L Whole Bld Sodium Potassium 4.0 BUN Creatinine Iron TIBC Hep Bs Antigen 08/31/17 03:36 Hgb Hct Neutrophils % 89.0 H Neutrophils % (Manual) Retic Count Haptoglobin Sodium Whole Bld Sodium Potassium BUN Creatinine Iron TIBC Hep Bs Antigen Phys Exam - Physical Examination ill-appearing, lethargic, answers questions HEENT: PERRLA, moist MMs, sclera anicteric, oral pharynx no lesions Neck: no nodes, no JVD, supple, full ROM Respiratory: no wheezing, no rales, no rhonchi, clear to auscultation bilateral S1, S2 Cardiovascular: RRR, no significant murmur, no rub, gallop mild TTP, PD catheter in place, mild distention Gastrointestinal: positive bowel sounds Musculoskeletal: pulses present, edema present Neurological: normal sensation, moves all 4 limbs Psychiatric: normal affect, A&O x 3 Skin: no rash, normal turgor, cap refill <2 seconds Dx/Plan (1) Peritonitis Code(s): K65.9 - PERITONITIS, UNSPECIFIED Status: Acute Comment: suspected with hazy peritoneal fluid with WBC's, peritoneal cx GNR/GPC, Gentamicin and Vancomycin IP with last PD, currently on Cefepime 1gm IV daily (2) Anemia due to end stage renal disease Code(s): N18.6 - END STAGE RENAL DISEASE; D63.1 - ANEMIA IN CHRONIC KIDNEY DISEASE Status: Chronic Comment: EGD/Colonoscopy negative, s/p 5u total PRBC 's, serial H/H, continue Epogen q7 days (3) Hyponatremia Code(s): E87.1 - HYPO-OSMOLALITY AND HYPONATREMIA Status: Acute Comment: chronic due to poor nutrition, ESRD (4) ESRD on peritoneal dialysis Code(s): N18.6 - END STAGE RENAL DISEASE; Z99.2 - DEPENDENCE ON RENAL DIALYSIS Status: Chronic Comment: PD with plans on eventual HD, plan for AV fistula in next 3 days (5) Polycystic kidney, adult type Code(s): Q61.2 - POLYCYSTIC KIDNEY, ADULT TYPE Status: Chronic Comment: Advanced disease and likely will need nephrectomies, will have perfomed in [place] (6) Physical deconditioning Code(s): R53.81 - OTHER MALAISE Status: Acute Comment: PT for mobilization, SNF options pending (7) Hypokalemia Code(s): E87.6 - HYPOKALEMIA Status: Acute Comment: KCL 40meq x 1 dose today , serial monitoring - Plan continue antibiotics, PT/OT, social media director, DVT proph w/SCDs Continue Cefepime 1mg IV daily -: Pain control with Tramadol 50mg po q6h -: Change Pepcid 20mg po BID -: AV fistula planned 09/01/17 -: CM for SNF options * AM lab: BMP, CBC
[2017-08-31] MEDS: clonazePAM 0.5 MG TAB PO SCH (20:20)
[2017-09-01 03:47] LABS: #Lymphocytes 0.5 thou/uL (1.20-3.40); #Monocytes 0.6 thou/uL (0.11-0.59); #Neutrophils 8.1 thou/uL (1.40-6.50); %Basophils 0.3 % (0.0-1.0); %Eosinophils 0.5 % (0.0-10.0); %Lymphocytes 4.9 % (21.0-51.0); %Monocytes 6.4 % (0.0-10.0); %Neutrophils 87.9 % (42.0-75.0); Hemoglobin 9.2 g/dL (14.0-18.0); Mean Corpuscular HGB CONC 31.8 g/dL (32.0-36.0); Mean Corpuscular Hemoglobin 26.4 pg (27.0-31.0); Mean Platelet Volume 9.1 fL (7.4-10.4); Platelet Count 125 thou/uL (130-400); RBC Distribution Width 16.4 % (11.5-14.5); White Blood Cell (WBC) Count 9.2 thou/uL (4.8-10.8)
[2017-09-01] MEDS: traMADol HCl 50 MG TAB PO PRN ×2 (03:58→18:46)
[2017-09-01 04:13] LABS: Vancomycin, Trough 4.7 ug/mL
[2017-09-01 04:21] LABS: Anion Gap 14 mmol/L (10-20); BUN (Urea Nitrogen) 65 mg/dL (8.4-25.7); Calcium 7.4 mg/dL (7.8-10.44); Carbon Dioxide 23 mmol/L (22-29); Chloride 94 mmol/L (98-107); Glucose 116 mg/dL (70-105); Potassium 3.4 mmol/L (3.5-5.1); Sodium 128 mmol/L (136-145)
[2017-09-01 05:08] LABS: Calc. Creatinine Clearance 18 mL/min (70-130); Estimated GFR-MDRD 8
--- NOTE | 2017-09-01 08:09 | PDOC.CTH ---
Cardiology Progress Note - Subjective The pt seen and examined. No overnight events. No cardiac complaints. He denied ABD pain or discomfort at this time. - Objective Vital Signs Temp Pulse Resp BP Pulse Ox 09/01/17 07:11 98.5 F 97 16 132/59 L 95 09/01/17 05:27 97.5 F L 84 20 101/70 94 L 09/01/17 00:00 90 20 102/68 Weight 234 lb 6 oz 08/31/17 09/01/17 09/02/17 06:59 06:59 06:59 Intake Total 720 325 Balance 720 325 - Physical Examination General/Neuro: alert & oriented x3 Neck: no JVD present Lungs: CTA Heart: RRR Abdomen: soft Extremities: other: (1-2+ non-pitting edema to bilat foot) - Labs Result Diagrams: 09/01/17 03:32 09/01/17 03:32 - Assessment/Plan 1. Anemia due to end stage renal disease - stable after receiving 4 units of PRBCs. Colonoscopy and EGD were negative. Cont. Epogen q 7 days per manager of tax. 2. ESRD on peritoneal dialysis - Tolerates PD; plan for transition to HD; HD fistula placement on 09/02/17 3. Polycystic kidney - Possible nephrectomy in [place], tx 4. Paroxysmal Afib - Regularly regular by auscultation with Amiodarone 100mg qd. 5. Hyponatremia - no changed; Cont. Fluid restriction 1200ml/day 6. Peritonitis - PD fluid gram + cocci, gram - rods, continue Cefepime 7. possible small vegetation oin the MV or a possible small torn chordea tendinae - Possible PETTY prior to D/c MAR reviewed Review of Systems - Review of Systems Constitutional: reports: no symptoms reported EENTM: reports: no symptoms reported Respiratory: reports: no symptoms reported Cardiac (ROS): reports: no symptoms reported ABD/GI: reports: no symptoms reported : reports: no symptoms reported Musculoskeletal: reports: no symptoms reported
--- NOTE | 2017-09-01 08:31 | PRG ---
DATE OF SERVICE: 09/01/2017 SUBJECTIVE: Mr. Kamara is a 52-year-old white male with ESRD, currently on CCPD regimen and admitt ed for symptomatic anemia. GI workup was essentially negative. He has undergone upper and lower GI endoscopy. In the interim, a central line was placed. The planned by surgery is to place an AV fist dejuan with this patient since he plans to convert to hemodialysis. Furthermore, he did develop periton itis. Cultures showed a gram positive cocci and gram negative sundeep. He is currently on cephalosporin and IV vancomycin. We are redosing vancomycin. Due to the mixed dian of gram positive cocci and g terrence negative sundeep we will consult Infectious Disease. We will also consult Pharmacy for vancomycin do sing. He feels lethargic today. Denies any chest pain, shortness of breath. He underwent peritonea l dialysis without any difficulty last night. PHYSICAL EXAMINATION: VITAL SIGNS: Blood pressure is 132/59, heart rate 97, respiratory rate 16, temperature 98.5, pulse o x 95%. GENERAL: Awake, alert, comfortable, not in distress. SKIN: Adequate turgor. HEENT: He has slightly pale conjunctivae, anicteric sclerae. NECK: No neck mass, no carotid bruits, no JVD. CHEST: No deformities. LUNGS: Clear breath sounds, no wheezing, no crackles. HEART: Normal sinus rhythm. No murmur, no gallops or rubs. ABDOMEN: Globular, soft, mildly tender. Positive for PD catheter. EXTREMITIES: No edema, no deformities. MEDICATIONS: 09/01/2017 - Reviewed. LABORATORY DATA: 09/01/2017 - White count 9.2, hemoglobin 9.2, hematocrit 29. Sodium 128, potassium 3.4, chloride 94, carbon dioxide 24, BUN 65, creatinine 7.03, glucose 116, calcium 7.4. ASSESSMENT AND PLAN: 1. Peritonitis - PD fluid showed gram positive cocci and gram negative sundeep. Currently on IV cefepim e. Redose IV vancomycin. Consult ID. Pharmacy consult for dosing of vancomycin will be done. 2. End-stage renal disease, stable. We will continue current continuous cycling peritoneal dialysis regimen. No changes will be made with his peritoneal dialysis regimen. 3. Anemia - much improved. Currently on Epogen and p.r.n. blood transfusion. Upper and lower GI en doscopy has been negative. The patient will have AV fistula in a.m.
[2017-09-01] MEDS ORDERED: CEFAZOLIN/Water 2 GM/20 ML SYRINGE SLOW IVP SCH (08:45)
[2017-09-01] MEDS: Calcitriol 0.25 MCG CAP PO SCH (08:52)
[2017-09-01] MEDS: Famotidine 20 MG TAB PO SCH (08:52)
[2017-09-01] MEDS: Amiodarone 200 MG TAB PO SCH (08:53)
[2017-09-01] MEDS: Calcium Acetate 667 MG CAP PO SCH ×3 (08:53→17:17)
[2017-09-01] MEDS: Sevelamer Carbonate 800 MG TAB PO SCH ×4 (08:53→17:57)
[2017-09-01] MEDS ORDERED: VANCOMYCIN IVPB PRN (09:33)
[2017-09-01] MEDS ORDERED: Vancomycin HCl 1.5 GM in Sodium Chloride 0.9% 250 ML 300 ML IVPB SCH ×2 (10:00→11:00)
--- NOTE | 2017-09-01 10:28 | PRG ---
DATE OF SERVICE: 09/01/2017 Mr. Kamara was scheduled for a left arm fistula, possible dialysis graft today, but due to OR sched uling issues, the plan is to perform this tomorrow. We will plan to perform this tomorrow morning, l ater in the morning or early afternoon as opposed to this evening. This has been discussed with the patient and he is aware of. We will resume his diet today and plan n.p.o. after midnight tonight for tomorrow's surgery.
[2017-09-01] MEDS ORDERED: Vancomycin HCl 750 MG in Sodium Chloride 0.9% 250 ML 250 ML IVPB SCH (11:00)
[2017-09-01] MEDS ORDERED: Vancomycin HCl 1 GM in Premix Bag 1 BAG IVPB SCH (11:00)
[2017-09-01] MEDS ORDERED: HOLD VANCOMYCIN FOR LEVEL >20 FS SCH (11:00)
[2017-09-01] MEDS ORDERED: Vancomycin HCl 1.25 GM in Sodium Chloride 0.9% 250 ML 250 ML IVPB SCH (11:00)
--- NOTE | 2017-09-01 11:05 | PDOC.PN ---
- Subjective Encounter Start Date: 09/01/17 Encounter Start Time: 10:50 Subjective: f/u for peritonitis on Cefepime and Vancomycin. Polymicrobial peritoneal cx -: Enterococcus, pseudomonas, GNR, strep spp. Less abd pain today. AV fistula -: planned for 09/02/17. - Objective MAR Reviewed: Yes Vital Signs & Weight: Vital Signs (12 hours) Temp Pulse Resp BP Pulse Ox 09/01/17 08:00 98.5 F 97 16 95 09/01/17 07:11 98.5 F 97 16 132/59 L 95 09/01/17 05:27 97.5 F L 84 20 101/70 94 L 09/01/17 00:00 90 20 102/68 Weight Weight 234 lb 6 oz I&O: 08/31/17 09/01/17 09/02/17 06:59 06:59 06:59 Intake Total 720 325 Balance 720 325 Result Diagrams: 09/01/17 03:32 09/01/17 03:32 Additional Labs: Microbiology 08/30/17 12:20 Dialysate Fluid Culture Body Fluid Culture - Preliminary Gram Positive Cocci Gram Negative Andres 08/30/17 12:20 Dialysate Fluid Culture Body Fluid Culture - Preliminary Enterococcus species Gram Negative Andres Pseudomonas aeruginosa Alpha-Hemolytic Streptococcus 08/30/17 12:20 Dialysate Fluid Culture Body Fluid Culture - Preliminary Laboratory Tests 08/23/17 08/24/17 08/24/17 19:58 05:21 05:21 Hgb 4.8 L* 4.1 L* Hct Neutrophils % Neutrophils % (Manual) Retic Count Haptoglobin Sodium Whole Bld Sodium Potassium BUN Creatinine Iron 26 L TIBC 86 L Hep Bs Antigen 08/24/17 08/24/17 08/24/17 05:21 05:21 05:21 Hgb Hct Neutrophils % Neutrophils % (Manual) Retic Count 3.3 H Haptoglobin 364 H Sodium 124 L Whole Bld Sodium Potassium BUN 126 H Creatinine 11.04 H Iron TIBC Hep Bs Antigen 08/24/17 08/24/17 08/25/17 11:04 18:01 03:30 Hgb 7.7 L Hct Neutrophils % Neutrophils % (Manual) Retic Count Haptoglobin Sodium Whole Bld Sodium 120.9 L Potassium BUN 120 H Creatinine 10.63 H Iron TIBC Hep Bs Antigen 08/25/17 08/25/17 08/26/17 07:22 07:22 03:56 Hgb Hct Neutrophils % Neutrophils % (Manual) Retic Count Haptoglobin Sodium 127 L 127 L Whole Bld Sodium Potassium BUN 118 H 108 H Creatinine 10.19 H Iron TIBC Hep Bs Antigen Non-Reactive 08/26/17 08/27/17 08/30/17 03:56 09:14 03:57 Hgb 7.6 L 9.3 L Hct 28.0 L Neutrophils % Neutrophils % (Manual) 78 H Retic Count Haptoglobin Sodium 126 L Whole Bld Sodium Potassium 4.0 BUN Creatinine Iron TIBC Hep Bs Antigen 08/31/17 03:36 Hgb Hct Neutrophils % 89.0 H Neutrophils % (Manual) Retic Count Haptoglobin Sodium Whole Bld Sodium Potassium BUN Creatinine Iron TIBC Hep Bs Antigen Phys Exam - Physical Examination Constitutional: NAD HEENT: PERRLA, moist MMs, sclera anicteric, oral pharynx no lesions Neck: no nodes, no JVD, supple, full ROM diminished in bases Respiratory: no wheezing, no rales, no rhonchi, clear to auscultation bilateral S1, S2 Cardiovascular: RRR, no significant murmur, no rub, gallop mild TTP diffusely, PD catheter in place Gastrointestinal: soft, positive bowel sounds RUE with eccymosis Musculoskeletal: pulses present, edema present Neurological: non-focal, normal sensation, moves all 4 limbs Psychiatric: A&O x 3 Skin: normal turgor, cap refill <2 seconds Dx/Plan (1) Peritonitis Code(s): K65.9 - PERITONITIS, UNSPECIFIED Status: Acute Comment: suspected with hazy peritoneal fluid with WBC's, peritoneal cx polymicrobial with pseudomonas, Enterococcus, strep and GNR spp, Gentamicin and Vancomycin IP with last PD, currently on Cefepime 1gm IV daily and Vancomycin renally dosed (2) Anemia due to end stage renal disease Code(s): N18.6 - END STAGE RENAL DISEASE; D63.1 - ANEMIA IN CHRONIC KIDNEY DISEASE Status: Chronic Comment: EGD/Colonoscopy negative, s/p 5u total PRBC 's, serial H/H, continue Epogen q7 days (3) Hyponatremia Code(s): E87.1 - HYPO-OSMOLALITY AND HYPONATREMIA Status: Acute Comment: chronic due to poor nutrition, ESRD (4) ESRD on peritoneal dialysis Code(s): N18.6 - END STAGE RENAL DISEASE; Z99.2 - DEPENDENCE ON RENAL DIALYSIS Status: Chronic Comment: PD with plans on eventual HD, plan for AV fistula (5) Polycystic kidney, adult type Code(s): Q61.2 - POLYCYSTIC KIDNEY, ADULT TYPE Status: Chronic Comment: Advanced disease and likely will need nephrectomies, will have perfomed in [place] (6) Physical deconditioning Code(s): R53.81 - OTHER MALAISE Status: Acute Comment: PT for mobilization, SNF options pending, encourage pt to work with PT (7) Hypokalemia Code(s): E87.6 - HYPOKALEMIA Status: Acute Comment: KCL 40meq po BID, serial monitoring - Plan plan discussed w/ family, continue antibiotics, PT/OT, social media job titles, out of bed/ambulate, DVT proph w/SCDs Continue Vancomycin sliding scale and Cefepime -: Pain control with Tramadol -: Plan for AV fistula in am 09/02/17 -: SNF options limited if pt continues on PD, most facilities will not take -: Change Klor con to KCL 40meq po BID * AM lab: BMP, CBC
[2017-09-01] MEDS ORDERED: Potassium Chloride 20 MEQ TAB PO SCH (12:00)
[2017-09-01] MEDS: Cefepime 1 GM in Sodium Chloride 0.9% 100 ML IVPB SCH (12:38)
--- NOTE | 2017-09-01 13:29 | CON ---
DATE OF CONSULTATION: 09/01/2017 REASON FOR CONSULTATION: Peritonitis. HISTORY OF PRESENT ILLNESS: A 52-year-old with history of end-stage renal disease secondary to polycystic kidney disease, on peritoneal dialysis for the past 6 years, who for the past 2 weeks has noticed weakness and what he describes as dehydration due to decreased oral intake and increased removal of fluids and minerals through dialysis. He was reportedly trying to increase his oral intake with [id number] electrolyte solutions and was admitted according to Dr. aRman's note for preparation for colonoscopy. A few days before this admission, he was seen at the emergency room for "dehydration." He had some leg swelling as well. The diagnosis upon discharge was anemia, chronic renal failure, and hypernatremia. He was given IV sodium chloride and then released. The patient underwent colonoscopy on 08/27/2017, which was normal except for some diverticulosis and a small polyp. On 08/30, this is about 4 days after admission, the patient developed progressively worsening diffuse abdominal pain after colonoscopy. This was noticed by Dr. Tomas initially and this progressed and the patient had a noticeable cloudiness of the peritoneal dialysis fluid, the sample which Dr. Raman proceeded to submit for testing. The results of the fluid showed 5700 WBCs with 90% segmented neutrophils, and cultures have revealed Enterococcus, gram-negative sundeep, Pseudomonas aeruginosa, and alpha hemolytic streptococcus. Currently, Mr. Kamara is being prepared for placement of an AV fistula. I believe that the peritoneal dialysis catheter is going to be removed. The patient is still with pain, but not as much as before in part, because of the administration of analgesia. REVIEW OF SYSTEMS: He denies any headaches, no visual symptoms, sore throat, odynophagia, dysphagia, no chest pain or dyspnea. Some chronic low back pain, which is unchanged. He does not have urinary output. Some loose stool noticeable. No joint symptoms. No lower extremity issues. No neurological symptoms. PAST MEDICAL HISTORY: Polycystic kidney disease, on peritoneal dialysis for the past 6 years, with no prior episodes of peritonitis; bilateral knee replacements. SOCIAL HISTORY: Never a smoker, no alcoholic beverage use. ALLERGIES: SULFA DRUGS with rash, mild. CURRENT MEDICATIONS: Include Cordarone, Rocaltrol, PhosLo, Ancef, cefepime, Klonopin, Pepcid, Procrit, potassium, and vancomycin. PHYSICAL EXAMINATION: VITAL SIGNS: T-max 98.5, blood pressure 95/67, pulse 62, respirations 16, O2 sat 97%. SKIN EXAM: Shows the left IJ catheter, does not have Connolly catheter, area of extensive bruising in the right forearm. He has a little bit of erythema and a little bit of early pressure ulceration in presacral region. There is a little fissure in his scrotal area in the lower aspect of the scrotal skin. Patient appears chronically ill. He is awake. He is not very happy at this time with this new development. He has no lymphadenopathy noticeable. HEENT: Ocular movements conjugate. Pale conjunctivae. Nasal passages patent. Oral cavity moist, still quite a few teeth in place with the expected decay and gum disease. NECK: Supple, no jugular distention or carotid bruits. LUNGS: Symmetric air entry without crackles or wheezing. HEART: S1 and S2, regular rate. No significant murmurs. No S3 or S4. ABDOMEN: Soft, moderately distended with mild diffuse tenderness. Some rebound tenderness. EXTREMITIES: No joint inflammatory activity. A 1+ edema in lower extremities. Pulses are 1+ in dorsalis pedis. He is able to move extremities equally, although he is diffusely weak. NEUROLOGIC: His cognitive function appears to be intact. LATEST LABORATORY DATA: White cell count 9.2, hemoglobin 9.2, MCV 83, platelets 125,000. Sodium 128, creatinine 7.03, AST 42, ALT 23, alkaline phosphatase 320, bilirubin total 0.5, albumin 1.6, and globulin 3.7. We have occult blood in stool, which was negative. The patient had abdomen and pelvis CT from 08/26/2017, which showed prominent changes of polycystic kidney disease. Small bilateral pleural effusions, patchy ground-glass opacity. ASSESSMENT: 1. Polycystic kidney disease with end-stage renal disease, on peritoneal dialysis for 6 years without complications until now. 2. Admitted for anemia and dehydration, status post colonoscopy and EGD. 3. Development of peritonitis with polymicrobial dian. DISCUSSION: The main concern is with a secondary form of peritonitis rather than continuous ambulatory peritoneal dialysis-associated peritonitis. Continuous ambulatory peritoneal dialysis-associated peritonitis is rarely secondary to multiple organisms such as the picture the patient presents. This is very indicative of GI tract source. Since the patient had a procedure right before the development of symptoms, it is more likely that he developed a small area of perforation that is leading to peritonitis. We will need to repeat a CT of abdomen and pelvis, preferably with contrast. We will need to adjust the regimen. We will switch him from cefepime to meropenem to add anaerobic coverage, and continue vancomycin for the time being. MTDD
[2017-09-01] MEDS: Meropenem 500 MG in Sodium Chloride 0.9% 100 ML IVPB SCH (15:04)
[2017-09-01] MEDS: Potassium Chloride 20 MEQ TAB PO SCH (17:57)
[2017-09-01] MEDS: clonazePAM 0.5 MG TAB PO SCH (21:11)
[2017-09-02 05:44] LABS: Calcium 7.1 mg/dL (7.8-10.44); Chloride 98 mmol/L (98-107); Potassium 5.2 mmol/L (3.5-5.1); Sodium 131 mmol/L (136-145)
[2017-09-02 08:34] LABS: BUN (Urea Nitrogen) 68 mg/dL (8.4-25.7); Calc. Creatinine Clearance 19 mL/min (70-130); Carbon Dioxide 25 mmol/L (22-29); Estimated GFR-MDRD 9; Glucose 92 mg/dL (70-105)
[2017-09-02] MEDS: Potassium Chloride 20 MEQ TAB PO SCH (08:38)
[2017-09-02] MEDS: Sevelamer Carbonate 800 MG TAB PO SCH ×3 (08:38→18:22)
[2017-09-02] MEDS: Calcium Acetate 667 MG CAP PO SCH ×3 (08:38→18:22)
[2017-09-02] MEDS: Famotidine 20 MG TAB PO SCH (08:41)
[2017-09-02] MEDS: Amiodarone 200 MG TAB PO SCH (08:41)
[2017-09-02] MEDS: Calcitriol 0.25 MCG CAP PO SCH (08:41)
[2017-09-02 09:32] LABS: #Lymphocytes 0.5 thou/uL (1.20-3.40); #Monocytes 0.4 thou/uL (0.11-0.59); #Neutrophils 8.4 thou/uL (1.40-6.50); %Eosinophils 0.5 % (0.0-10.0); %Lymphocytes 5.4 % (21.0-51.0); %Monocytes 3.9 % (0.0-10.0); %Neutrophils 90.3 % (42.0-75.0); Mean Corpuscular HGB CONC 31.8 g/dL (32.0-36.0); Mean Corpuscular Hemoglobin 26.1 pg (27.0-31.0); Mean Corpuscular Volume 82.1 fl (80.0-94.0); Mean Platelet Volume 9.1 fL (7.4-10.4); Platelet Count 123 thou/uL (130-400); RBC Distribution Width 16.1 % (11.5-14.5); Red Blood Cell (RBC) Count 3.44 mill/uL (4.70-6.10); White Blood Cell (WBC) Count 9.3 thou/uL (4.8-10.8)
[2017-09-02 09:57] LABS: Anion Gap 13 mmol/L (10-20)
--- NOTE | 2017-09-02 10:57 | HP ---
HISTORY OF PRESENT ILLNESS: Mr. Kamara is a 52-year-old white male with ESRD on peritoneal dialysis, admitted for symptomatic anemia and is now much better from the anemia point of view. During this hospital course, he did develop peritonitis. This could have been related from his colonoscopy and an ID consult has been done and the feeling there may have been a perforation of his colon. He is clinically improved. As per ID recommendation, meropenem was added to the current IV antibiotics. This morning, he is feeling better. His abdominal pain is improved. He is scheduled for an AV fistula placement. No complaints of chest pain or shortness of breath. PHYSICAL EXAMINATION: VITAL SIGNS: Blood pressure 100/64, heart rate 96, respiratory rate 16, temperature 97.6, and pulse oximetry 100%. GENERAL: Awake, supine, comfortable, not in distress. SKIN: Adequate turgor. HEENT: He has Pinkish conjunctivae, anicteric sclerae. NECK: No neck mass, no carotid bruits, no JVD. CHEST: No deformities. LUNGS: Clear breath sounds, no wheezing, no crackles. HEART: Normal sinus rhythm. No murmur, no gallops, no rubs. ABDOMEN: Globular, soft, nontender. Positive for PD catheter. EXTREMITIES: No edema. MEDICATIONS: 09/02/2017 was reviewed. LABORATORY DATA: On 09/01/2017, white count 9.2, hemoglobin 9.2. Sodium 131, potassium 5.2, chloride 98, carbon dioxide 25, BUN 68, creatinine 6.84, glucose 92, calcium is 7.1. ASSESSMENT AND PLAN: 1. Mild hyperkalemia - we will be discontinuing the patient's potassium supplementation. 2. End-stage renal disease, stable. Tolerating current continuous cycling peritoneal dialysis regimen. No changes will be made with the peritoneal dialysis. 3. Anemia, stable. Continue weekly Epogen. 4. Peritonitis - ID following. Meropenem has been added to cover for anaerobes at the same time. He is also on IV vancomycin. The patient is scheduled for AV fistula placement. [facility]
[2017-09-02] MEDS ORDERED: CEFAZOLIN/Water 2 GM/20 ML SYRINGE ONE (11:23)
[2017-09-02] MEDS ORDERED: Lidocaine 2% 10 ML INJ ONE (12:04)
[2017-09-02] MEDS ORDERED: Bupivacaine HCl 0.5%/Epinephrine 1:200,000/PF 30 ml Vial ONE (12:04)
[2017-09-02] MEDS ORDERED: Ioversol 68 % 50 ML VIAL ONE (12:04)
[2017-09-02] MEDS ORDERED: Protamine Sulfate 250 MG/25 ML VIAL ONE (12:04)
[2017-09-02] MEDS ORDERED: Heparin 5,000 UNITS/ML VIAL ONE (12:04)
[2017-09-02] MEDS ORDERED: Protamine Sulfate 50 MG/5 ML VIAL ONE (12:05)
[2017-09-02] MEDS ORDERED: Fentanyl 100 MCG/2 ML VIAL ONE (12:07)
[2017-09-02] MEDS ORDERED: traMADol HCl 50 MG TAB PO PRN (12:57)
[2017-09-02] MEDS ORDERED: Acetaminophen 500 MG TAB PO PRN (12:57)
[2017-09-02] MEDS ORDERED: Phenylephrine HCL 10 MG/ML VIAL ONE (13:31)
[2017-09-02] MEDS ORDERED: PROPOFOL 200 MG/20 ML VIAL ONE (14:28)
[2017-09-02] MEDS ORDERED: Heparin 10,000 UNITS/ 10 ML VIAL ONE (14:28)
[2017-09-02] MEDS ORDERED: Dexamethasone 20 MG/5 ML VIAL ONE (14:28)
[2017-09-02] MEDS ORDERED: ePHEDrine/0.9% NaCl/PF SYRINGE 50 mg/10 ml ONE (14:28)
[2017-09-02] MEDS ORDERED: PHENYLEPHRINE-NS 100 MCG/ML 10 ML SYRINGE ONE (14:28)
[2017-09-02] MEDS ORDERED: Ondansetron HCl/PF 4 MG/2 ML Vial ONE (14:28)
[2017-09-02] MEDS: Meropenem 500 MG in Sodium Chloride 0.9% 100 ML IVPB SCH (16:07)
--- NOTE | 2017-09-02 18:56 | PDOC.PN ---
- Subjective Encounter Start Date: 09/02/17 Encounter Start Time: 18:54 seen after AV fistula placement . no nausea or vomiting, sob or chest pain - Objective MAR Reviewed: Yes Vital Signs & Weight: Vital Signs (12 hours) Temp Pulse Resp BP Pulse Ox 09/02/17 18:26 97.5 F L 103 H 18 93/63 94 L 09/02/17 15:25 96.4 F L 117 H 20 91/58 L 93 L 09/02/17 10:30 97.9 F 101 H 18 112/79 98 09/02/17 08:00 97.6 F 96 16 100 09/02/17 07:56 97.6 F 96 16 100/64 100 Weight Weight 234 lb 6 oz I&O: 09/01/17 09/02/17 09/03/17 06:59 06:59 06:59 Intake Total 325 1010 120 Output Total 500 Balance 325 510 120 Result Diagrams: 09/02/17 09:28 09/02/17 04:58 Phys Exam - Physical Examination Constitutional: NAD HEENT: moist MMs, sclera anicteric Neck: no nodes, no JVD, supple Respiratory: no wheezing, no rales, no rhonchi Cardiovascular: RRR, no significant murmur, no rub Gastrointestinal: soft, non-tender, no distention Musculoskeletal: no edema, pulses present Dx/Plan (1) Peritonitis Code(s): K65.9 - PERITONITIS, UNSPECIFIED Status: Acute Comment: suspected with hazy peritoneal fluid with WBC's, peritoneal cx polymicrobial with pseudomonas, Enterococcus, strep and GNR spp, Gentamicin and Vancomycin IP with last PD, currently on Cefepime 1gm IV daily and Vancomycin renally dosed (2) Anemia due to end stage renal disease Code(s): N18.6 - END STAGE RENAL DISEASE; D63.1 - ANEMIA IN CHRONIC KIDNEY DISEASE Status: Chronic Comment: EGD/Colonoscopy negative, s/p 5u total PRBC 's, serial H/H, continue Epogen q7 days (3) Metabolic acidosis Code(s): E87.2 - ACIDOSIS Status: Acute (4) Atrial fibrillation with RVR Code(s): I48.91 - UNSPECIFIED ATRIAL FIBRILLATION Status: Chronic Comment: Back in sinus rhythm with increase Amiodarone (5) ESRD on peritoneal dialysis Code(s): N18.6 - END STAGE RENAL DISEASE; Z99.2 - DEPENDENCE ON RENAL DIALYSIS Status: Chronic Comment: PD with plans on eventual HD, plan for AV fistula today - Plan cont current plan of care, continue antibiotics * . cont IV abx fistula placement today. continue PD until fistula matures -hopefully d/c to rehab?
[2017-09-02] MEDS: clonazePAM 0.5 MG TAB PO SCH (22:37)
--- NOTE | 2017-09-03 03:51 | OP ---
DATE OF PROCEDURE: 09/02/2017 PREOPERATIVE DIAGNOSES: End-stage renal disease, peritoneal dialysis status, very large polycystic k idneys, fibrotic veins iatrogenic, no veins available for primary fistula, at least on the left arm s mall veins, right arm ultrasound vein mapping. PROCEDURES PERFORMED: Exploration of left antecubital fossa finding the veins to be fibrosed. The l eft upper extremity dialysis graft tapered 4 P07 PTFE graft between the brachial artery of excellent caliber and axillary vein of excellent caliber. SURGEON: Dr. Bharat Mullins. ANESTHESIA: General. Local 0.5% Marcaine with epinephrine 30 mL mixed with 2% Xylocaine, 10 mL ESTIMATED BLOOD LOSS: 250 mL DESCRIPTION OF PROCEDURE: The patient was taken to the operating room where under general anesthesia , left upper extremity, axilla prepared with ChloraPrep, draped in routine fashion. Incision made lo ngitudinally in the antecubital fossa and below the antecubital fossa on the proximal volar forearm c arried down skin and subcutaneous tissue. Antecubital vein was fibrotic, subcutaneous tissues approx imated with 3-0 Monocryl, skin with subdermal 4-0 Monocryl. Incision made just above the antecubital fossa overlying the brachial artery. Incision carried through skin and subcutaneous tissue. Brachi al artery dissected free. Silastic vessel loop. Incision made in the left axilla carried skin and subcutaneous tissue in deep fashion. A large axillary vein identified and surrounded with Tj tic vessel loop in loop fashion proximally and distally. A Carol-Wick tunneler was used to create a tunnel and patient was given 6000 units of heparin intravenously. The graft was then placed in the t unnel, placing the 4 mm antecubital fossa. After adequate heparin circulation time, the brachi al artery was clamped proximally and distally with vascular clamp. Longitudinal arteriotomy made sha rply and elongated with [place] scissors and graft tapered in 4 mm likewise tailored for a Cobra head a nastomosis created in the end graft to side brachial artery anastomosis with continuous suture of 6-0 Prolene. At completion of the anastomosis, vascular clamps were released and they were excellent ar terial flow through the graft. Clamp placed on the graft. Surgicel applied. Axillary vein controll ed proximally and distally with [place] Silastic vessel loops and longitudinal venotomy made sharply an d elongated for 3.5 cm anastomosis and graft 7 mm end likewise tailored accordingly. End graft to si de axillary vein anastomosis created with continuous suture of 6-0 Prolene. At completion of the maricarmen stomosis, vascular clamps were released and there was good flow in the graft. The patient had excell ent thrill in the vein beyond the graft vein anastomosis to the axilla. The patient was given 50 mg of protamine intravenously. Local anesthetic infiltrated into the skin and subcutaneous tissue about the operative site. Subcutaneous tissues approximated with 3-0 Monocryl, skin with subdermal 4-0 Mo nocryl and DermaGlue applied. The patient tolerated the procedure well.
[2017-09-03 06:14] LABS: Band 3 % (5-11); Hemoglobin 7.3 g/dL (14.0-18.0); Lymphocytes 9 % (21-51); MDiff Complete? YES; Mean Corpuscular HGB CONC 31.8 g/dL (32.0-36.0); Mean Corpuscular Hemoglobin 26.3 pg (27.0-31.0); Mean Corpuscular Volume 82.6 fl (80.0-94.0); Monocytes 2 % (0-10); Neutrophil 86 % (42-75); PLT Morphology Comment Appears Decreased; Platelet Count 98 thou/uL (130-400); RBC Distribution Width 16.1 % (11.5-14.5); Red Blood Cell (RBC) Count 2.77 mill/uL (4.70-6.10); White Blood Cell (WBC) Count 6.9 thou/uL (4.8-10.8)
[2017-09-03] MEDS ORDERED: Polyethylene Glycol 3350 17 GM Packet PO SCH (09:00)
[2017-09-03] MEDS: Sevelamer Carbonate 800 MG TAB PO SCH ×2 (09:10→12:09)
[2017-09-03] MEDS: Amiodarone 200 MG TAB PO SCH (09:11)
[2017-09-03] MEDS: Calcitriol 0.25 MCG CAP PO SCH (09:11)
[2017-09-03] MEDS: Calcium Acetate 667 MG CAP PO SCH ×2 (09:11→12:09)
[2017-09-03] MEDS: Famotidine 20 MG TAB PO SCH (09:12)
--- NOTE | 2017-09-03 10:57 | PRG ---
DATE OF SERVICE: 09/03/2017 RENAL MEDICINE SUBJECTIVE: Ms. Kamara is a 52-year-old white male who was initially admitted for symptomatic anem ia. We are currently following up for his peritoneal dialysis. He is tolerating the said peritoneal dialysis. During the course of his hospitalization, he developed an iatrogenic peritonitis. He is going to receive IV antibiotics for these. ID is following. No new complaints today. Yesterday, he had an AV fistula placed. No complaints of chest pain, shortness of breath. His abdominal pain is improved. PHYSICAL EXAMINATION: VITAL SIGNS: Blood pressure 102/71, heart rate 98, respiratory rate 16, temperature 97.6, and pulse oximetry 100%. GENERAL: Awake, alert, comfortable, not in distress. SKIN: Adequate turgor. HEENT: Slightly pale conjunctivae, anicteric sclerae. NECK: No neck mass, no carotid bruits, no JVD. CHEST: No deformities. LUNGS: Clear breath sounds. HEART: Normal sinus rhythm. No murmur, no gallops, no rubs. ABDOMEN: Globular, soft, nontender, no masses. EXTREMITIES: No edema. Positive for PD catheter. Positive for left AV fistula. Positive for bruit . MEDICATIONS: Of 09/03/2017 reviewed. LABORATORY DATA: Of 09/03/2017, white count 6.9, hemoglobin 7.3. Sodium 131, potassium 5.2, chlorid e 98, carbon dioxide 25, BUN 60, creatinine 6.84, calcium 7.1. ASSESSMENT AND PLAN: 1. Anemia - Continue weekly Epogen, p.r.n. blood transfusion. 2. End-stage renal disease, stable. Continue current CCPD regimen. 3. Peritonitis - currently on IV antibiotics. 4. Mild hyperkalemia. We will continue to observe. Continue current dialysis regimen. Overall, agree with current management.
[2017-09-03] MEDS ORDERED: Vancomycin Sliding Scale 1 EACH IVPB SCH (12:00)
[2017-09-03 12:44] VITALS: BP 104/73; TEMP 96.1
--- NOTE | 2017-09-03 12:59 | PRG ---
DATE OF SERVICE: 09/03/2017 Mr. Kamara is doing well today. His surgical wounds in the left arm with good. He has a good brui t in his left upper arm dialysis graft. The patient is doing well at this point with good left hand function. The patient is stable for transfer to rehabilitation or discharge anytime from surgical [facility]. I will see him as needed this hospitalization. He should follow up with me in my office i n 2-3 weeks. The left arm dialysis graft could be used in 3-4 weeks. At this point, I will see him as necessary and follow up as an outpatient and not in the hospital.
[2017-09-03] MEDS: Meropenem 500 MG in Sodium Chloride 0.9% 100 ML IVPB SCH (13:37)
--- NOTE | 2017-09-03 19:03 | PDOC.EVN ---
Event Note - Event Note Event Note: discharge summary dictated [id number]
--- NOTE | 2017-09-04 04:05 | DIS ---
DATE OF ADMISSION: 08/23/2017 DATE OF DISCHARGE: 09/03/2017 ADMISSION AND DISCHARGE DIAGNOSES: 1. Peritonitis, likely secondary to microperforation from polypectomy. 2. End-stage renal disease on peritoneal dialysis. 3. Metabolic acidosis. 4. Atrial fibrillation. 5. Anemia secondary to end-stage renal disease. 6. Status post atrioventricular fistula placement on 09/02/2017. HOSPITAL COURSE: The patient is a 52-year-old gentleman with a past medical history of end-stage victorino al disease on peritoneal dialysis, secondary to polycystic kidney disease who presented initially wit h complaints of generalized weakness. He was discovered to be fairly anemic in the ED. The patient underwent an EGD which was negative. He initially had a hemoglobin of 4. Patient did undergo a colo noscopy that showed a small rectal polyp, which was taken with biopsies via polypectomy on 08/28/2017 with internal hemorrhoids, otherwise this is a normal colonoscopy. However, the patient developed s ome abdominal pain afterwards and was actually found to have a peritonitis. The patient was started on broad-spectrum antibiotics. His peritoneal fluid eventually grew out Enterococcus, Citrobacter fr eundii, Pseudomonas aeruginosa as well as alpha-hemolytic streptococcus. Infectious Disease was cons ulted. The patient actually had an echocardiogram done as well that demonstrated an EF of 50-55% wit h diastolic dysfunction, normal RV size and function with a possible small vegetation on the mitral v alve leaflet or small torn-chordae tendineae. Patient did undergo an AV fistula placement on [address] Mullins with placement of the left upper extremity dialysis graft. Once cultures are fin alized, the patient will be on 3 weeks of vancomycin, Flagyl, as well as Cipro to cover the organisms that were growing. He was cleared to discharge by all consulting services. Dr. Solorzano did not think that a repeat PETTY before discharge was warranted at this time. The patient was discharged to [facility] as the detention facility would not take him on peritoneal dialysis. DISCHARGE PHYSICAL EXAMINATION: VITAL SIGNS: Temperature 96.1, pulse 92, respiration 16, pressure is 104/73. GENERAL: Awake, alert, oriented, pale. HEENT: Mucous membranes dry. HEART: Regular rate and rhythm. No murmurs, rubs, or gallops. LUNGS: Clear to auscultation bilaterally. ABDOMEN: Distended; however, bowel sounds present. EXTREMITIES: A 2+ edema in the bilateral lower extremities. DISCHARGE MEDICATIONS: 1. Amiodarone 100 mg p.o. daily. 2. Aspirin 81 mg p.o. daily. 3. Calcitriol 0.25 mcg p.o. daily. 4. Calcium acetate 1333 mg p.o. t.i.d. 5. Cipro 250 mg p.o. daily for 3 weeks. 6. Clonazepam 1.5 mg p.o. q.p.m. 7. Zetia 10 mg p.o. daily. 8. Pepcid 20 mg p.o. daily. 9. Ferrous sulfate 1 tab p.o. daily. 10. Flagyl 250 mg p.o. t.i.d. for 3 weeks. 11. Renvela 2400 mg p.o. t.i.d. 12. Vancomycin to be dosed for 3 weeks according to the peritoneal dialysis protocol. DISCHARGE FOLLOWUP: The patient to be followed up with Cardiology with Dr. Solorzano, Nephrology with Dr. Raman and Dr. Madison from Infectious Disease within 3 weeks. At the time, he will get a repeat CT scan of the abdomen and pelvis. He will also get a repeat PETTY at the time.
== END 2017-09-03 16:29 | DRG 673 ==
LOC: ERS 18:34 → IMCU/EMU 22:21 → T4-B 08-25 10:32
PROVIDERS: ADMIT Family Medicine; ATTEND Family Medicine
PROC: 30233N1 Transfusion of Nonautologous Red Blood Cells into Peripheral Vein, Percutaneous Approach (ICD-10-PCS; 2017-08-24)
PROC: 0DJ08ZZ Inspection of Upper Intestinal Tract, Via Natural or Artificial Opening Endoscopic (ICD-10-PCS; 2017-08-26)
PROC: 02HV33Z Insertion of Infusion Device into Superior Vena Cava, Percutaneous Approach (ICD-10-PCS; 2017-08-27)
PROC: 0DBP8ZZ Excision of Rectum, Via Natural or Artificial Opening Endoscopic (ICD-10-PCS; 2017-08-27)
PROC: 03180JD Bypass Left Brachial Artery to Upper Arm Vein with Synthetic Substitute, Open Approach (ICD-10-PCS; principal; 2017-09-02)
DX: N18.6 End stage renal disease (principal); K65.8 Other peritonitis; Q61.2 Polycystic kidney, adult type; E87.1 Hypo-osmolality and hyponatremia; N25.81 Secondary hyperparathyroidism of renal origin; K91.89 Other postprocedural complications and disorders of digestive system; E87.2 Acidosis; D63.1 Anemia in chronic kidney disease; E66.01 Morbid (severe) obesity due to excess calories; D50.9 Iron deficiency anemia, unspecified; E86.0 Dehydration; E87.5 Hyperkalemia; K64.8 Other hemorrhoids; E78.5 Hyperlipidemia, unspecified; E83.51 Hypocalcemia; E83.39 Other disorders of phosphorus metabolism; R93.1 Abnormal findings on diagnostic imaging of heart and coronary circulation; E87.6 Hypokalemia; K57.30 Diverticulosis of large intestine without perforation or abscess without bleeding; I10 Essential (primary) hypertension; I48.0 Paroxysmal atrial fibrillation; I95.89 Other hypotension; Y84.8 Other medical procedures as the cause of abnormal reaction of the patient, or of later complication, without mention of misadventure at the time of the procedure; Y92.239 Unspecified place in hospital as the place of occurrence of the external cause; B95.2 Enterococcus as the cause of diseases classified elsewhere; B96.5 Pseudomonas (aeruginosa) (mallei) (pseudomallei) as the cause of diseases classified elsewhere; B95.4 Other streptococcus as the cause of diseases classified elsewhere; Z96.89 Presence of other specified functional implants; Z87.39 Personal history of other diseases of the musculoskeletal system and connective tissue; Z84.1 Family history of disorders of kidney and ureter; Z79.899 Other long term (current) drug therapy; Z88.2 Allergy status to sulfonamides; Z99.2 Dependence on renal dialysis; Z91.048 Other nonmedicinal substance allergy status; K62.1 Rectal polyp; Z68.34 Body mass index [BMI] 34.0-34.9, adult; Z86.79 Personal history of other diseases of the circulatory system; Z91.14 Patient's other noncompliance with medication regimen; Z91.19 Patient's noncompliance with other medical treatment and regimen; Z79.82 Long term (current) use of aspirin; Z87.442 Personal history of urinary calculi
CPT/HCPCS: 36415; 36416; 36430; 71045; 74176; 80048; 80053; 80202; 82805; 83010; 83540; 83550; 83615; 83930; 83970; 84100; 84466; 85007; 85025; 85027; 85046; 85060; 85610; 85730; 86850; 86900; 86901; 87070; 87077; 87186; 87205; 87340; 88305; 89051; 90945; 93005; 93306; 93970; 96360; A4216; G0257; G0365; G8978-GP-CN; G8979-GP-CK; G8987-GO-CL; G8988-GO-CJ; J0670; J0692; J0696; J1100; J1580; J1644; J2001; J2185; J2370; J2405; J2704; J2720; J3010; J3370; J7050; L8670; P9016; Q4081; Q9967; S0028

== ENCOUNTER 2017-09-14 10:50 | Inpatient (IN) | payer MEDICARE ==
[2017-09-14 12:59] LABS: #Eosinphils 0.1 thou/uL (0.0-0.7); #Lymphocytes 0.6 thou/uL (1.20-3.40); #Monocytes 0.5 thou/uL (0.11-0.59); #Neutrophils 6.1 thou/uL (1.40-6.50); %Basophils 0.1 % (0.0-1.0); %Eosinophils 0.8 % (0.0-10.0); %Monocytes 6.3 % (0.0-10.0); %Neutrophils 84.8 % (42.0-75.0); Hemoglobin 5.8 g/dL (14.0-18.0); Mean Corpuscular HGB CONC 29.9 g/dL (32.0-36.0); Mean Corpuscular Hemoglobin 24.9 pg (27.0-31.0); Mean Corpuscular Volume 83.1 fl (80.0-94.0); Mean Platelet Volume 8.3 fL (7.4-10.4); Platelet Count 220 thou/uL (130-400); RBC Distribution Width 15.9 % (11.5-14.5); Red Blood Cell (RBC) Count 2.34 mill/uL (4.70-6.10); White Blood Cell (WBC) Count 7.2 thou/uL (4.8-10.8)
[2017-09-14 13:11] LABS: Lactic Acid 1.8 mmol/L (0.5-2.2)
[2017-09-14 13:19] LABS: ALT (SGPT) 30 U/L (8-55); AST (SGOT) 57 U/L (5-34); Albumin 1.4 g/dL (3.5-5.0); Alkaline Phosphatase 93 U/L (40-150); Anion Gap 13 mmol/L (10-20); BUN (Urea Nitrogen) 77 mg/dL (8.4-25.7); Bilirubin, Total 0.4 mg/dL (0.2-1.2); Calc. Creatinine Clearance 0 mL/min (70-130); Calcium 7.5 mg/dL (7.8-10.44); Carbon Dioxide 24 mmol/L (22-29); Chloride 93 mmol/L (98-107); Estimated GFR-MDRD 8; Globulin 2.9 g/dL (2.4-3.5); Glucose 84 mg/dL (70-105); Hypochromia SLIGHT = 6-15 cells (100X) (0-5/hpf); Ovalocytes SLIGHT = 2-5 cells (100X) (0-1/hpf); Polychromasia SLIGHT = 2-3 cells (100X) (0-2/hpf); Potassium 4.3 mmol/L (3.5-5.1); Protein, Total 4.3 g/dL (6.0-8.3); Sodium 126 mmol/L (136-145)
[2017-09-14 13:23] LABS: Troponin I 0.175 ng/mL (< 0.028)
[2017-09-14 13:27] LABS: CKMB 33.7 ng/mL (0-6.6)
[2017-09-14 14:42] LABS: Thyroid Stimulating Hormone 11.485 uIU/mL (0.35-4.94)
--- NOTE | 2017-09-14 15:04 | RAD ---
PORTABLE CHEST ONE VIEW: Date: 09-14-17 Time: 2:14 p.m. History: Sepsis, altered mental status, hypotension. FINDINGS/IMPRESSION: Comparison made with exam of 08-27-17. There has been interval removal of the left sided central line. The heart size is normal. The lungs a re hypo expanded without lobar consolidation, pneumothoraces or pleural effusions. Mild atelectatic c hanges are seen at the lung bases. POS: [facility]
[2017-09-14 15:21] LABS: Ferritin 2225.53 ng/mL (22-322)
--- NOTE | 2017-09-14 15:37 | HP ---
PRIMARY CARE PHYSICIAN: Dr. Felix Dow. REASON FOR ADMISSION: Sent from rehab for hypotension and anemia. HISTORY OF PRESENT ILLNESS: A 52-year-old male, who has polycystic kidney disease with ESRD on perit [facility] dialysis, who was recently admitted in our hospital on 08/24/2017. During that admission, joanne ent's hemoglobin was 4.1. The patient was given blood transfusion and he was [facility]. On discharge, his hemoglobin was 7.3. During that admission for anemia workup, patient underwent upper endoscopy, which was normal and subsequently patient had a colonoscop y. Colonoscopy showed diverticulosis and small rectal polyp, which was required polypectomy. Subseq uently, patient was having abdominal pain and his peritoneal fluid culture came back positive for mul ti-organisms including Enterococcus, Citrobacter, Pseudomonas, and Streptococcus. Dr. Madison was cons ulted and he was thinking that peritonitis may be related with a procedure polypectomy. The patient was given Flagyl, vancomycin with dialysis, and ciprofloxacin and he was discharged to rehab as [facility] above in 09/03/2017. During that admission, the patient also had AV fistula placed by Dr. Rafa carson on 09/02/2017. Since discharge, the patient was getting dialysis through the peritoneal catheter. The patient also had diarrhea at the rehabilitation center and that is why C. diff was checked and i t was came back positive and contact precaution was applied. The [facility]. He was becoming more and more weak, lethargic, and they did routine blood test and patient w as found with hemoglobin yesterday 6.3 and today 5.8. The patient was started on blood transfusion a [facility] and subsequently he was transferred to our hospital. The patient required ce ntral line because of poor IV access and he was getting second unit of blood transfusion. In the [facility] room, he was hypotensive and relatively hypothermic and that is why air hugger was applied and he was given IV fluid and after that his blood pressure was running in 90s. The patient was able to provide history. He denies any abdominal pain. He denies any significant di arrhea. He denies any chest pain, palpitations, shortness of breath. He is weak. He is not making anymore urine. During previous admission, the patient's anemia was attributed to be anemia of renal disease. He als o has a history of pericardial effusion with tamponade required pericardial window in 02/2017. The patient denies any chills. He denies any nausea or vomiting. He denies any abdominal pain. He denies any dizziness or near syncope. It was given information that the patient is altered, but when we saw this patient at that time, patient was appeared to be his baseline. REVIEW OF SYSTEMS: The following complete review of systems was negative, unless otherwise mentioned in the HPI or below: Constitutional: Weight loss or gain, ability to conduct usual activities. Skin: Rash, itching. Eyes: Double vision, pain. ENT/Mouth: Nose bleeding, neck stiffness, pain, tenderness. Cardiovascular: Palpitations, dyspnea on exertion, orthopnea. Respiratory: Shortness of breath, wheezing, cough, hemoptysis, fever or night sweats. Gastrointestinal: Poor appetite, abdominal pain, heartburn, nausea, vomiting, constipation, or diarr hea. Genitourinary: Urgency, frequency, dysuria, nocturia. Musculoskeletal: Pain, swelling. Neurologic/Psychiatric: Anxiety, depression. Allergy/Immunologic: Skin rash, bleeding tendency. Please see my HPI for pertinent positive and negative. All other review of systems reviewed and nega tive except as mentioned in the HPI. ALLERGIES: IODINE and SULFA DRUGS. CURRENT HOME MEDICATIONS: Tylenol 1 gram q.6 hourly p.r.n., amiodarone 100 mg daily, aspirin 81 mg p .o. daily, Rocaltrol 0.25 mg p.o. daily, PhosLo 1334 mg t.i.d., Cipro 250 mg p.o. b.i.d., clonazepam 1.5 mg p.o. in evening, Zetia 10 mg daily, Pepcid 20 mg daily, metronidazole 250 mg t.i.d., Zofran 8 mg sublingual p.r.n., MiraLax 17 grams p.o. daily, Renvela 2400 mg t.i.d., and vancomycin with dialys is. PAST MEDICAL HISTORY: Polycystic kidney disease, ESRD on peritoneal dialysis, history of pericardial effusion with pericardial tamponade required pericardial window, anemia of renal disease, secondary hyperparathyroidism of renal origin, paroxysmal atrial fibrillation, morbid obesity, gastroesophageal reflux disease, dyslipidemia, recent diagnosis of C. difficile colitis, recent diagnosis of vegetati on over the mitral valve leaflet. PAST SURGICAL HISTORY: Peritoneal dialysis catheter placement, AV fistula during previous admission, upper endoscopy, lower endoscopy with a rectal polyp removed, bilateral knee surgery, and pericardia l window. PAST PSYCHIATRIC HISTORY: Anxiety and depression. ADDITIONAL INFORMATION: During previous admission, the patient had echocardiography. We suspected v egetation over mitral valve leaflet and there was plan for PETTY, but it was deferred in 2 weeks. The patient was also deferred for CT of the abdomen and pelvis for peritonitis upon followup visit. SOCIAL HISTORY: The patient lives currently at rehabilitation. He does not have any tobacco, alcoho l or illicit drug abuse. His mother is present at bedside. FAMILY HISTORY: No strong family history of premature coronary artery disease, stroke or cancer, but polycystic kidney disease runs among several family members. EMERGENCY ROOM COURSE: The patient, who is receiving 1 unit of PRBC IV fluid. PHYSICAL EXAMINATION: VITAL SIGNS: On arrival, blood pressure 80/48, pulse 58, respiratory rate 19, temperature 95.1, satu ration 100% on room air, weight 111.1 kilograms. GENERAL: The patient is currently alert, awake, follows command, chronically ill, hypotensive. HEENT: Head: Normocephalic, atraumatic. Eyes: Pupils round, reactive to light. Extraocular muscl e intact. ENT: Oropharynx within normal limits, somewhat dry appearing mucous membrane, no oral les ion, no pharyngeal erythema, no exudate. NECK: Supple, no JVD, no thyromegaly, no carotid bruit. LUNGS: Clear to auscultation without any rhonchi or rales. CARDIAC: S1 and S2 appears regular. There is no murmur elicited, no gallop, no rub. ABDOMEN: Peritoneal dialysis catheter in place. No abdominal tenderness on deep palpation. No orga nomegaly, no mass. Obesity limiting examination. No suprapubic tenderness. BACK: Unremarkable, no CVA tenderness. GENITALIA: Diaper in place, but no rash, but patient does have sacral decubitus ulcer. The patient also has central line in left femoral area. EXTREMITIES: Upper extremity passive movement of all joints are normal, fistula in left arm. Lower extremity, bilateral lower extremity edema noted. SKIN: Pallor skin. No rash. NEUROLOGIC: The patient is grossly nonfocal neurological examination. He follows commands. Speech normal. Cranial nerves intact. Reflexes symmetrical. PSYCHIATRIC: Normal affect. SIGNIFICANT LABORATORY DATA: EKG showing sinus rhythm with premature ventricular complexes, incomple te left bundle branch block pattern, nonspecific ST-T changes. CBC: WBC 7.2, hemoglobin 5.8, platel et 220 with a left shift. BMP: Sodium 126, potassium 4.3, chloride 93, carbon dioxide 24, BUN 77, c reatinine 6.91, glucose 84, calcium 7.5. Lactic acid 1.8. LFT: AST 57, ALT 30, alkaline phosphatase 93, albumin 1.4. CK-MB 33.7, troponin I 0.175. We are go ing to order a chest x-ray. ASSESSMENT AND PLAN: 1. Acute hypotension, etiology uncertain, rule out sepsis. We will check random cortisol. Blood cu lture obtained in the emergency room, the patient will be given IV albumin. I am suspecting third sp acing from severe hypoalbuminemia. Given anemia, we will also transfuse packed red blood cells and m onitor hemoglobin and hematocrit. We will check stool for guaiac. This patient had upper and lower endoscopy during previous admission did not show any source of bleeding, most likely his hypotension is related with the third spacing. We will admit this patient in IMCU and closely monitor his hemody namics. 2. Hypothermia, most likely related with anemia. Underlying sepsis is also needs to be excluded. B lood culture obtained in the emergency room where air hugger was applied in the emergency room and te mperature is improving. We will start empiric broad spectrum antibiotic therapy including meropenem as well as vancomycin orally and Flagyl IV. We will consult Infectious Disease. 3. Sepsis with hypotension. The patient has new diagnosis C. difficile colitis as well as he has re cently peritonitis. We will consult Dr. Madison for his opinion. At this point, I will continue merop enem 500 mg IV daily along with oral vancomycin 125 mg q.i.d. and Flagyl 500 mg q. 8 hourly. Further antibiotic therapy will defer to Dr. Madison. 4. Vegetation over left mitral valve leaflet. We will repeat blood culture today. Yesterday, his b lood culture is negative. Previous blood culture was also negative. This patient was planned for re peat transesophageal echocardiography and that is why we will consult Cardiology during this admissio n. 5. Recent peritonitis and the patient on Cipro, Flagyl, and vancomycin. At this point, we will shi ge antibiotic through meropenem and Flagyl. The patient was planned for repeat CT of the abdomen and pelvis. We will defer to Dr. Madison if we need to repeat CT of the abdomen and pelvis. At this poin t, the patient does not have any acute abdominal symptoms and he does not have abdominal pain. We wi ll send his peritoneal fluid culture with the peritoneal dialysis. 6. Anemia. The patient has anemia of renal disease. He had anemia workup recently with EGD and col onoscopy and we will check ferritin, otherwise anemia workup was done during previous admission. The patient is given total 2 units of blood transfusion today and we will repeat CBC tomorrow. The joanne ent will continue Procrit with dialysis and we will also continue Nephro-Vitaliy tablet. 7. End-stage renal disease on peritoneal dialysis. Currently, the patient is on peritoneal dialysis . Eventually, plan is to convert him to hemodialysis when AV fistula matures. Dr. Raman will be consu lted while in hospital. 8. Hyponatremia and hypochloremia, likely due to dehydration as well as hypoalbuminemia. The patien t is given IV fluid in the emergency room, repeat BMP tomorrow. 9. Severe hypoalbuminemia. The patient will be given albumin infusion to support blood pressure as well. 10. Elevated troponin, which is chronic. Likely due to renal disease, he does not have any chest pa in. His CK-MB is also elevated, which is chronic. We will monitor cardiac enzymes in hospital. 11. Secondary hyperparathyroidism of renal origin. We will continue PhosLo and Rocaltrol as per sally e dosage. 12. Paroxysmal atrial fibrillation. Continue amiodarone 100 mg daily. The patient is not a zina te for chronic anticoagulation because of severe anemia. We will only continue aspirin 81 mg daily. 13. Dyslipidemia. Continue Zetia 10 mg p.o. daily. 14. Anxiety/depression. Continue clonazepam 1.5 mg p.o. at bedtime. 15. Morbid obesity. Dietary education given, weight loss education given. 16. Deep venous thrombosis prophylaxis. Sequential compression device boots. No heparin products b ecause of severe anemia. 17. Gastrointestinal prophylaxis. Pepcid 20 mg p.o. daily. CODE STATUS: The patient is FULL CODE. The patient's mother is surrogate decision maker. Disposition plan based on clinical course. We are expecting patient's stay in hospital more than 2 m idnights. Plan of care discussed with the patient and his mother at bedside in the emergency room we ruthann.
[2017-09-14] MEDS ORDERED: Diabetic Tussin 200 MG/10 ML UDCUP PO PRN (16:15)
[2017-09-14] MEDS ORDERED: Chloraseptic Spray 180 ml Bottle PO PRN (16:15)
[2017-09-14] MEDS ORDERED: Eucerin (Mineral Oil/Petrolatum,White) 30 gm Jar TOP PRN (16:15)
[2017-09-14] MEDS ORDERED: Artificial Tear Sol 15 ML BOT EA EYE PRN (16:15)
[2017-09-14] MEDS ORDERED: Milk Of Magnesia 30 ML UDCUP PO PRN (16:15)
[2017-09-14] MEDS ORDERED: Metoclopramide HCl 10 MG/2 ML VIAL IVP PRN (16:15)
[2017-09-14] MEDS ORDERED: Mag-Al 1200 mg/1200 mg/30 ML UDCUP PO PRN (16:15)
[2017-09-14] MEDS ORDERED: Sodium Chloride 0.65% Nasal 44 ML BOT EA NARE PRN (16:15)
[2017-09-14] MEDS ORDERED: Loperamide HCl 2 MG CAP PO PRN (16:15)
[2017-09-14] MEDS ORDERED: HYDROcodone/Acetaminophen 5/325 mg Tablet PO PRN (16:15)
[2017-09-14] MEDS ORDERED: Albumin 25% 25 GM/100 ML BOT IVPB SCH (16:30)
[2017-09-14] MEDS ORDERED: Sevelamer Carbonate 800 MG TAB PO SCH (16:30)
[2017-09-14] MEDS: Norepinephrine 8 MG/0.9% NS 250 ML IVPB PRN (17:14)
[2017-09-14] MEDS: Calcium Acetate 667 MG CAP PO SCH (17:15)
[2017-09-14] MEDS: Vancomycin HCl 25 MG/ML Oral PO SCH ×2 (17:15→21:45)
--- NOTE | 2017-09-14 21:28 | CON ---
DATE OF CONSULTATION: 09/14/2017 The following encompasses 70 minutes time of that time, greater than 50% was spent with the patient a nd/or on the patient's unit in the hospital. CONSULTING PHYSICIAN: Dr. Carrero. REASON FOR CONSULTATION: Sepsis. HISTORY OF PRESENT ILLNESS: The patient is a 52-year-old male, who has been over in rehabilitation. Apparently, he had a hospitalization for peritonitis recently. Over in rehabilitation and developed C. diff, he has been having diarrhea. He became more lethargic. He had a significant drop in his h emoglobin down to 5.8. He is requiring Levophed to keep his blood pressure up. It is hard to get mu ch of a history from the patient because he is very confused. REVIEW OF SYSTEMS: Cannot be obtained because of the patient's confusion. PAST MEDICAL HISTORY: 1. Polycystic kidney disease. 2. End-stage renal disease, requiring hemodialysis. 3. Pericardial effusion. 4. Hypertension. 5. Hyperparathyroidism secondary to renal disease. 6. Anemia related to renal disease. 7. Paroxysmal atrial fibrillation. 8. Obesity. 9. Gastroesophageal reflux. 10. Clostridium difficile colitis. 11. Vegetation on mitral valve. PAST SURGICAL HISTORY: 1. Peritoneal dialysis catheter placement. 2. AV fistula placement. 3. Upper endoscopy. 4. Lower endoscopy. 5. Knee surgery. 6. Pericardial window. MEDICATIONS PRIOR TO ADMISSION: Reviewed - see chart. SOCIAL HISTORY: Lives in a group home, does not smoke, does not consume alcohol. FAMILY MEDICAL HISTORY: Unremarkable except for polycystic kidney disease. REVIEW OF SYSTEMS: Unobtainable. PHYSICAL EXAMINATION: VITAL SIGNS: Temperature 96.4, pulse 99, blood pressure currently 93/59, and O2 saturation 100% on n anthony cannula. GENERAL: He is awake and in no distress. He cannot answer questions very well. HEENT: Pupils react. Sclerae icteric. Oropharynx clear. NECK: No JVD. LUNGS: Clear without wheezing or rhonchi. CARDIAC: S1 and S2, slightly tachycardic. No murmur. ABDOMEN: Distended. Peritoneal dialysis catheter placed is in place in the right lower quadrant. EXTREMITIES: No clubbing or cyanosis. He has multiple skin decubitus areas left hand, bilateral thi ghs, bilateral buttocks, sacrum. LABORATORY DATA: Sodium 126, potassium 4.3, chloride 93, CO2 of 24, BUN 77, creatinine 6.9, glucose 84, ferritin level 22-25, AST 57, ALT 30. TSH 11.4, albumin 1.4. White blood cell count 7.2, hemato crit 19.5, hemoglobin 5.8, platelet count 220. X-RAY FINDINGS: Chest x-ray showed no obvious mass, effusion, or infiltrate. ASSESSMENT: 1. Hypotension - likely secondary to volume loss given the significant degree of anemia and hypoalbu minemia. 2. Hypothermia. 3. Questionable sepsis. 4. Anemia. 5. End-stage renal disease. 6. Hyponatremia and hypochloremia. PLAN: Not much to add from a critical care standpoint at this time and agree with the vasopressors a nd transfusion of blood. Nephrology needs to be consulted to perform dialysis tomorrow. Dr. Los patel needs to be involved given multiple areas of infection of the patient's palliative care may be involved given the chronicity of the patient's problems and unlikelihood of eventual recovery.
[2017-09-14] MEDS: Sevelamer Carbonate 800 MG TAB PO SCH (21:44)
[2017-09-14] MEDS: clonazePAM 1 MG TAB PO SCH (21:44)
[2017-09-14] MEDS: metroNIDAZOLE 500 MG in Premix Bag 1 BAG IVPB SCH (21:45)
[2017-09-15] MEDS: Norepinephrine 8 MG/0.9% NS 250 ML IVPB PRN ×2 (00:48→15:48)
[2017-09-15 04:44] LABS: #Eosinphils 0.1 thou/uL (0.0-0.7); #Lymphocytes 0.7 thou/uL (1.20-3.40); #Monocytes 0.6 thou/uL (0.11-0.59); #Neutrophils 7.3 thou/uL (1.40-6.50); %Basophils 0.2 % (0.0-1.0); %Eosinophils 1.3 % (0.0-10.0); %Lymphocytes 8.4 % (21.0-51.0); %Monocytes 6.6 % (0.0-10.0); %Neutrophils 83.6 % (42.0-75.0); Hemoglobin 8.1 g/dL (14.0-18.0); Mean Corpuscular HGB CONC 32.6 g/dL (32.0-36.0); Mean Corpuscular Hemoglobin 26.3 pg (27.0-31.0); Mean Corpuscular Volume 80.7 fl (80.0-94.0); Mean Platelet Volume 7.6 fL (7.4-10.4); Platelet Count 347 thou/uL (130-400); Red Blood Cell (RBC) Count 3.07 mill/uL (4.70-6.10); White Blood Cell (WBC) Count 8.8 thou/uL (4.8-10.8)
[2017-09-15 04:53] LABS: Albumin 1.8 g/dL (3.5-5.0)
[2017-09-15 04:54] LABS: Chloride 93 mmol/L (98-107); Potassium 3.8 mmol/L (3.5-5.1); Sodium 130 mmol/L (136-145)
[2017-09-15 04:55] LABS: Calcium 8.3 mg/dL (7.8-10.44)
[2017-09-15 04:56] LABS: Globulin 3.4 g/dL (2.4-3.5); Glucose 145 mg/dL (70-105); Protein, Total 5.2 g/dL (6.0-8.3)
[2017-09-15 04:57] LABS: Carbon Dioxide 25 mmol/L (22-29)
[2017-09-15 04:58] LABS: Bilirubin, Total 0.6 mg/dL (0.2-1.2)
[2017-09-15 04:59] LABS: Alkaline Phosphatase 111 U/L (40-150); Calc. Creatinine Clearance 18 mL/min (70-130); Estimated GFR-MDRD 9
[2017-09-15 05:00] LABS: BUN (Urea Nitrogen) 72 mg/dL (8.4-25.7)
[2017-09-15 05:01] LABS: ALT (SGPT) 35 U/L (8-55); AST (SGOT) 70 U/L (5-34)
[2017-09-15 05:04] LABS: Anion Gap 16 mmol/L (10-20)
[2017-09-15] MEDS: metroNIDAZOLE 500 MG in Premix Bag 1 BAG IVPB SCH ×3 (05:33→22:27)
[2017-09-15] MEDS ORDERED: Sodium Chloride 0.9% 1,000 ML IV SCH (07:30)
--- NOTE | 2017-09-15 07:36 | PRG ---
DATE OF SERVICE: 09/15/2017 The patient is still incoherent in terms of verbal response. He has been weaned down on his Levophed overnight. PHYSICAL EXAMINATION: VITAL SIGNS: Temperature is 97.6, pulse 96, blood pressure 95/60, O2 sat 100%, respiratory rate 17. Total intake 542, output not defined, but he did get peritoneal dialysis last night. HEENT: Unremarkable. NECK: No JVD. LUNGS: Clear without wheezing or rhonchi. CARDIAC: S1 and S2 regular. ABDOMEN: Protuberant. EXTREMITIES: No clubbing, cyanosis, or edema. LABORATORY DATA: White blood cell count 8.8, hematocrit 24.7, platelet count 347. Sodium 130, potas sium 3.8, chloride 93, CO2 25, BUN 72, creatinine 6.3, glucose 145. ASSESSMENT: 1. Septic shock - presumably from decubitus ulcers that are infected, could also be from recent Clos tridium difficile colitis 2. End-stage renal disease. 3. Hyponatremia. PLAN: 1. I will give him a liter of normal saline. 2. Continue with antibiotics. 3. Awaiting ID consultation.
[2017-09-15] MEDS ORDERED: Meropenem 500 MG in Sodium Chloride 0.9% 100 ML IVPB SCH (09:00)
[2017-09-15] MEDS: Vancomycin HCl 25 MG/ML Oral PO SCH ×4 (09:20→22:28)
[2017-09-15] MEDS: Sevelamer Carbonate 800 MG TAB PO SCH ×4 (09:23→22:28)
[2017-09-15] MEDS: Ezetimibe 10 MG TAB PO SCH (09:24)
[2017-09-15] MEDS: Famotidine 20 MG TAB PO SCH (09:24)
[2017-09-15] MEDS: Saccharomyces boulardii 250 MG CAP PO SCH (09:29)
[2017-09-15] MEDS: Amiodarone 200 MG TAB PO SCH (09:29)
[2017-09-15] MEDS: Calcium Acetate 667 MG CAP PO SCH ×3 (09:30→16:37)
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
[2017-09-15] MEDS: Calcitriol 0.25 MCG CAP PO SCH (09:40)
--- NOTE | 2017-09-15 10:14 | PDOC.PN ---
- Subjective Encounter Start Date: 09/15/17 Encounter Start Time: 09:30 -: old records requested/rev Patient seen and examined for hypotension, he is very weak, he is on levophed. No new complaints. No overnight events - Objective Resuscitation Status: Resuscitation Status FULL:Full Resuscitation MAR Reviewed: Yes Vital Signs & Weight: Vital Signs (12 hours) Temp Pulse Resp Pulse Ox 09/15/17 08:00 97.7 F 99 14 100 09/15/17 07:00 97.7 F 09/15/17 04:31 99 09/15/17 04:00 97.6 F 09/15/17 00:00 97.7 F Most Recent Monitor Data Heart Rate from ECG 104 NIBP 101/59 NIBP BP-Mean 77 Respiration from ECG 21 SpO2 82 I&O: 09/14/17 09/15/17 09/16/17 06:59 06:59 06:59 Intake Total 542 90 Output Total 0 Balance 542 90 Result Diagrams: 09/15/17 03:40 09/15/17 03:40 EKG Reviewed by me: Yes (nsr) Phys Exam - Physical Examination Constitutional: NAD HEENT: PERRLA, moist MMs, sclera anicteric Neck: no JVD, supple Respiratory: no wheezing, no rales, no rhonchi Cardiovascular: RRR, no significant murmur, no rub Gastrointestinal: soft, non-tender, no distention, positive bowel sounds PD catheter+ Musculoskeletal: pulses present, edema present Neurological: non-focal Lymphatic: no nodes Psychiatric: normal affect Skin: no rash, normal turgor Dx/Plan (1) C. difficile diarrhea Code(s): A04.72 - ENTEROCOLITIS D/T CLOSTRIDIUM DIFFICILE, NOT SPCF RECUR Status: Acute Comment: (2) Elevated troponin Code(s): R74.8 - ABNORMAL LEVELS OF OTHER SERUM ENZYMES Status: Acute (3) Hyponatremia Code(s): E87.1 - HYPO-OSMOLALITY AND HYPONATREMIA Status: Acute Comment: chronic due to poor nutrition, ESRD (4) Hypotension Status: Acute (5) Hypothermia Code(s): T68.XXXA - HYPOTHERMIA, INITIAL ENCOUNTER Status: Acute (6) Hypothyroidism Code(s): E03.9 - HYPOTHYROIDISM, UNSPECIFIED Status: Acute (7) Anemia due to end stage renal disease Code(s): N18.6 - END STAGE RENAL DISEASE; D63.1 - ANEMIA IN CHRONIC KIDNEY DISEASE Status: Chronic Comment: (8) Anxiety and depression Code(s): F41.9 - ANXIETY DISORDER, UNSPECIFIED; F32.9 - MAJOR DEPRESSIVE DISORDER, SINGLE EPISODE, UNSPECIFIED Status: Chronic (9) ESRD on peritoneal dialysis Code(s): N18.6 - END STAGE RENAL DISEASE; Z99.2 - DEPENDENCE ON RENAL DIALYSIS Status: Chronic Comment: PD with plans on eventual HD, plan for AV fistula today (10) Hypoalbuminemia Code(s): E88.09 - OT DISORDERS OF PLASMA-PROTEIN METABOLISM, NEC Status: Chronic (11) Morbid obesity Code(s): E66.01 - MORBID (SEVERE) OBESITY DUE TO EXCESS CALORIES Status: Chronic (12) Physical deconditioning Code(s): R53.81 - OTHER MALAISE Status: Chronic Comment: (13) Polycystic kidney, adult type Code(s): Q61.2 - POLYCYSTIC KIDNEY, ADULT TYPE Status: Chronic Comment: Advanced disease and likely will need nephrectomies, will have perfomed in [place] (14) Secondary hyperparathyroidism of renal origin Code(s): N25.81 - SECONDARY HYPERPARATHYROIDISM OF RENAL ORIGIN Status: Chronic (15) Mitral valve vegetation Code(s): I33.0 - ACUTE AND SUBACUTE INFECTIVE ENDOCARDITIS Status: Acute - Plan cont current plan of care, continue antibiotics * cardiology consulted for PETTY for vegetation over mitral valve diagnosed earlier * ID consulted for sepsis * Now on levophed * medication reviewed as below * symptomatic treatment * PD as per nephrology * follow culture * palliative care will be consulted for goal of care. Review of Systems - Review of Systems Constitutional: weakness. negative: fever, chills, sweats, malaise, other ENT: negative: Ear Pain, Ear Discharge, Nose Pain, Nose Discharge, Nose Congestion, Mouth Pain, Mouth Swelling, Throat Pain, Throat Swelling, Other Respiratory: negative: Cough, Dry, Shortness of Breath, Hemoptysis, SOB with Excertion, Pleuritic Pain, Sputum, Wheezing Cardiovascular: edema. negative: chest pain, palpitations, orthopnea, paroxysmal nocturnal dyspnea, light headedness, other Gastrointestinal: negative: Nausea, Vomiting, Abdominal Pain, Diarrhea, Constipation, Melena, Hematochezia, Other Genitourinary: negative: Dysuria, Frequency, Incontinence, Hematuria, Retention , Other Musculoskeletal: negative: Neck Pain, Shoulder Pain, Arm Pain, Back Pain, Hand Pain, Leg Pain, Foot Pain, Other Skin: negative: Rash, Lesions, Mumtaz, Bruising, Other - Medications/Allergies Allergies/Adverse Reactions: Allergies Allergy/AdvReac Type Severity Reaction Status Date / Time iron Allergy Verified 09/14/17 13:20 Sulfa (Sulfonamide Allergy Verified 09/14/17 13:20 Antibiotics) Medications: Current Medications Acetaminophen (Tylenol) 650 mg PO Q4H PRN PRN Reason: Headache/Fever or Pain Hydrocodone Bitart/Acetaminophen ([place] 5/325) 1 tab PO Q4H PRN PRN Reason: Moderate Pain (4-6) Al Hydroxide/Mg Hydroxide (Maalox) 30 ml PO Q6H PRN PRN Reason: Heartburn or Indigestion Albuterol/Ipratropium (Duoneb) 3 ml NEB [id number] PRN PRN Reason: SOB &/or Wheezing Amiodarone HCl (Cordarone) 100 mg PO DAILY [facility] Last Admin: 09/15/17 09:29 Dose: 100 mg Artificial Tears (Tears Renewed 15ml Bottle) 0 drop EA EYE PRN PRN PRN Reason: Dry Eyes Calcitriol (Rocaltrol) 0.25 mcg PO DAILY [facility] Last Admin: 09/15/17 09:40 Dose: 0.25 mcg Calcium Acetate (Phoslo) 1,334 mg PO TID-[facility] Last Admin: 09/15/17 09:30 Dose: 1,334 mg Clonazepam (Klonopin) 1.5 mg PO QPM [facility] Last Admin: 09/14/17 21:44 Dose: 1.5 mg Ezetimibe (Zetia) 10 mg PO DAILY [facility] Last Admin: 09/15/17 09:24 Dose: 10 mg Epoetin Ayaz (Procrit) 10,000 units SC Q7D [facility] Famotidine (Pepcid) 20 mg PO DAILY [facility] Last Admin: 09/15/17 09:24 Dose: 20 mg Guaifenesin (Robitussin Sf) 200 mg PO Q4H PRN PRN Reason: Cough Norepinephrine Bitartrate (Levophed) 250 mls @ 0 mls/hr IVPB INF PRN; Protocol ; Titrate PRN Reason: HYPOTENSION <85 [facility]ST[facility]IC Last Admin: 09/15/17 00:48 Dose: 250 mls Meropenem 500 mg/ Sodium (Chloride) 100 mls @ 200 mls/hr IVPB DAILY [facility] Metronidazole 500 mg/ Device 100 mls @ 100 mls/hr IVPB Q8HR [facility] Last Admin: 09/15/17 05:33 Dose: 100 mls Sodium Chloride (Normal Saline 0.9%) 1,000 mls @ 75 mls/hr IV .[id number] [facility] Stop: 09/15/17 20:49 Last Admin: 09/15/17 09:21 Dose: 1,000 mls Levothyroxine Sodium (Synthroid) 50 mcg PO 0600 [facility] Loperamide HCl (Imodium) 2 mg PO PRN PRN PRN Reason: Diarrhea/Loose Stools Magnesium Hydroxide (Milk Of Magnesium) 30 ml PO DAILYPRN PRN PRN Reason: Constipation Metoclopramide HCl (Reglan) 5 mg IVP Q8HR PRN PRN Reason: Nausea/Vomiting Mineral Oil/White Petrolatum (Eucerin Cream) 0 gm TOP BIDPRN PRN PRN Reason: Dry Skin Phenol (Chloraseptic [place] 180 Ml Bot) 0 ml PO PRN PRN PRN Reason: Sore Throat Saccharomyces Boulardii (Florastor) 250 mg PO DAILY [facility] Last Admin: 09/15/17 09:29 Dose: 250 mg Sevelamer Carbonate (Renvela) 2,400 mg PO TID [facility] Last Admin: 09/15/17 09:23 Dose: 2,400 mg Sodium Chloride ([place] Nasal [place] 0.65%) 0 ml EA NARE QIDPRN PRN PRN Reason: Nasal Congestion Sodium Chloride (Flush - Normal Saline) 10 ml IVF Q12HR [facility] Sodium Chloride (Flush - Normal Saline) 10 ml IVF PRN PRN PRN Reason: Saline Flush Vancomycin HCl (First Vancomycin) 125 mg PO QID [facility] Last Admin: 09/15/17 09:20 Dose: 125 mg
[2017-09-15] MEDS: Epoetin (ESRD) 10,000 UNITS/ML VIAL SC SCH (10:18)
[2017-09-15] MEDS ORDERED: Vancomycin HCl 1 GM in Sodium Chloride 0.9% 250 ML 250 ML IVPB SCH (15:45)
[2017-09-15] MEDS ORDERED: HOLD VANCOMYCIN FOR LEVEL >20 FS SCH (16:15)
[2017-09-15] MEDS ORDERED: Vancomycin Sliding Scale FS ONE (16:15)
[2017-09-15] MEDS ORDERED: Vancomycin HCl 750 MG in Sodium Chloride 0.9% 250 ML 250 ML IVPB SCH (16:15)
[2017-09-15] MEDS ORDERED: Vancomycin HCl 500 MG in Sodium Chloride 0.9% 100 ML IVPB SCH (16:15)
[2017-09-15] MEDS ORDERED: Vancomycin HCl 1 GM in Premix Bag 1 BAG IVPB SCH (16:15)
[2017-09-15] MEDS ORDERED: Vancomycin HCl 1.25 GM in Sodium Chloride 0.9% 250 ML 250 ML IVPB SCH (16:15)
[2017-09-15] MEDS ORDERED: Vancomycin HCl 1.75 GM in Sodium Chloride 0.9% 500 ML IVPB SCH (16:30)
[2017-09-15] MEDS: AZTREONAM IVPB SCH (17:10)
[2017-09-15] MEDS: SODIUM CHLORIDE IVPB SCH (17:10)
[2017-09-15] MEDS: ADMIXTURE FEE IVPB SCH (17:10)
[2017-09-15] MEDS: clonazePAM 1 MG TAB PO SCH (22:28)
[2017-09-16] MEDS: AZTREONAM IVPB SCH ×3 (01:58→18:29)
[2017-09-16] MEDS: ADMIXTURE FEE IVPB SCH ×3 (01:58→18:29)
[2017-09-16] MEDS: SODIUM CHLORIDE IVPB SCH ×3 (01:58→18:29)
--- NOTE | 2017-09-16 01:58 | CON ---
DATE OF CONSULTATION: 09/15/2017 REASON FOR CONSULTATION: Sepsis. HISTORY OF PRESENT ILLNESS: This is a 52-year-old whom we had recently seen, when he presented with anemia and weakness. The patient undergoes a CAPD for management of end-stage renal disease secondary to polycystic kidney disease. He had a colonoscopy in the hospital and polypectomy following the procedure, the next day he had peritonitis with a polymicrobial dian, likely due to a small little perforation following the procedure. The patient was treated with improvement and was transferred to rehabilitation. He also had an AV fistula placed by Dr. Mullins on 09/02/2017 during that admission. He continued to receive dialysis with peritoneal dialysis. In the rehab, he developed diarrhea and C. diff returned positive. He was hypotensive and becoming more lethargic, so the knee was transferred to the ICU. He is very weak at this time, still lethargic. He knows where he is. He denies any headaches. He is difficult to obtain a straight information from him because of his weakness and acute illness. He does complain of tenderness on percussion of his abdomen, which is moderate. No vomiting, no bleeding. PAST MEDICAL HISTORY: Polycystic kidney disease, end-stage renal disease on PPD , recent colonoscopy with likely a small perforation with peritonitis, which was polymicrobial, treated with improvement. Pericardial tamponade and pericardial effusion, which required pericardial window, anemia, hyperparathyroidism, paroxysmal atrial fibrillation, obesity, GERD, recent diagnosis of Clostridium difficile colitis. He also has a vegetation in the mitral valve leaflet but that was not a definite finding, was a possible small vegetation, did not make sense with the new clinical presentation that he was having and not think that is a significant finding. ALLERGIES: IODINE AND SULFA DRUGS. MEDICATION LIST: At home, Tylenol, amiodarone, aspirin, Rocaltrol, PhosLo, Cipro, clonazepam, Zetia, Pepcid, Flagyl, Zofran, Marlex, and Renvela. PAST SURGICAL HISTORY: PD catheter placement, AV fistula placement, endoscopy, polypectomy, pericardial window. SOCIAL HISTORY: Lives at rehabilitation. Never a smoker. FAMILY HISTORY: Noncontributory except for PKD. PHYSICAL EXAMINATION: VITAL SIGNS: T-max 97.9. He had been hypotensive until this past 2 days, BP 101/61, pulse 101, respirations 23-29. SKIN: Multiple areas of bruising scattered through the extremities and the area of ulceration around the penile glans. Irregular ulceration measuring 1 cm on the right medial malleolus. There is a large pressure ulceration in the left gluteal region measuring about 8 cm in diameter with a base completely covered by necrotic eschar. There are extensive pressure ulcerations in the right gluteal region. The patient is acutely on chronic ill appearing. He is voiding spontaneously. He is incontinent. HEENT: Ocular movements are conjugate. Conjunctival area is pale. NECK: Supple. LUNGS: With symmetric air entry. HEART: S1 and S2, regular rate. ABDOMEN: Moderately distended and moderately tender on percussion in various segments. No bladder distention. The PD catheter exit site appears normal. EXTREMITIES: No joint inflammatory activity. Pulses are 1+ in dorsalis pedis. He is diffusely weak. NEUROLOGIC: He is awake, but obtunded. He is able to answer with monosyllabic utterances to our questions. LABORATORY DATA: White cell count 7.2 and 8.8, hemoglobin 8.1, platelets 247, 82% neutrophils. Sodium 130, creatinine 6.30, AST 57, ALT 30, alkaline phosphatase 93, bilirubin 0.4, albumin 1.4, globulin 2.9. Microbiology with 1 out of 2 sets of blood cultures, coagulase negative Staph. His C. diff from 11/2017 was positive antigen and toxin. ASSESSMENT: End-stage renal disease secondary to polycystic kidney disease with recent colonoscopy with subsequent peritonitis, which was polymicrobial and felt to be related to the colonoscopy possibly a small area of perforation. The patient now has developed sepsis. There is a very large necrotic ulcer in the left gluteal region encompassing, most of the posterior aspect of the gluteal region left side. There is a smaller necrotic area in the right side and this is clearly a pressure ulceration. He also has developed C. difficile colitis. At this point, we will switch him to vancomycin, Azactam, and Flagyl. Discontinue meropenem. Continue oral vancomycin. The patient will need a surgical debridement of the eschar in the left gluteal region. May need some debridement on the right side as well. The penile ulcerated area probably can be managed with wound care alone. MTDD
--- NOTE | 2017-09-16 04:01 | CON ---
DATE OF CONSULTATION: 09/15/2017 PRIMARY NETWORK STRATEGIST: Edwige Solorzano M.D. PRIMARY PROFESSOR OF LAW: Dov Raman M.D. PRIMARY CERTIFIED HYPERBARIC TECHNICIAN: Harley rPice M.D. REASON FOR CARDIOLOGY CONSULT: Mitral valve vegetation. HISTORY OF PRESENT ILLNESS: Mr. Kamara is a 52-year-old male with a significant history of end-stage renal disease with peritoneal dialysis, anemia and history of atrial fibrillation and possible small vegetation to on the mitral valve leaflets. The patient was recently admitted on [facility] for anemia, hemoglobin was 4.1. The patient received several blood transfusions and underwent EGD and colonoscopy which shows normal. The patient was transferred to the rehabilitation facility on 09/03/2017. Then patient was readmitted to [facility] for weakness, hypotension, anemia and chronic diarrhea due to C. diff. At this moment, patient is very confused and unable to follow any commands. The patient's information was obtained from the patient 's previous medical history and the patient's nurse. During the last admission , patient was found to have possible small vegetation on the mitral valve or possible small torn chordae tendineae. The patient was supposed to underwent PETTY as an outpatient. The patient's echocardiogram on 08/24/2017 shows EF of 50 %-55% with grade 1 diastolic dysfunction with mild mitral valve regurgitation. Mild tricuspid regurgitation and mild pulmonary regurgitation with possible small vegetation on the mitral valve leaflet or small torn chordae tendineae. The patient has history of paroxysmal atrial fibrillation. At this moment, he is in SR on telemetry. PAST MEDICAL HISTORY: 1. End-stage kidney disease with peritoneal dialysis and possible transition to hemodialysis. 2. Polycystic kidney disease, possible nephrectomy in [place], [place]. 3. Anemia. EGD and colonoscopy was negative. 4. Paroxysmal atrial fibrillation. 5. Hyponatremia. 6. Peritonitis with gram positive cocci, gram negative rods. PAST SURGICAL HISTORY: Peritoneal dialysis catheter placement, AV fistula placement to Lt upper arm in 08/2017, and pericardial window. FAMILY HISTORY: There was strong kidney related disease problems in the paternal side and his brother and the patient brother has a history of hypertension. SOCIAL HISTORY: The patient is , lives with his mother. 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 The patient denied smoke, ETOH , or illicit drug abuse prior to this admission. ALLERGIES: He is allergic to IODINE and SULFA. HOME MEDICATIONS: Please refer to the patient's medical record. REVIEW OF SYSTEMS: Unobtainable due to the patient's confusion. PHYSICAL EXAMINATION: VITAL SIGNS: Blood pressure 97/66, heart rate 100 to 102 sinus rhythm, respiratory rate 22, O2 saturation 100% on room air. GENERAL: The patient alert, but confused without any acute distress. HEENT: Normocephalic, atraumatic. EYES: Extraocular muscle movement intact. He wears glasses. ENT: Oral and nasal mucosa are moist without lesion. NECK: No JVD. Neck is supple. Normal range of motion. RESPIRATORY: Clear to auscultation bilaterally. No wheezing, rales or rhonchi noted. CARDIOVASCULAR: Regular rate and rhythm. There are normal S1, S2. There are no S3 or S4. No significant murmur, hives, thrill, bruit noted. There are 2+ pulses in the bilateral lower extremities. Carotid pulses are present without bruits or thrill. There are 1-2 pitting edema in the bilateral lower extremities, more in the right side than the left side. ABDOMEN: Soft, nontender or mass to palpate, nondistended. Bowel sounds are present but diminished. MUSCULOSKELETAL: The patient able to move all extremities. SKIN: Warm and dry. Unable to check his behind per the nurse, patient has decubitus ulcer. At this moment, the patient refused to turn. NEUROLOGIC: Alert, but confused. The patient did not follow commands. PSYCHIATRIC: He is not seems in depression or anxiety at this moment, but he has a flat expression in his face at this moment. EKG: A 12-lead EKG in ER shows sinus rhythm with heart rate is 100. LABORATORY DATA: WBC 8.8, hemoglobin 8.1, hematocrit 24.7, platelets 347. Sodium 130, potassium 3.8, BUN 72, creatinine 6.30. Lactic acid is 1.8. AST is 70, ALT is 35, creatine kinase 833. Serum total protein 5.2, albumin, 1.8. TSH 11.485, cortisol 18.9. IMAGING: Chest x-ray showed lung was hypo-expanded without lobar consolidation , pneumothorax, or pleural effusion. Possible small vegetation on the mitral valve or possible small torn chordae tendineae. The patient's echocardiogram in 08/2017 shows possible small vegetation and mitral valve regurgitation, small torn chordae tendineae. Once patient's condition is stable, possibly patient is going to undergo a PETTY prior to the discharge. The patient's WBC is stable at this moment and Dr. Madison was order to consult this patient. ASSESSMENT AND PLAN: 1. Mitral valve vegetation. Echo in 08/2017 showed possible small vegetation on the mitral valve leaflet or small torn chordae tendineae. He will have another Echo to compare with previous result. He is on IV antibiotics. 2. Chronic anemia. The patient already has received 1 unit of blood transfusion during this admission for hemoglobin level 5.8, which increased to 8.1 after 1 unit of blood transfusion. We would like to continue to monitor at this moment. He is on epoetin 10,000 units subcu every 7 days. 3. End-stage renal disease. He is on the peritoneal dialysis. He has a hemodialysis fistula placement on 09/02/2017, which is managed by Dr. Raman. 4. Polycystic kidney, possible nephrectomy in the future. 5. History of paroxysmal atrial fibrillation. The patient's telemetry records have been showing the sinus rhythm with heart rate 90-100s. He is on amiodarone 100 mg once daily. 6. Hyponatremia. The patient's sodium level has been increased. We would like to start fluid restriction to 1200 mL per day. 7. History of peritonitis. The patient is on IV and p.o. antibiotic at this moment. 8. Hypothyroidism. He is on levothyroxine 50 mcg once a day which is managed by patient's primary care doctor. 9. Rhabdomyolysis. The patient's creatine kinase today was 833. We would like to continue to monitor. The patient received 1 pack of normal saline. We would like to continue to monitor the patient's condition at this moment. 10. C. diff. The patient is on the vancomycin IV and PO, which are managed by patient's primary care doctor. Thank you for allowing the Cardiology Service to participate in care of this patient. We will follow along with the patient's care team and make further recommendations as appropriate. Thank you. NESTOR
[2017-09-16] MEDS: Norepinephrine 8 MG/0.9% NS 250 ML IVPB PRN ×2 (05:28→15:26)
[2017-09-16] MEDS: Levothyroxine Sodium 50 MCG TAB PO SCH (05:36)
[2017-09-16] MEDS: metroNIDAZOLE 500 MG in Premix Bag 1 BAG IVPB SCH ×3 (05:36→21:48)
[2017-09-16] MEDS ORDERED: Cosyntropin 250 MCG VIAL SLOW IVP ONE (07:34)
--- NOTE | 2017-09-16 07:51 | PRG ---
DATE OF SERVICE: 09/16/2017 The patient is lying in bed, does not speak much. He has had to have his Levophed increased to 12 mc g per minute. PHYSICAL EXAMINATION: VITAL SIGNS: Temperature 97.8, pulse 91, blood pressure 90/58, O2 saturation 100%, 24 hour intake 28 98, output looks like he had about a net 700 out by dialysis. HEENT: Unremarkable. NECK: No JVD. LUNGS: Clear. CARDIOVASCULAR: S1, S2 regular. ABDOMEN: Slightly distended. EXTREMITIES: Decubitus ulcers noted over sacrum and hips. LABORATORY DATA: Sodium 130, potassium 3.8, chloride 93, CO2 25, BUN 72, creatinine 6.3, glucose 145 , AST 70, ALT 35. Ferritin was 2225. White blood cell count 8.8, hematocrit 24.7, platelet count 34 7. His cultures show coag negative Staph from central line at admission. ASSESSMENT: 1. Decubitus ulcers which are infected. 2. Refractory hypotension which is probably a combination of volume and septic shock. 3. Rule out adrenal insufficiency. PLAN: 1. ACTH stim test. 2. Continue antibiotics. 3. Add some albumin. 4. Continue peritoneal dialysis. 5. Prognosis is quite poor.
--- NOTE | 2017-09-16 08:11 | ADD-CON ---
ADDENDUM DATE OF ADMISSION: 09/14/2017 DATE OF CONSULTATION: 09/15/2017 INDICATION FOR CONSULTATION: A 52-year-old patient with end-stage renal disease who has had a histor y of possible mitral valve vegetation. He also has a history of peritonitis due to a previous perito juan dialysis. He has also had anemia and required a GI evaluation on his last admission. He recent ly was in the hospital just a couple of weeks ago. He was sent to rehabilitation. He did very poorl y in rehabilitation. He was then readmitted to the hospital due to worsening of his hypotension and also was noted to have further anemia. He has had a history of C. diff also on his last admission. At this time, he was readmitted due to failure to thrive. He also has decubitus ulcers, which have d eveloped. We were consulted due to the possibility of vegetation on the mitral valve. Please refer to the notes already dictated by my nurse practitioner for the past medical history, social history, review of systems, medications, allergies as well as the physical examination. I have reviewed his a ssessment and I would agree with this. IMPRESSION: 1. End-stage renal disease due to polycystic kidney disease for which he has been followed by the ne phrologist. He will continue his peritoneal dialysis and eventually may need to undergo hemodialysis according to Dr. Raman. 2. History of peritonitis with also a history of C. diff, he has been on antibiotics and he is to co ntinue. 3. History of possible endocarditis. We will repeat the echocardiogram to determine whether or not the vegetation appears to be worse and was not yet resolved. He may eventually need to undergo a tra nsesophageal echocardiogram for evaluation closer evaluation; however, the patient appears to be very ill at this time and is already on antibiotics. Whether or not this would change his overall course . It was unclear on his last admission, we opted to continue to watch him since he was being treated with antibiotics. 4. Chronic anemia. This is most likely due to his kidney disease. We will continue to follow this. 5. History of hypotension. It appears to be under reasonable control at this time. I will continue to follow the patient with you. Actually, blood pressure is on the low side at this time. Overall, this patient's condition, he has multiple medical problems. He is very ill patient, and I do believ e that he has agreed to undergo some discussions for his concerning palliative care. We will be more than happy to continue to follow you in further recommendations will depend on the results of the re peat transesophageal echocardiogram.
[2017-09-16] MEDS: Vancomycin HCl 25 MG/ML Oral PO SCH ×4 (10:01→21:48)
[2017-09-16] MEDS: Saccharomyces boulardii 250 MG CAP PO SCH (10:19)
[2017-09-16] MEDS: Calcium Acetate 667 MG CAP PO SCH ×3 (10:20→18:39)
[2017-09-16] MEDS: Famotidine 20 MG TAB PO SCH (10:20)
[2017-09-16] MEDS: Calcitriol 0.25 MCG CAP PO SCH (10:20)
[2017-09-16] MEDS: Sevelamer Carbonate 800 MG TAB PO SCH ×3 (10:21→21:37)
[2017-09-16] MEDS: Albumin 25% 25 GM/100 ML BOT IVPB SCH ×2 (10:21→18:29)
--- NOTE | 2017-09-16 11:00 | PRG ---
DATE OF SERVICE: 09/16/2017 SUBJECTIVE: Mr. Kamara is a 52-year-old white male admitted for hypertension and from presumptive sepsis. We are following him up for his maintenance peritoneal dialysis. I did discuss with the PD nurse about the PD fluid and it was noted to be cloudy. The plan is to send it for Gram stain, C&S a nd cultures. He remains unimproved. Still hypertensive, currently on pressor support. He is also o n normal saline. No acute events noted last night. PHYSICAL EXAMINATION: VITAL SIGNS: Blood pressure is 90/58, temperature 97.8, heart rate 91, pulse ox 100%, respiratory ra te 24. GENERAL: Noted to be awake, lethargic. There is some limited paucity of speech. SKIN: Adequate turgor. HEENT: He has slightly pale conjunctivae, anicteric sclerae. NECK: No neck mass, no carotid bruits, no JVD. CHEST: No deformities. LUNGS: Decreased breath sounds, no wheezing, no crackles. HEART: Normal sinus rhythm. No murmur, no gallops or rubs. ABDOMEN: Globular, soft, nontender. Positive for PD catheter. EXTREMITIES: No edema. MEDICATIONS: 09/16/2017 - Reviewed. LABORATORY: 09/15/2017 - Sodium 130, potassium 3.8, chloride 93, carbon dioxide 25, BUN 72, creatini ne 6.3, glucose 145, calcium 8.3, AST 70, ALT 35, albumin 1.8. TSH is 11.48. Cortisol level is 18.9 . CK 33. ASSESSMENT AND PLAN: 1. Sepsis - unclear etiology. Although he has decubitus ulcers noted. Wound Care has been consulte d. ID is following. Empiric IV antibiotics. Currently on aztreonam and Flagyl. 2. Cloudy PD fluid - this may be a reflection of this peritonitis. He has received a 3-week course of antibiotics, but remains unresolved. If the PD fluid will remain cloudy we may need to have a katie gical evaluation to see if he may have an acute abdomen. 3. Anemia, currently on p.r.n. blood transfusion. Continue weekly Epogen. 4. Hypertension, currently on supportive care. Currently on pressor support. Overall, prognosis with this patient remains poor. Continue supportive care. I have instructed the dialysis nurse to send the dialysis fluid for culture, Gram stain and cell count.
--- NOTE | 2017-09-16 11:17 | PDOC.PN ---
- Subjective Encounter Start Date: 09/16/17 Encounter Start Time: 09:00 pt is drawsy today, goes to sleep, hypotensive, on levophed, has discomfort in abdomen has diarrhoea required rectal tube - Objective Resuscitation Status: Resuscitation Status FULL:Full Resuscitation MAR Reviewed: Yes Vital Signs & Weight: Vital Signs (12 hours) Temp 09/16/17 07:00 97.6 F 09/16/17 05:00 97.8 F Weight Admit Weight 205 lb Weight 205 lb 14.588 oz Most Recent Monitor Data Heart Rate from ECG 95 NIBP 100/60 NIBP BP-Mean 76 Respiration from ECG 23 SpO2 99 I&O: 09/15/17 09/16/17 09/17/17 06:59 06:59 06:59 Intake Total 542 2989 Output Total 0 1 50 Balance 542 2988 -50 Result Diagrams: 09/15/17 03:40 09/15/17 03:40 EKG Reviewed by me: Yes (nsr) Phys Exam - Physical Examination Constitutional: NAD drawsy HEENT: PERRLA, sclera anicteric dry MM Neck: no JVD, supple Respiratory: no wheezing, no rales, no rhonchi Cardiovascular: RRR, no significant murmur, no rub tachycardia Gastrointestinal: soft grimase on deep palpation, PD cathteter in place Musculoskeletal: edema present rectal tube+ Lymphatic: no nodes Skin: normal turgor Deviation from normal: pressure ulce on sacrum present on admission Dx/Plan (1) Septic shock Code(s): A41.9 - SEPSIS, UNSPECIFIED ORGANISM; R65.21 - SEVERE SEPSIS WITH SEPTIC SHOCK Status: Acute (2) Decubital ulcer Code(s): L89.90 - PRESSURE ULCER OF UNSPECIFIED SITE, UNSPECIFIED STAGE Status : Acute Qualifiers: Pressure ulcer location: buttock Pressure ulcer stage: unstageable Comment: necrotic ulcer, present on admission, see wound care photo and wound care team finding for details (3) C. 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 - ACUTE AND SUBACUTE INFECTIVE ENDOCARDITIS Status: Chronic Comment: will need PETTY when medically stable as per cardiology (5) Elevated troponin Code(s): R74.8 - ABNORMAL LEVELS OF OTHER SERUM ENZYMES Status: Acute Comment: due to demand ischemia and ESRD (6) Hyponatremia Code(s): E87.1 - HYPO-OSMOLALITY AND HYPONATREMIA Status: Acute Comment: chronic due to poor nutrition, ESRD (7) Hypotension Status: Acute Comment: on levophed (8) Hypothermia Code(s): T68.XXXA - HYPOTHERMIA, INITIAL ENCOUNTER Status: Resolved (9) Hypothyroidism Code(s): E03.9 - HYPOTHYROIDISM, UNSPECIFIED Status: Acute Comment: levothyroixine started this admission (10) Anemia due to end stage renal disease Code(s): N18.6 - END STAGE RENAL DISEASE; D63.1 - ANEMIA IN CHRONIC KIDNEY DISEASE Status: Chronic Comment: (11) Anxiety and depression Code(s): F41.9 - ANXIETY DISORDER, UNSPECIFIED; F32.9 - MAJOR DEPRESSIVE DISORDER, SINGLE EPISODE, UNSPECIFIED Status: Chronic (12) ESRD on peritoneal dialysis Code(s): N18.6 - END STAGE RENAL DISEASE; Z99.2 - DEPENDENCE ON RENAL DIALYSIS Status: Chronic Comment: currently on PD as per nephrology (13) Hypoalbuminemia Code(s): E88.09 - OTH DISORDERS OF PLASMA-PROTEIN METABOLISM, NEC Status: Chronic (14) Morbid obesity Code(s): E66.01 - MORBID (SEVERE) OBESITY DUE TO EXCESS CALORIES Status: Chronic (15) Physical deconditioning Code(s): R53.81 - OTHER MALAISE Status: Chronic Comment: (16) Polycystic kidney, adult type Code(s): Q61.2 - POLYCYSTIC KIDNEY, ADULT TYPE Status: Chronic Comment: (17) Secondary hyperparathyroidism of renal origin Code(s): N25.81 - SECONDARY HYPERPARATHYROIDISM OF RENAL ORIGIN Status: Chronic (18) Acute metabolic encephalopathy Code(s): G93.41 - METABOLIC ENCEPHALOPATHY Status: Acute (19) Peritonitis Code(s): K65.9 - PERITONITIS, UNSPECIFIED Status: Suspected (20) Hypoalbuminemia due to protein-calorie malnutrition Code(s): E46 - UNSPECIFIED PROTEIN-CALORIE MALNUTRITION Status: Acute - Plan cont current plan of care, continue antibiotics * ID recommendation noted, currently on oral vancomycin, IV flagyl and azactam * ronni consult general surgery for debridement of pressure ulcer * continue Albumin * continue levophed for hypotension * cortisol stim test * medication reviewed as below * symptomatic treatment * prognosis is very poor. Review of Systems - Review of Systems Other: unable to review due to encephalopathy - Medications/Allergies Allergies/Adverse Reactions: Allergies Allergy/AdvReac Type Severity Reaction Status Date / Time iron Allergy Verified 09/14/17 13:20 Sulfa (Sulfonamide Allergy Verified 09/14/17 13:20 Antibiotics) Medications: Current Medications Acetaminophen (Tylenol) 650 mg PO Q4H PRN PRN Reason: Headache/Fever or Pain Hydrocodone Bitart/Acetaminophen ([place] 5/325) 1 tab PO Q4H PRN PRN Reason: Moderate Pain (4-6) Al Hydroxide/Mg Hydroxide (Maalox) 30 ml PO Q6H PRN PRN Reason: Heartburn or Indigestion Albumin Human (Albumin 25%) 25 gm IVPB Q6HR [facility] Stop: 09/17/17 06:01 Last Admin: 09/16/17 10:21 Dose: 25 gm Albuterol/Ipratropium (Duoneb) 3 ml NEB [id number] PRN PRN Reason: SOB &/or Wheezing Amiodarone HCl (Cordarone) 100 mg PO DAILY [facility] Last Admin: 09/15/17 09:29 Dose: 100 mg Artificial Tears (Tears Renewed 15ml Bottle) 0 drop EA EYE PRN PRN PRN Reason: Dry Eyes Calcitriol (Rocaltrol) 0.25 mcg PO DAILY [facility] Last Admin: 09/16/17 10:20 Dose: Not Given Calcium Acetate (Phoslo) 1,334 mg PO TID-[facility] Last Admin: 09/16/17 10:20 Dose: Not Given Clonazepam (Klonopin) 1.5 mg PO QPM [facility] Last Admin: 09/15/17 22:28 Dose: 1.5 mg Ezetimibe (Zetia) 10 mg PO DAILY [facility] Last Admin: 09/15/17 09:24 Dose: 10 mg Epoetin Ayaz (Procrit) 10,000 units SC Q7D [facility] Last Admin: 09/15/17 10:18 Dose: 10,000 units Famotidine (Pepcid) 20 mg PO DAILY [facility] Last Admin: 09/16/17 10:20 Dose: Not Given Guaifenesin (Robitussin Sf) 200 mg PO Q4H PRN PRN Reason: Cough Norepinephrine Bitartrate (Levophed) 250 mls @ 0 mls/hr IVPB INF PRN; Protocol ; Titrate PRN Reason: HYPOTENSION <85 SYSTOLIC Last Admin: 09/16/17 05:28 Dose: 250 mls Metronidazole 500 mg/ Device 100 mls @ 100 mls/hr IVPB Q8HR [facility] Last Admin: 09/16/17 05:36 Dose: 100 mls Aztreonam 0.5 gm/Miscellaneous Medication 1 each/ Sodium Chloride 100 mls @ 100 mls/hr IVPB 0200,1000,1800 [facility] Last Admin: 09/16/17 10:02 Dose: 100 mls Vancomycin HCl 1.25 gm/ Sodium (Chloride) 250 mls @ 166.667 mls/hr IVPB WILLCALL [facility] Vancomycin HCl 1 gm/ Device 200 mls @ 200 mls/hr IVPB WILLCALL [facility] Vancomycin HCl 750 mg/ Sodium (Chloride) 250 mls @ 250 mls/hr IVPB WILLCALL [facility] Vancomycin HCl 500 mg/ Sodium (Chloride) 100 mls @ 100 mls/hr IVPB WILLCALL [facility] Levothyroxine Sodium (Synthroid) 50 mcg PO 0600 [facility] Last Admin: 09/16/17 05:36 Dose: 50 mcg Loperamide HCl (Imodium) 2 mg PO PRN PRN PRN Reason: Diarrhea/Loose Stools Magnesium Hydroxide (Milk Of Magnesium) 30 ml PO DAILYPRN PRN PRN Reason: Constipation Metoclopramide HCl (Reglan) 5 mg IVP Q8HR PRN PRN Reason: Nausea/Vomiting Mineral Oil/White Petrolatum (Eucerin Cream) 0 gm TOP BIDPRN PRN PRN Reason: Dry Skin Miscellaneous Medication (Pharmacy To Dose) 1 each IVPB PRN PRN PRN Reason: Pharmacy to dose Hold Vancomycin For (Level >20) 0 each FS .DOSE BY LEVEL [facility] Phenol (Chloraseptic [place] 180 Ml Bot) 0 ml PO PRN PRN PRN Reason: Sore Throat Saccharomyces Boulardii (Florastor) 250 mg PO DAILY [facility] Last Admin: 09/16/17 10:19 Dose: Not Given Sevelamer Carbonate (Renvela) 2,400 mg PO TID [facility] Last Admin: 09/16/17 10:21 Dose: Not Given Sodium Chloride ([place] Nasal [place] 0.65%) 0 ml EA NARE QIDPRN PRN PRN Reason: Nasal Congestion Sodium Chloride (Flush - Normal Saline) 10 ml IVF Q12HR [facility] Last Admin: 09/16/17 08:55 Dose: 10 ml Sodium Chloride (Flush - Normal Saline) 10 ml IVF PRN PRN PRN Reason: Saline Flush Vancomycin HCl (First Vancomycin) 125 mg PO QID [facility] Last Admin: 09/16/17 10:01 Dose: 125 mg
[2017-09-16] MEDS ORDERED: Heparin 10,000 UNITS/1 ML VIAL ONE (12:00)
[2017-09-16] MEDS: Ezetimibe 10 MG TAB PO SCH (12:15)
[2017-09-16] MEDS: Amiodarone 200 MG TAB PO SCH (12:15)
--- NOTE | 2017-09-16 12:57 | PDOC.CTH ---
Addendum entered and electronically signed by Barrett Solorzano MD 09/16/17 21:04: The overall cardiac function is stable. I will sign off. If any changes please consult again. Thank you. Original Note: <Barrett Solorzano - Last Filed: 09/16/17 20:08> Cardiology Progress Note - Objective Vital Signs Temp 09/16/17 16:00 97.7 F 09/16/17 12:00 97.9 F Admit Weight 205 lb Weight 201 lb 09/15/17 09/16/17 09/17/17 06:59 06:59 06:59 Intake Total 542 2989 807 Output Total 0 1 75 Balance 542 2988 732 - Labs Result Diagrams: 09/15/17 03:40 09/15/17 03:40 Troponin/CKMB CK-MB (CK-2) 33.7 ng/mL (0-6.6) H* 09/14/17 12:53 Troponin I 0.175 ng/mL (< 0.028) H 09/14/17 12:53 - Assessment/Plan Pt. seen and eval. by me. I agree with the A/P by the [employer] SHE[employer] C[employer]TER. I reviewed the echo from today and there is essentially no change. As before, there is a possible small vegetation on the anterior MV leaflet. Continue medical treatment. he is on antibiotics. <Christiane Ryan - Last Filed: 09/17/17 07:47> Cardiology Progress Note - Subjective The pt seen and examined. No overnight events. Per mother, he has been drawsy and has not waked up since this AM. l - Objective Vital Signs Temp 09/16/17 12:00 97.9 F 09/16/17 07:00 97.6 F 09/16/17 05:00 97.8 F Admit Weight 205 lb Weight 205 lb 14.588 oz 09/15/17 09/16/17 09/17/17 06:59 06:59 06:59 Intake Total 542 2989 40 Output Total 0 1 50 Balance 542 2988 -10 - Physical Examination General/Neuro: other: (very drawsy) Lungs: other: (diminished at bases) Heart: RRR Abdomen: soft Extremities: other: (3+ pitting edema) - Telemetry Telemetry Rhythm: SR 90-100s - Labs Result Diagrams: 09/17/17 04:46 09/17/17 04:46 Troponin/CKMB CK-MB (CK-2) 33.7 ng/mL (0-6.6) H* 09/14/17 12:53 Troponin I 0.175 ng/mL (< 0.028) H 09/14/17 12:53 - Assessment/Plan 1. Septic shock - on IV antibiotics; Livophed and Albumin for Hypotensioin; 2. ESRD 2ndary to polycystic kidney disease - managed by bisque kiln placer 3. Paroxysmal Afib - remains in SR; cont. to monitor on tele 4. possible Endocarditis - TTE was taken today and the result is pending at this time 5. Peritonitis and C Diff - on antibiotics; MAR reviewed <addendum> Since Echo result showed no changed from previous result, Cardiology service will sign off from his care. Review of Systems - Review of Systems Constitutional: reports: see HPI EENTM: reports: see HPI Respiratory: reports: see HPI Cardiac (ROS): reports: see HPI ABD/GI: reports: see HPI : reports: see HPI Musculoskeletal: reports: see HPI
[2017-09-16 21:29] LABS: Body Fluid Source PERITONEAL FLUID; Clarity Clear (Clear)
[2017-09-16 21:30] LABS: BF Color Colorless; RBC Background Count 0.001; Tube # EDTA; WBC/NonHematic-Auto 470 /cumm
[2017-09-16] MEDS: clonazePAM 1 MG TAB PO SCH (21:37)
[2017-09-16 21:38] LABS: BF RBC Count - Manual 10 /cumm
[2017-09-16 22:41] LABS: BF Segmented Neutrophils 72 %; Cell Count Non Hematic 19 %; Eosinophils 8 %; Lymphocytes 1 %
[2017-09-17] MEDS: Norepinephrine 8 MG/0.9% NS 250 ML IVPB PRN ×2 (00:15→09:47)
[2017-09-17] MEDS: Albumin 25% 25 GM/100 ML BOT IVPB SCH ×2 (00:17→06:18)
[2017-09-17] MEDS: ADMIXTURE FEE IVPB SCH ×3 (03:36→18:26)
[2017-09-17] MEDS: AZTREONAM IVPB SCH ×3 (03:36→18:26)
[2017-09-17] MEDS: SODIUM CHLORIDE IVPB SCH ×3 (03:36→18:26)
[2017-09-17 04:59] LABS: #Eosinphils 0.1 thou/uL (0.0-0.7); #Lymphocytes 0.8 thou/uL (1.20-3.40); #Monocytes 0.7 thou/uL (0.11-0.59); %Basophils 0.1 % (0.0-1.0); %Lymphocytes 10.9 % (21.0-51.0); %Monocytes 9.2 % (0.0-10.0); %Neutrophils 78.9 % (42.0-75.0); Hemoglobin 6.8 g/dL (14.0-18.0); Mean Corpuscular Hemoglobin 26.2 pg (27.0-31.0); Mean Corpuscular Volume 81.7 fl (80.0-94.0); Mean Platelet Volume 7.9 fL (7.4-10.4); Platelet Count 195 thou/uL (130-400); RBC Distribution Width 15.9 % (11.5-14.5); White Blood Cell (WBC) Count 7.7 thou/uL (4.8-10.8)
[2017-09-17 05:11] LABS: ALT (SGPT) 23 U/L (8-55); AST (SGOT) 24 U/L (5-34); Albumin 2.3 g/dL (3.5-5.0); Alkaline Phosphatase 81 U/L (40-150); Anion Gap 13 mmol/L (10-20); BUN (Urea Nitrogen) 65 mg/dL (8.4-25.7); Bilirubin, Total 0.7 mg/dL (0.2-1.2); Calc. Creatinine Clearance 19 mL/min (70-130); Calcium 8.3 mg/dL (7.8-10.44); Carbon Dioxide 26 mmol/L (22-29); Chloride 96 mmol/L (98-107); Estimated GFR-MDRD 10; Globulin 2.6 g/dL (2.4-3.5); Glucose 141 mg/dL (70-105); Potassium 3.4 mmol/L (3.5-5.1); Protein, Total 4.9 g/dL (6.0-8.3); Sodium 132 mmol/L (136-145)
[2017-09-17] MEDS: Levothyroxine Sodium 50 MCG TAB PO SCH (06:18)
[2017-09-17] MEDS: metroNIDAZOLE 500 MG in Premix Bag 1 BAG IVPB SCH ×3 (06:18→21:33)
--- NOTE | 2017-09-17 08:15 | PRG ---
DATE OF SERVICE: 09/17/2017 SUBJECTIVE: The patient is more alert this morning. He has been conversant with the nursing staff t hat will talk to me. PHYSICAL EXAMINATION: VITAL SIGNS: His temperature is 97.8, pulse 87, blood pressure 117/73, O2 sat 97% on room air. Tota l intake for 24 hours 1868, output 746. Weight 201 pounds. HEENT: Unremarkable. NECK: No JVD. LUNGS: Clear. CARDIAC: S1 and S2 regular. He is still requiring Levophed at 15 mcg per minute. ABDOMEN: Distended. EXTREMITIES: Multiple decubitus ulcers present. LABORATORY DATA: White blood cell count 7.7, hematocrit 21.3, platelet count 195. Sodium 132, potas sium 3.4, chloride 96, CO2 26, BUN 65, creatinine 5.9, glucose 141. His ACTH stimulation test showed a baseline cortisol 14.9, 30 minute cortisol 21 and a 60 minute cortisol 26.5. I believe that is ad equate response and supports the fact that he is probably not adrenally insufficient. ASSESSMENT: 1. Septic shock. 2. Severe skin breakdown/decubitus ulcers. 3. End-stage renal disease requiring peritoneal dialysis. 4. Protein calorie malnutrition, which is severe. RECOMMENDATIONS: 1. Wean Levophed. 2. Consider transfusion of blood - at least 1 unit. 3. Continue antibiotics.
[2017-09-17] MEDS: Calcitriol 0.25 MCG CAP PO SCH (09:46)
[2017-09-17] MEDS: Amiodarone 200 MG TAB PO SCH (09:46)
[2017-09-17] MEDS: Saccharomyces boulardii 250 MG CAP PO SCH (09:46)
[2017-09-17] MEDS: Famotidine 20 MG TAB PO SCH (09:46)
[2017-09-17] MEDS: Calcium Acetate 667 MG CAP PO SCH ×3 (09:46→17:03)
[2017-09-17] MEDS: Ezetimibe 10 MG TAB PO SCH (09:46)
[2017-09-17] MEDS: Sevelamer Carbonate 800 MG TAB PO SCH ×3 (09:46→21:30)
[2017-09-17] MEDS: Vancomycin HCl 25 MG/ML Oral PO SCH ×4 (09:47→21:30)
[2017-09-17 10:11] LABS: Vancomycin, Random 23.8 ug/mL (See Comment)
--- NOTE | 2017-09-17 10:24 | PDOC.PN ---
- Subjective Encounter Start Date: 09/17/17 Encounter Start Time: 09:15 Patient seen and examined for hypotension, this morning he had billious vomiting , still on levophed, more alert than yesterday, No overnight events - Objective Resuscitation Status: Resuscitation Status FULL:Full Resuscitation MAR Reviewed: Yes Vital Signs & Weight: Weight Admit Weight 205 lb Weight 201 lb Most Recent Monitor Data Heart Rate from ECG 87 NIBP 117/73 NIBP BP-Mean 88 Respiration from ECG 15 SpO2 97 I&O: 09/16/17 09/17/17 09/18/17 06:59 06:59 06:59 Intake Total 2989 1868 Output Total 1 75 Balance 2988 1793 Result Diagrams: 09/17/17 04:46 09/17/17 04:46 EKG Reviewed by me: Yes (nsr) Phys Exam - Physical Examination Constitutional: NAD HEENT: PERRLA, sclera anicteric Neck: no JVD, supple Respiratory: no wheezing, no rales, no rhonchi Cardiovascular: RRR, no significant murmur, no rub Gastrointestinal: soft, no distention, positive bowel sounds tenderness noted, PD catheter+ Musculoskeletal: pulses present, edema present rectal tube+ Neurological: non-focal, normal sensation Lymphatic: no nodes Psychiatric: normal affect Skin: no rash, normal turgor Dx/Plan (1) Septic shock Code(s): A41.9 - SEPSIS, UNSPECIFIED ORGANISM; R65.21 - SEVERE SEPSIS WITH SEPTIC SHOCK Status: Acute (2) Decubital ulcer Code(s): L89.90 - PRESSURE ULCER OF UNSPECIFIED SITE, UNSPECIFIED STAGE Status : Acute Qualifiers: Pressure ulcer location: buttock Pressure ulcer stage: unstageable Comment: necrotic ulcer, present on admission, see wound care photo and wound care team finding for details (3) C. 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 - ACUTE AND SUBACUTE INFECTIVE ENDOCARDITIS Status: Chronic Comment: will need PETTY when medically stable as per cardiology (5) Elevated troponin Code(s): R74.8 - ABNORMAL LEVELS OF OTHER SERUM ENZYMES Status: Acute Comment: due to demand ischemia and ESRD (6) Hyponatremia Code(s): E87.1 - HYPO-OSMOLALITY AND HYPONATREMIA Status: Acute Comment: chronic due to poor nutrition, ESRD (7) Hypotension Status: Acute Comment: on levophed (8) Hypothermia Code(s): T68.XXXA - HYPOTHERMIA, INITIAL ENCOUNTER Status: Resolved (9) Hypothyroidism Code(s): E03.9 - HYPOTHYROIDISM, UNSPECIFIED Status: Acute Comment: levothyroixine started this admission (10) Anemia due to end stage renal disease Code(s): N18.6 - END STAGE RENAL DISEASE; D63.1 - ANEMIA IN CHRONIC KIDNEY DISEASE Status: Chronic Comment: (11) Anxiety and depression Code(s): F41.9 - ANXIETY DISORDER, UNSPECIFIED; F32.9 - MAJOR DEPRESSIVE DISORDER, SINGLE EPISODE, UNSPECIFIED Status: Chronic (12) ESRD on peritoneal dialysis Code(s): N18.6 - END STAGE RENAL DISEASE; Z99.2 - DEPENDENCE ON RENAL DIALYSIS Status: Chronic Comment: currently on PD as per nephrology (13) Hypoalbuminemia Code(s): E88.09 - OTH DISORDERS OF PLASMA-PROTEIN METABOLISM, NEC Status: Chronic (14) Morbid obesity Code(s): E66.01 - MORBID (SEVERE) OBESITY DUE TO EXCESS CALORIES Status: Chronic (15) Physical deconditioning Code(s): R53.81 - OTHER MALAISE Status: Chronic Comment: (16) Polycystic kidney, adult type Code(s): Q61.2 - POLYCYSTIC KIDNEY, ADULT TYPE Status: Chronic Comment: (17) Secondary hyperparathyroidism of renal origin Code(s): N25.81 - SECONDARY HYPERPARATHYROIDISM OF RENAL ORIGIN Status: Chronic (18) Acute metabolic encephalopathy Code(s): G93.41 - METABOLIC ENCEPHALOPATHY Status: Acute (19) Peritonitis Code(s): K65.9 - PERITONITIS, UNSPECIFIED Status: Suspected - Plan cont current plan of care, continue antibiotics * gradually wean levophed as tolerated * today Hb dropped, will consider transfusion * continue azactam, flagyl, vancomycin and oral vancomycin * PD as per nephrology * as per cardiology no plan for PETTY until stable * medication reviewed as below * symptomatic treatment * wound care * surgery consulted. Review of Systems - Review of Systems Constitutional: weakness, malaise. negative: fever, chills, sweats, other Eyes: negative: Pain, Vision Change, Conjunctivae Inflammation, Eyelid Inflammation, Redness, Other ENT: negative: Ear Pain, Ear Discharge, Nose Pain, Nose Discharge, Nose Congestion, Mouth Pain, Mouth Swelling, Throat Pain, Throat Swelling, Other Respiratory: negative: Cough, Dry, Shortness of Breath, Hemoptysis, SOB with Excertion, Pleuritic Pain, Sputum, Wheezing Cardiovascular: negative: chest pain, palpitations, orthopnea, paroxysmal nocturnal dyspnea, edema, light headedness, other Gastrointestinal: Vomiting, Abdominal Pain. negative: Nausea, Diarrhea, Constipation, Melena, Hematochezia, Other Genitourinary: negative: Dysuria, Frequency, Incontinence, Hematuria, Retention , Other Musculoskeletal: negative: Neck Pain, Shoulder Pain, Arm Pain, Back Pain, Hand Pain, Leg Pain, Foot Pain, Other - Medications/Allergies Allergies/Adverse Reactions: Allergies Allergy/AdvReac Type Severity Reaction Status Date / Time iron Allergy Verified 09/14/17 13:20 Sulfa (Sulfonamide Allergy Verified 09/14/17 13:20 Antibiotics) Medications: Current Medications Acetaminophen (Tylenol) 650 mg PO Q4H PRN PRN Reason: Headache/Fever or Pain Hydrocodone Bitart/Acetaminophen ([place] 5/325) 1 tab PO Q4H PRN PRN Reason: Moderate Pain (4-6) Al Hydroxide/Mg Hydroxide (Maalox) 30 ml PO Q6H PRN PRN Reason: Heartburn or Indigestion Albuterol/Ipratropium (Duoneb) 3 ml NEB [id number] PRN PRN Reason: SOB &/or Wheezing Amiodarone HCl (Cordarone) 100 mg PO DAILY [facility] Last Admin: 09/17/17 09:46 Dose: Not Given Artificial Tears (Tears Renewed 15ml Bottle) 0 drop EA EYE PRN PRN PRN Reason: Dry Eyes Calcitriol (Rocaltrol) 0.25 mcg PO DAILY [facility] Last Admin: 09/17/17 09:46 Dose: Not Given Calcium Acetate (Phoslo) 1,334 mg PO TID-[facility] Last Admin: 09/17/17 09:46 Dose: Not Given Ezetimibe (Zetia) 10 mg PO DAILY [facility] Last Admin: 09/17/17 09:46 Dose: Not Given Epoetin Ayaz (Procrit) 10,000 units SC Q7D [facility] Last Admin: 09/15/17 10:18 Dose: 10,000 units Famotidine (Pepcid) 20 mg PO DAILY [facility] Last Admin: 09/17/17 09:46 Dose: Not Given Guaifenesin (Robitussin Sf) 200 mg PO Q4H PRN PRN Reason: Cough Norepinephrine Bitartrate (Levophed) 250 mls @ 0 mls/hr IVPB INF PRN; Protocol ; Titrate PRN Reason: HYPOTENSION <85 [facility] Last Admin: 09/17/17 09:47 Dose: 250 mls Metronidazole 500 mg/ Device 100 mls @ 100 mls/hr IVPB Q8HR [facility] Last Admin: 09/17/17 06:18 Dose: 100 mls Aztreonam 0.5 gm/Miscellaneous Medication 1 each/ Sodium Chloride 100 mls @ 100 mls/hr IVPB 0200,1000,1800 [facility] Last Admin: 09/17/17 09:49 Dose: 100 mls Vancomycin HCl 1.25 gm/ Sodium (Chloride) 250 mls @ 166.667 mls/hr IVPB WILLCALL [facility] Vancomycin HCl 1 gm/ Device 200 mls @ 200 mls/hr IVPB [facility]CALL [facility] Vancomycin HCl 750 mg/ Sodium (Chloride) 250 mls @ 250 mls/hr IVPB [facility] Vancomycin HCl 500 mg/ Sodium (Chloride) 100 mls @ 100 mls/hr IVPB WILLCALL [facility] Levothyroxine Sodium (Synthroid) 50 mcg PO 0600 [facility] Last Admin: 09/17/17 06:18 Dose: 50 mcg Loperamide HCl (Imodium) 2 mg PO PRN PRN PRN Reason: Diarrhea/Loose Stools Magnesium Hydroxide (Milk Of Magnesium) 30 ml PO DAILYPRN PRN PRN Reason: Constipation Metoclopramide HCl (Reglan) 5 mg IVP Q8HR PRN PRN Reason: Nausea/Vomiting Mineral Oil/White Petrolatum (Eucerin Cream) 0 gm TOP BIDPRN PRN PRN Reason: Dry Skin Miscellaneous Medication (Pharmacy To Dose) 1 each IVPB PRN PRN PRN Reason: Pharmacy to dose Hold Vancomycin For (Level >20) 0 each FS .DOSE BY LEVEL [facility] Phenol (Chloraseptic [place] 180 Ml Bot) 0 ml PO PRN PRN PRN Reason: Sore Throat Saccharomyces Boulardii (Florastor) 250 mg PO DAILY [facility] Last Admin: 09/17/17 09:46 Dose: Not Given Sevelamer Carbonate (Renvela) 2,400 mg PO TID [facility] Last Admin: 09/17/17 09:46 Dose: Not Given Sodium Chloride ([place] Nasal [place] 0.65%) 0 ml EA NARE QIDPRN PRN PRN Reason: Nasal Congestion Sodium Chloride (Flush - Normal Saline) 10 ml IVF Q12HR [facility] Last Admin: 09/17/17 09:47 Dose: 10 ml Sodium Chloride (Flush - Normal Saline) 10 ml IVF PRN PRN PRN Reason: Saline Flush Vancomycin HCl (First Vancomycin) 125 mg PO QID [facility] Last Admin: 09/17/17 09:47 Dose: Not Given
--- NOTE | 2017-09-17 10:47 | PRG ---
DATE OF SERVICE: 09/17/2017 SUBJECTIVE: Mr. Kamara is a 52-year-old white male with ESRD - currently on peritoneal dialysis an d admitted for hypertension for a possible sepsis syndrome. PD fluid was noted cloudy yesterday. Ho wever, the repeat PD fluid was noted to be clear this morning. Overnight he developed some nausea an d vomiting. He still could not tolerate p.o. at the present time. He is on empiric IV antibiotics. ID is also following him. He seems to be tolerating the current peritoneal dialysis. We are using 1.5% PD solution to minimize ultrafiltration due to the fact that this patient has been hypotensive. He is currently on pressor support. PHYSICAL EXAMINATION: VITAL SIGNS: Blood pressure is 117/73, heart rate 87, respiratory rate 15, pulse ox 97%. GENERAL: The patient is sleepy, arousable, lethargic. SKIN: Adequate turgor. HEENT: Pale conjunctivae, anicteric sclerae. NECK: No neck mass, no carotid bruits, no JVD. CHEST: No deformities. LUNGS: Clear breath sounds, no wheezing, no crackles. HEART: Normal sinus rhythm. No murmur, no gallops, no rubs. ABDOMEN: Globular, soft, nontender. No masses. Positive for PD catheter. EXTREMITIES: No edema. NEUROLOGIC: Lethargic, able to follow simple commands. MEDICATIONS: 09/17/2017 -Reviewed. LABORATORY DATA: 09/17/2017 - White count 7.7, hemoglobin 6.8, hematocrit 21.3. 09/16/2017 - PD fluid was noted to be colorless and clear. White count was 470, segs 72%. Sodium 13 2, potassium 3.4, chloride 96, carbon dioxide 26, BUN 65, creatinine 5.99, glucose 141, calcium 8.3, albumin 2.3. PD fluid culture so far no growth to date. ASSESSMENT AND PLAN: 1. Staphylococcus bacteremia, most likely source is from his decubitus ulcer - on IV antibiotics. I D following. 2. End-stage renal disease, stable. Continue current CCPD regimen. Using 1.5% PD solution to minim ize ultrafiltration due to the low blood pressure. 3. Anemia, recurrent. The patient has had an upper and lower GI endoscopy. We will give 1 unit of packed red blood cells. Continue weekly Epogen with this patient. 4. Persistent nausea and vomiting - consult GI. The patient may need to be started on some nutritio n. He is unable to tolerate p.o. He may need TPN in the very near future. Continue supportive care.
[2017-09-17] MEDS ORDERED: Heparin 10,000 UNITS/ 10 ML VIAL ONE (12:00)
--- NOTE | 2017-09-17 19:24 | CON ---
DATE OF CONSULTATION: 09/17/2017 GASTROINTESTINAL INPATIENT CONSULTATION NOTE REASON FOR CONSULTATION: Vomiting. HISTORY OF PRESENT ILLNESS: Shaheen Kamara is a 52-year-old gentleman, patient of my GI colleague Tish Jacobs. Mr. Kamara has had multiple recurrent hospitalizations over the past couple of reva hs. He has a significant history of end-stage renal disease secondary to polycystic kidney disease a nd is on peritoneal dialysis. On a recent admission in late August, he was found to have significant an emia. He underwent EGD and colonoscopy during that admission. The EGD was completely normal. The c olonoscopy showed diverticulosis and a single small polyp which was completely removed. It was concl uded that his anemia is secondary to his renal disease. The patient subsequently developed peritonit is, which was polymicrobial and Dr. Madison' impression was that the peritonitis might have been relate d to his polypectomy. The patient was treated with broad-spectrum antibiotics, discharged to rehab [facility]. There he was diagnosed with C. difficile and started on treatment for that. He was readmit cassie to the hospital 3 days ago with hypotension and hypothermia and was admitted to the ICU for treat ment of sepsis. He remains on norepinephrine. He is hemodynamically stable today. He is on broad-s pectrum antibiotics. He has been evaluated by Dr. Madison again and is currently on vancomycin orally, vancomycin IV, metronidazole IV, and aztreonam. Peritoneal fluid cultures today came back showing g terrence-negative bacilli, and blood cultures from his central line showed coagulase-negative Staphylococc us. The patient is known to have a large sacral decubitus ulcer as well. The patient has evidently had ongoing nonbloody diarrhea. This morning, he had episodes of a large amount of emesis. This was bilious in nature with no nam hematemesis. GI was subsequently consulted and per conversation wit h the nursing staff and with the patient, the patient is no longer feeling any nausea. He denies any abdominal pain. He has had no further emesis since this morning. He actually was able to eat a pre tty good lunch, which included meatloaf and mashed potatoes, with no difficulty. REVIEW OF SYSTEMS: Full review of systems including constitutional, head, eyes, ears, nose, throat, GI, , cardiovascular, respiratory, musculoskeletal, and neurologic systems is negative except as no cassie in the HPI. PAST MEDICAL HISTORY: Polycystic kidney disease; end-stage renal disease, on peritoneal dialysis; hi story of pericardial effusion with pericardial tamponade, requiring pericardial window in 02/2017; a nemia of chronic renal disease; secondary hyperparathyroidism of renal origin; paroxysmal atrial fibr illation; morbid obesity; gastroesophageal reflux disease; dyslipidemia; recent diagnosis of C. diffi cile colitis; recent diagnosis of vegetation over the mitral valve leaflet; AV fistula placement; upp er and lower endoscopy on 08/23/2017 with rectal polyp removed at that time; bilateral knee surgery; anxiety and depression. ALLERGIES: IODINE AND SULFA DRUGS. CURRENT MEDICATIONS: Amiodarone, aztreonam 0.5 mg IV 3 times per day, Procrit, levothyroxine, metron idazole 500 mg IV q.8 hours, Levophed drip, vancomycin 125 mg by mouth q.i.d., vancomycin IV, IV albu min, 25%, 25 grams IV q.6 hours 4 doses ordered. SOCIAL HISTORY: No tobacco, alcohol, or drug abuse. FAMILY HISTORY: Polycystic kidney disease runs among several family. PHYSICAL EXAMINATION: VITAL SIGNS: Temperature 97.6, blood pressure 100/66, pulse 86, 100% oxygen saturation on 2 liters n anthony cannula. GENERAL: Critically ill 52-year-old gentleman lying in bed comfortably, in no distress. He is somno lent but easily arousable. SKIN: He has a known sacral decubitus ulcer which I did not examined. No jaundice. EYES: No scleral icterus. Extraocular movements intact. ENT: Mucous membranes moist. LYMPH: No submandibular, supraclavicular lymphadenopathy. THYROID: Nontender to palpation. HEART: Regular rate and rhythm. LUNGS: Bibasilar crackles, no wheezing, no respiratory distress. ABDOMEN: The abdomen is mildly distended, but not tense. There is localized tenderness to palpation on the right side of the abdomen in the area of his peritoneal dialysis catheter. EXTREMITIES: 1+ bilateral lower extremity edema. NEUROLOGICAL: Cranial nerves II-XII intact bilaterally. LABORATORY STUDIES: Hemoglobin 6.8, WBC 7.7, platelets 195. Sodium 132, potassium 3.4, BUN 65, crea tinine 5.99, total bilirubin 0.7, alkaline phosphatase 81, AST 24, ALT 23. Cortisol 11.7, albumin 2. 3. TSH 11.48. IMAGING STUDIES: Echocardiogram demonstrated ejection fraction 50%-55% with diastolic dysfunction, m ild mitral regurgitation and a possible small vegetation on the anterior mitral valve leaflet. ASSESSMENT AND PLAN: 1. Nausea and vomiting, acute this morning. 2. Bacterial peritonitis, with gram-negative bacillus. 3. Clostridium difficile infection, currently being treated. 4. Sepsis. It appears the patient has had no further vomiting episodes since this morning. The pat ient and nursing staff report that he was able to eat a pretty good lunch today including meatloaf. This is reassuring. I think his acute nausea, most likely multifactorial secondary to his critical i llness and peritonitis. He has had endoscopic investigation just within the past month, I see no jose carlos son to repeat any endoscopy at this time. Hopefully, he will be able to continue with his diet. Con tinue diet as tolerated. GI can follow along for now.
[2017-09-18] MEDS: ADMIXTURE FEE IVPB SCH ×3 (02:44→17:12)
[2017-09-18] MEDS: SODIUM CHLORIDE IVPB SCH ×3 (02:44→17:12)
[2017-09-18] MEDS: AZTREONAM IVPB SCH ×3 (02:44→17:12)
[2017-09-18] MEDS: Levothyroxine Sodium 50 MCG TAB PO SCH (06:24)
[2017-09-18] MEDS: metroNIDAZOLE 500 MG in Premix Bag 1 BAG IVPB SCH ×3 (06:25→20:57)
--- NOTE | 2017-09-18 08:15 | PRG ---
DATE OF SERVICE: 09/18/2017 SUBJECTIVE: The patient remains in the CCU. There have been attempts to wean his Levophed, but he i s still requiring about 5 mcg per minute. He is more awake than he has been and is mildly conversant . OBJECTIVE: VITAL SIGNS: His temperature is 97.8, pulse 86, blood pressure 92/58, O2 sat 100%. HEENT: Pupils react. Sclerae anicteric. Oropharynx clear. NECK: No JVD. LUNGS: Clear without wheezing or rhonchi. CARDIAC: S1, S2 regular. ABDOMEN: Soft, slightly distended. EXTREMITIES: No edema. LABORATORY DATA: Labs are pending for today. ASSESSMENT: 1. Septic shock - likely from peritonitis versus Clostridium difficile colitis. 2. Persistent hypotension - I think this is likely related to volume depletion and maybe just somewh at due to having a low baseline blood pressure. It does not appear that he was adrenally insufficien t on ACTH stimulation testing earlier this week. 3. End-stage renal disease requiring peritoneal dialysis. 4. Protein calorie malnutrition. PLAN: 1. Await labs from today. 2. Start midodrine 5 mg t.i.d. for the hypotension. 3. Continue antibiotics. 4. He will need to stay in ICU until he is off vasopressors.
[2017-09-18 09:18] LABS: #Eosinphils 0.2 thou/uL (0.0-0.7); #Lymphocytes 0.8 thou/uL (1.20-3.40); #Monocytes 0.6 thou/uL (0.11-0.59); #Neutrophils 5.8 thou/uL (1.40-6.50); %Eosinophils 2.7 % (0.0-10.0); %Lymphocytes 11.2 % (21.0-51.0); %Monocytes 8.1 % (0.0-10.0); %Neutrophils 78.1 % (42.0-75.0); Hemoglobin 8.8 g/dL (14.0-18.0); Mean Corpuscular HGB CONC 32.3 g/dL (32.0-36.0); Mean Corpuscular Hemoglobin 26.3 pg (27.0-31.0); Mean Corpuscular Volume 81.6 fl (80.0-94.0); Mean Platelet Volume 7.8 fL (7.4-10.4); Platelet Count 174 thou/uL (130-400); RBC Distribution Width 15.5 % (11.5-14.5); Red Blood Cell (RBC) Count 3.36 mill/uL (4.70-6.10); White Blood Cell (WBC) Count 7.5 thou/uL (4.8-10.8)
[2017-09-18 09:40] LABS: ALT (SGPT) 17 U/L (8-55); AST (SGOT) 15 U/L (5-34); Albumin 2.1 g/dL (3.5-5.0); Alkaline Phosphatase 81 U/L (40-150); Anion Gap 13 mmol/L (10-20); BUN (Urea Nitrogen) 63 mg/dL (8.4-25.7); Bilirubin, Total 0.6 mg/dL (0.2-1.2); Calc. Creatinine Clearance 18 mL/min (70-130); Calcium 7.8 mg/dL (7.8-10.44); Carbon Dioxide 25 mmol/L (22-29); Chloride 98 mmol/L (98-107); Estimated GFR-MDRD 10; Globulin 2.5 g/dL (2.4-3.5); Glucose 77 mg/dL (70-105); Magnesium 1.4 mg/dL (1.6-2.6); Phosphorus 4.3 mg/dL (2.3-4.7); Potassium 3.3 mmol/L (3.5-5.1); Protein, Total 4.6 g/dL (6.0-8.3); Sodium 133 mmol/L (136-145)
[2017-09-18] MEDS: Calcium Acetate 667 MG CAP PO SCH ×3 (10:01→17:07)
[2017-09-18] MEDS: Calcitriol 0.25 MCG CAP PO SCH (10:14)
[2017-09-18] MEDS: Famotidine 20 MG TAB PO SCH (10:14)
[2017-09-18] MEDS: Midodrine HCl 5 MG TAB PO SCH ×3 (10:14→19:32)
[2017-09-18] MEDS: Amiodarone 200 MG TAB PO SCH (10:14)
[2017-09-18] MEDS: Ezetimibe 10 MG TAB PO SCH (10:14)
[2017-09-18] MEDS: Sevelamer Carbonate 800 MG TAB PO SCH ×3 (10:15→19:37)
[2017-09-18] MEDS: Vancomycin HCl 25 MG/ML Oral PO SCH ×4 (10:15→19:32)
[2017-09-18] MEDS: Saccharomyces boulardii 250 MG CAP PO SCH (10:15)
--- NOTE | 2017-09-18 10:19 | PRG ---
DATE OF SERVICE: 09/18/2017 RENAL MEDICINE SUBJECTIVE: Mr. Kamara is a 52-year-old white male with ESRD and currently on peritoneal dialysis. He was admitted for hypertension secondary to possible sepsis. He is on empiric IV antibiotics. I D is following. He also had some nausea and vomiting yesterday. However, later that day, he tolerat ed adequate p.o. intake. He is more awake this morning. He has also received blood for his severe a nemia. No new complaints today. The patient tells me he is feeling better. He is more conversant. PHYSICAL EXAMINATION: VITAL SIGNS: Blood pressure is 92/58, heart rate 86, respiratory rate 21, pulse ox 100%. GENERAL: Noted to be awake, supine, comfortable, not in distress. SKIN: Adequate turgor. HEENT: He has slightly pale conjunctivae, anicteric sclerae. NECK: No neck mass, no carotid bruits, no JVD. CHEST: No deformities. LUNGS: Clear breath sounds, no wheezing, no crackles. HEART: Normal sinus rhythm. No murmurs, no gallops, no rubs. ABDOMEN: Globular, soft, nontender, no masses. EXTREMITIES: No edema, no deformities. MEDICATIONS: Medications of 09/18/2017 was reviewed. LABORATORY DATA: Laboratories of 09/18/2017; white count 7.5, hemoglobin 8.8. Sodium 133, potassium 3.3, chloride 98, carbon dioxide 25, BUN 63, creatinine 6.09, phosphorus 4.3, magnesium 1.4, albumin 2.1. ASSESSMENT AND PLAN: 1. End-stage renal disease, stable. Continue current CCPD regimen, tolerating said treatment. Mini mal fluid removal being done - minimizing ultrafiltration. No changes will be made with his PD regim en. Continue 1.5% PD solution. 2. Hypertension/sepsis, clinically improving, on IV antibiotics. 3. Anemia, on weekly Epogen. Continue given the said Epogen regimen. P.r.n. blood transfusion. 4. Mild hyperkalemia. We will continue to observe. 5. Nausea and vomiting, resolved. Tolerating p.o. better. A.m. cortisol level is noted at 11.7. Agree with current management.
--- NOTE | 2017-09-18 11:33 | PDOC.PN ---
- Subjective Encounter Start Date: 09/18/17 Encounter Start Time: 09:30 Patient seen and examined hypotension, has diarrhoea, has abdominal pain,. No overnight events - Objective Resuscitation Status: Resuscitation Status FULL:Full Resuscitation MAR Reviewed: Yes Vital Signs & Weight: Vital Signs (12 hours) Temp Pulse Resp Pulse Ox 09/18/17 08:00 97.6 F 87 19 100 09/18/17 07:13 100 Weight Admit Weight 205 lb Weight 201 lb Most Recent Monitor Data Heart Rate from ECG 102 NIBP 87/55 NIBP BP-Mean 65 Respiration from ECG 17 SpO2 100 I&O: 09/17/17 09/18/17 09/19/17 06:59 06:59 06:59 Intake Total 1868 1511.5 480 Output Total 75 Balance 1793 1511.5 480 Result Diagrams: 09/18/17 09:14 09/18/17 09:14 Phys Exam - Physical Examination Constitutional: NAD HEENT: PERRLA, moist MMs, sclera anicteric Neck: no JVD, supple Respiratory: no wheezing, no rales, no rhonchi Cardiovascular: RRR, no significant murmur, no rub Gastrointestinal: soft, no distention, positive bowel sounds tenderness rectal tube+ Musculoskeletal: pulses present, edema present femoral central line Neurological: non-focal Lymphatic: no nodes Psychiatric: normal affect Skin: no rash, normal turgor Dx/Plan (1) Septic shock Code(s): A41.9 - SEPSIS, UNSPECIFIED ORGANISM; R65.21 - SEVERE SEPSIS WITH SEPTIC SHOCK Status: Acute (2) Decubital ulcer Code(s): L89.90 - PRESSURE ULCER OF UNSPECIFIED SITE, UNSPECIFIED STAGE Status : Acute Qualifiers: Pressure ulcer location: buttock Pressure ulcer stage: unstageable Comment: necrotic ulcer, present on admission, see wound care photo and wound care team finding for details (3) C. 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 - ACUTE AND SUBACUTE INFECTIVE ENDOCARDITIS Status: Chronic Comment: will need PETTY when medically stable as per cardiology (5) Elevated troponin Code(s): R74.8 - ABNORMAL LEVELS OF OTHER SERUM ENZYMES Status: Acute Comment: due to demand ischemia and ESRD (6) Hyponatremia Code(s): E87.1 - HYPO-OSMOLALITY AND HYPONATREMIA Status: Acute Comment: chronic due to poor nutrition, ESRD (7) Hypotension Status: Acute Comment: on levophed (8) Hypothermia Code(s): T68.XXXA - HYPOTHERMIA, INITIAL ENCOUNTER Status: Resolved (9) Hypothyroidism Code(s): E03.9 - HYPOTHYROIDISM, UNSPECIFIED Status: Acute Comment: levothyroixine started this admission (10) Anemia due to end stage renal disease Code(s): N18.6 - END STAGE RENAL DISEASE; D63.1 - ANEMIA IN CHRONIC KIDNEY DISEASE Status: Chronic Comment: (11) Anxiety and depression Code(s): F41.9 - ANXIETY DISORDER, UNSPECIFIED; F32.9 - MAJOR DEPRESSIVE DISORDER, SINGLE EPISODE, UNSPECIFIED Status: Chronic (12) ESRD on peritoneal dialysis Code(s): N18.6 - END STAGE RENAL DISEASE; Z99.2 - DEPENDENCE ON RENAL DIALYSIS Status: Chronic Comment: currently on PD as per nephrology (13) Hypoalbuminemia Code(s): E88.09 - OTH DISORDERS OF PLASMA-PROTEIN METABOLISM, NEC Status: Chronic (14) Morbid obesity Code(s): E66.01 - MORBID (SEVERE) OBESITY DUE TO EXCESS CALORIES Status: Chronic (15) Physical deconditioning Code(s): R53.81 - OTHER MALAISE Status: Chronic Comment: (16) Polycystic kidney, adult type Code(s): Q61.2 - POLYCYSTIC KIDNEY, ADULT TYPE Status: Chronic Comment: (17) Secondary hyperparathyroidism of renal origin Code(s): N25.81 - SECONDARY HYPERPARATHYROIDISM OF RENAL ORIGIN Status: Chronic (18) Acute metabolic encephalopathy Code(s): G93.41 - METABOLIC ENCEPHALOPATHY Status: Acute (19) Peritonitis Code(s): K65.9 - PERITONITIS, UNSPECIFIED Status: Suspected - Plan cont current plan of care, continue antibiotics * continue azactam, vanocmycin, flagyl * continue oral vancomycin * continue to wean levophed off * medication reviewed as below * symptomatic treatment * prognosis is poor. * follow up on culture result * replace magnesium Review of Systems - Review of Systems Constitutional: weakness, malaise Eyes: negative: Pain, Vision Change, Conjunctivae Inflammation, Eyelid Inflammation, Redness, Other ENT: negative: Ear Pain, Ear Discharge, Nose Pain, Nose Discharge, Nose Congestion, Mouth Pain, Mouth Swelling, Throat Pain, Throat Swelling, Other Respiratory: negative: Cough, Dry, Shortness of Breath, Hemoptysis, SOB with Excertion, Pleuritic Pain, Sputum, Wheezing Cardiovascular: edema. negative: chest pain, palpitations, orthopnea, paroxysmal nocturnal dyspnea, light headedness, other Gastrointestinal: Abdominal Pain, Diarrhea. negative: Nausea, Vomiting, Constipation, Melena, Hematochezia, Other Genitourinary: negative: Dysuria, Frequency, Incontinence, Hematuria, Retention , Other Musculoskeletal: negative: Neck Pain, Shoulder Pain, Arm Pain, Back Pain, Hand Pain, Leg Pain, Foot Pain, Other Skin: negative: Rash, Lesions, Mumtaz, Bruising, Other - Medications/Allergies Allergies/Adverse Reactions: Allergies Allergy/AdvReac Type Severity Reaction Status Date / Time iron Allergy Verified 09/14/17 13:20 Sulfa (Sulfonamide Allergy Verified 09/14/17 13:20 Antibiotics) Medications: Current Medications Acetaminophen (Tylenol) 650 mg PO Q4H PRN PRN Reason: Headache/Fever or Pain Hydrocodone Bitart/Acetaminophen ([place] 5/325) 1 tab PO Q4H PRN PRN Reason: Moderate Pain (4-6) Al Hydroxide/Mg Hydroxide (Maalox) 30 ml PO Q6H PRN PRN Reason: Heartburn or Indigestion Albuterol/Ipratropium (Duoneb) 3 ml NEB [id number] PRN PRN Reason: SOB &/or Wheezing Amiodarone HCl (Cordarone) 100 mg PO DAILY [facility] Last Admin: 09/18/17 10:14 Dose: 100 mg Artificial Tears (Tears Renewed 15ml Bottle) 0 drop EA EYE PRN PRN PRN Reason: Dry Eyes Calcitriol (Rocaltrol) 0.25 mcg PO DAILY [facility] Last Admin: 09/18/17 10:14 Dose: 0.25 mcg Calcium Acetate (Phoslo) 1,334 mg PO TID-WM [facility] Last Admin: 09/18/17 10:01 Dose: Not Given Ezetimibe (Zetia) 10 mg PO DAILY [facility] Last Admin: 09/18/17 10:14 Dose: 10 mg Epoetin Ayaz (Procrit) 10,000 units SC Q7D [facility] Last Admin: 09/15/17 10:18 Dose: 10,000 units Famotidine (Pepcid) 20 mg PO DAILY [facility] Last Admin: 09/18/17 10:14 Dose: 20 mg Guaifenesin (Robitussin Sf) 200 mg PO Q4H PRN PRN Reason: Cough Norepinephrine Bitartrate (Levophed) 250 mls @ 0 mls/hr IVPB INF PRN; Protocol ; Titrate PRN Reason: HYPOTENSION <85 SYSTOLIC Last Admin: 09/17/17 09:47 Dose: 250 mls Metronidazole 500 mg/ Device 100 mls @ 100 mls/hr IVPB Q8HR [facility] Last Admin: 09/18/17 06:25 Dose: 100 mls Aztreonam 0.5 gm/Miscellaneous Medication 1 each/ Sodium Chloride 100 mls @ 100 mls/hr IVPB 0200,1000,1800 [facility] Last Admin: 09/18/17 10:15 Dose: 100 mls Vancomycin HCl 1.25 gm/ Sodium (Chloride) 250 mls @ 166.667 mls/hr IVPB WILLCALL [facility] Vancomycin HCl 1 gm/ Device 200 mls @ 200 mls/hr IVPB WILLCALL [facility] Vancomycin HCl 750 mg/ Sodium (Chloride) 250 mls @ 250 mls/hr IVPB WILLCALL [facility] Vancomycin HCl 500 mg/ Sodium (Chloride) 100 mls @ 100 mls/hr IVPB WILLCALL [facility] Levothyroxine Sodium (Synthroid) 50 mcg PO 0600 [facility] Last Admin: 09/18/17 06:24 Dose: 50 mcg Loperamide HCl (Imodium) 2 mg PO PRN PRN PRN Reason: Diarrhea/Loose Stools Magnesium Hydroxide (Milk Of Magnesium) 30 ml PO DAILYPRN PRN PRN Reason: Constipation Metoclopramide HCl (Reglan) 5 mg IVP Q8HR PRN PRN Reason: Nausea/Vomiting Midodrine (Proamatine) 5 mg PO TID [facility] Last Admin: 09/18/17 10:14 Dose: 5 mg Mineral Oil/White Petrolatum (Eucerin Cream) 0 gm TOP BIDPRN PRN PRN Reason: Dry Skin Miscellaneous Medication (Pharmacy To Dose) 1 each IVPB PRN PRN PRN Reason: Pharmacy to dose Hold Vancomycin For (Level >20) 0 each FS .DOSE BY LEVEL [facility] Phenol (Chloraseptic Emmet 180 Ml Bot) 0 ml PO PRN PRN PRN Reason: Sore Throat Saccharomyces Boulardii (Florastor) 250 mg PO DAILY [facility] Last Admin: 09/18/17 10:15 Dose: 250 mg Sevelamer Carbonate (Renvela) 2,400 mg PO TID [facility] Last Admin: 09/18/17 10:15 Dose: 2,400 mg Sodium Chloride ([place] Nasal Emmet 0.65%) 0 ml EA NARE QIDPRN PRN PRN Reason: Nasal Congestion Sodium Chloride (Flush - Normal Saline) 10 ml IVF Q12HR [facility] Last Admin: 09/17/17 21:33 Dose: 10 ml Sodium Chloride (Flush - Normal Saline) 10 ml IVF PRN PRN PRN Reason: Saline Flush Vancomycin HCl (First Vancomycin) 125 mg PO QID [facility] Last Admin: 09/18/17 10:15 Dose: 125 mg
--- NOTE | 2017-09-18 11:48 | PRG ---
DATE OF SERVICE: 09/18/2017 SUBJECTIVE: Mr. Kamara is feeling fine today. He denies any abdominal pain. There has been no fu rther nausea or vomiting. He has been tolerating his diet. He remains on pressors and broad antibio tics. Peritoneal fluid culture is growing Pseudomonas species. OBJECTIVE: VITAL SIGNS: Heart rate 102, blood pressure 87/55, 100% oxygen saturation on 2 liters nasal cannula, temperature is 97.6. GENERAL: No acute distress. HEART: Regular rate and rhythm. LUNGS: Bibasilar crackles, no wheezing, no respiratory distress. ABDOMEN: Distended, bowel sounds present, soft and nontender to palpation. EXTREMITIES: 1+ peripheral edema. LABORATORY STUDIES: Hemoglobin 8.8, WBC 7.5, platelets 174. Sodium 133, potassium 3.3, BUN 63, crea tinine 6.09. LFTs remain normal. Peritoneal fluid culture growing out presumptive Pseudomonas. ASSESSMENT AND PLAN: 1. Acute nausea and vomiting, resolved. 2. Bacterial peritonitis, gram-negative bacilli. 3. Clostridium difficile infection. 4. Sepsis. The patient's nausea and vomiting appears to have resolved. Continue full supportive ca re and antibiotics as you are doing. Certainly, no plan for any endoscopic investigation. Continue with antibiotic treatment as directed by Infectious Disease. GI will sign off, but please call back with questions or concerns.
[2017-09-18] MEDS: Piperacillin/Tazobactam 2.25 GM in Sodium Chloride 0.9% 100 ML IVPB SCH ×2 (15:29→22:08)
--- NOTE | 2017-09-18 19:57 | PRG ---
DATE OF SERVICE: 09/18/2017 SUBJECTIVE: The patient more alert today, following commands, eating. Pain is less. No dyspnea. N o change in neurological status other than the improvement in alertness and responsiveness. OBJECTIVE: VITAL SIGNS: He continues to be afebrile. Blood pressure 120/65, pulse 87. GENERAL: Chronically ill appearing. Awake, follows commands. LUNGS: Symmetric air entry. CARDIOVASCULAR: S1, S2 with regular rate. ABDOMEN: Moderately distended, diffusely tender, . EXTREMITIES: He is able to move extremities, but he is diffusely weak. NEUROLOGIC: Much more responsive than yesterday. LABORATORY DATA: White cell count is 7.5, hemoglobin 8.8, platelets 174, 78% neutrophils. Sodium 13 3, creatinine 6.09, magnesium 1.4. Transaminases normal, albumin 2.1. The peritoneal fluid culture with presumptive Pseudomonas. ASSESSMENT AND DISCUSSION: End-stage renal disease secondary to polycystic kidney disease with recen t colonoscopy, subsequent peritonitis, probably from the procedure. Polymicrobial felt to be related to this likely small area of perforation following polypectomy. DISCUSSION: The patient improved and then developed sepsis. He has a large necrotic ulcer in the le ft gluteal region. In addition to that, there is residual peritonitis from the previous one, which i s actually improved from before just needs to complete treatment to the end for another 2 weeks petra gao, likely need a follow up CT scan of the area. At this point, we will switch him to Zosyn, discon tinue Azactam. Continue Flagyl and oral vancomycin and discontinue IV vancomycin. The areas of necr otic eschar in the back would require extensive wound care.
[2017-09-19] MEDS ORDERED: Budesonide 0.5 MG/2 ML NEB ONE (00:55)
[2017-09-19] MEDS: SODIUM CHLORIDE IVPB SCH ×3 (01:10→21:00)
[2017-09-19] MEDS: AZTREONAM IVPB SCH ×3 (01:10→21:00)
[2017-09-19] MEDS: ADMIXTURE FEE IVPB SCH ×3 (01:10→21:00)
[2017-09-19] MEDS: Levothyroxine Sodium 50 MCG TAB PO SCH (05:05)
[2017-09-19] MEDS: metroNIDAZOLE 500 MG in Premix Bag 1 BAG IVPB SCH ×3 (05:05→22:25)
[2017-09-19 05:46] LABS: #Eosinphils 0.1 thou/uL (0.0-0.7); #Lymphocytes 0.8 thou/uL (1.20-3.40); #Monocytes 0.6 thou/uL (0.11-0.59); %Basophils 0.6 % (0.0-1.0); %Monocytes 9.7 % (0.0-10.0); %Neutrophils 75.8 % (42.0-75.0); Hemoglobin 8.5 g/dL (14.0-18.0); Mean Corpuscular HGB CONC 31.6 g/dL (32.0-36.0); Mean Corpuscular Hemoglobin 26.2 pg (27.0-31.0); Mean Platelet Volume 8.4 fL (7.4-10.4); Platelet Count 155 thou/uL (130-400); RBC Distribution Width 15.5 % (11.5-14.5); Red Blood Cell (RBC) Count 3.22 mill/uL (4.70-6.10); White Blood Cell (WBC) Count 6.6 thou/uL (4.8-10.8)
[2017-09-19 05:50] LABS: Anion Gap 14 mmol/L (10-20); BUN (Urea Nitrogen) 58 mg/dL (8.4-25.7); Calc. Creatinine Clearance 20 mL/min (70-130); Calcium 7.3 mg/dL (7.8-10.44); Carbon Dioxide 24 mmol/L (22-29); Chloride 100 mmol/L (98-107); Estimated GFR-MDRD 11; Glucose 73 mg/dL (70-105); Potassium 3.1 mmol/L (3.5-5.1); Sodium 135 mmol/L (136-145)
[2017-09-19] MEDS: Piperacillin/Tazobactam 2.25 GM in Sodium Chloride 0.9% 100 ML IVPB SCH ×3 (07:57→23:43)
[2017-09-19] MEDS: Calcium Acetate 667 MG CAP PO SCH ×3 (07:57→17:54)
[2017-09-19] MEDS: Sevelamer Carbonate 800 MG TAB PO SCH ×3 (08:34→21:04)
[2017-09-19] MEDS: Amiodarone 200 MG TAB PO SCH (08:35)
[2017-09-19] MEDS: Saccharomyces boulardii 250 MG CAP PO SCH (08:35)
[2017-09-19] MEDS: Famotidine 20 MG TAB PO SCH (08:35)
[2017-09-19] MEDS: Ezetimibe 10 MG TAB PO SCH (08:36)
[2017-09-19] MEDS: Calcitriol 0.25 MCG CAP PO SCH (08:40)
[2017-09-19 09:21] LABS: Vancomycin, Random 20.6 ug/mL (See Comment)
[2017-09-19] MEDS ORDERED: Potassium Chloride 20 MEQ TAB PO SCH (11:00)
--- NOTE | 2017-09-19 11:00 | PRG ---
DATE OF SERVICE: 09/19/2017 SUBJECTIVE: The patient is much more awake and alert. PHYSICAL EXAMINATION: VITAL SIGNS: His temperature is 98.4, pulse 91, blood pressure 93/65, O2 sat 100%. HEENT: Unremarkable. NECK: No JVD. LUNGS: Clear without wheezing. CARDIAC: S1 and S2 regular. ABDOMEN: Soft, distended. EXTREMITIES: Trace edema. LABORATORY DATA: White blood cell count 6.6, hematocrit 26.7, platelet count 155. Sodium 135, potas sium 3.1, chloride 100, CO2 24, BUN 58, creatinine 5.6, glucose 73. ASSESSMENT: 1. Septic shock from decubitus ulcers - improved. 2. Hypotension, improved with midodrine. 3. End-stage renal disease. 4. Protein calorie malnutrition. PLAN: 1. Moved to telemetry. 2. Continue midodrine for another 24-48 hours. 3. Continue IV antibiotics.
[2017-09-19] MEDS: Midodrine HCl 5 MG TAB PO SCH ×2 (11:16→15:09)
[2017-09-19] MEDS: Vancomycin HCl 25 MG/ML Oral PO SCH ×4 (11:17→21:01)
--- NOTE | 2017-09-19 12:25 | PDOC.PN ---
- Subjective Encounter Start Date: 09/19/17 Encounter Start Time: 11:15 Subjective: awake, at bedside -: no sob - Objective Resuscitation Status: Resuscitation Status FULL:Full Resuscitation MAR Reviewed: Yes Vital Signs & Weight: Vital Signs (12 hours) Temp Pulse Resp Pulse Ox 09/19/17 12:00 98.7 F 09/19/17 11:52 100 09/19/17 07:08 98.4 F 95 15 100 09/19/17 03:00 98.4 F Weight Admit Weight 205 lb 14.588 oz Weight 201 lb Most Recent Monitor Data Heart Rate from ECG 90 NIBP 97/66 NIBP BP-Mean 76 Respiration from ECG 18 SpO2 100 I&O: 09/18/17 09/19/17 09/20/17 06:59 06:59 06:59 Intake Total 1511.5 2156.2 120 Output Total 20 Balance 1511.5 2156.2 100 Result Diagrams: 09/19/17 05:23 09/19/17 05:23 Phys Exam - Physical Examination HEENT: PERRLA, moist MMs Neck: no JVD, supple Respiratory: no wheezing, no rales Cardiovascular: RRR, no significant murmur Gastrointestinal: soft, non-tender, positive bowel sounds Musculoskeletal: pulses present, edema present Neurological: non-focal, moves all 4 limbs Psychiatric: A&O x 3 Dx/Plan (1) Sepsis Code(s): A41.9 - SEPSIS, UNSPECIFIED ORGANISM Status: Acute Qualifiers: Sepsis type: Pseudomonas Qualified Code(s): A41.52 - Sepsis due to Pseudomonas (2) Peritonitis Code(s): K65.9 - PERITONITIS, UNSPECIFIED Status: Acute (3) Acute metabolic encephalopathy Code(s): G93.41 - METABOLIC ENCEPHALOPATHY Status: Resolved (4) C. difficile diarrhea Code(s): A04.72 - ENTEROCOLITIS D/T CLOSTRIDIUM DIFFICILE, NOT SPCF RECUR Status: Acute Comment: on PO vancomycin and IV flagyl (5) Decubital ulcer Code(s): L89.90 - PRESSURE ULCER OF UNSPECIFIED SITE, UNSPECIFIED STAGE Status : Acute Qualifiers: Pressure ulcer location: buttock Pressure ulcer stage: unstageable Comment: necrotic ulcer, present on admission, see wound care photo and wound care team finding for details (6) Hypoalbuminemia due to protein-calorie malnutrition Code(s): E46 - UNSPECIFIED PROTEIN-CALORIE MALNUTRITION Status: Acute (7) Hypothyroidism Code(s): E03.9 - HYPOTHYROIDISM, UNSPECIFIED Status: Acute Qualifiers: Hypothyroidism type: unspecified Qualified Code(s): E03.9 - Hypothyroidism , unspecified Comment: levothyroixine started this admission (8) Anemia due to end stage renal disease Code(s): N18.6 - END STAGE RENAL DISEASE; D63.1 - ANEMIA IN CHRONIC KIDNEY DISEASE Status: Chronic Comment: (9) Anxiety and depression Code(s): F41.9 - ANXIETY DISORDER, UNSPECIFIED; F32.9 - MAJOR DEPRESSIVE DISORDER, SINGLE EPISODE, UNSPECIFIED Status: Chronic (10) ESRD on peritoneal dialysis Code(s): N18.6 - END STAGE RENAL DISEASE; Z99.2 - DEPENDENCE ON RENAL DIALYSIS Status: Chronic Comment: currently on PD as per nephrology (11) Mitral valve vegetation Code(s): I33.0 - ACUTE AND SUBACUTE INFECTIVE ENDOCARDITIS Status: Chronic Comment: will need PETTY when medically stable as per cardiology (12) Physical deconditioning Code(s): R53.81 - OTHER MALAISE Status: Chronic Comment: - Plan aztreonam, zosyn, flagyl and vanc po, antibiotics per -: off levophed, midodrine 5mg tid -: d/w , will switch him over to HD by next week -: severe deconditioning, will need placement -: wound care, surg consult for debridement of decub b/l buttocks * . Review of Systems - Medications/Allergies Allergies/Adverse Reactions: Allergies Allergy/AdvReac Type Severity Reaction Status Date / Time iron Allergy Verified 09/14/17 13:20 Sulfa (Sulfonamide Allergy Verified 09/14/17 13:20 Antibiotics) Medications: Current Medications Acetaminophen (Tylenol) 650 mg PO Q4H PRN PRN Reason: Headache/Fever or Pain Hydrocodone Bitart/Acetaminophen ([place] 5/325) 1 tab PO Q4H PRN PRN Reason: Moderate Pain (4-6) Al Hydroxide/Mg Hydroxide (Maalox) 30 ml PO Q6H PRN PRN Reason: Heartburn or Indigestion Albuterol/Ipratropium (Duoneb) 3 ml NEB [id number] PRN PRN Reason: SOB &/or Wheezing Amiodarone HCl (Cordarone) 100 mg PO DAILY [facility] Last Admin: 09/19/17 08:35 Dose: 100 mg Artificial Tears (Tears Renewed 15ml Bottle) 0 drop EA EYE PRN PRN PRN Reason: Dry Eyes Calcitriol (Rocaltrol) 0.25 mcg PO DAILY [facility] Last Admin: 09/19/17 08:40 Dose: 0.25 mcg Calcium Acetate (Phoslo) 1,334 mg PO TID-WM [facility] Last Admin: 09/19/17 07:57 Dose: Not Given Ezetimibe (Zetia) 10 mg PO DAILY [facility] Last Admin: 09/19/17 08:36 Dose: 10 mg Epoetin Ayaz (Procrit) 10,000 units SC Q7D [facility] Last Admin: 09/15/17 10:18 Dose: 10,000 units Famotidine (Pepcid) 20 mg PO DAILY [facility] Last Admin: 09/19/17 08:35 Dose: 20 mg Guaifenesin (Robitussin Sf) 200 mg PO Q4H PRN PRN Reason: Cough Metronidazole 500 mg/ Device 100 mls @ 100 mls/hr IVPB Q8HR [facility] Last Admin: 09/19/17 05:05 Dose: 100 mls Aztreonam 0.5 gm/Miscellaneous Medication 1 each/ Sodium Chloride 100 mls @ 100 mls/hr IVPB 0200,1000,1800 [facility] Last Admin: 09/19/17 10:07 Dose: 100 mls Vancomycin HCl 1.25 gm/ Sodium (Chloride) 250 mls @ 166.667 mls/hr IVPB WILLCALL [facility] Vancomycin HCl 1 gm/ Device 200 mls @ 200 mls/hr IVPB WILLCALL [facility] Vancomycin HCl 750 mg/ Sodium (Chloride) 250 mls @ 250 mls/hr IVPB WILLCALL [facility] Vancomycin HCl 500 mg/ Sodium (Chloride) 100 mls @ 100 mls/hr IVPB WILLCALL [facility]RIC[facility] Piperacillin Sod/Tazobactam (Sod 2.25 gm/ Sodium Chloride) 100 mls @ 200 mls/ hr IVPB 0700,1500,2300 [facility] Last Admin: 09/19/17 07:57 Dose: 100 mls Levothyroxine Sodium (Synthroid) 50 mcg PO 0600 [facility] Last Admin: 09/19/17 05:05 Dose: 50 mcg Loperamide HCl (Imodium) 2 mg PO PRN PRN PRN Reason: Diarrhea/Loose Stools Magnesium Hydroxide (Milk Of Magnesium) 30 ml PO DAILYPRN PRN PRN Reason: Constipation Metoclopramide HCl (Reglan) 5 mg IVP Q8HR PRN PRN Reason: Nausea/Vomiting Midodrine (Proamatine) 5 mg PO TID [facility] Last Admin: 09/19/17 11:16 Dose: Not Given Mineral Oil/White Petrolatum (Eucerin Cream) 0 gm TOP BIDPRN PRN PRN Reason: Dry Skin Miscellaneous Medication (Pharmacy To Dose) 1 each IVPB PRN PRN PRN Reason: Pharmacy to dose Hold Vancomycin For (Level >20) 0 each FS .DOSE BY LEVEL [facility] Phenol (Chloraseptic [place] 180 Ml Bot) 0 ml PO PRN PRN PRN Reason: Sore Throat Potassium Chloride (K-Dur) 40 meq PO NOW [facility] Stop: 09/19/17 13:00 Last Admin: 09/19/17 11:17 Dose: 40 meq Saccharomyces Boulardii (Florastor) 250 mg PO DAILY [facility] Last Admin: 09/19/17 08:35 Dose: 250 mg Sevelamer Carbonate (Renvela) 2,400 mg PO TID [facility] Last Admin: 09/19/17 08:34 Dose: 2,400 mg Sodium Chloride ([place] Nasal [place] 0.65%) 0 ml EA NARE QIDPRN PRN PRN Reason: Nasal Congestion Sodium Chloride (Flush - Normal Saline) 10 ml IVF Q12HR [facility] Last Admin: 09/19/17 08:36 Dose: 10 ml Sodium Chloride (Flush - Normal Saline) 10 ml IVF PRN PRN PRN Reason: Saline Flush Vancomycin HCl (First Vancomycin) 125 mg PO QID [facility] Last Admin: 09/19/17 11:17 Dose: Not Given
--- NOTE | 2017-09-19 12:33 | PRG ---
DATE OF SERVICE: 09/19/2017 SUBJECTIVE: Mr. Kamara is a 52-year-old white male with ESRD, on maintenance peritoneal dialysis, admitted for septic syndrome/anemia/hypertension. Since the last few days, he has been stabilizing f rom hemodynamic point of view. He is off his pressor. Currently on midodrine at t.i.d. dosing. He continues to receive CCPD tolerating said treatment. His appetite is also slightly improved. OBJECTIVE: VITAL SIGNS: Blood pressure is noted at 95/60, heart rate 96, respiratory rate 12, pulse ox 100%. GENERAL: Awake, supine, comfortable, not in distress. SKIN: Adequate turgor. HEENT: Slightly pale conjunctivae, anicteric sclerae. NECK: No neck mass, no carotid bruits, no JVD. CHEST: No deformities. LUNGS: Clear breath sounds. No wheezing, no crackles. HEART: Normal sinus rhythm. No murmur, no gallops, no rubs. ABDOMEN: Globular, soft, nontender, no masses. EXTREMITIES: No edema, no deformities. MEDICATIONS: Of 09/19/2017 reviewed. LABORATORY DATA: Of 09/19/2017, white count 6.6, hemoglobin 8.5. Sodium 135, potassium 3.1, chlorid e 100, carbon dioxide 24, BUN 58, creatinine 5.57, calcium 7.3. ASSESSMENT AND PLAN: 1. End-stage renal disease - stable. Continue current CCPD regimen. Continue to use 1.5% PD soluti on to minimize ultrafiltration. 2. Hypotension - started on midodrine 3 times a day. Continue supportive care, p.r.n. pressor suppo rt. 3. Anemia - on weekly Epogen. 4. Sepsis, on IV antibiotics. Clinically improving. 5. Mild hypokalemia. KCl 40 mEq 1 tab now.
[2017-09-19] MEDS: Acetaminophen 325 MG TAB PO PRN (21:28)
[2017-09-20] MEDS: SODIUM CHLORIDE IVPB SCH (02:06)
[2017-09-20] MEDS: AZTREONAM IVPB SCH (02:06)
[2017-09-20] MEDS: ADMIXTURE FEE IVPB SCH (02:06)
[2017-09-20] MEDS: Levothyroxine Sodium 50 MCG TAB PO SCH (05:14)
[2017-09-20] MEDS: metroNIDAZOLE 500 MG in Premix Bag 1 BAG IVPB SCH (05:15)
[2017-09-20] MEDS: Piperacillin/Tazobactam 2.25 GM in Sodium Chloride 0.9% 100 ML IVPB SCH ×3 (08:19→23:00)
[2017-09-20] MEDS: Sevelamer Carbonate 800 MG TAB PO SCH ×3 (08:29→22:59)
[2017-09-20] MEDS: Famotidine 20 MG TAB PO SCH (08:29)
[2017-09-20] MEDS: Calcitriol 0.25 MCG CAP PO SCH (08:29)
[2017-09-20] MEDS: Saccharomyces boulardii 250 MG CAP PO SCH (08:30)
[2017-09-20] MEDS: Amiodarone 200 MG TAB PO SCH (08:30)
[2017-09-20] MEDS: Ezetimibe 10 MG TAB PO SCH (08:30)
[2017-09-20] MEDS: Vancomycin HCl 25 MG/ML Oral PO SCH ×4 (08:31→22:58)
[2017-09-20] MEDS: Calcium Acetate 667 MG CAP PO SCH ×3 (08:31→17:30)
--- NOTE | 2017-09-20 10:18 | PDOC.PN ---
- Subjective Encounter Start Date: 09/20/17 Encounter Start Time: 09:00 Subjective: feels better, wants better diet than renal -: no sob, is ready to work with PT - Objective Resuscitation Status: Resuscitation Status FULL:Full Resuscitation MAR Reviewed: Yes Vital Signs & Weight: Vital Signs (12 hours) Temp Pulse Resp BP Pulse Ox 09/20/17 08:19 97.8 F 105 H 16 100 09/20/17 07:26 97.8 F 105 H 16 108/77 100 09/20/17 00:14 97.9 F 111 H 18 113/71 100 Weight Admit Weight 205 lb 14.588 oz Weight 201 lb Most Recent Monitor Data Heart Rate from ECG 90 NIBP 97/66 NIBP BP-Mean 76 Respiration from ECG 18 SpO2 100 I&O: 09/19/17 09/20/17 09/21/17 06:59 06:59 06:59 Intake Total 2156.2 890 Output Total 40 Balance 2156.2 850 Result Diagrams: 09/19/17 05:23 09/19/17 05:23 Phys Exam - Physical Examination HEENT: PERRLA, sclera anicteric Neck: no JVD, supple Respiratory: no wheezing, no rales Cardiovascular: RRR, no significant murmur Gastrointestinal: soft, no distention, positive bowel sounds Musculoskeletal: pulses present, edema present Neurological: non-focal, moves all 4 limbs Psychiatric: normal affect, A&O x 3 Dx/Plan (1) Sepsis Code(s): A41.9 - SEPSIS, UNSPECIFIED ORGANISM Status: Acute Qualifiers: Sepsis type: Pseudomonas Qualified Code(s): A41.52 - Sepsis due to Pseudomonas (2) Peritonitis Code(s): K65.9 - PERITONITIS, UNSPECIFIED Status: Acute (3) Acute metabolic encephalopathy Code(s): G93.41 - METABOLIC ENCEPHALOPATHY Status: Resolved (4) C. difficile diarrhea Code(s): A04.72 - ENTEROCOLITIS D/T CLOSTRIDIUM DIFFICILE, NOT SPCF RECUR Status: Acute Comment: on PO vancomycin (5) Decubital ulcer Code(s): L89.90 - PRESSURE ULCER OF UNSPECIFIED SITE, UNSPECIFIED STAGE Status : Acute Qualifiers: Pressure ulcer location: buttock Pressure ulcer stage: unstageable Comment: necrotic ulcer, present on admission, see wound care photo and wound care team finding for details (6) Hypoalbuminemia due to protein-calorie malnutrition Code(s): E46 - UNSPECIFIED PROTEIN-CALORIE MALNUTRITION Status: Acute (7) Hypothyroidism Code(s): E03.9 - HYPOTHYROIDISM, UNSPECIFIED Status: Acute Qualifiers: Hypothyroidism type: unspecified Qualified Code(s): E03.9 - Hypothyroidism , unspecified Comment: levothyroixine started this admission (8) Anemia due to end stage renal disease Code(s): N18.6 - END STAGE RENAL DISEASE; D63.1 - ANEMIA IN CHRONIC KIDNEY DISEASE Status: Chronic Comment: (9) Anxiety and depression Code(s): F41.9 - ANXIETY DISORDER, UNSPECIFIED; F32.9 - MAJOR DEPRESSIVE DISORDER, SINGLE EPISODE, UNSPECIFIED Status: Chronic (10) ESRD on peritoneal dialysis Code(s): N18.6 - END STAGE RENAL DISEASE; Z99.2 - DEPENDENCE ON RENAL DIALYSIS Status: Chronic Comment: currently on PD as per nephrology (11) Mitral valve vegetation Code(s): I33.0 - ACUTE AND SUBACUTE INFECTIVE ENDOCARDITIS Status: Chronic Comment: will need PETTY when medically stable as per cardiology (12) Physical deconditioning Code(s): R53.81 - OTHER MALAISE Status: Chronic Comment: - Plan wants flagyl to be discontinued, thinks it causes diarrhea for him -: is on oral vanc and iv zosyn for now -: off azactam and iv vanc per progress notes -: PT/OT to mobilize pt as tolerated -: remove rectal tube, d/w pt and family at bedside * . Review of Systems - Medications/Allergies Allergies/Adverse Reactions: Allergies Allergy/AdvReac Type Severity Reaction Status Date / Time iron Allergy Verified 09/14/17 13:20 Sulfa (Sulfonamide Allergy Verified 09/14/17 13:20 Antibiotics) Medications: Current Medications Acetaminophen (Tylenol) 650 mg PO Q4H PRN PRN Reason: Headache/Fever or Pain Last Admin: 09/19/17 21:28 Dose: 650 mg Hydrocodone Bitart/Acetaminophen ([place] 5/325) 1 tab PO Q4H PRN PRN Reason: Moderate Pain (4-6) Al Hydroxide/Mg Hydroxide (Maalox) 30 ml PO Q6H PRN PRN Reason: Heartburn or Indigestion Albuterol/Ipratropium (Duoneb) 3 ml NEB [id number] PRN PRN Reason: SOB &/or Wheezing Amiodarone HCl (Cordarone) 100 mg PO DAILY [facility] Last Admin: 09/20/17 08:30 Dose: 100 mg Artificial Tears (Tears Renewed 15ml Bottle) 0 drop EA EYE PRN PRN PRN Reason: Dry Eyes Calcitriol (Rocaltrol) 0.25 mcg PO DAILY [facility] Last Admin: 09/20/17 08:29 Dose: 0.25 mcg Calcium Acetate (Phoslo) 1,334 mg PO TID-[facility] Last Admin: 09/20/17 08:31 Dose: Not Given Ezetimibe (Zetia) 10 mg PO DAILY [facility] Last Admin: 09/20/17 08:30 Dose: 10 mg Epoetin Ayaz (Procrit) 10,000 units SC Q7D [facility] Last Admin: 09/15/17 10:18 Dose: 10,000 units Famotidine (Pepcid) 20 mg PO DAILY [facility] Last Admin: 09/20/17 08:29 Dose: 20 mg Guaifenesin (Robitussin Sf) 200 mg PO Q4H PRN PRN Reason: Cough Metronidazole 500 mg/ Device 100 mls @ 100 mls/hr IVPB Q8HR [facility] Last Admin: 09/20/17 05:15 Dose: 100 mls Piperacillin Sod/Tazobactam (Sod 2.25 gm/ Sodium Chloride) 100 mls @ 200 mls/ hr IVPB 0700,1500,2300 [facility] Last Admin: 09/20/17 08:19 Dose: 100 mls Levothyroxine Sodium (Synthroid) 50 mcg PO 0600 [facility] Last Admin: 09/20/17 05:14 Dose: 50 mcg Loperamide HCl (Imodium) 2 mg PO PRN PRN PRN Reason: Diarrhea/Loose Stools Magnesium Hydroxide (Milk Of Magnesium) 30 ml PO DAILYPRN PRN PRN Reason: Constipation Metoclopramide HCl (Reglan) 5 mg IVP Q8HR PRN PRN Reason: Nausea/Vomiting Mineral Oil/White Petrolatum (Eucerin Cream) 0 gm TOP BIDPRN PRN PRN Reason: Dry Skin Phenol (Chloraseptic [place] 180 Ml Bot) 0 ml PO PRN PRN PRN Reason: Sore Throat Potassium Chloride (K-Dur) 40 meq PO QAM-[facility] Saccharomyces Boulardii (Florastor) 250 mg PO DAILY [facility] Last Admin: 09/20/17 08:30 Dose: 250 mg Sevelamer Carbonate (Renvela) 2,400 mg PO TID [facility] Last Admin: 09/20/17 08:29 Dose: 2,400 mg Sodium Chloride ([place] Nasal [place] 0.65%) 0 ml EA NARE QIDPRN PRN PRN Reason: Nasal Congestion Sodium Chloride (Flush - Normal Saline) 10 ml IVF Q12HR [facility] Last Admin: 09/20/17 08:31 Dose: 10 ml Sodium Chloride (Flush - Normal Saline) 10 ml IVF PRN PRN PRN Reason: Saline Flush Vancomycin HCl (First Vancomycin) 125 mg PO QID [facility] Last Admin: 09/20/17 08:31 Dose: 125 mg
--- NOTE | 2017-09-20 10:35 | PRG ---
DATE OF SERVICE: 09/20/2017 SUBJECTIVE: Mr. Kamara is a 52-year-old white male with known history of end-stage renal disease - currently on peritoneal dialysis and was initially admitted for symptomatic anemia and hypertension from a sepsis syndrome. He has been empirically treated with IV antibiotics. He has received IV hyd ration as well as p.r.n. blood transfusion. He is been dialyzing for several days and currently is n ow on the floor. He is feeling better. He is eating better. His mentation is much improved. Midod rine was placed on hold due to increased BP at one time. The patient denies any chest pain or shortness of breath. PHYSICAL EXAMINATION: VITAL SIGNS: Blood pressure is 108/77, heart rate 105, respiratory rate 16, temperature 97.8, pulse ox 100%. GENERAL: Awake, alert, comfortable, not in distress, supine. Obese. SKIN: Adequate turgor. HEENT: Slightly pale conjunctivae, anicteric sclerae. NECK: No neck mass, no carotid bruits, no JVD. CHEST: No deformities. LUNGS: Clear breath sounds. No wheezing, no crackles. HEART: Normal sinus rhythm. No murmur, no gallops or rubs. ABDOMEN: Globular, soft, nontender, no masses. Positive for PD catheter. EXTREMITIES: No edema. MEDICATIONS: Of 09/20/2017 was reviewed. LABORATORY DATA: Of 09/19/2017, white count 6.6, hemoglobin 8.5. Sodium 135, potassium 3.1, chlorid e 100, carbon dioxide 24, BUN 58, creatinine 5.57, calcium 7.3. ASSESSMENT AND PLAN: 1. End-stage renal disease, stable. We are using 1.5% PD solution. Continue current peritoneal te lysis. The patient wanting to convert to hemodialysis since he could not do PD once he is discharged home. We will consult Surgery for cuffed hemodialysis catheter placement as well as for PD catheter removal. The PD fluid was slightly cloudy and this was most likely secondary from the numerous fibr in. We are placing intraperitoneal heparin. 2. Sepsis syndrome, much improved. On IV antibiotics. ID following. 3. Clostridium difficile colitis - on oral vancomycin. 4. Anemia, continuing weekly Epogen, p.r.n. blood transfusion. 5. Hypertension - much improved. Consider starting midodrine back at 5 mg tab q.a.m. instead of t.i .d. dosing.
[2017-09-20] MEDS ORDERED: Metoprolol Tartrate 50 MG TAB PO SCH ×2 (12:00→21:00)
--- NOTE | 2017-09-20 13:59 | PRG ---
DATE OF SERVICE: 09/20/2017 SUBJECTIVE: The patient is doing better. OBJECTIVE: VITAL SIGNS: On exam, temperature is 97.8, pulse 126, respirations 20, O2 sat 100% on 2 liters. HEENT: Unremarkable. NECK: No JVD. CHEST: Clear. CARDIAC: S1 and S2, regular. ABDOMEN: Soft. EXTREMITIES: No edema. ASSESSMENT: 1. Status post prolonged septic shock. 2. Protein-calorie malnutrition. 3. Infected decubitus ulcers. 4. End-stage renal disease. PLAN: He is continuing midodrine for hypotension. He has been weaned down to one tablet a day by Dr Sridhar Raman. He is continuing antibiotics per Dr. Madison. No further pulmonary recommendations. I will si gn off. Please reconsult if further assistance needed.
--- NOTE | 2017-09-20 22:56 | PDOC.EVN ---
Event Note - Event Note Event Note: Notified patient was more confused and had very low sats. Refusing oxygen. Examined patient. He is confused. He is speaking in full sentences and not tachypneic. Lungs clear. Attempted several sat monitors and ultimately got an accurate reading of 99%.
[2017-09-21] MEDS: Levothyroxine Sodium 50 MCG TAB PO SCH (06:41)
[2017-09-21] MEDS: Piperacillin/Tazobactam 2.25 GM in Sodium Chloride 0.9% 100 ML IVPB SCH ×2 (06:41→15:55)
--- NOTE | 2017-09-21 08:48 | PRG ---
DATE OF SERVICE: 09/21/2017 SUBJECTIVE: Mr. Kamara is a 52-year-old white male with ESRD - currently on peritoneal dialysis, i nitially admitted for sepsis syndrome/symptomatic anemia. Since admission, he has been more stable. He has been empirically treated with IV antibiotics. He is more awake today. He also has improved p.o. intake. He has been placed on midodrine due to the low blood pressure. No other complaints to day. He has wished to convert to hemodialysis. Surgical consult with Dr. Mullins has been done for p lacement of a cuffed hemodialysis catheter. There will be also a subsequent PD catheter removal afte r the said procedure. OBJECTIVE: VITAL SIGNS: Blood pressure is currently at 97/58, heart rate 104, respiratory rate 16, temperature 98.2, pulse ox 95%. GENERAL: Awake, alert, supine, comfortable, not in overt distress. SKIN: Adequate turgor. HEENT: Slightly pale conjunctivae, anicteric sclerae. NECK: No neck mass, no carotid bruits, no JVD. CHEST: No deformities. LUNGS: Clear breath sounds, no wheezing, no crackles. HEART: Normal sinus rhythm. No murmur, no gallops, no rubs. ABDOMEN: Globular, soft, nontender, no masses. EXTREMITIES: No edema, no deformities. Please note there is a PD catheter in the belly. MEDICATIONS: 09/21/2017 - Reviewed. LABORATORY: 09/19/2017 - White count 6.6, hemoglobin 8.5. Sodium 135, potassium 3.1, chloride 100, carbon dioxide 24, BUN 58, creatinine 5.57, calcium 7.3. ASSESSMENT AND PLAN: 1. End-stage renal disease, stable. Tolerating current hemodialysis regimen. Fluid removal only as tolerated. We are using 1.5% PD solution to minimize ultrafiltration due to the relatively low bloo d pressure. 2. Chronic hypertension - clinically asymptomatic. The patient is on maintenance midodrine 5 mg tab q.a.m. 3. Sepsis syndrome, clinically much improved. On IV antibiotics. 4. Anemia, continuing weekly Epogen, p.r.n. blood transfusion. Recheck base met and CBC in a.m.
[2017-09-21] MEDS: Sevelamer Carbonate 800 MG TAB PO SCH ×3 (09:18→21:56)
[2017-09-21] MEDS: Calcium Acetate 667 MG CAP PO SCH ×3 (09:19→17:19)
[2017-09-21] MEDS: Ezetimibe 10 MG TAB PO SCH (09:20)
[2017-09-21] MEDS: Potassium Chloride 20 MEQ TAB PO SCH (09:20)
[2017-09-21] MEDS: Famotidine 20 MG TAB PO SCH (09:22)
[2017-09-21] MEDS: Calcitriol 0.25 MCG CAP PO SCH (09:22)
[2017-09-21] MEDS: Saccharomyces boulardii 250 MG CAP PO SCH (09:22)
[2017-09-21] MEDS: Midodrine HCl 5 MG TAB PO SCH (09:23)
[2017-09-21] MEDS: Amiodarone 200 MG TAB PO SCH (09:24)
[2017-09-21] MEDS: Metoprolol Tartrate 25 MG TAB PO SCH ×2 (09:25→21:55)
[2017-09-21] MEDS: Vancomycin HCl 25 MG/ML Oral PO SCH ×4 (09:26→21:56)
[2017-09-21] MEDS ORDERED: ISOVUE-370 76%-LOCM 1 ML ONE (09:52)
--- NOTE | 2017-09-21 10:01 | PDOC.PN ---
- Subjective Encounter Start Date: 09/21/17 Encounter Start Time: 07:30 Subjective: no sob, is eating breakfast -: has not mobilized yet with PT -: no abd pain or palp - Objective Resuscitation Status: Resuscitation Status FULL:Full Resuscitation MAR Reviewed: Yes Vital Signs & Weight: Vital Signs (12 hours) Temp Pulse Resp BP Pulse Ox 09/21/17 09:20 100 09/21/17 07:58 98.2 F 104 H 16 97/58 L 95 09/21/17 04:59 97.5 F L 109 H 16 96/52 L 93 L 09/20/17 22:46 97.8 F 83 16 92/50 L 99 Weight Admit Weight 205 lb 14.588 oz Weight 201 lb Most Recent Monitor Data Heart Rate from ECG 90 NIBP 97/66 NIBP BP-Mean 76 Respiration from ECG 18 SpO2 100 I&O: 09/20/17 09/21/17 09/22/17 06:59 06:59 06:59 Intake Total 890 690 Output Total 40 Balance 850 690 Result Diagrams: 09/19/17 05:23 09/19/17 05:23 Phys Exam - Physical Examination HEENT: PERRLA, sclera anicteric Neck: no JVD, supple Respiratory: no wheezing rales+ Cardiovascular: RRR, no significant murmur Gastrointestinal: soft, no distention, positive bowel sounds PD cath+ Musculoskeletal: pulses present, edema present Neurological: non-focal, moves all 4 limbs Dx/Plan (1) Sepsis Code(s): A41.9 - SEPSIS, UNSPECIFIED ORGANISM Status: Acute Qualifiers: Sepsis type: Pseudomonas Qualified Code(s): A41.52 - Sepsis due to Pseudomonas (2) Peritonitis Code(s): K65.9 - PERITONITIS, UNSPECIFIED Status: Acute (3) Acute metabolic encephalopathy Code(s): G93.41 - METABOLIC ENCEPHALOPATHY Status: Resolved (4) C. difficile diarrhea Code(s): A04.72 - ENTEROCOLITIS D/T CLOSTRIDIUM DIFFICILE, NOT SPCF RECUR Status: Acute Comment: on PO vancomycin (5) Decubital ulcer Code(s): L89.90 - PRESSURE ULCER OF UNSPECIFIED SITE, UNSPECIFIED STAGE Status : Acute Qualifiers: Pressure ulcer location: buttock Pressure ulcer stage: unstageable Comment: necrotic ulcer, present on admission, see wound care photo and wound care team finding for details (6) Hypoalbuminemia due to protein-calorie malnutrition Code(s): E46 - UNSPECIFIED PROTEIN-CALORIE MALNUTRITION Status: Acute (7) Hypothyroidism Code(s): E03.9 - HYPOTHYROIDISM, UNSPECIFIED Status: Acute Qualifiers: Hypothyroidism type: unspecified Qualified Code(s): E03.9 - Hypothyroidism , unspecified Comment: levothyroixine started this admission (8) Anemia due to end stage renal disease Code(s): N18.6 - END STAGE RENAL DISEASE; D63.1 - ANEMIA IN CHRONIC KIDNEY DISEASE Status: Chronic Comment: (9) Anxiety and depression Code(s): F41.9 - ANXIETY DISORDER, UNSPECIFIED; F32.9 - MAJOR DEPRESSIVE DISORDER, SINGLE EPISODE, UNSPECIFIED Status: Chronic (10) ESRD on peritoneal dialysis Code(s): N18.6 - END STAGE RENAL DISEASE; Z99.2 - DEPENDENCE ON RENAL DIALYSIS Status: Chronic Comment: currently on PD as per nephrology (11) Mitral valve vegetation Code(s): I33.0 - ACUTE AND SUBACUTE INFECTIVE ENDOCARDITIS Status: Chronic Comment: will need PETTY when medically stable as per cardiology (12) Physical deconditioning Code(s): R53.81 - OTHER MALAISE Status: Chronic Comment: - Plan is on zosyn and oral vanc -: is eating better -: surgical consult for debridement of buttock decub with eschar -: PT/OT to mobilize pt as tolerated -: will need skilled/rehab, prognosis guarded * . Review of Systems - Medications/Allergies Allergies/Adverse Reactions: Allergies Allergy/AdvReac Type Severity Reaction Status Date / Time iron Allergy Verified 09/14/17 13:20 Sulfa (Sulfonamide Allergy Verified 09/14/17 13:20 Antibiotics) Medications: Current Medications Acetaminophen (Tylenol) 650 mg PO Q4H PRN PRN Reason: Headache/Fever or Pain Last Admin: 09/19/17 21:28 Dose: 650 mg Hydrocodone Bitart/Acetaminophen ([place] 5/325) 1 tab PO Q4H PRN PRN Reason: Moderate Pain (4-6) Al Hydroxide/Mg Hydroxide (Maalox) 30 ml PO Q6H PRN PRN Reason: Heartburn or Indigestion Albuterol/Ipratropium (Duoneb) 3 ml NEB [id number] PRN PRN Reason: SOB &/or Wheezing Amiodarone HCl (Cordarone) 100 mg PO DAILY [facility] Last Admin: 09/21/17 09:24 Dose: 100 mg Artificial Tears (Tears Renewed 15ml Bottle) 0 drop EA EYE PRN PRN PRN Reason: Dry Eyes Calcitriol (Rocaltrol) 0.25 mcg PO DAILY [facility] Last Admin: 09/21/17 09:22 Dose: 0.25 mcg Calcium Acetate (Phoslo) 1,334 mg PO TID-WM [facility] Last Admin: 09/21/17 09:19 Dose: Not Given Ezetimibe (Zetia) 10 mg PO DAILY [facility] Last Admin: 09/21/17 09:20 Dose: 10 mg Epoetin Ayaz (Procrit) 10,000 units SC Q7D [facility] Last Admin: 09/15/17 10:18 Dose: 10,000 units Famotidine (Pepcid) 20 mg PO DAILY [facility] Last Admin: 09/21/17 09:22 Dose: 20 mg Guaifenesin (Robitussin Sf) 200 mg PO Q4H PRN PRN Reason: Cough Piperacillin Sod/Tazobactam (Sod 2.25 gm/ Sodium Chloride) 100 mls @ 200 mls/ hr IVPB 0700,1500,2300 [facility] Last Admin: 09/21/17 06:41 Dose: 100 mls Levothyroxine Sodium (Synthroid) 50 mcg PO 0600 [facility] Last Admin: 09/21/17 06:41 Dose: 50 mcg Loperamide HCl (Imodium) 2 mg PO PRN PRN PRN Reason: Diarrhea/Loose Stools Magnesium Hydroxide (Milk Of Magnesium) 30 ml PO DAILYPRN PRN PRN Reason: Constipation Metoclopramide HCl (Reglan) 5 mg IVP Q8HR PRN PRN Reason: Nausea/Vomiting Metoprolol Tartrate (Lopressor) 25 mg PO BID [facility] Last Admin: 09/21/17 09:25 Dose: Not Given Midodrine (Proamatine) 5 mg PO DAILY [facility] Last Admin: 09/21/17 09:23 Dose: 5 mg Mineral Oil/White Petrolatum (Eucerin Cream) 0 gm TOP BIDPRN PRN PRN Reason: Dry Skin Phenol (Chloraseptic [place] 180 Ml Bot) 0 ml PO PRN PRN PRN Reason: Sore Throat Potassium Chloride (K-Dur) 40 meq PO QAM-WM [facility] Last Admin: 09/21/17 09:20 Dose: 40 meq Saccharomyces Boulardii (Florastor) 250 mg PO DAILY [facility] Last Admin: 09/21/17 09:22 Dose: 250 mg Sevelamer Carbonate (Renvela) 2,400 mg PO TID [facility] Last Admin: 09/21/17 09:18 Dose: 2,400 mg Sodium Chloride ([place] Nasal [place] 0.65%) 0 ml EA NARE QIDPRN PRN PRN Reason: Nasal Congestion Sodium Chloride (Flush - Normal Saline) 10 ml IVF Q12HR [facility] Last Admin: 09/21/17 09:27 Dose: 10 ml Sodium Chloride (Flush - Normal Saline) 10 ml IVF PRN PRN PRN Reason: Saline Flush Last Admin: 09/21/17 06:41 Dose: 10 ml Vancomycin HCl (First Vancomycin) 125 mg PO QID [facility] Last Admin: 09/21/17 09:26 Dose: 125 mg
--- NOTE | 2017-09-21 20:18 | PRG ---
DATE OF SERVICE: 09/21/2017 SUBJECTIVE: The patient is a little bit delirious, saying that he is scared because he cannot open t he door, appears chronically ill. 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 He is still with loose stools. No chest pain. He denies abdominal tenderness; however, seems to gr imace when I touch his abdomen. OBJECTIVE: VITAL SIGNS: T-max 98.5, blood pressure 117/79, pulse 104-120, respirations 18, O2 sat 94%. SKIN: Shows those necrotic ulcers in the gluteal region are going to be debrided soon. The patient still has a right groin triple lumen catheter for antimicrobial therapy administration. HEENT: His ocular movements are conjugate. Conjunctivae are somewhat pale. NECK: Supple. LUNGS: Symmetric air entry. HEART: S1, S2, regular rate. No crackles or wheezing. ABDOMEN: Moderately distended. Bowel sounds are increased. LABORATORY DATA: White cell count is 6.6, hemoglobin 8.5, platelets 155. Sodium 135, creatinine 5.5 7. Liver function tests are normal. Albumin 2.1. Microbiology with P. aeruginosa from peritoneal f luid culture in moderate amount. Susceptibility profile showed resistance to piperacillin and tazoba ctam susceptibility to tobramycin, ciprofloxacin, ceftazidime and amikacin. CURRENT MEDICATIONS: He is on the following antimicrobials: Zosyn and vancomycin orally administere d. ASSESSMENT: End-stage renal disease secondary to polycystic kidney, recent colonoscopy with peritoni tis, probably from the procedure biopsy. This peritonitis was polymicrobial. Now still with residua l Pseudomonas aeruginosa from that episode also has a large necrotic ulcers in the gluteal region patricia t need to be debrided. He has difficult IV access and has a triple lumen catheter in the right groin location. DISCUSSION: The patient is at risk for right groin catheter colonization and bacteremia/fungemia and ideally one would like to switch this line to a different place. He cannot have a PICC line placed because of end-stage renal disease and need for access for dialysis in the upper extremities. One co uld transition him to ciprofloxacin orally administered and continuation of oral vancomycin for manag ement of C. difficile and I would advise a vancomycin taper since he is at high risk for C. diff recu rrence going forward. Duration of treatment for the Pseudomonas peritonitis will be approximately 14 days.
--- NOTE | 2017-09-21 21:53 | CT ---
CT ABDOMEN WITH CONTRAST CT PELVIS WITH CONTRAST: DATE: 09/21/2017 TIME: 8:21 p.m. HISTORY: A 52-year-old male with polymicrobial peritonitis. Followup. COMPARISON: 08/26/2017 TECHNIQUE: IV injection of iodinated contrast media: Isovue. Oral contrast media: Readi-Cat. FINDINGS: The previously described ground glass patchy, multifocal opacities at the bases of the bilateral lung s have evolved. The ones involving the right middle lobe are much more dense now. These are only pa rtially imaged. Bilateral small pleural effusions have increased in volume. Again demonstrated is t he massive enlargement of the bilateral kidneys by an extremely large number of bilateral renal cysti c lesions. There is soft tissue density involving many of these, the majority of which probably repr esent hemorrhagic renal cysts, although it would be very difficult to rule out a renal cell carcinoma among these. The very large number of renal cysts also makes it difficult to evaluate for hydroneph rosis. They displace the right hepatic lower lobe superiorly and displace the bilateral adrenals, pa ncreas, and spleen superiorly. There is a small amount of free fluid in the bilateral paracolic gutt ers, especially at the bilateral lower quadrants. The peritoneal dialysis catheter is again demonstr ated, with the distal portion coiled within the left anterior lower quadrant of the perineal cavity. The urinary bladder is again demonstrated to be diffusely distended and have diffuse mural thickenin g. There are tubular, fluid filled structures abutting the posterior aspects of the urinary bladder bilaterally, suspicious for dilated ureters. Also, there is a possibility that there is severe dilat ion of the renal collecting systems, difficult to distinguish from renal cysts. If so, this has not changed significantly since 08/26/2017. There is no excreted contrast material within these. There is edema in the superficial soft tissues around the abdominal wall, pelvis, and flanks, consistent wi th anasarca. No definite pneumoperitoneum is identified. There is no small bowel dilation. IMPRESSION: 1. Severe manifestation of autosomal dominant (adult, type 2) polycystic kidney disease. 2. Distended urinary bladder. 3. Suspicious for severe bilateral hydroureteronephrosis. Urology consultation is recommended: retr ograde pyelogram should be considered to confirm. 4. Interval increase in volume of small bilateral pleural effusions. 5. Interval increase in attenuation of one of the ground glass patchy opacities at the lung bases, m ore specifically in the right middle lobe. There is a possibility that this could represent pneumoni a. 6. Anasarca. 7. Small amount of free intraperitoneal fluid, similar to the prior study, which could be due to the peritoneal dialysis, and/or the renal disease. Code T JN R POS: DREW
[2017-09-21] MEDS: Cipro 250 MG TAB PO SCH (21:55)
[2017-09-22 05:21] LABS: Anion Gap 15 mmol/L (10-20); BUN (Urea Nitrogen) 59 mg/dL (8.4-25.7); Calc. Creatinine Clearance 20 mL/min (70-130); Calcium 7.8 mg/dL (7.8-10.44); Carbon Dioxide 23 mmol/L (22-29); Chloride 98 mmol/L (98-107); Estimated GFR-MDRD 11; Glucose 63 mg/dL (70-105); Potassium 3.8 mmol/L (3.5-5.1); Sodium 132 mmol/L (136-145)
[2017-09-22 05:22] LABS: Band 18 % (5-11); Eosinophils 1 % (0-10); Hemoglobin 8.2 g/dL (14.0-18.0); Lymphocytes 8 % (21-51); MDiff Complete? YES; Mean Corpuscular HGB CONC 31.5 g/dL (32.0-36.0); Mean Corpuscular Volume 82.4 fl (80.0-94.0); Mean Platelet Volume 8.6 fL (7.4-10.4); Monocytes 3 % (0-10); Neutrophil 70 % (42-75); Ovalocytes SLIGHT = 2-5 cells (100X) (0-1/hpf); PLT Morphology Comment Appears Adequate; Platelet Count 192 thou/uL (130-400); RBC Distribution Width 15.9 % (11.5-14.5); Red Blood Cell (RBC) Count 3.14 mill/uL (4.70-6.10); White Blood Cell (WBC) Count 9.2 thou/uL (4.8-10.8)
[2017-09-22] MEDS: Metoprolol Tartrate 25 MG TAB PO SCH ×2 (06:13→22:43)
[2017-09-22] MEDS: Levothyroxine Sodium 50 MCG TAB PO SCH (08:06)
[2017-09-22] MEDS: Cipro 250 MG TAB PO SCH ×2 (08:06→17:06)
[2017-09-22] MEDS ORDERED: Dextrose 50% Abboject 50 ML SYRINGE ONE ×2 (08:21→16:31)
--- NOTE | 2017-09-22 08:28 | PRG ---
DATE OF SERVICE: 09/22/2017 SUBJECTIVE: Mr. Kamara is a 52-year-old white male with ESRD - on peritoneal dialysis and admitted for symptomatic anemia, septic syndrome. He has been on IV antibiotics. He also developed C. diffi cile colitis while at the rehab. We are following him up for his maintenance peritoneal dialysis. S o far, he is tolerating his current peritoneal dialysis regimen. Surgery has been consulted for poss ible cuffed hemodialysis catheter placement. He has an AV fistula which may not yet be matured. Thi s will be reevaluated by his surgeon. He will also have debridement of a sacral decubitus. This mor renetta he has no new complaints. He denies any chest pain or shortness of breath. His appetite is sli ghtly improved. PHYSICAL EXAMINATION: VITAL SIGNS: Blood pressure 91/54, heart rate 92, respiratory rate 18, temperature 97.8, pulse ox 92 %. GENERAL: Awake, alert, comfortable, not in distress. SKIN: Adequate turgor. HEENT: He has slightly pale conjunctivae, anicteric sclerae. NECK: No neck mass, no carotid bruits, no JVD. CHEST: No deformities. LUNGS: Clear breath sounds, no wheezing, no crackles. HEART: Normal sinus rhythm. No murmur, no gallops or rubs. ABDOMEN: Globular, soft, nontender, no masses. EXTREMITIES: No edema, no deformities. It is noted he has a PD catheter. MEDICATIONS: 09/22/2017 - Reviewed. LABORATORY DATA: 09/22/2017 - White count 9.2, hemoglobin 8.2, hematocrit 25.9. Sodium 132, potassi um 3.8, chloride 98, carbon dioxide 23, BUN 59, creatinine 5.65, glucose 63, calcium 7.8. ASSESSMENT AND PLAN: 1. End-stage renal disease - stable. Tolerating current peritoneal dialysis regimen. I will not be making changes with the PD regimen. He still has decreased p.o. intake. For that reason, we will u se the current 1.5% PD solution to minimize ultrafiltration. 2. Anemia, p.r.n. blood transfusion, continuing weekly Epogen of 10,000 units subcutaneously every w [place]. 3. Sacral decubitus. Surgery to do debridement of the said sacral decubitus. 4. The plan is for discharge and to reevaluate the AV fistula to see if it is mature enough. If it is not mature enough we will consider proceeding with the placement of cuffed hemodialysis catheter t o convert the patient to hemodialysis. He has requested to convert to hemodialysis since he thinks h e can no longer do his PD once he is discharged to home or [facility]ci. 5. Sepsis syndrome, clinically improving. 6. Chronic hypotension, midodrine at 5 mg tab q.a.m. Recheck base met and CBC in a.m.
[2017-09-22] MEDS: Dextrose 5 % And 0.9 % NaCl 1,000 ML IV SCH ×3 (10:31→17:03)
[2017-09-22] MEDS: Potassium Chloride 20 MEQ TAB PO SCH (10:33)
[2017-09-22] MEDS: Calcium Acetate 667 MG CAP PO SCH ×3 (10:33→17:06)
--- NOTE | 2017-09-22 11:00 | PDOC.PN ---
- Subjective Encounter Start Date: 09/22/17 Encounter Start Time: 08:00 Subjective: is confused this am, his serum glucose was around 60 -: no sob, is seen moving all extremities - Objective Resuscitation Status: Resuscitation Status FULL:Full Resuscitation MAR Reviewed: Yes Vital Signs & Weight: Vital Signs (12 hours) Temp Pulse Resp BP Pulse Ox 09/22/17 07:58 97.7 F 92 18 91/54 L 92 L 09/22/17 04:00 98.2 F 106 H 18 105/60 100 09/22/17 00:00 97.5 F L 103 H 18 114/66 100 Weight Admit Weight 205 lb 14.588 oz Weight 201 lb Most Recent Monitor Data Heart Rate from ECG 90 NIBP 97/66 NIBP BP-Mean 76 Respiration from ECG 18 SpO2 100 I&O: 09/21/17 09/22/17 09/23/17 06:59 06:59 06:59 Intake Total 690 850 Balance 690 850 Result Diagrams: 09/22/17 04:52 09/22/17 04:52 Phys Exam - Physical Examination HEENT: PERRLA, moist MMs Neck: no JVD, supple Respiratory: no wheezing, no rales Cardiovascular: RRR, no significant murmur Gastrointestinal: soft, positive bowel sounds PD cath+ Musculoskeletal: pulses present, edema present Neurological: non-focal, moves all 4 limbs Dx/Plan (1) Sepsis Code(s): A41.9 - SEPSIS, UNSPECIFIED ORGANISM Status: Acute Qualifiers: Sepsis type: Pseudomonas Qualified Code(s): A41.52 - Sepsis due to Pseudomonas (2) Peritonitis Code(s): K65.9 - PERITONITIS, UNSPECIFIED Status: Acute (3) Acute metabolic encephalopathy Code(s): G93.41 - METABOLIC ENCEPHALOPATHY Status: Acute (4) C. difficile diarrhea Code(s): A04.72 - ENTEROCOLITIS D/T CLOSTRIDIUM DIFFICILE, NOT SPCF RECUR Status: Acute Comment: on PO vancomycin (5) Decubital ulcer Code(s): L89.90 - PRESSURE ULCER OF UNSPECIFIED SITE, UNSPECIFIED STAGE Status : Acute Qualifiers: Pressure ulcer location: buttock Pressure ulcer stage: unstageable Comment: necrotic ulcer, present on admission, see wound care photo and wound care team finding for details (6) Hypoalbuminemia due to protein-calorie malnutrition Code(s): E46 - UNSPECIFIED PROTEIN-CALORIE MALNUTRITION Status: Acute (7) Hypothyroidism Code(s): E03.9 - HYPOTHYROIDISM, UNSPECIFIED Status: Acute Qualifiers: Hypothyroidism type: unspecified Qualified Code(s): E03.9 - Hypothyroidism , unspecified Comment: levothyroixine started this admission (8) Anemia due to end stage renal disease Code(s): N18.6 - END STAGE RENAL DISEASE; D63.1 - ANEMIA IN CHRONIC KIDNEY DISEASE Status: Chronic Comment: (9) Anxiety and depression Code(s): F41.9 - ANXIETY DISORDER, UNSPECIFIED; F32.9 - MAJOR DEPRESSIVE DISORDER, SINGLE EPISODE, UNSPECIFIED Status: Chronic (10) ESRD on peritoneal dialysis Code(s): N18.6 - END STAGE RENAL DISEASE; Z99.2 - DEPENDENCE ON RENAL DIALYSIS Status: Chronic Comment: currently on PD as per nephrology (11) Mitral valve vegetation Code(s): I33.0 - ACUTE AND SUBACUTE INFECTIVE ENDOCARDITIS Status: Chronic Comment: will need PETTY when medically stable as per cardiology (12) Physical deconditioning Code(s): R53.81 - OTHER MALAISE Status: Chronic Comment: - Plan is on oral cipro and vanc -: going for debridement of buttock decubiti -: pt has severe polycystic kidney disease with very min urine output and is o -: -n PD, will defer urology consultation for now -: prognosis guarded, start D5NS drip for mild hypoglycemia, pt npo. * . Review of Systems - Medications/Allergies Allergies/Adverse Reactions: Allergies Allergy/AdvReac Type Severity Reaction Status Date / Time iron Allergy Verified 09/14/17 13:20 Sulfa (Sulfonamide Allergy Verified 09/14/17 13:20 Antibiotics) Medications: Current Medications Acetaminophen (Tylenol) 650 mg PO Q4H PRN PRN Reason: Headache/Fever or Pain Last Admin: 09/19/17 21:28 Dose: 650 mg Hydrocodone Bitart/Acetaminophen ([place] 5/325) 1 tab PO Q4H PRN PRN Reason: Moderate Pain (4-6) Al Hydroxide/Mg Hydroxide (Maalox) 30 ml PO Q6H PRN PRN Reason: Heartburn or Indigestion Albuterol/Ipratropium (Duoneb) 3 ml NEB [id number] PRN PRN Reason: SOB &/or Wheezing Amiodarone HCl (Cordarone) 100 mg PO DAILY [facility] Last Admin: 09/21/17 09:24 Dose: 100 mg Artificial Tears (Tears Renewed 15ml Bottle) 0 drop EA EYE PRN PRN PRN Reason: Dry Eyes Calcitriol (Rocaltrol) 0.25 mcg PO DAILY [facility] Last Admin: 09/21/17 09:22 Dose: 0.25 mcg Calcium Acetate (Phoslo) 1,334 mg PO TID-WM [facility] Last Admin: 09/22/17 10:33 Dose: Not Given Ciprofloxacin (Cipro) 250 mg PO BID@0600,1999 [facility] Last Admin: 09/22/17 08:06 Dose: Not Given Ezetimibe (Zetia) 10 mg PO DAILY [facility] Last Admin: 09/21/17 09:20 Dose: 10 mg Epoetin Ayaz (Procrit) 10,000 units SC Q7D [facility] Last Admin: 09/15/17 10:18 Dose: 10,000 units Famotidine (Pepcid) 20 mg PO DAILY [facility] Last Admin: 09/21/17 09:22 Dose: 20 mg Guaifenesin (Robitussin Sf) 200 mg PO Q4H PRN PRN Reason: Cough Dextrose/Sodium Chloride (D5 0.9% Ns) 1,000 mls @ 70 mls/hr IV .[id number] [facility] Last Admin: 09/22/17 10:31 Dose: 1,000 mls Levothyroxine Sodium (Synthroid) 50 mcg PO 0600 [facility] Last Admin: 09/22/17 08:06 Dose: Not Given Loperamide HCl (Imodium) 2 mg PO PRN PRN PRN Reason: Diarrhea/Loose Stools Magnesium Hydroxide (Milk Of Magnesium) 30 ml PO DAILYPRN PRN PRN Reason: Constipation Metoclopramide HCl (Reglan) 5 mg IVP Q8HR PRN PRN Reason: Nausea/Vomiting Metoprolol Tartrate (Lopressor) 25 mg PO BID [facility] Last Admin: 09/22/17 06:13 Dose: 25 mg Midodrine (Proamatine) 5 mg PO DAILY [facility] Last Admin: 09/21/17 09:23 Dose: 5 mg Mineral Oil/White Petrolatum (Eucerin Cream) 0 gm TOP BIDPRN PRN PRN Reason: Dry Skin Phenol (Chloraseptic [place] 180 Ml Bot) 0 ml PO PRN PRN PRN Reason: Sore Throat Potassium Chloride (K-Dur) 40 meq PO QAM-WM [facility] Last Admin: 09/22/17 10:33 Dose: Not Given Saccharomyces Boulardii (Florastor) 250 mg PO DAILY [facility] Last Admin: 09/21/17 09:22 Dose: 250 mg Sevelamer Carbonate (Renvela) 2,400 mg PO TID [facility] Last Admin: 09/21/17 21:56 Dose: 2,400 mg Sodium Chloride ([place] Nasal [place] 0.65%) 0 ml EA NARE QIDPRN PRN PRN Reason: Nasal Congestion Sodium Chloride (Flush - Normal Saline) 10 ml IVF Q12HR [facility] Last Admin: 09/21/17 21:08 Dose: 10 ml Sodium Chloride (Flush - Normal Saline) 10 ml IVF PRN PRN PRN Reason: Saline Flush Last Admin: 09/21/17 21:57 Dose: 10 ml Vancomycin HCl (First Vancomycin) 125 mg PO QID [facility] Last Admin: 09/21/17 21:56 Dose: 125 mg
--- NOTE | 2017-09-22 12:44 | CON ---
DATE OF CONSULTATION: 09/22/2017 HISTORY OF PRESENT ILLNESS: This is a 52-year-old white male I am seeing today upon the second floor stroke unit of [facility] because of a distended urinary bladder, found on a CAT scan. T his was done yesterday. He also had a CAT scan done last month that showed a distended urinary bladd er. There was also some suggestion of bilateral hydroureter. He has polycystic kidney disease and h as very large kidneys full of cysts. He is an end-stage renal patient for a number of years. He was on hemodialysis and switched to peritoneal dialysis and I think he is in the process of probably bee n switched back to hemodialysis. It appears he probably had peritonitis from his peritoneal dialysis , he is currently on antibiotics. He has seen Infectious Disease, Renal and Nephrology while he has been here. He is not thinking clearly nor making sense when he talks. I got a lot of his informatio n from his mother. He had been urinating into a toilet, currently he is in a diaper. The patient sa ys he voids small amounts. The mom think he is probably right that he is voiding small amounts. On review of his laboratory, there is no urinalysis from this admission, and review of his microbiology there is no urine culture from this admission. He has been getting peritoneal dialysis still, it was done last night. His creatinine this morning is 5.65. He is anemic with a hemoglobin of 8.2, but t his is stable for him. Amongst other things, he has a large sacral decubitus and is going to surgery this afternoon for debridement of that. Looking at his most recent vital signs, he has been mildly tachycardic, but without fever for the last few days. His white blood cell count is normal. Current ly he is on no blood thinners. He is on Cipro and vancomycin. I think that is per Dr. Madison. He chaudhari s seen Dr. Lo in the past; however, she was called to see him and wished to turn him over to the nuclear fuels reclamation engineer Urology consult because of problems with compliance in her office from his standpoint. I reviewed his CAT scan. He does have a markedly distended bladder, probably has some hydro. He has very large kidneys from the polycystic kidney disease. PHYSICAL EXAMINATION: ABDOMEN: His abdomen is tender, but without rebound. GENITOURINARY: His bladder is distended. The penis is circumcised. He has areas of the penis with poor vascular flow. These are areas that are not wet, they are not gangrene, but they are abnormal a nd they probably represent poor blood flow in some of the distal arteries. Meatus is quite small and there was some scarring there. There is nothing to suggest an abscess of the penis or periurethral abscess. There is no scrotal abscess or perineal abscess. There is a solitary left kidney. I do no t feel a right kidney. The mom thinks he may not have been born with a right kidney. I do not think it would be a very reasonable thing to place a Connolly catheter in him. I think it is going to be cora y uncomfortable and with some of the changes of the penis I do not think this would be a good idea. I talked with Dr. Guerrero in Radiology, he could put a suprapubic tube in tomorrow. I think this would be a more reasonable way to drain his bladder and keep it drained. We can start with a small suprap ubic and then slowly increased the size over the next few weeks on an outpatient basis. This may hel p improve somewhat his kidney function, although as long as he has been on dialysis I doubt very much that will help with the kidney function, but may at least help with some of his volume related statu s. This could be a way to manage his bladder long-term which would probably be easier than an indwel ling Connolly and this is a patient that is probably not urinating adequately currently in the state patricia t he is. He is not on any blood thinners so it should be a reasonable time to do this. Talk it over with his mom and probably look at having this done tomorrow.
[2017-09-22] MEDS: Midodrine HCl 5 MG TAB PO SCH (13:52)
[2017-09-22] MEDS: Sevelamer Carbonate 800 MG TAB PO SCH ×3 (13:52→22:44)
[2017-09-22] MEDS: Ezetimibe 10 MG TAB PO SCH (13:52)
[2017-09-22] MEDS: Saccharomyces boulardii 250 MG CAP PO SCH (13:52)
[2017-09-22] MEDS: Famotidine 20 MG TAB PO SCH (13:52)
[2017-09-22] MEDS: Amiodarone 200 MG TAB PO SCH (13:52)
[2017-09-22] MEDS: Calcitriol 0.25 MCG CAP PO SCH (13:52)
[2017-09-22] MEDS: Vancomycin HCl 25 MG/ML Oral PO SCH ×3 (13:53→22:44)
--- NOTE | 2017-09-22 18:28 | PRG ---
DATE OF SERVICE: 09/22/2017 SUBJECTIVE: Shaheen Kamara has a sacral decubitus. I have been asked to see him regarding that. Thee smith has antigen positive, toxin positive, C. diff from 09/11/2017. The patient does not complain of an y pain. He has a dialysis graft left upper arm placed on 09/02/2017 near 3 weeks ago. This surgical wounds are well healed. He has a good thrill and bruit in this left upper arm graft. It can be acc essed next week. He is on peritoneal dialysis. OBJECTIVE: ABDOMEN: Soft and nontender. He has a large sacral decubitus covering both buttocks and sacrum with a large eschar. There is no obvious fluctuance. The depth is difficult to tell. He is undergoing peritoneal dialysis, followed Dr. Raman. ASSESSMENT AND PLAN: 1. Currently on peritoneal dialysis, could begin accessing in his left upper arm dialysis graft next week. Continue peritoneal dialysis this week. 2. Sacral decubitus. Plan bedside debridement. 3. Clostridium difficile colitis, he has no antigen positive and toxin positive last week. His abdo men is soft and nontender. I do not think colostomy is necessary. I think good decubitus care will suffice. Wound Care has seen him. If diarrhea becomes a problem, diverting colostomy could be enter tained, but the patient is a poor surgical risk.
--- NOTE | 2017-09-22 19:11 | OP ---
PREOPERATIVE DIAGNOSES: End-stage renal disease, Clostridium difficile colitis, polycystic kidney di sease, peritoneal dialysis status, maturing left upper arm dialysis graft. PROCEDURE PERFORMED: Wide excision of decubitus buttocks and sacrum, 32 x 15 cm; debridement of skin and subcutaneous tissue sharply. SURGEON: Bharat Mullins M.D. PROCEDURE IN DETAIL: At the patient's bedside in the decubitus position with wound care to help, the area was prepared with alcohol and eschar debrided sharply from the sacrum, left and right buttocks. Skin and subcutaneous tissue debrided sharply down to healthy tissue in the midline over the sacrum tissue was slightly deeper and over the left buttock slightly deeper, but still extended only in the deep subcutaneous tissues. Wound debrided sharply, dimensions noted. Wound care placed a wound andrae ssing.
--- NOTE | 2017-09-22 21:30 | PRG ---
DATE OF SERVICE: 09/22/2017 SUBJECTIVE: The patient is awake, still weak, some diarrhea and difficulty with voiding with the changes noted below in the urological evaluation. Some abdominal pain. OBJECTIVE: VITAL SIGNS: His temperature has been within normal limits. BP 94/63, pulse 96 , respirations 18. GENERAL: Chronically ill-appearing, awake, weak, hard to understand his speech , he is little bit disoriented. LUNGS: With symmetric air entry. HEART: S1, S2, regular rate. ABDOMEN: Soft, bladder distention. LABORATORY DATA: White cell count 9.2, hemoglobin 8.2, platelets 192. Sodium 132, creatinine 5.65. CT of abdomen and pelvis repeat ordered yesterday showed a distended urinary bladder, severe bilateral hydroureteronephrosis. Dr. Brunner has evaluated the patient and recommended placement of a suprapubic catheter. ASSESSMENT AND DISCUSSION: End-stage renal disease; polycystic kidney; recent colonoscopy with polyp peritonitis, probably from procedure biopsy, now still residual from that episode; large necrotic ulcers; urinary retention as demonstrated by CT scan. The patient will have a suprapubic catheter placed, duration of treatment about 14 days. C. diff treatment to continue. He would probably benefit from a taper vancomycin treatment phase rather than abrupt discontinuation at the end of treatment. MTDD
[2017-09-22] MEDS: Epoetin (ESRD) 10,000 UNITS/ML VIAL SC SCH (22:43)
[2017-09-23 05:22] LABS: #Eosinphils 0.1 thou/uL (0.0-0.7); #Lymphocytes 1.1 thou/uL (1.20-3.40); #Monocytes 0.9 thou/uL (0.11-0.59); #Neutrophils 7.3 thou/uL (1.40-6.50); %Basophils 0.1 % (0.0-1.0); %Eosinophils 1.3 % (0.0-10.0); %Lymphocytes 11.8 % (21.0-51.0); %Neutrophils 76.9 % (42.0-75.0); Hemoglobin 6.7 g/dL (14.0-18.0); Mean Corpuscular HGB CONC 33.6 g/dL (32.0-36.0); Mean Corpuscular Hemoglobin 27.4 pg (27.0-31.0); Mean Corpuscular Volume 81.4 fL (78.0-98.0); Mean Platelet Volume 8.5 fL (7.4-10.4); Platelet Count 197 thou/uL (130-400); RBC Distribution Width 15.9 % (11.5-14.5); Red Blood Cell (RBC) Count 2.45 mill/uL (4.70-6.10); White Blood Cell (WBC) Count 9.5 thou/uL (4.8-10.8)
[2017-09-23 05:55] LABS: Anion Gap 18 mmol/L (10-20); BUN (Urea Nitrogen) 57 mg/dL (8.4-25.7); Calc. Creatinine Clearance 20 mL/min (70-130); Calcium 7.7 mg/dL (7.8-10.44); Carbon Dioxide 21 mmol/L (22-29); Chloride 99 mmol/L (98-107); Estimated GFR-MDRD 11; Glucose 102 mg/dL (70-105); Potassium 3.8 mmol/L (3.5-5.1); Sodium 134 mmol/L (136-145)
[2017-09-23] MEDS: Levothyroxine Sodium 50 MCG TAB PO SCH (06:15)
[2017-09-23] MEDS: Cipro 250 MG TAB PO SCH ×3 (06:17→22:51)
[2017-09-23] MEDS: Dextrose 5 % And 0.9 % NaCl 1,000 ML IV SCH ×2 (06:47→23:42)
--- NOTE | 2017-09-23 10:30 | PRG ---
DATE OF SERVICE: 09/23/2017 HISTORY OF PRESENT ILLNESS: Mr. Kamara is a 52-year-old white male with ESRD and being followed by Renal Service for his maintenance peritoneal dialysis. Per his wish, he wants to convert to hemodia lysis. He has a left AV fistula that is currently maturing. We will probably wait for another week before we can attempt to use it as per recommendation by surgeon. In the interim, the patient was di agnosed to have a distended bladder. Urology has evaluated this patient and recommendation to have a suprapubic catheter placed. In addition, he underwent debridement of his sacral decubitus yesterday . This morning, the patient is more confused. PHYSICAL EXAMINATION: VITAL SIGNS: Blood pressure is 97/55, heart rate 107, respiratory rate 18, temperature 98, pulse ox 98%. GENERAL: The patient is awake, confused, not in overt distress. SKIN: Adequate turgor. HEENT: Pale conjunctivae, anicteric sclerae. NECK: No neck mass, no carotid bruits, no JVD. CHEST: No deformities. LUNGS: Clear breath sounds, no wheezing, no crackles. HEART: Normal sinus rhythm. No murmur, no gallops or rubs. ABDOMEN: Globular, soft, nontender, no masses. Positive for PD catheter. EXTREMITIES: No edema. MEDICATIONS: 09/23/2017 - Reviewed. LABORATORY: 09/23/2017 - White count 9.5, hemoglobin 6.7, sodium 137, potassium 3.8, chloride 99, ca rbon dioxide 21, BUN 57, creatinine 5.56, calcium 7.7. ASSESSMENT AND PLAN: 1. Anemia - currently on weekly Epogen. The patient had a recent procedure and that may explain the lower hemoglobin. He will receive 1 unit packed red blood cells today. 2. Confusion - most likely metabolic encephalopathy. 3. Sepsis syndrome, clinically improving. 4. Chronic hypotension, on midodrine 5 mg tab q.a.m. 5. End-stage renal disease, stable. Continuing current CCPD regimen. Using 1.5% PD solution to min imize fluid removal due to the low blood pressure with this patient. Overall, prognosis remains poor with this patient. Recheck base met and CBC in a.m.
[2017-09-23] MEDS: Vancomycin HCl 25 MG/ML Oral PO SCH ×4 (10:53→22:50)
--- NOTE | 2017-09-23 11:45 | PDOC.PN ---
- Subjective Encounter Start Date: 09/23/17 Encounter Start Time: 08:20 Subjective: awake, not oriented -: not in distress, is npo for placement of spc - Objective Resuscitation Status: Resuscitation Status DNR:Do Not Resuscitate MAR Reviewed: Yes Vital Signs & Weight: Vital Signs (12 hours) Temp Pulse Pulse Resp BP BP Pulse Ox 09/23/17 11:00 97.9 F 108 H 22 H 91/90 09/23/17 07:28 98 F 107 H 18 97/55 L 98 09/23/17 03:59 98.4 F 99 20 111/62 100 09/22/17 23:59 97.8 F 109 H 20 121/87 Weight Admit Weight 205 lb 14.588 oz Weight 201 lb Most Recent Monitor Data Heart Rate from ECG 90 NIBP 97/66 NIBP BP-Mean 76 Respiration from ECG 18 SpO2 100 I&O: 09/22/17 09/23/17 09/24/17 06:59 06:59 06:59 Intake Total 850 1500 0 Output Total 550 Balance 850 950 0 Result Diagrams: 09/23/17 04:31 09/23/17 04:31 Additional Labs: Accuchecks 09/23/17 09/23/17 09/22/17 05:41 00:57 21:01 POC Glucose 102 127 H 94 09/22/17 09/22/17 09/22/17 16:37 16:19 10:46 POC Glucose 136 H 53 L* 67 L 09/22/17 09/22/17 08:46 08:27 POC Glucose 86 55 L* Phys Exam - Physical Examination HEENT: PERRLA, sclera anicteric Neck: no JVD, supple Respiratory: no wheezing rales+ Cardiovascular: RRR, no significant murmur Gastrointestinal: soft, positive bowel sounds ascites++ Musculoskeletal: pulses present, edema present Neurological: non-focal, moves all 4 limbs Dx/Plan (1) Sepsis Code(s): A41.9 - SEPSIS, UNSPECIFIED ORGANISM Status: Acute Qualifiers: Sepsis type: Pseudomonas Qualified Code(s): A41.52 - Sepsis due to Pseudomonas (2) Peritonitis Code(s): K65.9 - PERITONITIS, UNSPECIFIED Status: Acute Comment: likely polymicrobial (3) Acute metabolic encephalopathy Code(s): G93.41 - METABOLIC ENCEPHALOPATHY Status: Acute (4) C. difficile diarrhea Code(s): A04.72 - ENTEROCOLITIS D/T CLOSTRIDIUM DIFFICILE, NOT SPCF RECUR Status: Acute Comment: on PO vancomycin (5) Decubital ulcer Code(s): L89.90 - PRESSURE ULCER OF UNSPECIFIED SITE, UNSPECIFIED STAGE Status : Acute Qualifiers: Pressure ulcer location: buttock Pressure ulcer stage: unstageable Comment: necrotic ulcer, present on admission (6) Hypoalbuminemia due to protein-calorie malnutrition Code(s): E46 - UNSPECIFIED PROTEIN-CALORIE MALNUTRITION Status: Acute (7) Hypothyroidism Code(s): E03.9 - HYPOTHYROIDISM, UNSPECIFIED Status: Acute Qualifiers: Hypothyroidism type: unspecified Qualified Code(s): E03.9 - Hypothyroidism , unspecified Comment: levothyroixine started this admission (8) Anemia due to end stage renal disease Code(s): N18.6 - END STAGE RENAL DISEASE; D63.1 - ANEMIA IN CHRONIC KIDNEY DISEASE Status: Chronic Comment: (9) Anxiety and depression Code(s): F41.9 - ANXIETY DISORDER, UNSPECIFIED; F32.9 - MAJOR DEPRESSIVE DISORDER, SINGLE EPISODE, UNSPECIFIED Status: Chronic (10) ESRD on peritoneal dialysis Code(s): N18.6 - END STAGE RENAL DISEASE; Z99.2 - DEPENDENCE ON RENAL DIALYSIS Status: Chronic Comment: currently on PD as per nephrology (11) Mitral valve vegetation Code(s): I33.0 - ACUTE AND SUBACUTE INFECTIVE ENDOCARDITIS Status: Chronic Comment: will need PETTY when medically stable as per cardiology (12) Physical deconditioning Code(s): R53.81 - OTHER MALAISE Status: Chronic Comment: - Plan multiple organ failures with declining physical condition, d/w mom about co -: -de status, she wants him to be DNR, gave her full updates. -: is getting 1 u prbc then spc by IR -: on cipro and vanco both oral -: had debridement of decub over b/l buttock area yesterday * . PT to mobilize pt more as tolerated. continue lopressor, amiodarone and midodrine. Review of Systems - Medications/Allergies Allergies/Adverse Reactions: Allergies Allergy/AdvReac Type Severity Reaction Status Date / Time iron Allergy Verified 09/14/17 13:20 Sulfa (Sulfonamide Allergy Verified 09/14/17 13:20 Antibiotics) Medications: Current Medications Acetaminophen (Tylenol) 650 mg PO Q4H PRN PRN Reason: Headache/Fever or Pain Last Admin: 09/19/17 21:28 Dose: 650 mg Hydrocodone Bitart/Acetaminophen ([place] 5/325) 1 tab PO Q4H PRN PRN Reason: Moderate Pain (4-6) Last Admin: 09/22/17 17:07 Dose: 1 tab Al Hydroxide/Mg Hydroxide (Maalox) 30 ml PO Q6H PRN PRN Reason: Heartburn or Indigestion Albuterol/Ipratropium (Duoneb) 3 ml NEB [id number] PRN PRN Reason: SOB &/or Wheezing Amiodarone HCl (Cordarone) 100 mg PO DAILY [facility] Last Admin: 09/22/17 13:52 Dose: Not Given Artificial Tears (Tears Renewed 15ml Bottle) 0 drop EA EYE PRN PRN PRN Reason: Dry Eyes Calcitriol (Rocaltrol) 0.25 mcg PO DAILY [facility] Last Admin: 09/22/17 13:52 Dose: Not Given Calcium Acetate (Phoslo) 1,334 mg PO TID-[facility] Last Admin: 09/22/17 17:06 Dose: 1,334 mg Ciprofloxacin (Cipro) 250 mg PO BID@0600,1999 [facility] Last Admin: 09/23/17 10:53 Dose: 250 mg Ezetimibe (Zetia) 10 mg PO DAILY [facility] Last Admin: 09/22/17 13:52 Dose: Not Given Epoetin Ayaz (Procrit) 10,000 units SC Q7D [facility] Last Admin: 09/22/17 22:43 Dose: 10,000 units Famotidine (Pepcid) 20 mg PO DAILY [facility] Last Admin: 09/22/17 13:52 Dose: Not Given Guaifenesin (Robitussin Sf) 200 mg PO Q4H PRN PRN Reason: Cough Dextrose/Sodium Chloride (D5 0.9% Ns) 1,000 mls @ 70 mls/hr IV .[id number] [facility] Last Admin: 09/23/17 06:47 Dose: 1,000 mls Levothyroxine Sodium (Synthroid) 50 mcg PO 0600 [facility] Last Admin: 09/23/17 06:15 Dose: Not Given Loperamide HCl (Imodium) 2 mg PO PRN PRN PRN Reason: Diarrhea/Loose Stools Magnesium Hydroxide (Milk Of Magnesium) 30 ml PO DAILYPRN PRN PRN Reason: Constipation Metoclopramide HCl (Reglan) 5 mg IVP Q8HR PRN PRN Reason: Nausea/Vomiting Metoprolol Tartrate (Lopressor) 25 mg PO BID [facility] Last Admin: 09/22/17 22:43 Dose: Not Given Midodrine (Proamatine) 5 mg PO DAILY [facility] Last Admin: 09/22/17 13:52 Dose: Not Given Mineral Oil/White Petrolatum (Eucerin Cream) 0 gm TOP BIDPRN PRN PRN Reason: Dry Skin Phenol (Chloraseptic [place] 180 Ml Bot) 0 ml PO PRN PRN PRN Reason: Sore Throat Potassium Chloride (K-Dur) 40 meq PO QAM-WM [facility] Last Admin: 09/22/17 10:33 Dose: Not Given Saccharomyces Boulardii (Florastor) 250 mg PO DAILY [facility] Last Admin: 09/22/17 13:52 Dose: Not Given Sevelamer Carbonate (Renvela) 2,400 mg PO TID [facility] Last Admin: 09/22/17 22:44 Dose: 2,400 mg Sodium Chloride ([place] Nasal [place] 0.65%) 0 ml EA NARE QIDPRN PRN PRN Reason: Nasal Congestion Sodium Chloride (Flush - Normal Saline) 10 ml IVF Q12HR [facility] Last Admin: 09/22/17 22:44 Dose: 10 ml Sodium Chloride (Flush - Normal Saline) 10 ml IVF PRN PRN PRN Reason: Saline Flush Vancomycin HCl (First Vancomycin) 125 mg PO QID [facility] Last Admin: 09/23/17 10:53 Dose: 125 mg
[2017-09-23] MEDS ORDERED: Midazolam HCl 2 mg/2 ml Vial ONE (13:15)
[2017-09-23] MEDS ORDERED: Fentanyl 100 MCG/2 ML VIAL ONE (13:15)
[2017-09-23] MEDS: Calcitriol 0.25 MCG CAP PO SCH (14:40)
[2017-09-23] MEDS: Famotidine 20 MG TAB PO SCH (14:40)
[2017-09-23] MEDS: Metoprolol Tartrate 25 MG TAB PO SCH ×2 (14:40→22:57)
[2017-09-23] MEDS: Amiodarone 200 MG TAB PO SCH (14:40)
[2017-09-23] MEDS: Ezetimibe 10 MG TAB PO SCH (14:40)
[2017-09-23] MEDS: Calcium Acetate 667 MG CAP PO SCH ×2 (14:40→20:10)
[2017-09-23] MEDS: Potassium Chloride 20 MEQ TAB PO SCH (14:40)
[2017-09-23] MEDS: Midodrine HCl 5 MG TAB PO SCH (14:41)
[2017-09-23] MEDS: Saccharomyces boulardii 250 MG CAP PO SCH (14:41)
[2017-09-23] MEDS: Sevelamer Carbonate 800 MG TAB PO SCH ×3 (14:41→22:50)
--- NOTE | 2017-09-23 15:03 | CT ---
CT SUPRAPUBIC CATHETER PLACEMENT: Date: 09/23/17 HISTORY: 52-year-old male with history of peritoneal dialysis, with history of polycystic kidney disease. TECHNIQUE: We have been asked to place a suprapubic catheter. Informed consent was obtained from the patient's mother. The distended bladder was localized. The ove rlying skin was prepped and draped in the usual sterile manner. A 1% lidocaine solution was used to a nesthetize the overlying soft tissues. A small dermatotomy was made. A Bard suprapubic catheter set w as used to gain access into the bladder. A 14 Urdu suprapubic Connolly-type catheter was placed, dista l tip within urinary bladder. No complications encountered. IMPRESSION: Successful suprapubic catheter placement. POS: DREW
[2017-09-24] MEDS: Cipro 250 MG TAB PO SCH ×2 (06:23→20:57)
[2017-09-24] MEDS: Levothyroxine Sodium 50 MCG TAB PO SCH (06:23)
[2017-09-24 06:47] LABS: #Lymphocytes 0.9 thou/uL (1.20-3.40); #Monocytes 0.8 thou/uL (0.11-0.59); #Neutrophils 9.5 thou/uL (1.40-6.50); %Basophils 0.2 % (0.0-1.0); %Eosinophils 0.4 % (0.0-10.0); %Lymphocytes 7.9 % (21.0-51.0); %Monocytes 7.4 % (0.0-10.0); Hemoglobin 7.2 g/dL (14.0-18.0); Mean Corpuscular HGB CONC 32.6 g/dL (32.0-36.0); Mean Corpuscular Hemoglobin 27.2 pg (27.0-31.0); Mean Corpuscular Volume 83.4 fL (78.0-98.0); Mean Platelet Volume 8.4 fL (7.4-10.4); Platelet Count 176 thou/uL (130-400); RBC Distribution Width 15.4 % (11.5-14.5); Red Blood Cell (RBC) Count 2.66 mill/uL (4.70-6.10); White Blood Cell (WBC) Count 11.3 thou/uL (4.8-10.8)
[2017-09-24 06:59] LABS: Anion Gap 16 mmol/L (10-20); BUN (Urea Nitrogen) 57 mg/dL (8.4-25.7); Calc. Creatinine Clearance 20 mL/min (70-130); Calcium 7.5 mg/dL (7.8-10.44); Carbon Dioxide 21 mmol/L (22-29); Chloride 101 mmol/L (98-107); Estimated GFR-MDRD 11; Glucose 76 mg/dL (70-105); Potassium 3.9 mmol/L (3.5-5.1); Sodium 134 mmol/L (136-145)
--- NOTE | 2017-09-24 08:28 | PRG ---
DATE OF SERVICE: 09/24/2017 SUBJECTIVE: Mr. Kamara is a 52-year-old white male with ESRD and being followed up by the Renal S anuj for his maintenance peritoneal dialysis. From a dialysis point of view, he is tolerating the said treatment. His hospitalization has been marred by development of Clostridium difficile colitis, sepsis, and urinary bladder retention. He currently had a suprapubic catheter placed yesterday. Th is morning, the patient is relatively unchanged. He continues to be very confused. Surgery has evaluated this patient, has had debridement of his sacral decubitus. Furthermore, he ronni l eventually be converted to hemodialysis per his request. OBJECTIVE: VITAL SIGNS: Blood pressure 98/54, heart rate 111, respiratory rate 20, pulse ox 98%, temperature 99 . GENERAL: Noted to be awake, agitated, confused, but not in distress. SKIN: Adequate turgor. HEENT: Slightly pale conjunctivae, anicteric sclerae. NECK: No neck mass, no carotid bruits, no JVD. CHEST: No deformities. LUNGS: Clear breath sounds. No wheezing, no crackles. HEART: Normal sinus rhythm. No murmur, no gallops or rubs. ABDOMEN: Globular, soft, nontender, no masses. Positive for bowel sounds. Negative for epigastric bruits. Positive for PD catheter. EXTREMITIES: No edema. MEDICATIONS: 09/24/2017 Reviewed. LABORATORY DATA: 09/24/2017 - White count 11.3, hemoglobin 7.2. Sodium 134, potassium 3.9, chloride 101, carbon dioxide 21, BUN 57, creatinine 5.57, glucose 76, calcium 7.5. 09/16/2017 - PD fluid showed pseudomonas. MEDICATIONS: 09/24/2017 - Reviewed. LABORATORY DATA: 09/24/2017 - White count 11.2, hemoglobin 7.2. Sodium 134, potassium 3.9, chloride 101, carbon dioxide 21, BUN 57, creatinine 5.57, calcium 7.5. ASSESSMENT AND PLAN: 1. End-stage renal disease. Tolerating current peritoneal dialysis. As previously mentioned, due t o the low blood pressure, we are only using 1.5% PD solution to minimize ultrafiltration. 2. Chronic hypertension. The patient is on a daily midodrine at 5 mg tab once a day. 3. Sepsis syndrome, clinically improving. The patient is now maintained on Cipro 250 mg b.i.d. Inf ectious Disease Service following the patient. He continues to take p.o. vancomycin for C. diff coli tis. 4. Chronic anemia, p.r.n. blood transfusion. The patient received 1 unit packed RBC. We are contin uing his weekly Epogen at 10,000 units subcutaneously every week. 5. Hypokalemia, much improved - on potassium supplementation. 6. Sacral decubitus, status post surgical debridement by Dr. Mullins. His overall prognosis remains poor. Continue supportive care. Recheck base met and CBC in a.m.
[2017-09-24] MEDS: Calcium Acetate 667 MG CAP PO SCH ×4 (10:52→18:35)
[2017-09-24] MEDS: Amiodarone 200 MG TAB PO SCH (10:53)
[2017-09-24] MEDS: Potassium Chloride 20 MEQ TAB PO SCH (10:53)
[2017-09-24] MEDS: Calcitriol 0.25 MCG CAP PO SCH (10:54)
[2017-09-24] MEDS: Ezetimibe 10 MG TAB PO SCH (10:54)
[2017-09-24] MEDS: Famotidine 20 MG TAB PO SCH (10:55)
[2017-09-24] MEDS: Metoprolol Tartrate 25 MG TAB PO SCH ×3 (10:55→21:50)
[2017-09-24] MEDS: Midodrine HCl 5 MG TAB PO SCH (10:55)
[2017-09-24] MEDS: Saccharomyces boulardii 250 MG CAP PO SCH (10:55)
[2017-09-24] MEDS: Sevelamer Carbonate 800 MG TAB PO SCH ×3 (10:55→20:59)
[2017-09-24] MEDS: Vancomycin HCl 25 MG/ML Oral PO SCH ×4 (10:56→20:58)
--- NOTE | 2017-09-24 11:21 | PDOC.PN ---
- Subjective Encounter Start Date: 09/24/17 Encounter Start Time: 08:40 Subjective: lethargic, not fully oriented -: mother at bedside - Objective Resuscitation Status: Resuscitation Status DNR:Do Not Resuscitate MAR Reviewed: Yes Vital Signs & Weight: Vital Signs (12 hours) Temp Pulse Resp BP Pulse Ox 09/24/17 08:00 98.1 F 118 H 20 97/64 96 09/24/17 04:55 98/54 L 09/24/17 00:21 99.0 F 111 H 20 102/52 L Weight Admit Weight 205 lb 14.588 oz Weight 201 lb Most Recent Monitor Data Heart Rate from ECG 90 NIBP 97/66 NIBP BP-Mean 76 Respiration from ECG 18 SpO2 100 I&O: 09/23/17 09/24/17 09/25/17 06:59 06:59 06:59 Intake Total 1500 1849 Output Total 550 2670 Balance 950 -821 Result Diagrams: 09/24/17 05:53 09/24/17 05:53 Additional Labs: Accuchecks 09/24/17 09/23/17 09/23/17 04:40 21:19 17:18 POC Glucose 98 97 96 09/23/17 11:01 POC Glucose 93 Phys Exam - Physical Examination HEENT: PERRLA dry mucosa Neck: no JVD, supple Respiratory: no wheezing, no rales Cardiovascular: RRR, no significant murmur Gastrointestinal: soft, positive bowel sounds ascites++, spc+ Musculoskeletal: pulses present, edema present Neurological: non-focal, moves all 4 limbs Dx/Plan (1) Sepsis Code(s): A41.9 - SEPSIS, UNSPECIFIED ORGANISM Status: Acute Qualifiers: Sepsis type: Pseudomonas Qualified Code(s): A41.52 - Sepsis due to Pseudomonas (2) Peritonitis Code(s): K65.9 - PERITONITIS, UNSPECIFIED Status: Acute Comment: likely polymicrobial (3) Acute metabolic encephalopathy Code(s): G93.41 - METABOLIC ENCEPHALOPATHY Status: Acute (4) C. difficile diarrhea Code(s): A04.72 - ENTEROCOLITIS D/T CLOSTRIDIUM DIFFICILE, NOT SPCF RECUR Status: Acute Comment: on PO vancomycin (5) Decubital ulcer Code(s): L89.90 - PRESSURE ULCER OF UNSPECIFIED SITE, UNSPECIFIED STAGE Status : Acute Qualifiers: Pressure ulcer location: buttock Pressure ulcer stage: unstageable Comment: necrotic ulcer, present on admission (6) Hypoalbuminemia due to protein-calorie malnutrition Code(s): E46 - UNSPECIFIED PROTEIN-CALORIE MALNUTRITION Status: Acute (7) Hypothyroidism Code(s): E03.9 - HYPOTHYROIDISM, UNSPECIFIED Status: Acute Qualifiers: Hypothyroidism type: unspecified Qualified Code(s): E03.9 - Hypothyroidism , unspecified Comment: levothyroxine started this admission (8) Anemia due to end stage renal disease Code(s): N18.6 - END STAGE RENAL DISEASE; D63.1 - ANEMIA IN CHRONIC KIDNEY DISEASE Status: Chronic Comment: (9) Anxiety and depression Code(s): F41.9 - ANXIETY DISORDER, UNSPECIFIED; F32.9 - MAJOR DEPRESSIVE DISORDER, SINGLE EPISODE, UNSPECIFIED Status: Chronic (10) ESRD on peritoneal dialysis Code(s): N18.6 - END STAGE RENAL DISEASE; Z99.2 - DEPENDENCE ON RENAL DIALYSIS Status: Chronic Comment: currently on PD as per nephrology (11) Mitral valve vegetation Code(s): I33.0 - ACUTE AND SUBACUTE INFECTIVE ENDOCARDITIS Status: Chronic Comment: will need PETTY when medically stable as per cardiology (12) Physical deconditioning Code(s): R53.81 - OTHER MALAISE Status: Chronic Comment: - Plan is on oral vanc and cipro -: has bloody urine, had spc placed yesterday -: cbc in am if Hb <7g, transfuse -: prognosis guarded, ammonia levels -: has multiple organ involvement with large decub and poor functional status * . To switch to HD per 's advice. Encourage po intake Review of Systems - Medications/Allergies Allergies/Adverse Reactions: Allergies Allergy/AdvReac Type Severity Reaction Status Date / Time iron Allergy Verified 09/14/17 13:20 Sulfa (Sulfonamide Allergy Verified 09/14/17 13:20 Antibiotics) Medications: Current Medications Acetaminophen (Tylenol) 650 mg PO Q4H PRN PRN Reason: Headache/Fever or Pain Last Admin: 09/19/17 21:28 Dose: 650 mg Hydrocodone Bitart/Acetaminophen ([place] 5/325) 1 tab PO Q4H PRN PRN Reason: Moderate Pain (4-6) Last Admin: 09/22/17 17:07 Dose: 1 tab Al Hydroxide/Mg Hydroxide (Maalox) 30 ml PO Q6H PRN PRN Reason: Heartburn or Indigestion Albuterol/Ipratropium (Duoneb) 3 ml NEB [id number] PRN PRN Reason: SOB &/or Wheezing Amiodarone HCl (Cordarone) 100 mg PO DAILY [facility] Last Admin: 09/24/17 10:53 Dose: 100 mg Artificial Tears (Tears Renewed 15ml Bottle) 0 drop EA EYE PRN PRN PRN Reason: Dry Eyes Calcitriol (Rocaltrol) 0.25 mcg PO DAILY [facility] Last Admin: 09/24/17 10:54 Dose: 0.25 mcg Calcium Acetate (Phoslo) 1,334 mg PO TID-[facility] Last Admin: 09/24/17 10:52 Dose: 1,334 mg Ciprofloxacin (Cipro) 250 mg PO BID@0600,1999 [facility] Last Admin: 09/24/17 06:23 Dose: 250 mg Epoetin Ayaz (Procrit) 10,000 units SC Q7D [facility] Last Admin: 09/22/17 22:43 Dose: 10,000 units Famotidine (Pepcid) 20 mg PO DAILY [facility] Last Admin: 09/24/17 10:55 Dose: 20 mg Guaifenesin (Robitussin Sf) 200 mg PO Q4H PRN PRN Reason: Cough Dextrose/Sodium Chloride (D5 0.9% Ns) 1,000 mls @ 70 mls/hr IV .[id number] [facility] Last Admin: 09/23/17 23:42 Dose: 1,000 mls Levothyroxine Sodium (Synthroid) 50 mcg PO 0600 [facility] Last Admin: 09/24/17 06:23 Dose: 50 mcg Loperamide HCl (Imodium) 2 mg PO PRN PRN PRN Reason: Diarrhea/Loose Stools Magnesium Hydroxide (Milk Of Magnesium) 30 ml PO DAILYPRN PRN PRN Reason: Constipation Metoclopramide HCl (Reglan) 5 mg IVP Q8HR PRN PRN Reason: Nausea/Vomiting Metoprolol Tartrate (Lopressor) 25 mg PO BID [facility] Last Admin: 09/24/17 10:55 Dose: 25 mg Midodrine (Proamatine) 5 mg PO DAILY [facility] Last Admin: 09/24/17 10:55 Dose: 5 mg Mineral Oil/White Petrolatum (Eucerin Cream) 0 gm TOP BIDPRN PRN PRN Reason: Dry Skin Phenol (Chloraseptic [place] 180 Ml Bot) 0 ml PO PRN PRN PRN Reason: Sore Throat Potassium Chloride (K-Dur) 40 meq PO QAM-WM [facility] Last Admin: 09/24/17 10:53 Dose: 40 meq Saccharomyces Boulardii (Florastor) 250 mg PO DAILY [facility] Last Admin: 09/24/17 10:55 Dose: 250 mg Sevelamer Carbonate (Renvela) 2,400 mg PO TID [facility] Last Admin: 09/24/17 10:55 Dose: 2,400 mg Sodium Chloride ([place] Nasal [place] 0.65%) 0 ml EA NARE QIDPRN PRN PRN Reason: Nasal Congestion Sodium Chloride (Flush - Normal Saline) 10 ml IVF Q12HR [facility] Last Admin: 09/24/17 10:56 Dose: Not Given Sodium Chloride (Flush - Normal Saline) 10 ml IVF PRN PRN PRN Reason: Saline Flush Vancomycin HCl (First Vancomycin) 125 mg PO QID [facility] Last Admin: 09/24/17 10:56 Dose: 125 mg
[2017-09-24] MEDS: Dextrose 5 % And 0.9 % NaCl 1,000 ML IV SCH (14:44)
[2017-09-25] MEDS: Dextrose 5 % And 0.9 % NaCl 1,000 ML IV SCH ×3 (05:42→17:03)
[2017-09-25] MEDS: Cipro 250 MG TAB PO SCH ×2 (05:42→20:48)
[2017-09-25] MEDS: Levothyroxine Sodium 50 MCG TAB PO SCH (05:42)
[2017-09-25 05:45] LABS: #Eosinphils 0.1 thou/uL (0.0-0.7); #Lymphocytes 0.8 thou/uL (1.20-3.40); #Monocytes 0.8 thou/uL (0.11-0.59); #Neutrophils 9.9 thou/uL (1.40-6.50); %Basophils 0.3 % (0.0-1.0); %Eosinophils 0.7 % (0.0-10.0); %Lymphocytes 7.2 % (21.0-51.0); %Monocytes 6.6 % (0.0-10.0); %Neutrophils 85.3 % (42.0-75.0); Hemoglobin 6.4 g/dL (14.0-18.0); Mean Corpuscular Hemoglobin 26.8 pg (27.0-31.0); Mean Corpuscular Volume 83.7 fL (78.0-98.0); Mean Platelet Volume 8.2 fL (7.4-10.4); Platelet Count 186 thou/uL (130-400); RBC Distribution Width 15.3 % (11.5-14.5); Red Blood Cell (RBC) Count 2.37 mill/uL (4.70-6.10); White Blood Cell (WBC) Count 11.6 thou/uL (4.8-10.8)
[2017-09-25 05:57] LABS: Anion Gap 15 mmol/L (10-20); BUN (Urea Nitrogen) 56 mg/dL (8.4-25.7); Calc. Creatinine Clearance 23 mL/min (70-130); Calcium 7.4 mg/dL (7.8-10.44); Carbon Dioxide 22 mmol/L (22-29); Chloride 102 mmol/L (98-107); Estimated GFR-MDRD 11; Glucose 81 mg/dL (70-105); Sodium 135 mmol/L (136-145)
--- NOTE | 2017-09-25 07:40 | PRG ---
DATE OF SERVICE: 09/25/2017 SERVICE: Renal Medicine. SUBJECTIVE: Mr. Kamara is a 52-year-old white male with ESRD and being followed up with Renal Serv ice for his peritoneal dialysis. He underwent peritoneal dialysis yesterday without any difficulty. We did not change any of his peritoneal dialysis regimen. This patient still continues to be confus ed. The patient recently had a suprapubic catheter placed due to bladder distention. This morning, I noted him to be anemic again - hemoglobin less than 7. My plan is to give him 2 units of packed RB C. Please note, a few days ago he had a surgical debridement of his sacral decubitus. He continues to be confused. He remains unchanged. There were no acute events noted last night. PHYSICAL EXAMINATION: VITAL SIGNS: Blood pressure is 99/58, heart rate 108, respiratory rate 24, pulse ox 99%, temperature 100. GENERAL: Patient is sleepy, but arousable, not in distress. SKIN: Adequate turgor. HEENT: Pale conjunctivae, anicteric sclerae. NECK: No neck mass, no carotid bruits, no JVD. CHEST: No deformities. LUNGS: Decreased breath sounds. HEART: Normal sinus rhythm. No murmur, no gallops, no rubs. ABDOMEN: Globular, soft, nontender, no masses. Positive for PD catheter. Positive for suprapubic t ube. EXTREMITIES: No edema, no deformities. MEDICATIONS: Of 09/25/2017 was reviewed. LABORATORY DATA: Of 09/25/2017, white count 11.6, hemoglobin 6.4, sodium 135, potassium 4, chloride 102, carbon dioxide 22, BUN 56, creatinine 5.64, calcium 7.4. ASSESSMENT AND PLAN: 1. End-stage renal disease, stable. We will continue current peritoneal dialysis regimen. No interiano es to be made. We will still use the 1.5% PD solution to minimize ultrafiltration due to the low blo od pressure. 2. Chronic hypotension, currently on midodrine at 5 mg tab q.a.m. 3. Anemia. We will transfuse 2 units of packed red blood cells. Continue weekly Epogen at 10,000 u nits subcutaneously every week. 4. Sacral decubitus - status post surgical debridement. 5. Fever - currently on Cipro 250 b.i.d. ID is following. 6. Hypokalemia, much improved with potassium supplementation. Continue to observe. His overall pro gnosis remains poor. The patient remains unimproved.
[2017-09-25] MEDS ORDERED: Ibuprofen 100 MG/5 ML UDCUP PO SCH (09:45)
--- NOTE | 2017-09-25 09:46 | CT ---
CT OF ABDOMEN AND PELVIS WITHOUT CONTRAST: Comparison: 08-26-17, 09-23-17 History: Sepsis. Patient has history of kidney disease, persistent hypotension. History of suprapubic catheter placement. Technique: Multiple contiguous axial images were obtained in a CT of the abdomen and pelvis without c ontrast. Coronal reformats were performed. FINDINGS: The kidneys are very large and contain numerous cysts. The majority of these cysts are hypodense cons istent with simple cysts. However, some of the cysts are hyperdense. There are multiple calcification s scattered throughout both kidneys which are nonobstructing and are predominately cortically based. There is mild prominent of the bilateral renal collecting systems. However, this prominence is much l ess than on the prior examination. There is a suprapubic catheter within the urinary bladder. There i s high density in the urinary bladder which could represent blood or purulent material. There is also radiodense material within the urinary bladder which is nonspecific but could represent developing c alcifications. The liver, gallbladder, spleen, and pancreas are unremarkable, although evaluation is limited on this noncontrast examination. The adrenal glands are difficult to visualize. Scattered diverticula are seen in the colon. The small bowel is normal in caliber without evidence of significant distention. Atherosclerotic calcifications are seen in the aorta and within the branch v essels. No abdominal or pelvic lymphadenopathy are seen. There is a peritoneal dialysis catheter in t he left lower quadrant of the abdomen. There are small bilateral pleural effusions. Degenerative changes are seen in the spine. IMPRESSION: 1. Large polycystic kidneys as above. 2. Improvement in bilateral hydronephrosis with slight persistence of enlargement of the bilateral re nal collections. 3. Nonobstructive bilateral renal calcifications. 4. Diverticulosis. 5. Small bilateral pleural effusions. 6. Possible developing bladder calcifications POS: [facility]
[2017-09-25] MEDS: Triple Antibiotic Oint 1 GM Packet TOP SCH ×2 (09:55→22:22)
[2017-09-25] MEDS: Saccharomyces boulardii 250 MG CAP PO SCH (10:21)
[2017-09-25] MEDS: Amiodarone 200 MG TAB PO SCH (10:22)
[2017-09-25] MEDS: Midodrine HCl 5 MG TAB PO SCH (10:23)
[2017-09-25] MEDS: Calcium Acetate 667 MG CAP PO SCH ×3 (10:23→17:00)
[2017-09-25] MEDS: Potassium Chloride 20 MEQ TAB PO SCH (10:24)
[2017-09-25] MEDS: Famotidine 20 MG TAB PO SCH (10:25)
[2017-09-25] MEDS: Metoprolol Tartrate 25 MG TAB PO SCH ×3 (10:27→22:16)
[2017-09-25] MEDS: Calcitriol 0.25 MCG CAP PO SCH (10:27)
[2017-09-25] MEDS: Vancomycin HCl 25 MG/ML Oral PO SCH ×4 (10:32→22:12)
[2017-09-25] MEDS: Sevelamer Carbonate 800 MG TAB PO SCH ×3 (10:32→22:08)
--- NOTE | 2017-09-25 11:13 | PDOC.PN ---
- Subjective Encounter Start Date: 09/25/17 Encounter Start Time: 09:00 Subjective: more lethargic but follows simple stimuli -: has not been eating from last night - Objective Resuscitation Status: Resuscitation Status DNR:Do Not Resuscitate MAR Reviewed: Yes Vital Signs & Weight: Vital Signs (12 hours) Temp Pulse Resp BP BP Pulse Ox 09/25/17 09:49 99.3 F 110 H 28 H 100/57 L 98 09/25/17 07:35 99 F 116 H 20 96/54 L 94 L 09/25/17 04:00 100.0 F H 108 H 24 H 99/58 L 99 09/25/17 00:30 100.7 F H 117 H 24 H 93/53 L 97 Weight Admit Weight 205 lb 14.588 oz Weight 234 lb 9.149 oz Most Recent Monitor Data Heart Rate from ECG 90 NIBP 97/66 NIBP BP-Mean 76 Respiration from ECG 18 SpO2 100 I&O: 09/24/17 09/25/17 09/26/17 06:59 06:59 06:59 Intake Total 1849 1285 0 Output Total 2670 1000 Balance -821 285 0 Result Diagrams: 09/25/17 04:54 09/25/17 04:54 Additional Labs: Accuchecks 09/25/17 09/24/17 09/24/17 05:42 21:01 16:45 POC Glucose 88 108 86 09/24/17 11:15 POC Glucose 78 Phys Exam - Physical Examination has flapping tremor due end organ failure HEENT: PERRLA pallor++ Neck: no JVD, supple Respiratory: no wheezing rhonchi+ Cardiovascular: RRR, no significant murmur Gastrointestinal: soft, positive bowel sounds ascites++ Musculoskeletal: pulses present, edema present Neurological: non-focal Dx/Plan (1) Sepsis Code(s): A41.9 - SEPSIS, UNSPECIFIED ORGANISM Status: Acute Qualifiers: Sepsis type: Pseudomonas Qualified Code(s): A41.52 - Sepsis due to Pseudomonas (2) Peritonitis Code(s): K65.9 - PERITONITIS, UNSPECIFIED Status: Acute Comment: likely polymicrobial (3) Acute metabolic encephalopathy Code(s): G93.41 - METABOLIC ENCEPHALOPATHY Status: Acute (4) C. difficile diarrhea Code(s): A04.72 - ENTEROCOLITIS D/T CLOSTRIDIUM DIFFICILE, NOT SPCF RECUR Status: Acute Comment: on PO vancomycin (5) Decubital ulcer Code(s): L89.90 - PRESSURE ULCER OF UNSPECIFIED SITE, UNSPECIFIED STAGE Status : Acute Qualifiers: Pressure ulcer location: buttock Pressure ulcer stage: unstageable Comment: necrotic ulcer, present on admission (6) Hypoalbuminemia due to protein-calorie malnutrition Code(s): E46 - UNSPECIFIED PROTEIN-CALORIE MALNUTRITION Status: Acute (7) Hypothyroidism Code(s): E03.9 - HYPOTHYROIDISM, UNSPECIFIED Status: Acute Qualifiers: Hypothyroidism type: unspecified Qualified Code(s): E03.9 - Hypothyroidism , unspecified Comment: levothyroxine started this admission (8) Anemia due to end stage renal disease Code(s): N18.6 - END STAGE RENAL DISEASE; D63.1 - ANEMIA IN CHRONIC KIDNEY DISEASE Status: Chronic Comment: (9) Anxiety and depression Code(s): F41.9 - ANXIETY DISORDER, UNSPECIFIED; F32.9 - MAJOR DEPRESSIVE DISORDER, SINGLE EPISODE, UNSPECIFIED Status: Chronic (10) ESRD on peritoneal dialysis Code(s): N18.6 - END STAGE RENAL DISEASE; Z99.2 - DEPENDENCE ON RENAL DIALYSIS Status: Chronic Comment: currently on PD as per nephrology (11) Mitral valve vegetation Code(s): I33.0 - ACUTE AND SUBACUTE INFECTIVE ENDOCARDITIS Status: Chronic Comment: will need PETTY when medically stable as per cardiology (12) Physical deconditioning Code(s): R53.81 - OTHER MALAISE Status: Chronic Comment: - Plan cipro, flagyl -: poor prognosis, will d/w mom when she comes around -: on amiodarone, lopressor and midodrine -: transfuse 2 u prbc, had temp of 100, repeat cultures -: CT abd results noted, no ac changes seen * . Review of Systems - Medications/Allergies Allergies/Adverse Reactions: Allergies Allergy/AdvReac Type Severity Reaction Status Date / Time iron Allergy Verified 09/14/17 13:20 Sulfa (Sulfonamide Allergy Verified 09/14/17 13:20 Antibiotics) Medications: Current Medications Acetaminophen (Tylenol) 650 mg PO Q4H PRN PRN Reason: Headache/Fever or Pain Last Admin: 09/19/17 21:28 Dose: 650 mg Al Hydroxide/Mg Hydroxide (Maalox) 30 ml PO Q6H PRN PRN Reason: Heartburn or Indigestion Albuterol/Ipratropium (Duoneb) 3 ml NEB [id number] PRN PRN Reason: SOB &/or Wheezing Amiodarone HCl (Cordarone) 100 mg PO DAILY [facility] Last Admin: 09/25/17 10:22 Dose: 100 mg Artificial Tears (Tears Renewed 15ml Bottle) 0 drop EA EYE PRN PRN PRN Reason: Dry Eyes Calcitriol (Rocaltrol) 0.25 mcg PO DAILY [facility] Last Admin: 09/25/17 10:27 Dose: 0.25 mcg Calcium Acetate (Phoslo) 1,334 mg PO TID-WM [facility] Last Admin: 09/25/17 10:23 Dose: 1,334 mg Ciprofloxacin (Cipro) 250 mg PO BID@0600,2000 [facility] Last Admin: 09/25/17 05:42 Dose: 250 mg Epoetin Ayaz (Procrit) 10,000 units SC Q7D [facility] Last Admin: 09/22/17 22:43 Dose: 10,000 units Famotidine (Pepcid) 20 mg PO DAILY [facility] Last Admin: 09/25/17 10:25 Dose: 20 mg Guaifenesin (Robitussin Sf) 200 mg PO Q4H PRN PRN Reason: Cough Dextrose/Sodium Chloride (D5 0.9% Ns) 1,000 mls @ 70 mls/hr IV .[id number] [facility] Last Admin: 09/25/17 05:42 Dose: 1,000 mls Ibuprofen (Motrin) 400 mg PO 0945 [facility] Stop: 09/25/17 12:00 Last Admin: 09/25/17 10:19 Dose: 400 mg Levothyroxine Sodium (Synthroid) 50 mcg PO 0600 [facility] Last Admin: 09/25/17 05:42 Dose: 50 mcg Loperamide HCl (Imodium) 2 mg PO PRN PRN PRN Reason: Diarrhea/Loose Stools Magnesium Hydroxide (Milk Of Magnesium) 30 ml PO DAILYPRN PRN PRN Reason: Constipation Metoclopramide HCl (Reglan) 5 mg IVP Q8HR PRN PRN Reason: Nausea/Vomiting Metoprolol Tartrate (Lopressor) 25 mg PO BID [facility] Last Admin: 09/25/17 10:27 Dose: Not Given Midodrine (Proamatine) 5 mg PO DAILY [facility] Last Admin: 09/25/17 10:23 Dose: 5 mg Mineral Oil/White Petrolatum (Eucerin Cream) 0 gm TOP BIDPRN PRN PRN Reason: Dry Skin Neomycin/Polymyxin/Bacitracin (Triple Antibiotic) 0 gm TOP BID [facility] Last Admin: 09/25/17 09:55 Dose: 1 gm Phenol (Chloraseptic [place] 180 Ml Bot) 0 ml PO PRN PRN PRN Reason: Sore Throat Potassium Chloride (K-Dur) 40 meq PO QAM-WM [facility] Last Admin: 09/25/17 10:24 Dose: 40 meq Saccharomyces Boulardii (Florastor) 250 mg PO DAILY [facility] Last Admin: 09/25/17 10:21 Dose: 250 mg Sevelamer Carbonate (Renvela) 2,400 mg PO TID [facility] Last Admin: 09/25/17 10:32 Dose: Not Given Sodium Chloride ([place] Nasal [place] 0.65%) 0 ml EA NARE QIDPRN PRN PRN Reason: Nasal Congestion Sodium Chloride (Flush - Normal Saline) 10 ml IVF Q12HR [facility] Last Admin: 09/25/17 10:27 Dose: Not Given Sodium Chloride (Flush - Normal Saline) 10 ml IVF PRN PRN PRN Reason: Saline Flush Sodium Chloride (Flush - Normal Saline) 10 ml IVF PRN PRN PRN Reason: Saline Flush Vancomycin HCl (First Vancomycin) 125 mg PO QID [facility] Last Admin: 09/25/17 10:32 Dose: 125 mg
[2017-09-26] MEDS: Dextrose 5 % And 0.9 % NaCl 1,000 ML IV SCH ×2 (05:36→22:07)
[2017-09-26] MEDS: Cipro 250 MG TAB PO SCH ×2 (05:36→22:06)
[2017-09-26] MEDS: Levothyroxine Sodium 50 MCG TAB PO SCH (05:36)
[2017-09-26 05:37] LABS: #Eosinphils 0.2 thou/uL (0.0-0.7); #Lymphocytes 0.9 thou/uL (1.20-3.40); #Monocytes 0.7 thou/uL (0.11-0.59); #Neutrophils 10.4 thou/uL (1.40-6.50); %Basophils 0.3 % (0.0-1.0); %Eosinophils 1.3 % (0.0-10.0); %Lymphocytes 7.1 % (21.0-51.0); %Monocytes 5.4 % (0.0-10.0); %Neutrophils 85.8 % (42.0-75.0); Hemoglobin 7.4 g/dL (14.0-18.0); Mean Corpuscular HGB CONC 32.4 g/dL (32.0-36.0); Mean Corpuscular Hemoglobin 25.7 pg (27.0-31.0); Mean Corpuscular Volume 79.3 fL (78.0-98.0); Platelet Count 203 thou/uL (130-400); RBC Distribution Width 18.7 % (11.5-14.5); Red Blood Cell (RBC) Count 2.86 mill/uL (4.70-6.10); White Blood Cell (WBC) Count 12.1 thou/uL (4.8-10.8)
[2017-09-26 05:50] LABS: Anion Gap 14 mmol/L (10-20); BUN (Urea Nitrogen) 57 mg/dL (8.4-25.7); Calc. Creatinine Clearance 23 mL/min (70-130); Calcium 7.6 mg/dL (7.8-10.44); Carbon Dioxide 20 mmol/L (22-29); Chloride 104 mmol/L (98-107); Estimated GFR-MDRD 11; Glucose 92 mg/dL (70-105); Potassium 4.2 mmol/L (3.5-5.1); Sodium 134 mmol/L (136-145)
[2017-09-26] MEDS: Famotidine 20 MG TAB PO SCH ×2 (08:50→08:54)
[2017-09-26] MEDS: Vancomycin HCl 25 MG/ML Oral PO SCH ×4 (08:50→22:05)
[2017-09-26] MEDS: Midodrine HCl 5 MG TAB PO SCH (08:51)
[2017-09-26] MEDS: Potassium Chloride 20 MEQ TAB PO SCH (08:53)
[2017-09-26] MEDS: Saccharomyces boulardii 250 MG CAP PO SCH (08:53)
[2017-09-26] MEDS: Sevelamer Carbonate 800 MG TAB PO SCH ×3 (08:54→22:06)
[2017-09-26] MEDS: Calcium Acetate 667 MG CAP PO SCH ×3 (08:54→18:26)
[2017-09-26] MEDS: Calcitriol 0.25 MCG CAP PO SCH (08:54)
[2017-09-26] MEDS: Metoprolol Tartrate 25 MG TAB PO SCH ×2 (08:54→22:06)
[2017-09-26] MEDS: Amiodarone 200 MG TAB PO SCH (08:54)
--- NOTE | 2017-09-26 10:52 | PRG ---
DATE OF SERVICE: 09/26/[address] Jose Martin Brunner. SUBJECTIVE: The patient is sleeping, family at bedside. Patient has been signed out to me by Dr. Brunner. His previous exam was relayed to me by Dr. Brunner. PHYSICAL EXAMINATION: VITAL SIGNS: T-max is 100.1, blood pressure 150/61, 105, 20. ABDOMEN: Protuberant. Suprapubic tube is adequately secured. They did flush his catheter yesterday, it is draining pink tinged urine, 290 over the last 12- hour hours. GENITOURINARY: Demonstrates mottled glans. Mottled appearance. with bilateral scrotal erythema and excoriation. Chronic irritative changes are noted. There is no gross fluctuance per se. PERTINENT LABORATORY DATA: White count 12, hemoglobin 7.4, platelet 203, BUN 57 , and creatinine 5.6. IMPRESSION AND PLAN: Mr. Jamison is a 52-year-old male with history of polycystic kidney disease, PD catheter, admitted for peritonitis on ciprofloxacin based on culture. End-stage renal disease, presented with distended bladder. He is DNR. He also has extensive sacral decubitus ulcers. Wound Care is following. His physical exam does not seem to be significantly changed from what was signed out to me by Dr. Brunner. His prognosis is poor. His bladder has been diverted with a suprapubic tube due to urinary retention. It continues to drain without significant issues. Continue present management. [facility]
--- NOTE | 2017-09-26 11:23 | PRG ---
DATE OF SERVICE: 09/26/2017 RENAL MEDICINE SUBJECTIVE: Mr. Kamara is a 52-year-old white male being followed up by the Renal Service for his ESRD. Currently, he is on peritoneal dialysis. Due to the low blood pressure, minimal fluid is bein g removed with the PD. We removed about 300 mL of fluid from last night's peritoneal dialysis. He a lso had a bladder outlet obstruction. For that reason, he had a suprapubic catheter placed recently. He was also noted to be anemic yesterday with hemoglobin of 6.4. He was given 2 units of blood. Thee smith continues to have a low grade fever. He is currently on p.o. antibiotics. He also recently had de bridement of a sacral decubitus. No other complaints today. He is less agitated. He is less confus ed. He ate some breakfast today. OBJECTIVE: VITAL SIGNS: Blood pressure is 151/63, heart rate 105, respiratory rate 20, temperature 100.1, and p ulse ox 95% on room air. GENERAL: The patient is awake, lethargic, not in overt distress. SKIN: Adequate turgor. HEENT: Slightly pale conjunctivae, anicteric sclerae. NECK: No neck mass, no carotid bruits. No JVD. CHEST: No deformities. LUNGS: Clear breath sounds, no wheezing, no crackles. HEART: Normal sinus rhythm. No murmur, no gallops, no rubs. ABDOMEN: Globular, soft, nontender, no masses. Positive for PD catheter. EXTREMITIES: No edema, no deformities. MEDICATIONS: Of 09/26/2017 was reviewed. LABORATORY DATA: Of 09/26/2017, white count 12.1, hemoglobin 7.4, sodium 134, potassium 4.2, chlorid e 104, carbon dioxide 20, BUN 57, creatinine 5.61, calcium 7.6, and glucose 92. ASSESSMENT AND PLAN: 1. Low-grade fever, on empiric p.o. antibiotics. Continue supportive care. CT scan of the abdomen and pelvis was recently done and it showed no acute intra-abdominal pathology. His mild hydronephros is is also improved after the insertion of the suprapubic catheter. 2. Anemia, p.r.n. blood transfusion, continuing weekly Epogen at 10,000 units subcutaneously every w telida. 3. End-stage renal disease, stable. We will continue current peritoneal dialysis. No changes to be made at the present time. We are still using the 1.5% PD solution to minimize ultrafiltration. Ple ase note that the patient will want to be eventually converted to hemodialysis. Again, his overall p rognosis remains poor. Continue supportive care. Recheck base met and CBC in a.m.
--- NOTE | 2017-09-26 13:08 | PDOC.PN ---
- Subjective Encounter Start Date: 09/26/17 Encounter Start Time: 13:12 Patient seen and examined. He has multiple co-morbidities and admitted w sepsis , peritonitis. No complaints this morning. No acute events overnight. - Objective Resuscitation Status: Resuscitation Status DNR:Do Not Resuscitate MAR Reviewed: Yes Vital Signs & Weight: Vital Signs (12 hours) Temp Pulse Pulse Resp BP BP Pulse Ox 09/26/17 11:11 100.1 F H 111 H 22 H 131/67 93 L 09/26/17 09:15 106 H 151/63 H 09/26/17 09:08 151/63 H 09/26/17 08:43 100.1 F H 105 H 20 95 09/26/17 04:00 98.7 F 106 H 18 110/57 L 100 Weight Admit Weight 205 lb 14.588 oz Weight 248 lb 9.6 oz Most Recent Monitor Data Heart Rate from ECG 90 NIBP 97/66 NIBP BP-Mean 76 Respiration from ECG 18 SpO2 100 I&O: 09/25/17 09/26/17 09/27/17 06:59 06:59 06:59 Intake Total 1285 2135 Output Total 1000 425 290 Balance 285 1710 -290 Result Diagrams: 09/26/17 05:17 09/26/17 05:17 Additional Labs: Accuchecks 09/26/17 09/25/17 09/25/17 05:12 21:17 17:13 POC Glucose 102 106 91 09/25/17 10:59 POC Glucose 114 H Phys Exam - Physical Examination Constitutional: NAD HEENT: moist MMs, sclera anicteric Neck: supple, full ROM Respiratory: no wheezing, no rales, no rhonchi, clear to auscultation bilateral Cardiovascular: RRR, no significant murmur, no rub Gastrointestinal: soft, non-tender, no distention, positive bowel sounds Musculoskeletal: no edema, pulses present Skin: no rash, normal turgor Dx/Plan (1) Sepsis Code(s): A41.9 - SEPSIS, UNSPECIFIED ORGANISM Status: Acute Qualifiers: Sepsis type: Pseudomonas Qualified Code(s): A41.52 - Sepsis due to Pseudomonas Comment: Continue antibiotics. (2) Acute metabolic encephalopathy Code(s): G93.41 - METABOLIC ENCEPHALOPATHY Status: Resolved (3) C. difficile diarrhea Code(s): A04.72 - ENTEROCOLITIS D/T CLOSTRIDIUM DIFFICILE, NOT SPCF RECUR Status: Acute Comment: on PO vancomycin (4) Decubital ulcer Code(s): L89.90 - PRESSURE ULCER OF UNSPECIFIED SITE, UNSPECIFIED STAGE Status : Acute Qualifiers: Pressure ulcer location: buttock Pressure ulcer stage: unstageable Comment: necrotic ulcer, present on admission (5) Hypoalbuminemia due to protein-calorie malnutrition Code(s): E46 - UNSPECIFIED PROTEIN-CALORIE MALNUTRITION Status: Chronic (6) Hypothyroidism Code(s): E03.9 - HYPOTHYROIDISM, UNSPECIFIED Status: Acute Qualifiers: Hypothyroidism type: unspecified Qualified Code(s): E03.9 - Hypothyroidism , unspecified Comment: Continue levothyroxine (started this admission). (7) Anemia due to end stage renal disease Code(s): N18.6 - END STAGE RENAL DISEASE; D63.1 - ANEMIA IN CHRONIC KIDNEY DISEASE Status: Chronic Comment: s/p 5 units PRBC. (8) Anxiety and depression Code(s): F41.9 - ANXIETY DISORDER, UNSPECIFIED; F32.9 - MAJOR DEPRESSIVE DISORDER, SINGLE EPISODE, UNSPECIFIED Status: Chronic (9) ESRD on peritoneal dialysis Code(s): N18.6 - END STAGE RENAL DISEASE; Z99.2 - DEPENDENCE ON RENAL DIALYSIS Status: Chronic Comment: currently on PD as per nephrology (10) Physical deconditioning Code(s): R53.81 - OTHER MALAISE Status: Chronic Comment: (11) Secondary hyperparathyroidism of renal origin Code(s): N25.81 - SECONDARY HYPERPARATHYROIDISM OF RENAL ORIGIN Status: Chronic - Plan cont current plan of care, plan discussed w/ family, continue antibiotics, PT/OT , oncology social worker, DVT proph w/SCDs * . Review of Systems - Medications/Allergies Allergies/Adverse Reactions: Allergies Allergy/AdvReac Type Severity Reaction Status Date / Time iron Allergy Verified 09/14/17 13:20 Sulfa (Sulfonamide Allergy Verified 09/14/17 13:20 Antibiotics) Medications: Current Medications Acetaminophen (Tylenol) 650 mg PO Q4H PRN PRN Reason: Headache/Fever or Pain Last Admin: 09/19/17 21:28 Dose: 650 mg Al Hydroxide/Mg Hydroxide (Maalox) 30 ml PO Q6H PRN PRN Reason: Heartburn or Indigestion Albuterol/Ipratropium (Duoneb) 3 ml NEB [id number] PRN PRN Reason: SOB &/or Wheezing Amiodarone HCl (Cordarone) 100 mg PO DAILY [facility] Last Admin: 09/26/17 08:54 Dose: 100 mg Artificial Tears (Tears Renewed 15ml Bottle) 0 drop EA EYE PRN PRN PRN Reason: Dry Eyes Calcitriol (Rocaltrol) 0.25 mcg PO DAILY [facility] Last Admin: 09/26/17 08:54 Dose: 0.25 mcg Calcium Acetate (Phoslo) 1,334 mg PO TID-WM [facility] Last Admin: 09/26/17 08:54 Dose: 1,334 mg Ciprofloxacin (Cipro) 250 mg PO BID@0600,1999 [facility] Last Admin: 09/26/17 05:36 Dose: 250 mg Epoetin Ayaz (Procrit) 10,000 units SC Q7D [facility] Last Admin: 09/22/17 22:43 Dose: 10,000 units Famotidine (Pepcid) 20 mg PO DAILY [facility] Last Admin: 09/26/17 08:54 Dose: 20 mg Guaifenesin (Robitussin Sf) 200 mg PO Q4H PRN PRN Reason: Cough Dextrose/Sodium Chloride (D5 0.9% Ns) 1,000 mls @ 70 mls/hr IV .[id number] [facility] Last Admin: 09/26/17 05:36 Dose: 1,000 mls Levothyroxine Sodium (Synthroid) 50 mcg PO 0600 [facility] Last Admin: 09/26/17 05:36 Dose: 50 mcg Lidocaine (Lidoderm 5% Patch) 1 patch TD QAM [facility] Loperamide HCl (Imodium) 2 mg PO PRN PRN PRN Reason: Diarrhea/Loose Stools Magnesium Hydroxide (Milk Of Magnesium) 30 ml PO DAILYPRN PRN PRN Reason: Constipation Metoclopramide HCl (Reglan) 5 mg IVP Q8HR PRN PRN Reason: Nausea/Vomiting Metoprolol Tartrate (Lopressor) 25 mg PO BID [facility] Last Admin: 09/26/17 08:54 Dose: Not Given Midodrine (Proamatine) 5 mg PO DAILY [facility] Last Admin: 09/26/17 08:51 Dose: 5 mg Mineral Oil/White Petrolatum (Eucerin Cream) 0 gm TOP BIDPRN PRN PRN Reason: Dry Skin Miscellaneous Medication (Lidocaine Patch Removal) 1 each TOP QPM [facility] Morphine Sulfate (Morphine) 1 mg SLOW IVP Q8H PRN PRN Reason: Pain Last Admin: 09/26/17 08:50 Dose: 1 mg Neomycin/Polymyxin/Bacitracin (Triple Antibiotic) 0 gm TOP BID [facility] Last Admin: 09/25/17 22:22 Dose: Not Given Phenol (Chloraseptic [place] 180 Ml Bot) 0 ml PO PRN PRN PRN Reason: Sore Throat Potassium Chloride (K-Dur) 40 meq PO QAM-WM [facility] Last Admin: 09/26/17 08:53 Dose: 40 meq Saccharomyces Boulardii (Florastor) 250 mg PO DAILY [facility] Last Admin: 09/26/17 08:53 Dose: 250 mg Sevelamer Carbonate (Renvela) 2,400 mg PO TID [facility] Last Admin: 09/26/17 08:54 Dose: 2,400 mg Sodium Chloride ([place] Nasal [place] 0.65%) 0 ml EA NARE QIDPRN PRN PRN Reason: Nasal Congestion Sodium Chloride (Flush - Normal Saline) 10 ml IVF Q12HR [facility] [place] Last Admin: 09/26/17 08:55 Dose: Not Given Sodium Chloride (Flush - Normal Saline) 10 ml IVF PRN PRN PRN Reason: Saline Flush Sodium Chloride (Flush - Normal Saline) 10 ml IVF PRN PRN PRN Reason: Saline Flush Vancomycin HCl (First Vancomycin) 125 mg PO QID [facility] Last Admin: 09/26/17 08:50 Dose: 125 mg
[2017-09-26] MEDS: Lidocaine 5% Patch TD SCH (15:33)
[2017-09-26] MEDS: Triple Antibiotic Oint 1 GM Packet TOP SCH ×2 (16:19→22:07)
[2017-09-26] MEDS: Acetaminophen 325 MG TAB PO PRN (16:19)
[2017-09-27] MEDS: Lidocaine Patch Removal 1 EACH TOP SCH ×2 (01:47→22:11)
[2017-09-27] MEDS: Cipro 250 MG TAB PO SCH ×2 (05:53→22:10)
[2017-09-27] MEDS: Levothyroxine Sodium 50 MCG TAB PO SCH (05:53)
[2017-09-27 07:13] LABS: #Eosinphils 0.2 thou/uL (0.0-0.7); #Monocytes 0.8 thou/uL (0.11-0.59); #Neutrophils 11.3 thou/uL (1.40-6.50); %Basophils 0.2 % (0.0-1.0); %Eosinophils 1.6 % (0.0-10.0); %Lymphocytes 7.4 % (21.0-51.0); %Monocytes 5.9 % (0.0-10.0); Hemoglobin 7.9 g/dL (14.0-18.0); Mean Corpuscular HGB CONC 32.2 g/dL (32.0-36.0); Mean Corpuscular Hemoglobin 25.5 pg (27.0-31.0); Mean Corpuscular Volume 79.1 fL (78.0-98.0); Mean Platelet Volume 8.9 fL (7.4-10.4); Platelet Count 211 thou/uL (130-400); Red Blood Cell (RBC) Count 3.12 mill/uL (4.70-6.10); White Blood Cell (WBC) Count 13.3 thou/uL (4.8-10.8)
[2017-09-27 07:24] LABS: Anion Gap 15 mmol/L (10-20); BUN (Urea Nitrogen) 55 mg/dL (8.4-25.7); Calc. Creatinine Clearance 26 mL/min (70-130); Calcium 7.6 mg/dL (7.8-10.44); Carbon Dioxide 20 mmol/L (22-29); Chloride 105 mmol/L (98-107); Estimated GFR-MDRD 11; Glucose 78 mg/dL (70-105); Potassium 4.7 mmol/L (3.5-5.1); Sodium 135 mmol/L (136-145)
[2017-09-27] MEDS: Potassium Chloride 20 MEQ TAB PO SCH (11:11)
[2017-09-27] MEDS: Sevelamer Carbonate 800 MG TAB PO SCH ×3 (11:11→22:11)
[2017-09-27] MEDS: Amiodarone 200 MG TAB PO SCH (11:12)
[2017-09-27] MEDS: Calcitriol 0.25 MCG CAP PO SCH (11:12)
[2017-09-27] MEDS: Triple Antibiotic Oint 1 GM Packet TOP SCH ×2 (11:12→22:08)
[2017-09-27] MEDS: Metoprolol Tartrate 25 MG TAB PO SCH ×2 (11:12→22:10)
[2017-09-27] MEDS: Saccharomyces boulardii 250 MG CAP PO SCH (11:12)
[2017-09-27] MEDS: Calcium Acetate 667 MG CAP PO SCH ×3 (11:12→16:50)
[2017-09-27] MEDS: Vancomycin HCl 25 MG/ML Oral PO SCH ×4 (11:12→22:10)
[2017-09-27] MEDS: Dextrose 5 % And 0.9 % NaCl 1,000 ML IV SCH (11:13)
[2017-09-27] MEDS: Lidocaine 5% Patch TD SCH (11:13)
[2017-09-27] MEDS: Midodrine HCl 5 MG TAB PO SCH (11:13)
--- NOTE | 2017-09-27 12:10 | PRG ---
DATE OF SERVICE: 09/27/2017 SUBJECTIVE: Mr. Kamara is a 52-year-old white male with ESRD being followed up by the [facility]al [facility] for his maintenance peritoneal dialysis. We removed about 1.5 liter of PD fluid overnight. Please note we are only using 1.5% PD solution. This may be an effect of his increased blood pressure as w ell increase p.o. intake. No other complaints today, no chest pain or shortness of breath. It was noted by the nursing staff t hat there is some dehiscence on his AV fistula site. Wet to dry dressing was applied. We will be re -consulting surgery. I feel that we could still not use this due to the recent dehiscence. He may e ventually need a cuffed dialysis catheter placement prior to discharge. No other complaints today. His appetite is improving. His mentation much improved. OBJECTIVE: VITAL SIGNS: Blood pressure 134/63, heart rate 100, respiratory rate 20, temperature 98.5, pulse ox 100%. GENERAL: Awake, supine, comfortable, not in overt distress. SKIN: Adequate turgor. HEENT: He has slightly pale conjunctivae, anicteric sclerae. NECK: No neck mass, no carotid bruits, no JVD. CHEST: No deformities. LUNGS: Clear breath sounds, no wheezing, no crackles. HEART: Normal sinus rhythm. No murmur, no gallops or rubs. ABDOMEN: Globular, soft, nontender, no masses. Positive for PD catheter. BACK: Positive for decubitus ulcer. EXTREMITIES: No edema. He has a dehiscence of his left upper extremity -- AV fistula site. MEDICATIONS: Of 09/27/2017 was reviewed. LABORATORY DATA: Of 09/27/2017: White count 13.3, hemoglobin 7.9, hematocrit 24.6, platelet count 2 11,000. Sodium 135, potassium 4.7, chloride 105, carbon dioxide 20, BUN 55, creatinine 5.37, glucose 78, calcium 7.6. ASSESSMENT AND PLAN: 1. End-stage renal disease, stable. Tolerating current peritoneal dialysis. No changes in the PD r egimen. Please note he has a dehiscence of his AV fistula site. We will consult surgery. Please no te we may need to ask surgery to place a cuffed hemodialysis catheter prior to discharge. 2. Anemia, stable. P.r.n. blood transfusion and continue weekly Epogen regimen. 3. Status post sepsis, clinically much improved. 4. Chronic hypotension, improving. Continue midodrine. Continue supportive care. ADDENDUM: Hypokalemia, resolved on potassium supplementation. Recheck base met and CBC in a.m.
--- NOTE | 2017-09-27 12:19 | PDOC.PN ---
- Subjective Encounter Start Date: 09/27/17 Encounter Start Time: 12:30 Patient seen and examined. He has a h/o ESRD, polycystic kidney disease and recent colonoscopy which likely led to polyp peritonitis. He was admitted w sepsis, peritonitis. In addition, he had urinary retention requiring the placement of a suprapubic catheter. No complaints this morning. No acute events overnight. - Objective Resuscitation Status: Resuscitation Status DNR:Do Not Resuscitate Vital Signs & Weight: Vital Signs (12 hours) Temp Pulse Resp BP Pulse Ox 09/27/17 11:44 98.4 F 115 H 18 140/81 09/27/17 05:00 134/63 09/27/17 04:00 98.5 F 100 20 100 Weight Admit Weight 205 lb 14.588 oz Weight 242 lb 9 oz Most Recent Monitor Data Heart Rate from ECG 90 NIBP 97/66 NIBP BP-Mean 76 Respiration from ECG 18 SpO2 100 I&O: 09/26/17 09/27/17 09/28/17 06:59 06:59 06:59 Intake Total 2135 1577 Output Total 425 550 Balance 1710 1027 Result Diagrams: 09/27/17 07:00 09/27/17 07:00 Additional Labs: Accuchecks 09/27/17 09/26/17 09/26/17 05:31 22:24 17:24 POC Glucose 79 134 H 93 09/26/17 11:15 POC Glucose 95 Phys Exam - Physical Examination Constitutional: NAD HEENT: moist MMs, sclera anicteric Neck: supple, full ROM Respiratory: no wheezing, no rales, no rhonchi, clear to auscultation bilateral Cardiovascular: RRR, no significant murmur, no rub Gastrointestinal: soft, non-tender, no distention, positive bowel sounds Musculoskeletal: no edema, pulses present Dx/Plan (1) Sepsis Code(s): A41.9 - SEPSIS, UNSPECIFIED ORGANISM Status: Acute Qualifiers: Sepsis type: Pseudomonas Qualified Code(s): A41.52 - Sepsis due to Pseudomonas Comment: Continue antibiotics. (2) Acute metabolic encephalopathy Code(s): G93.41 - METABOLIC ENCEPHALOPATHY Status: Resolved (3) C. difficile diarrhea Code(s): A04.72 - ENTEROCOLITIS D/T CLOSTRIDIUM DIFFICILE, NOT SPCF RECUR Status: Acute Comment: on PO vancomycin (4) Hypoalbuminemia due to protein-calorie malnutrition Code(s): E46 - UNSPECIFIED PROTEIN-CALORIE MALNUTRITION Status: Chronic (5) Hypothyroidism Code(s): E03.9 - HYPOTHYROIDISM, UNSPECIFIED Status: Acute Qualifiers: Hypothyroidism type: unspecified Qualified Code(s): E03.9 - Hypothyroidism , unspecified Comment: Continue levothyroxine (started this admission). (6) Anemia due to end stage renal disease Code(s): N18.6 - END STAGE RENAL DISEASE; D63.1 - ANEMIA IN CHRONIC KIDNEY DISEASE Status: Chronic Comment: s/p 5 units PRBC. Hb stable. (7) Anxiety and depression Code(s): F41.9 - ANXIETY DISORDER, UNSPECIFIED; F32.9 - MAJOR DEPRESSIVE DISORDER, SINGLE EPISODE, UNSPECIFIED Status: Chronic (8) ESRD on peritoneal dialysis Code(s): N18.6 - END STAGE RENAL DISEASE; Z99.2 - DEPENDENCE ON RENAL DIALYSIS Status: Chronic Comment: Continue PD per nephrology. Planned to transition to HD. (9) Physical deconditioning Code(s): R53.81 - OTHER MALAISE Status: Chronic Comment: (10) Secondary hyperparathyroidism of renal origin Code(s): N25.81 - SECONDARY HYPERPARATHYROIDISM OF RENAL ORIGIN Status: Chronic - Plan cont current plan of care, plan discussed w/ family, continue antibiotics, PT/OT , DVT proph w/SCDs Poor overall prognosis. Will continue current management but then have a conversation with patient and his mother about goals of care. Review of Systems - Medications/Allergies Allergies/Adverse Reactions: Allergies Allergy/AdvReac Type Severity Reaction Status Date / Time iron Allergy Verified 09/14/17 13:20 Sulfa (Sulfonamide Allergy Verified 09/14/17 13:20 Antibiotics) Medications: Current Medications Acetaminophen (Tylenol) 650 mg PO Q4H PRN PRN Reason: Headache/Fever or Pain Last Admin: 09/26/17 16:19 Dose: 650 mg Al Hydroxide/Mg Hydroxide (Maalox) 30 ml PO Q6H PRN PRN Reason: Heartburn or Indigestion Albuterol/Ipratropium (Duoneb) 3 ml NEB [id number] PRN PRN Reason: SOB &/or Wheezing Amiodarone HCl (Cordarone) 100 mg PO DAILY [facility] Last Admin: 09/27/17 11:12 Dose: 100 mg Artificial Tears (Tears Renewed 15ml Bottle) 0 drop EA EYE PRN PRN PRN Reason: Dry Eyes Calcitriol (Rocaltrol) 0.25 mcg PO DAILY [facility] Last Admin: 09/27/17 11:12 Dose: 0.25 mcg Calcium Acetate (Phoslo) 1,334 mg PO TID-[facility] Last Admin: 09/27/17 11:12 Dose: 1,334 mg Ciprofloxacin (Cipro) 250 mg PO BID@0600,2000 [facility] Last Admin: 09/27/17 05:53 Dose: 250 mg Epoetin Ayaz (Procrit) 10,000 units SC Q7D [facility] Last Admin: 09/22/17 22:43 Dose: 10,000 units Famotidine (Pepcid) 20 mg PO DAILY [facility] Last Admin: 09/26/17 08:54 Dose: 20 mg Guaifenesin (Robitussin Sf) 200 mg PO Q4H PRN PRN Reason: Cough Dextrose/Sodium Chloride (D5 0.9% Ns) 1,000 mls @ 70 mls/hr IV .[id number] [facility] Last Admin: 09/27/17 11:13 Dose: 1,000 mls Levothyroxine Sodium (Synthroid) 50 mcg PO 0600 [facility] Last Admin: 09/27/17 05:53 Dose: 50 mcg Lidocaine (Lidoderm 5% Patch) 1 patch TD QAM [facility] Last Admin: 09/27/17 11:13 Dose: Not Given Loperamide HCl (Imodium) 2 mg PO PRN PRN PRN Reason: Diarrhea/Loose Stools Magnesium Hydroxide (Milk Of Magnesium) 30 ml PO DAILYPRN PRN PRN Reason: Constipation Metoclopramide HCl (Reglan) 5 mg IVP Q8HR PRN PRN Reason: Nausea/Vomiting Metoprolol Tartrate (Lopressor) 25 mg PO BID [facility] Last Admin: 09/27/17 11:12 Dose: 25 mg Midodrine (Proamatine) 5 mg PO DAILY [facility] Last Admin: 09/27/17 11:13 Dose: 5 mg Mineral Oil/White Petrolatum (Eucerin Cream) 0 gm TOP BIDPRN PRN PRN Reason: Dry Skin Miscellaneous Medication (Lidocaine Patch Removal) 1 each TOP QPM [facility] Last Admin: 09/27/17 01:47 Dose: Not Given Morphine Sulfate (Morphine) 1 mg SLOW IVP Q8H PRN PRN Reason: Pain Last Admin: 09/27/17 11:11 Dose: 1 mg Neomycin/Polymyxin/Bacitracin (Triple Antibiotic) 0 gm TOP BID [facility] Last Admin: 09/27/17 11:12 Dose: 1 gm Phenol (Chloraseptic [place] 180 Ml Bot) 0 ml PO PRN PRN PRN Reason: Sore Throat Potassium Chloride (K-Dur) 40 meq PO QAM-WM [facility] Last Admin: 09/27/17 11:11 Dose: 40 meq Saccharomyces Boulardii (Florastor) 250 mg PO DAILY [facility] Last Admin: 09/27/17 11:12 Dose: 250 mg Sevelamer Carbonate (Renvela) 2,400 mg PO TID [facility] Last Admin: 09/27/17 11:11 Dose: 2,400 mg Sodium Chloride ([place] Nasal [place] 0.65%) 0 ml EA NARE QIDPRN PRN PRN Reason: Nasal Congestion Sodium Chloride (Flush - Normal Saline) 10 ml IVF Q12HR [facility] Last Admin: 09/27/17 11:14 Dose: 10 ml Sodium Chloride (Flush - Normal Saline) 10 ml IVF PRN PRN PRN Reason: Saline Flush Sodium Chloride (Flush - Normal Saline) 10 ml IVF PRN PRN PRN Reason: Saline Flush Vancomycin HCl (First Vancomycin) 125 mg PO QID [facility] Last Admin: 09/27/17 11:12 Dose: 125 mg
--- NOTE | 2017-09-27 13:18 | PRG ---
DATE OF SERVICE: 09/27/2017 SUBJECTIVE: The patient appears to be more alert this morning, the patient's family at bedside. OBJECTIVE: VITAL SIGNS: Afebrile at 98, blood pressure is stable 134/63. Urine output via SP tube 260cc pink tinged. The patient on peritoneal dialysis . Suprapubic tube is adequately secured. GENITOURINARY: No significant change, mottled glands, bilateral scrotal erythema, excoriation, there is no fluctuant abscess per se. Erythema of the medial thigh noted as well. Wound care service at bedside. He has been treated with InterDry to keep skin on skin contact as it appears to be irritating his skin. LABORATORY DATA: White blood cell count 13, hemoglobin 7.9, platelets 211. IMPRESSION AND PLAN: 1. Mr. Jamison is a 52-year-old male with history of polycystic kidney disease, on PD catheter; admitted for peritonitis, on ciprofloxacin. 2. Suprapubic tube placed due to distended bladder. 3. Extensive sacral decubitus ulcer, exam is stable. His prognosis is poor , previously he was seen by palliative care. It would be prudent to reevaluate with palliative care as he is high risk for nonhealing ulcers / wounds, despite surgical intervention. Dr. Brunner to resume care tomorrow. NESTOR
[2017-09-27] MEDS ORDERED: Dextrose 50% Abboject 50 ML SYRINGE ONE (17:10)
[2017-09-27] MEDS ORDERED: HumaLOG 300 UNITS/3 ML VIAL SC PRN (17:14)
[2017-09-27] MEDS ORDERED: Dextrose 5% in Water 1,000 ML IV PRN (17:14)
[2017-09-28] MEDS: Acetaminophen 325 MG TAB PO PRN (01:34)
[2017-09-28] MEDS: Dextrose 5 % And 0.9 % NaCl 1,000 ML IV SCH ×2 (04:42→13:11)
[2017-09-28 05:32] LABS: #Eosinphils 0.2 thou/uL (0.0-0.7); #Lymphocytes 0.9 thou/uL (1.20-3.40); #Monocytes 0.8 thou/uL (0.11-0.59); #Neutrophils 10.7 thou/uL (1.40-6.50); %Eosinophils 1.5 % (0.0-10.0); %Lymphocytes 6.9 % (21.0-51.0); %Neutrophils 85.7 % (42.0-75.0); Hemoglobin 6.6 g/dL (14.0-18.0); Mean Corpuscular HGB CONC 31.5 g/dL (32.0-36.0); Mean Corpuscular Hemoglobin 25.4 pg (27.0-31.0); Mean Corpuscular Volume 80.7 fL (78.0-98.0); Mean Platelet Volume 8.5 fL (7.4-10.4); Platelet Count 202 thou/uL (130-400); RBC Distribution Width 18.7 % (11.5-14.5); Red Blood Cell (RBC) Count 2.61 mill/uL (4.70-6.10); White Blood Cell (WBC) Count 12.5 thou/uL (4.8-10.8)
[2017-09-28 05:58] LABS: Anion Gap 14 mmol/L (10-20); BUN (Urea Nitrogen) 59 mg/dL (8.4-25.7); Calc. Creatinine Clearance 26 mL/min (70-130); Calcium 7.7 mg/dL (7.8-10.44); Carbon Dioxide 21 mmol/L (22-29); Chloride 105 mmol/L (98-107); Estimated GFR-MDRD 12; Glucose 102 mg/dL (70-105); Potassium 4.7 mmol/L (3.5-5.1); Sodium 135 mmol/L (136-145)
[2017-09-28] MEDS: Cipro 250 MG TAB PO SCH ×2 (07:54→22:08)
[2017-09-28] MEDS: Levothyroxine Sodium 50 MCG TAB PO SCH (07:55)
--- NOTE | 2017-09-28 09:16 | PRG ---
DATE OF SERVICE: 09/28/2017 SUBJECTIVE: Mr. Kamara is a 52-year-old white male being followed by the Renal Service for his ES RD. He is currently on peritoneal dialysis. During the last couple of weeks the patient remains uni mproved. He was again noted to be anemic. He has also has had a previous GI bleed. He has also an ongoing sacral decubitus which has undergone debridement by Dr. Mullins. He also developed bladder di stention and a suprapubic catheter has been placed. No acute events noted last night. Consideration for palliative care is being made. This issue will be discussed with the patient's mot her. OBJECTIVE: VITAL SIGNS: Blood pressure is currently 93/55, heart rate 92, respiratory rate 20, temperature 97.8 , pulse ox 95. GENERAL: Noted to be awake, but lethargic, not in overt distress. SKIN: Adequate turgor. HEENT: Pale conjunctivae, anicteric sclerae. NECK: No neck mass, no carotid bruits, no JVD. CHEST: No deformities. LUNGS: Clear breath sounds. No wheezing, no crackles. HEART: Normal sinus rhythm. No murmur, no gallops or rubs. ABDOMEN: Globular, soft, nontender, no masses. Positive for PD catheter. BACK: Positive for sacral decubitus. EXTREMITIES: No edema. MEDICATIONS: 09/28/2017 - Reviewed. LABORATORY DATA: 09/28/2017 - White count 12.5, hemoglobin 6.2. Please note his hemoglobin is 6.6. ASSESSMENT AND PLAN: 1. Anemia - we will transfuse 1-2 units of packed RBC once he has a central line. 2. Nonfunctional AV fistula - the patient will be consulted for placement of a dialysis catheter as well as central line. 3. Sepsis syndrome - patient being empirically treated with Cipro. Overall, prognosis remains poor with this patient. Discussed with the mother regarding palliative ca re. ADDENDUM: He underwent peritoneal dialysis without any difficulty last night. Continue supportive c are.
[2017-09-28] MEDS: Vancomycin HCl 25 MG/ML Oral PO SCH ×4 (10:00→22:07)
[2017-09-28] MEDS: Calcium Acetate 667 MG CAP PO SCH ×3 (10:08→19:46)
[2017-09-28] MEDS: Potassium Chloride 20 MEQ TAB PO SCH (10:09)
[2017-09-28] MEDS: Sevelamer Carbonate 800 MG TAB PO SCH ×3 (10:11→22:24)
[2017-09-28] MEDS: Saccharomyces boulardii 250 MG CAP PO SCH (10:12)
[2017-09-28] MEDS: Metoprolol Tartrate 25 MG TAB PO SCH (10:12)
[2017-09-28] MEDS: Famotidine 20 MG TAB PO SCH (10:12)
[2017-09-28] MEDS: Amiodarone 200 MG TAB PO SCH (10:12)
[2017-09-28] MEDS: Lidocaine 5% Patch TD SCH (10:13)
[2017-09-28] MEDS: Triple Antibiotic Oint 1 GM Packet TOP SCH ×2 (10:14→22:07)
[2017-09-28] MEDS: Midodrine HCl 5 MG TAB PO SCH (10:14)
[2017-09-28] MEDS: Calcitriol 0.25 MCG CAP PO SCH (10:16)
--- NOTE | 2017-09-28 13:08 | PDOC.PN ---
- Subjective Encounter Start Date: 09/28/17 Encounter Start Time: 13:10 Patient seen and examined. He has a h/o ESRD, polycystic kidney disease and recent colonoscopy which likely led to polyp peritonitis. He was admitted w sepsis, peritonitis. In addition, he had urinary retention requiring the placement of a suprapubic catheter. No complaints this morning. - Objective Resuscitation Status: Resuscitation Status DNR:Do Not Resuscitate MAR Reviewed: Yes Vital Signs & Weight: Vital Signs (12 hours) Temp Pulse Resp BP Pulse Ox 09/28/17 10:58 98.1 F 99 20 95/50 L 92 L 09/28/17 08:00 98.5 F 96 20 93/55 L 92 L 09/28/17 04:00 97.8 F 92 20 93/55 L 95 Weight Admit Weight 205 lb 14.588 oz Weight 245 lb Most Recent Monitor Data Heart Rate from ECG 90 NIBP 97/66 NIBP BP-Mean 76 Respiration from ECG 18 SpO2 100 I&O: 09/27/17 09/28/17 09/29/17 06:59 06:59 06:59 Intake Total 1577 1674 Output Total 550 1800 Balance 1027 -126 Result Diagrams: 09/28/17 05:01 09/28/17 05:01 Additional Labs: Accuchecks 09/28/17 09/27/17 09/27/17 06:07 22:09 18:07 POC Glucose 110 125 H 72 09/27/17 09/27/17 17:10 11:17 POC Glucose 44 L* 63 L Phys Exam - Physical Examination Constitutional: NAD HEENT: moist MMs, sclera anicteric Neck: supple, full ROM Respiratory: no wheezing, no rales, no rhonchi, clear to auscultation bilateral Cardiovascular: RRR, no significant murmur, no rub Gastrointestinal: soft, non-tender, no distention, positive bowel sounds Musculoskeletal: pulses present, edema present Neurological: non-focal, moves all 4 limbs Dx/Plan (1) Sepsis Code(s): A41.9 - SEPSIS, UNSPECIFIED ORGANISM Status: Acute Qualifiers: Sepsis type: Pseudomonas Qualified Code(s): A41.52 - Sepsis due to Pseudomonas Comment: Developed a fever. Cultures taken. Continue cipro and f/u results. ID on board. (2) C. difficile diarrhea Code(s): A04.72 - ENTEROCOLITIS D/T CLOSTRIDIUM DIFFICILE, NOT SPCF RECUR Status: Acute Comment: on PO vancomycin (3) Hypoalbuminemia due to protein-calorie malnutrition Code(s): E46 - UNSPECIFIED PROTEIN-CALORIE MALNUTRITION Status: Chronic (4) Hypothyroidism Code(s): E03.9 - HYPOTHYROIDISM, UNSPECIFIED Status: Acute Qualifiers: Hypothyroidism type: unspecified Qualified Code(s): E03.9 - Hypothyroidism , unspecified Comment: Continue levothyroxine (started this admission). (5) Anemia due to end stage renal disease Code(s): N18.6 - END STAGE RENAL DISEASE; D63.1 - ANEMIA IN CHRONIC KIDNEY DISEASE Status: Chronic Comment: s/p 5 units PRBC. Hb stable. (6) Anxiety and depression Code(s): F41.9 - ANXIETY DISORDER, UNSPECIFIED; F32.9 - MAJOR DEPRESSIVE DISORDER, SINGLE EPISODE, UNSPECIFIED Status: Chronic (7) ESRD on peritoneal dialysis Code(s): N18.6 - END STAGE RENAL DISEASE; Z99.2 - DEPENDENCE ON RENAL DIALYSIS Status: Chronic Comment: Continue PD per nephrology. Planned to transition to HD. (8) Physical deconditioning Code(s): R53.81 - OTHER MALAISE Status: Chronic Comment: (9) Secondary hyperparathyroidism of renal origin Code(s): N25.81 - SECONDARY HYPERPARATHYROIDISM OF RENAL ORIGIN Status: Chronic - Plan cont current plan of care, plan discussed w/ family, continue antibiotics, PT/OT , older adult social work specialist Discussion held with patient's mom and caregiver about palliative care versus hospice. She is open to speaking to them. They have been contacted and will speak to her. In the meantime we will continue current management. Review of Systems - Review of Systems Constitutional: fever - Medications/Allergies Allergies/Adverse Reactions: Allergies Allergy/AdvReac Type Severity Reaction Status Date / Time iron Allergy Verified 09/14/17 13:20 Sulfa (Sulfonamide Allergy Verified 09/14/17 13:20 Antibiotics) Medications: Current Medications Acetaminophen (Tylenol) 650 mg PO Q4H PRN PRN Reason: Headache/Fever or Pain Last Admin: 09/28/17 01:34 Dose: 650 mg Al Hydroxide/Mg Hydroxide (Maalox) 30 ml PO Q6H PRN PRN Reason: Heartburn or Indigestion Albuterol/Ipratropium (Duoneb) 3 ml NEB [id number] PRN PRN Reason: SOB &/or Wheezing Amiodarone HCl (Cordarone) 100 mg PO DAILY [facility] Last Admin: 09/28/17 10:12 Dose: 100 mg Artificial Tears (Tears Renewed 15ml Bottle) 0 drop EA EYE PRN PRN PRN Reason: Dry Eyes Calcitriol (Rocaltrol) 0.25 mcg PO DAILY [facility] Last Admin: 09/28/17 10:16 Dose: 0.25 mcg Calcium Acetate (Phoslo) 1,334 mg PO TID-WM [facility] Last Admin: 09/28/17 10:08 Dose: 1,334 mg Ciprofloxacin (Cipro) 250 mg PO BID@0600,1999 [facility] Last Admin: 09/28/17 07:54 Dose: Not Given Dextrose/Water (Dextrose 50%) 25 gm SLOW IVP PRN PRN PRN Reason: Hypoglycemia Epoetin Ayaz (Procrit) 10,000 units SC Q7D [facility] Last Admin: 09/22/17 22:43 Dose: 10,000 units Famotidine (Pepcid) 20 mg PO DAILY [facility] Last Admin: 09/28/17 10:12 Dose: 20 mg Glucagon (Glucagon) 1 mg IM PRN PRN PRN Reason: Hypoglycemia Guaifenesin (Robitussin Sf) 200 mg PO Q4H PRN PRN Reason: Cough Dextrose/Sodium Chloride (D5 0.9% Ns) 1,000 mls @ 70 mls/hr IV .[id number] [facility] Last Admin: 09/28/17 04:42 Dose: 1,000 mls Dextrose/Water (D5w) 1,000 mls @ 0 mls/hr IV .Q0M PRN; As Directed PRN Reason: Hypoglycemia Insulin Human Lispro (Humalog) 0 units SC .MILD SLIDING SCALE PRN PRN Reason: Mild Correctional Scale Levothyroxine Sodium (Synthroid) 50 mcg PO 0600 [facility] Last Admin: 09/28/17 07:55 Dose: Not Given Lidocaine (Lidoderm 5% Patch) 1 patch TD QAM [facility] Last Admin: 09/28/17 10:13 Dose: Not Given Loperamide HCl (Imodium) 2 mg PO PRN PRN PRN Reason: Diarrhea/Loose Stools Magnesium Hydroxide (Milk Of Magnesium) 30 ml PO DAILYPRN PRN PRN Reason: Constipation Metoclopramide HCl (Reglan) 5 mg IVP Q8HR PRN PRN Reason: Nausea/Vomiting Metoprolol Tartrate (Lopressor) 25 mg PO BID [facility] Last Admin: 09/28/17 10:12 Dose: 25 mg Midodrine (Proamatine) 5 mg PO DAILY [facility] Last Admin: 09/28/17 10:14 Dose: 5 mg Mineral Oil/White Petrolatum (Eucerin Cream) 0 gm TOP BIDPRN PRN PRN Reason: Dry Skin Miscellaneous Medication (Lidocaine Patch Removal) 1 each TOP QPM [facility] Last Admin: 09/27/17 22:11 Dose: Not Given Morphine Sulfate (Morphine) 1 mg SLOW IVP Q4H PRN PRN Reason: Pain Last Admin: 09/28/17 01:49 Dose: 1 mg Neomycin/Polymyxin/Bacitracin (Triple Antibiotic) 0 gm TOP BID [facility] Last Admin: 09/28/17 10:14 Dose: 1 gm Phenol (Chloraseptic [place] 180 Ml Bot) 0 ml PO PRN PRN PRN Reason: Sore Throat Potassium Chloride (K-Dur) 40 meq PO QAM-WM [facility] Last Admin: 09/28/17 10:09 Dose: 40 meq Saccharomyces Boulardii (Florastor) 250 mg PO DAILY [facility] Last Admin: 09/28/17 10:12 Dose: 250 mg Sevelamer Carbonate (Renvela) 2,400 mg PO TID [facility] Last Admin: 09/28/17 10:11 Dose: 2,400 mg Sodium Chloride ([place] Nasal [place] 0.65%) 0 ml EA NARE QIDPRN PRN PRN Reason: Nasal Congestion Sodium Chloride (Flush - Normal Saline) 10 ml IVF Q12HR [facility] Last Admin: 09/28/17 11:26 Dose: Not Given Sodium Chloride (Flush - Normal Saline) 10 ml IVF PRN PRN PRN Reason: Saline Flush Sodium Chloride (Flush - Normal Saline) 10 ml IVF PRN PRN PRN Reason: Saline Flush Vancomycin HCl (First Vancomycin) 125 mg PO QID [facility] Last Admin: 09/27/17 22:10 Dose: 125 mg
--- NOTE | 2017-09-28 18:21 | PRG ---
DATE OF SERVICE: 09/28/2017 SUBJECTIVE: Mr. Kamara is awake, chronically ill appearing, in no acute distress. No dyspnea or a bdominal pain. OBJECTIVE: VITAL SIGNS: T-max 98.5, BP 116/57, pulse 97, respirations 18, O2 sat 93%. SKIN: Kind of a grayish color of his skin. HEENT: Pale conjunctivae. Oral cavity is moist. NECK: Supple. LUNGS: Symmetric air entry. HEART: S1, S2 regular rate. ABDOMEN: Less distended, not tender to palpation. Peritoneal dialysis catheter in place. White cell count 12.5, hemoglobin 6.6, platelets 202. Sodium 135, creatinine 5.27. ASSESSMENT: End-stage renal disease; polycystic kidney; colonoscopy and polypectomy with subsequent peritonitis, polymicrobial; necrotic ulcers in the gluteal region, status post surgical debridement; urinary retention with suprapubic catheter placed; and Clostridium difficile, which has been treated with vancomycin and subsequent taper. He is currently on ciprofloxacin and to be [facility] approximately. He is on oral vancomycin as well.
--- NOTE | 2017-09-28 20:29 | RAD ---
FRONTAL RADIOGRAPH CHEST PORTABLE UPRIGHT: 09/28/2017 HISTORY: Evaluate chest following central line placement. COMPARISON: 09/14/2017 FINDINGS: There is a left-sided central vascular catheter, with the distal tip overlying the expected location of the cavoatrial junction. Heart and mediastinal contours are stable. No pneumothorax, pleural flu id, lobar consolidation, or alveolar edema. IMPRESSION: Left-sided vascular catheter, as above. POS: DANO
--- NOTE | 2017-09-28 21:01 | PRG ---
DATE OF SERVICE: 09/28/2017 Shaheen Kamara is undergoing peritoneal dialysis. We have planned access of his left upper arm dial ysis graft. However, the wounds overlying the surgical incisions overlying the graft, brachial arter y anastomosis and incision of the left axilla, graft vein anastomosis have fallen apart exposing unde rlying graft. The patient's cirrhosis, anasarca, muscle wasting, bedridden state, end-stage renal di sease, multiple organ failure has compromise wound healing in his graft could not be accessed. I layo smith discussed with the patient's hospice care. He has asked about that as how long he would live if e peritoneal dialysis was stopped. I told him 2 to 7 days. The patient is contemplating hospice car e, but at this time wants central line, which I will place under ultrasound.
[2017-09-28] MEDS: Dextrose 50% Abboject 50 ML SYRINGE SLOW IVP PRN (22:09)
--- NOTE | 2017-09-28 23:45 | OP ---
PREOPERATIVE DIAGNOSES: End-stage renal disease, anasarca, cirrhosis, poor wound healing, lack of IV access. The patient contemplating hospice care. POSTOPERATIVE DIAGNOSES: End-stage renal disease, anasarca, cirrhosis, poor wound healing, lack of I V access. The patient contemplating hospice care. PROCEDURE: Left IJ central line, ultrasound facilitated. SURGEON: Bharat Mullins M.D. ANESTHESIA: A 1% Xylocaine. PROCEDURE IN DETAIL: The patient at bedside in his room after informed consent, left side of his nec k was prepared with ChloraPrep, draped in routine fashion. Local anesthetic infiltrated into the ski n and subcutaneous tissue and ultrasound used to cannulate the left internal jugular vein. J-wire th readed. Trocar catheter removed. Skin incised and enlarged sharply. Seldinger technique used to pl ken a triple lumen catheter, secured with 3-0 nylon suture and J-wire removed. Biopatch sterile dres sing applied. Each port aspirated blood and flushed with saline solution.
[2017-09-29] MEDS: Cipro 250 MG TAB PO SCH ×2 (04:52→21:52)
[2017-09-29] MEDS: Dextrose 5 % And 0.9 % NaCl 1,000 ML IV SCH ×3 (04:52→21:54)
[2017-09-29] MEDS: Levothyroxine Sodium 50 MCG TAB PO SCH (04:53)
[2017-09-29] MEDS: Dextrose 50% Abboject 50 ML SYRINGE SLOW IVP PRN ×2 (05:40→16:11)
[2017-09-29] MEDS: Lidocaine Patch Removal 1 EACH TOP SCH ×2 (08:53→22:39)
[2017-09-29] MEDS: Metoprolol Tartrate 25 MG TAB PO SCH ×3 (08:53→21:52)
--- NOTE | 2017-09-29 09:13 | PRG ---
DATE OF SERVICE: 09/29/2017 SERVICE: Renal Medicine. SUBJECTIVE: Mr. Kamara is a 52-year-old white male with ESRD and currently on peritoneal dialysis. Patient has multiple medical events during this hospitalization. Discussion with palliative care h as been done. The patient is still undecided whether he wants to pursue palliative care and/or hospi ce. For the moment, he is wanting to continue active treatment. In the interim, a central line has been placed by Dr. Mullins. The patient received 2 units of packed RBC yesterday. This morning, he is feeling a little better. The patient's hospital course has been marred by hypoglycemia. He is currently on D5 IV fluid. No acute event this chemical operations specialist. This m orning, the patient states that he is feeling a little better after the blood transfusion. OBJECTIVE: VITAL SIGNS: Blood pressure 111/59, heart rate 104, respiratory rate 20, temperature 98.5. GENERAL EXAM: Awake, supine, comfortable, not in distress, lethargic. SKIN: Decreased turgor. HEENT: Slightly pale conjunctivae, anicteric sclerae. NECK: No neck mass. No carotid bruits, no JVD. CHEST: No deformities. LUNGS: Decreased breath sounds, no wheezing. HEART: Normal sinus rhythm. No murmur, no gallops, no rubs. ABDOMEN: Globular, soft, nontender. Positive for bowel sounds. Positive for PD catheter. EXTREMITIES: No edema. BACK: Positive for sacral decubitus. Medications of 09/29/2017 reviewed. LABORATORY DATA: Laboratories of 09/28/2017, white count 12.5, hemoglobin 6.6. Sodium 135, potassiu m 4.7, chloride 105, carbon dioxide 21, BUN 59, creatinine 5.27. ASSESSMENT AND PLAN: 1. End-stage renal disease. Continue current continuous cycling peritoneal dialysis regimen. No ch anges will be made with this current peritoneal dialysis. 2. Failure to thrive - the patient has multiple medical problems and has not recovered during the several weeks of hospitalization. He continues to have significant anemia. He is receiving Epoge n and p.r.n. blood transfusion. 3. He has also sacral decubitus, which is not healing well due to his poor overall medical status. I am very doubtful that this patient will be able to go home. 4. Anemia - we will continue weekly Epogen. I had a long discussion with the family regarding palli ative care. The patient is still able to make decision and would like to continue everything as is f or the moment. We will be rechecking a basic metabolic panel and CBC in a.m. Continue supportive care.
[2017-09-29 09:18] LABS: #Eosinphils 0.2 thou/uL (0.0-0.7); #Lymphocytes 0.7 thou/uL (1.20-3.40); #Monocytes 0.7 thou/uL (0.11-0.59); #Neutrophils 9.1 thou/uL (1.40-6.50); %Basophils 0.1 % (0.0-1.0); %Eosinophils 1.8 % (0.0-10.0); %Lymphocytes 6.1 % (21.0-51.0); %Monocytes 6.8 % (0.0-10.0); %Neutrophils 85.2 % (42.0-75.0); Hemoglobin 8.2 g/dL (14.0-18.0); Mean Corpuscular HGB CONC 32.2 g/dL (32.0-36.0); Mean Corpuscular Hemoglobin 26.3 pg (27.0-31.0); Mean Corpuscular Volume 81.6 fL (78.0-98.0); Mean Platelet Volume 8.7 fL (7.4-10.4); Platelet Count 181 thou/uL (130-400); RBC Distribution Width 17.6 % (11.5-14.5); White Blood Cell (WBC) Count 10.6 thou/uL (4.8-10.8)
[2017-09-29 09:40] LABS: Anion Gap 11 mmol/L (10-20); BUN (Urea Nitrogen) 59 mg/dL (8.4-25.7); Calc. Creatinine Clearance 27 mL/min (70-130); Calcium 7.5 mg/dL (7.8-10.44); Carbon Dioxide 23 mmol/L (22-29); Chloride 104 mmol/L (98-107); Estimated GFR-MDRD 12; Glucose 95 mg/dL (70-105); Potassium 4.9 mmol/L (3.5-5.1); Sodium 133 mmol/L (136-145)
[2017-09-29] MEDS: Saccharomyces boulardii 250 MG CAP PO SCH (10:54)
[2017-09-29] MEDS: Vancomycin HCl 25 MG/ML Oral PO SCH ×4 (10:54→21:53)
[2017-09-29] MEDS: Famotidine 20 MG TAB PO SCH (10:55)
[2017-09-29] MEDS: Amiodarone 200 MG TAB PO SCH (10:55)
[2017-09-29] MEDS: Sevelamer Carbonate 800 MG TAB PO SCH ×3 (10:55→21:52)
[2017-09-29] MEDS: Potassium Chloride 20 MEQ TAB PO SCH (10:56)
[2017-09-29] MEDS: Triple Antibiotic Oint 1 GM Packet TOP SCH ×2 (10:56→21:52)
[2017-09-29] MEDS: Calcitriol 0.25 MCG CAP PO SCH (10:56)
[2017-09-29] MEDS: Calcium Acetate 667 MG CAP PO SCH ×3 (10:56→18:28)
[2017-09-29] MEDS: Lidocaine 5% Patch TD SCH (10:57)
[2017-09-29] MEDS: Midodrine HCl 5 MG TAB PO SCH (11:01)
[2017-09-29] MEDS: Epoetin (ESRD) 10,000 UNITS/ML VIAL SC SCH (11:21)
--- NOTE | 2017-09-29 17:36 | PDOC.PN ---
- Subjective Encounter Start Date: 09/29/17 Encounter Start Time: 17:36 Patient seen and examined. He has a h/o ESRD, polycystic kidney disease and recent colonoscopy which likely led to polyp peritonitis. He was admitted w sepsis, peritonitis. In addition, he had urinary retention requiring the placement of a suprapubic catheter. No complaints this morning. - Objective Resuscitation Status: Resuscitation Status DNR:Do Not Resuscitate MAR Reviewed: Yes Vital Signs & Weight: Vital Signs (12 hours) Temp Pulse Pulse Resp BP BP Pulse Ox 09/29/17 15:51 98.4 F 92 20 96/60 100 09/29/17 11:56 98.4 F 100 20 86/51 L 100 09/29/17 08:40 98.4 F 92 20 100 09/29/17 08:02 98.5 F 105 H 20 111/59 L Weight Admit Weight 205 lb 14.588 oz Weight 239 lb 3.225 oz Most Recent Monitor Data Heart Rate from ECG 110 NIBP 96/64 NIBP BP-Mean 72 Respiration from ECG 15 SpO2 100 I&O: 09/28/17 09/29/17 09/30/17 06:59 06:59 06:59 Intake Total 1674 2370 Output Total 1800 75 Balance -126 2295 Result Diagrams: 09/29/17 09:12 09/29/17 09:12 Additional Labs: Accuchecks 09/29/17 09/29/17 09/29/17 16:42 16:04 10:56 POC Glucose 97 47 L* 87 09/29/17 09/29/17 09/28/17 06:27 05:35 22:33 POC Glucose 91 59 L* 71 09/28/17 09/28/17 09/28/17 22:02 21:21 10:47 POC Glucose 49 L* 57 L* 102 09/28/17 08:09 POC Glucose 97 Phys Exam - Physical Examination Constitutional: NAD HEENT: moist MMs, sclera anicteric Neck: supple, full ROM Respiratory: no wheezing, no rales, no rhonchi, clear to auscultation bilateral Cardiovascular: RRR, no significant murmur, no rub Gastrointestinal: soft, non-tender, no distention, positive bowel sounds Musculoskeletal: edema present Neurological: non-focal Dx/Plan (1) Sepsis Code(s): A41.9 - SEPSIS, UNSPECIFIED ORGANISM Status: Acute Qualifiers: Sepsis type: Pseudomonas Qualified Code(s): A41.52 - Sepsis due to Pseudomonas Comment: Developed a fever. Cultures taken. Continue cipro and f/u results. ID on board. (2) C. difficile diarrhea Code(s): A04.72 - ENTEROCOLITIS D/T CLOSTRIDIUM DIFFICILE, NOT SPCF RECUR Status: Acute Comment: on PO vancomycin (3) Hypoalbuminemia due to protein-calorie malnutrition Code(s): E46 - UNSPECIFIED PROTEIN-CALORIE MALNUTRITION Status: Chronic (4) Hypothyroidism Code(s): E03.9 - HYPOTHYROIDISM, UNSPECIFIED Status: Acute Qualifiers: Hypothyroidism type: unspecified Qualified Code(s): E03.9 - Hypothyroidism , unspecified Comment: Continue levothyroxine (started this admission). (5) Anemia due to end stage renal disease Code(s): N18.6 - END STAGE RENAL DISEASE; D63.1 - ANEMIA IN CHRONIC KIDNEY DISEASE Status: Chronic Comment: s/p 5 units PRBC. Hb stable. (6) Anxiety and depression Code(s): F41.9 - ANXIETY DISORDER, UNSPECIFIED; F32.9 - MAJOR DEPRESSIVE DISORDER, SINGLE EPISODE, UNSPECIFIED Status: Chronic (7) ESRD on peritoneal dialysis Code(s): N18.6 - END STAGE RENAL DISEASE; Z99.2 - DEPENDENCE ON RENAL DIALYSIS Status: Chronic Comment: Continue PD per nephrology. Planned to transition to HD. (8) Physical deconditioning Code(s): R53.81 - OTHER MALAISE Status: Chronic Comment: (9) Secondary hyperparathyroidism of renal origin Code(s): N25.81 - SECONDARY HYPERPARATHYROIDISM OF RENAL ORIGIN Status: Chronic - Plan cont current plan of care, plan discussed w/ family, continue antibiotics, psychiatric social worker Palliative care met with patient today and he wants aggressive therapy. Will continue antibiotics and monitor closely Case management consult for placement options He is being transitioned to hemodialysis. Review of Systems - Medications/Allergies Allergies/Adverse Reactions: Allergies Allergy/AdvReac Type Severity Reaction Status Date / Time iron Allergy Verified 09/14/17 13:20 Sulfa (Sulfonamide Allergy Verified 09/14/17 13:20 Antibiotics) Medications: Current Medications Acetaminophen (Tylenol) 650 mg PO Q4H PRN PRN Reason: Headache/Fever or Pain Last Admin: 09/28/17 01:34 Dose: 650 mg Al Hydroxide/Mg Hydroxide (Maalox) 30 ml PO Q6H PRN PRN Reason: Heartburn or Indigestion Albuterol/Ipratropium (Duoneb) 3 ml NEB [id number] PRN PRN Reason: SOB &/or Wheezing Amiodarone HCl (Cordarone) 100 mg PO DAILY [facility] Last Admin: 09/29/17 10:55 Dose: 100 mg Artificial Tears (Tears Renewed 15ml Bottle) 0 drop EA EYE PRN PRN PRN Reason: Dry Eyes Calcitriol (Rocaltrol) 0.25 mcg PO DAILY [facility] Last Admin: 09/29/17 10:56 Dose: 0.25 mcg Calcium Acetate (Phoslo) 1,334 mg PO TID-[facility] Last Admin: 09/29/17 13:05 Dose: Not Given Ciprofloxacin (Cipro) 250 mg PO BID@0600,2000 [facility] Last Admin: 09/29/17 04:52 Dose: 250 mg Dextrose/Water (Dextrose 50%) 25 gm SLOW IVP PRN PRN PRN Reason: Hypoglycemia Last Admin: 09/29/17 16:11 Dose: 25 gm Epoetin Ayaz (Procrit) 10,000 units SC Q7D [facility] Last Admin: 09/29/17 11:21 Dose: 10,000 units Famotidine (Pepcid) 20 mg PO DAILY [facility] Last Admin: 09/29/17 10:55 Dose: 20 mg Glucagon (Glucagon) 1 mg IM PRN PRN PRN Reason: Hypoglycemia Guaifenesin (Robitussin Sf) 200 mg PO Q4H PRN PRN Reason: Cough Dextrose/Sodium Chloride (D5 0.9% Ns) 1,000 mls @ 70 mls/hr IV .[id number] [facility] Last Admin: 09/29/17 14:33 Dose: Not Given Dextrose/Water (D5w) 1,000 mls @ 0 mls/hr IV .Q0M PRN; As Directed PRN Reason: Hypoglycemia Insulin Human Lispro (Humalog) 0 units SC .MILD SLIDING SCALE PRN PRN Reason: Mild Correctional Scale Levothyroxine Sodium (Synthroid) 50 mcg PO 0600 [facility] Last Admin: 09/29/17 04:53 Dose: 50 mcg Lidocaine (Lidoderm 5% Patch) 1 patch TD QAM [facility] Last Admin: 09/29/17 10:57 Dose: Not Given Loperamide HCl (Imodium) 2 mg PO PRN PRN PRN Reason: Diarrhea/Loose Stools Magnesium Hydroxide (Milk Of Magnesium) 30 ml PO DAILYPRN PRN PRN Reason: Constipation Metoclopramide HCl (Reglan) 5 mg IVP Q8HR PRN PRN Reason: Nausea/Vomiting Metoprolol Tartrate (Lopressor) 25 mg PO BID [facility] Last Admin: 09/29/17 10:55 Dose: 25 mg Midodrine (Proamatine) 5 mg PO DAILY [facility] Last Admin: 09/29/17 11:01 Dose: 5 mg Mineral Oil/White Petrolatum (Eucerin Cream) 0 gm TOP BIDPRN PRN PRN Reason: Dry Skin Miscellaneous Medication (Lidocaine Patch Removal) 1 each TOP QPM [facility] Last Admin: 09/29/17 08:53 Dose: Not Given Morphine Sulfate (Morphine) 1 mg SLOW IVP Q4H PRN PRN Reason: Pain Last Admin: 09/29/17 04:51 Dose: 1 mg Neomycin/Polymyxin/Bacitracin (Triple Antibiotic) 0 gm TOP BID [facility] Last Admin: 09/29/17 10:56 Dose: 1 gm Auryxia 210 Mg Tab- (3 Tablets) 0 each PO TID-[facility] Phenol (Chloraseptic [place] 180 Ml Bot) 0 ml PO PRN PRN PRN Reason: Sore Throat Potassium Chloride (K-Dur) 40 meq PO QAM-[facility] Last Admin: 09/29/17 10:56 Dose: 40 meq Saccharomyces Boulardii (Florastor) 250 mg PO DAILY [facility] Last Admin: 09/29/17 10:54 Dose: 250 mg Sevelamer Carbonate (Renvela) 2,400 mg PO TID [facility] Last Admin: 09/29/17 14:32 Dose: 2,400 mg Sodium Chloride ([place] Nasal [place] 0.65%) 0 ml EA NARE QIDPRN PRN PRN Reason: Nasal Congestion Sodium Chloride (Flush - Normal Saline) 10 ml IVF Q12HR [facility] Last Admin: 09/29/17 10:57 Dose: Not Given Sodium Chloride (Flush - Normal Saline) 10 ml IVF PRN PRN PRN Reason: Saline Flush Sodium Chloride (Flush - Normal Saline) 10 ml IVF PRN PRN PRN Reason: Saline Flush Vancomycin HCl (First Vancomycin) 125 mg PO QID [facility] Last Admin: 09/29/17 14:32 Dose: 125 mg
[2017-09-29] MEDS: AURYXIA 210 MG PO SCH (18:28)
[2017-09-30] MEDS: Levothyroxine Sodium 50 MCG TAB PO SCH (05:12)
[2017-09-30] MEDS: Cipro 250 MG TAB PO SCH ×2 (05:12→21:03)
[2017-09-30 05:57] LABS: Anion Gap 12 mmol/L (10-20); BUN (Urea Nitrogen) 58 mg/dL (8.4-25.7); Calc. Creatinine Clearance 27 mL/min (70-130); Calcium 7.7 mg/dL (7.8-10.44); Carbon Dioxide 24 mmol/L (22-29); Chloride 103 mmol/L (98-107); Estimated GFR-MDRD 13; Glucose 89 mg/dL (70-105); Potassium 4.9 mmol/L (3.5-5.1); Sodium 134 mmol/L (136-145)
[2017-09-30 06:55] LABS: Band 17 % (5-11); Hemoglobin 8.4 g/dL (14.0-18.0); Lymphocytes 5 % (21-51); MDiff Complete? YES; Mean Corpuscular Hemoglobin 25.8 pg (27.0-31.0); Mean Corpuscular Volume 83.1 fL (78.0-98.0); Mean Platelet Volume 9.6 fL (7.4-10.4); Monocytes 8 % (0-10); Neutrophil 70 % (42-75); Platelet Count 202 thou/uL (130-400); RBC Distribution Width 17.8 % (11.5-14.5); Red Blood Cell (RBC) Count 3.24 mill/uL (4.70-6.10); White Blood Cell (WBC) Count 9.6 thou/uL (4.8-10.8)
[2017-09-30] MEDS: Calcium Acetate 667 MG CAP PO SCH ×3 (08:18→19:53)
--- NOTE | 2017-09-30 09:34 | PRG ---
DATE OF SERVICE: 09/30/2017 SERVICE: Renal Medicine. SUBJECTIVE: Mr. Kamara is a 52-year-old white male with ESRD on peritoneal dialysis. Sharita weber has been marred by development of peritonitis - most likely seeding from a possible small perfora tion from the colon after colonoscopy. His hospitalization has also been marred by anemia and he has been receiving p.r.n. blood transfusion. A few days ago, consideration for palliative care was made , but the patient declining palliative care and/or hospice. The patient is noted to be more awake an d his appetite is much improved. If he remains stable, we may need to consider re-consulting Surgery for placement of cuffed hemodialysis catheter, so we can make arrangements for him to be transferred to a custodial. No other complaints today. He tells me he is feeling better. The patient denies any chest pain or shortness of breath. PHYSICAL EXAMINATION: VITAL SIGNS: Blood pressure is 120/69, heart rate 103, respiratory rate 22, temperature 98.7, pulse ox 100%. GENERAL: Noted to be awake, alert, comfortable, not in overt distress. SKIN: Adequate turgor. HEENT: He has slightly pale conjunctivae, anicteric sclerae. NECK: No neck mass, no carotid bruits, no JVD. CHEST: No deformities. LUNGS: Clear breath sounds. HEART: Normal sinus rhythm. No murmur, no gallops, no rubs. ABDOMEN: Globular, soft, nontender, no masses. Positive for PD catheter. EXTREMITIES: No edema, no deformities. MEDICATIONS: Of 09/30/2017 was reviewed. LABORATORY DATA: Of 09/30/2017, white count 9.6, hemoglobin 8.4, sodium 134, potassium 4.9, chloride 103, carbon dioxide 24, BUN 58, creatinine 4.9, glucose 49, calcium 7.7. ASSESSMENT AND PLAN: 1. End-stage renal disease, stable. We will continue current continuous cycling peritoneal dialysis regimen. No changes will be made with his peritoneal dialysis. 2. Anemia, p.r.n. blood transfusion. Continue weekly Epogen. 3. Peritonitis, clinically improving on oral Cipro. Overall, prognosis remains guarded. Consider consulting Surgery for a hemodialysis catheter placemen t, so we can make plans for possible discharge to a custodial. Recheck base met and CBC in a.m.
--- NOTE | 2017-09-30 09:39 | PDOC.PN ---
- Subjective Encounter Start Date: 09/30/17 Encounter Start Time: 09:36 Patient seen and examined. He has a h/o ESRD, polycystic kidney disease and recent colonoscopy which likely led to polyp peritonitis. He was admitted w sepsis, peritonitis. In addition, he had urinary retention requiring the placement of a suprapubic catheter. Over the past few days various services have had conversations with patient regarding code status. he decided to remain full code. Surgical service consulted to place a dialysis catheter and patient will be converted to HD. CM consulted for placement options since he will likely need to be placed in a residential after initiation of hemodialysis. No complaints this morning. No acute events overnight. - Objective Resuscitation Status: Resuscitation Status DNR:Do Not Resuscitate Vital Signs & Weight: Vital Signs (12 hours) Temp Pulse Resp BP Pulse Ox 09/30/17 07:55 98.7 F 103 H 22 H 120/69 100 09/30/17 04:00 97.6 F 107 H 18 145/62 H 99 09/30/17 00:00 98.5 F 104 H 18 152/60 H 98 Weight Admit Weight 205 lb 14.588 oz Weight 240 lb 3.2 oz Most Recent Monitor Data Heart Rate from ECG 110 NIBP 96/64 NIBP BP-Mean 72 Respiration from ECG 15 SpO2 100 I&O: 09/29/17 09/30/17 10/01/17 06:59 06:59 06:59 Intake Total 2370 2066 Output Total 75 350 Balance 2295 1716 Result Diagrams: 09/30/17 04:50 09/30/17 04:50 Additional Labs: Accuchecks 09/29/17 09/29/17 09/29/17 20:34 16:42 16:04 POC Glucose 92 97 47 L* 09/29/17 10:56 POC Glucose 87 Phys Exam - Physical Examination Constitutional: NAD HEENT: moist MMs, sclera anicteric Neck: supple, full ROM Respiratory: no wheezing, no rales, no rhonchi, clear to auscultation bilateral Cardiovascular: RRR, no significant murmur, no rub Gastrointestinal: soft, non-tender, no distention, positive bowel sounds Musculoskeletal: pulses present, edema present Neurological: non-focal Psychiatric: normal affect, A&O x 3 Skin: no rash, normal turgor Dx/Plan (1) C. difficile diarrhea Code(s): A04.72 - ENTEROCOLITIS D/T CLOSTRIDIUM DIFFICILE, NOT SPCF RECUR Status: Acute Comment: on PO vancomycin (2) Hypoalbuminemia due to protein-calorie malnutrition Code(s): E46 - UNSPECIFIED PROTEIN-CALORIE MALNUTRITION Status: Chronic Comment: On nutritional supplements. (3) Hypothyroidism Code(s): E03.9 - HYPOTHYROIDISM, UNSPECIFIED Status: Acute Qualifiers: Hypothyroidism type: unspecified Qualified Code(s): E03.9 - Hypothyroidism , unspecified Comment: Continue levothyroxine (started this admission). (4) Anemia due to end stage renal disease Code(s): N18.6 - END STAGE RENAL DISEASE; D63.1 - ANEMIA IN CHRONIC KIDNEY DISEASE Status: Chronic Comment: s/p 5 units PRBC. Hb stable. (5) Anxiety and depression Code(s): F41.9 - ANXIETY DISORDER, UNSPECIFIED; F32.9 - MAJOR DEPRESSIVE DISORDER, SINGLE EPISODE, UNSPECIFIED Status: Chronic (6) ESRD on peritoneal dialysis Code(s): N18.6 - END STAGE RENAL DISEASE; Z99.2 - DEPENDENCE ON RENAL DIALYSIS Status: Chronic Comment: Continue PD per nephrology. Planned to transition to HD. (7) Physical deconditioning Code(s): R53.81 - OTHER MALAISE Status: Chronic Comment: PT/OT. patient will likely need NH placement. (8) Secondary hyperparathyroidism of renal origin Code(s): N25.81 - SECONDARY HYPERPARATHYROIDISM OF RENAL ORIGIN Status: Chronic (9) Sepsis Code(s): A41.9 - SEPSIS, UNSPECIFIED ORGANISM Status: Resolved Qualifiers: Sepsis type: Pseudomonas Qualified Code(s): A41.52 - Sepsis due to Pseudomonas Comment: Developed a fever. Cultures taken. Transitioned to PO. ID on board. - Plan cont current plan of care, continue antibiotics, PT/OT, social services designee, DVT proph w/SCDs General Surgery consult for HD catheter Transition from PD to HD Case Management consult for NH placement after initiating HD. Review of Systems - Medications/Allergies Allergies/Adverse Reactions: Allergies Allergy/AdvReac Type Severity Reaction Status Date / Time iron Allergy Verified 09/14/17 13:20 Sulfa (Sulfonamide Allergy Verified 09/14/17 13:20 Antibiotics) Medications: Current Medications Acetaminophen (Tylenol) 650 mg PO Q4H PRN PRN Reason: Headache/Fever or Pain Last Admin: 09/28/17 01:34 Dose: 650 mg Al Hydroxide/Mg Hydroxide (Maalox) 30 ml PO Q6H PRN PRN Reason: Heartburn or Indigestion Albuterol/Ipratropium (Duoneb) 3 ml NEB [id number] PRN PRN Reason: SOB &/or Wheezing Amiodarone HCl (Cordarone) 100 mg PO DAILY [facility] Last Admin: 09/29/17 10:55 Dose: 100 mg Artificial Tears (Tears Renewed 15ml Bottle) 0 drop EA EYE PRN PRN PRN Reason: Dry Eyes Calcitriol (Rocaltrol) 0.25 mcg PO DAILY [facility] Last Admin: 09/29/17 10:56 Dose: 0.25 mcg Calcium Acetate (Phoslo) 1,334 mg PO TID-[facility] Last Admin: 09/30/17 08:18 Dose: Not Given Ciprofloxacin (Cipro) 250 mg PO BID@0600,1999 [facility] Last Admin: 09/30/17 05:12 Dose: 250 mg Dextrose/Water (Dextrose 50%) 25 gm SLOW IVP PRN PRN PRN Reason: Hypoglycemia Last Admin: 09/29/17 16:11 Dose: 25 gm Epoetin Ayaz (Procrit) 10,000 units SC Q7D [facility] Last Admin: 09/29/17 11:21 Dose: 10,000 units Famotidine (Pepcid) 20 mg PO DAILY [facility] Last Admin: 09/29/17 10:55 Dose: 20 mg Glucagon (Glucagon) 1 mg IM PRN PRN PRN Reason: Hypoglycemia Guaifenesin (Robitussin Sf) 200 mg PO Q4H PRN PRN Reason: Cough Dextrose/Sodium Chloride (D5 0.9% Ns) 1,000 mls @ 70 mls/hr IV .[id number] [facility] Last Admin: 09/29/17 21:54 Dose: 1,000 mls Dextrose/Water (D5w) 1,000 mls @ 0 mls/hr IV .Q0M PRN; As Directed PRN Reason: Hypoglycemia Insulin Human Lispro (Humalog) 0 units SC .MILD SLIDING SCALE PRN PRN Reason: Mild Correctional Scale Levothyroxine Sodium (Synthroid) 50 mcg PO 0600 [facility] Last Admin: 09/30/17 05:12 Dose: 50 mcg Lidocaine (Lidoderm 5% Patch) 1 patch TD QAM [facility] Last Admin: 09/29/17 10:57 Dose: Not Given Loperamide HCl (Imodium) 2 mg PO PRN PRN PRN Reason: Diarrhea/Loose Stools Magnesium Hydroxide (Milk Of Magnesium) 30 ml PO DAILYPRN PRN PRN Reason: Constipation Metoclopramide HCl (Reglan) 5 mg IVP Q8HR PRN PRN Reason: Nausea/Vomiting Metoprolol Tartrate (Lopressor) 25 mg PO BID [facility] Last Admin: 09/29/17 21:52 Dose: 25 mg Midodrine (Proamatine) 5 mg PO DAILY [facility] Last Admin: 09/29/17 11:01 Dose: 5 mg Mineral Oil/White Petrolatum (Eucerin Cream) 0 gm TOP BIDPRN PRN PRN Reason: Dry Skin Miscellaneous Medication (Lidocaine Patch Removal) 1 each TOP QPM [facility] Last Admin: 09/29/17 22:39 Dose: Not Given Morphine Sulfate (Morphine) 1 mg SLOW IVP Q4H PRN PRN Reason: Pain Last Admin: 09/30/17 00:51 Dose: 1 mg Neomycin/Polymyxin/Bacitracin (Triple Antibiotic) 0 gm TOP BID [facility] Last Admin: 09/29/17 21:52 Dose: 1 gm Auryxia 210 Mg Tab- (3 Tablets) 0 each PO TID-[facility] Last Admin: 09/29/17 18:28 Dose: 3 each Phenol (Chloraseptic [place]chor 180 Ml Bot) 0 ml PO PRN PRN PRN Reason: Sore Throat Potassium Chloride (K-Dur) 40 meq PO QAM-[facility] Last Admin: 09/29/17 10:56 Dose: 40 meq Saccharomyces Boulardii (Florastor) 250 mg PO DAILY [facility] Last Admin: 09/29/17 10:54 Dose: 250 mg Sevelamer Carbonate (Renvela) 2,400 mg PO TID [facility] Last Admin: 09/29/17 21:52 Dose: 2,400 mg Sodium Chloride ([place] Nasal [place]chor 0.65%) 0 ml EA NARE QIDPRN PRN PRN Reason: Nasal Congestion Sodium Chloride (Flush - Normal Saline) 10 ml IVF Q12HR [facility] Last Admin: 09/29/17 21:53 Dose: 10 ml Sodium Chloride (Flush - Normal Saline) 10 ml IVF PRN PRN PRN Reason: Saline Flush Sodium Chloride (Flush - Normal Saline) 10 ml IVF PRN PRN PRN Reason: Saline Flush Vancomycin HCl (First Vancomycin) 125 mg PO QID [facility] Last Admin: 09/29/17 21:53 Dose: 125 mg
[2017-09-30] MEDS: Triple Antibiotic Oint 1 GM Packet TOP SCH ×3 (09:41→21:05)
[2017-09-30] MEDS: Sevelamer Carbonate 800 MG TAB PO SCH ×3 (09:41→21:02)
[2017-09-30] MEDS: Potassium Chloride 20 MEQ TAB PO SCH (09:44)
[2017-09-30] MEDS: Saccharomyces boulardii 250 MG CAP PO SCH ×2 (09:44→10:48)
[2017-09-30] MEDS: Metoprolol Tartrate 25 MG TAB PO SCH ×3 (09:44→21:03)
[2017-09-30] MEDS: Calcitriol 0.25 MCG CAP PO SCH ×2 (09:44→10:49)
[2017-09-30] MEDS: Famotidine 20 MG TAB PO SCH ×2 (09:44→10:48)
[2017-09-30] MEDS: Midodrine HCl 5 MG TAB PO SCH ×2 (09:45→10:48)
[2017-09-30] MEDS: Amiodarone 200 MG TAB PO SCH (09:46)
[2017-09-30] MEDS: AURYXIA 210 MG PO SCH ×3 (09:50→21:36)
[2017-09-30] MEDS: Vancomycin HCl 25 MG/ML Oral PO SCH ×4 (09:59→21:02)
[2017-09-30] MEDS: Lidocaine 5% Patch TD SCH (09:59)
[2017-09-30] MEDS ORDERED: Vancomycin HCl 1.75 GM in Sodium Chloride 0.9% 500 ML IVPB SCH (10:45)
--- NOTE | 2017-09-30 11:16 | PRG ---
DATE OF SERVICE: 09/30/2017 SUBJECTIVE: Mr. Kamara needs hemodialysis catheter placement. He is not at dialysis adequately us ing his peritoneal dialysis. The patient wants to continue full care. [facility] cannot do [facility] dialysis. We will place hemodialysis catheter today. He had breakfast at 08:00. We will plan this at about 4 or 4:30 this afternoon. We will keep him n.p.o. u ntil then. The patient also has breakdown of his surgical wounds left axilla and left upper arm for placement of his dialysis graft. He has such poor wound healing that he probably does not have good tissue adherence to the graft. We probably should not use this for access at this time. We will ask wound care to place a wound VAC on the axillary wound and wound above the antecubital fossa, left up per arm and treat this was wound VAC. They can do this in the [facility] 2-3 times a week. The heather platt's overall prognosis is poor. He is at risk for having have his surgical graft. His dialysis g raft removed.
[2017-09-30] MEDS ORDERED: PROPOFOL 200 MG/20 ML VIAL ONE (14:39)
[2017-09-30] MEDS ORDERED: Sodium Chloride 0.9% 20 ML ONE (15:33)
[2017-09-30] MEDS ORDERED: Bupivacaine HCl 0.5%/Epinephrine 1:200,000/PF 30 ml Vial ONE (15:33)
[2017-09-30] MEDS ORDERED: Lidocaine 2% 10 ML INJ ONE (15:33)
[2017-09-30] MEDS ORDERED: Heparin 10,000 UNITS/1 ML VIAL ONE (15:33)
[2017-09-30] MEDS ORDERED: Fentanyl 100 MCG/2 ML VIAL ONE (18:25)
--- NOTE | 2017-09-30 21:26 | RAD ---
RADIOGRAPH CHEST 1 VIEW: Date: 09/30/17 Time: 6:51 p.m. HISTORY: 52-year-old male status post central line placement. COMPARISON: 02/26/17 FINDINGS: There is a new right subclavian double lumen dialysis catheter with distal tips overlying the expecte d locations of the mid and lower portions of the SVC. There is also a new small caliber central vascu lar catheter descending from the left neck, with distal tip overlying the SVC/right atrial junction. No pneumothorax is identified. There is a new small patchy air space density at the lateral aspect of the right lung base. IMPRESSION: 1. Interval placement of left sided central vascular catheter and right sided double lumen hemod ialysis catheter. 2. No evidence of pneumothorax. 3. Small new air space density at the right lower lung base which could represent pneumonia. Rec ommend followup. JN []0. POS: [facility]
[2017-09-30] MEDS: Dextrose 5 % And 0.9 % NaCl 1,000 ML IV SCH (22:03)
--- NOTE | 2017-10-01 01:32 | OP ---
PREOPERATIVE DIAGNOSES: Cirrhosis, end-stage renal disease, exposed osseous graft, left IV access fo rmed from graft placed four weeks ago, anasarca, hyperproteinuria, failure peritoneal dialysis, prote in muscle wasting, malnutrition. POSTOPERATIVE DIAGNOSES: Cirrhosis, end-stage renal disease, exposed osseous graft, left IV access f ormed from graft placed four weeks ago, anasarca, hyperproteinuria, failure peritoneal dialysis, prot ein muscle wasting, malnutrition. PROCEDURE: Ultrasound-guided placement of hemodialysis catheter. SURGEON: Dr. Bharat Mullins. ANESTHESIA: TIVA. Local 0.5% Marcaine with epinephrine 30 mL mixed with Xylocaine, 10 mL. PROCEDURE IN DETAIL: The patient was taken to the operating room where in supine position, neck and chest prepared with ChloraPrep, draped in routine fashion. He had a left IJ central line. Local ane sthetic infiltrated into the skin and subcutaneous tissue about the operative site. Under ultrasound guidance, right internal jugular vein was cannulated trocar catheter and J wire placed, but it would not thread into the superior vena cava due to previous catheters. This site was abandoned. Infraclavicular approach made for right subclavian vein, which I usually do not do, but because of th e patient's poor condition and poor prognosis and his desire to continue dialysis for now, a right morejon bclavian vein central line was placed. Trocar catheter reduced into the subclavian vein. J-wire thr eaded tended to go up the partially opened IJ under fluoroscopic visualization, redirected down the s uperior vena cava. A stab incision was made over the planned exit site and using the tunneling devic e, the hemodialysis catheter tunneled between the two incisions, placed the fabric cuff beneath the s kin exit site. Smaller medium sized dilator placed over the J-wire into the subclavian vein and kayy dago. Dilator and pull-away sheath placed over the J-wire into the superior vena cava. Under fluoros copic visualization, dilatator and J-wire removed. Catheter placed with pull-away sheath. Pull-away sheath removed. Catheter noted be in good position fluoroscopically. Subcutaneous tissues approxim ated with 4-0 Monocryl, skin with subdermal 4-0 Monocryl and DermaGlue applied. Sterile dressings ap plied. Each port aspirated blood and flushed with saline solution, then heparinized saline solution 1000 units of heparin per mL, indicated volume of the port.
[2017-10-01] MEDS: Levothyroxine Sodium 50 MCG TAB PO SCH (05:12)
[2017-10-01] MEDS: Cipro 250 MG TAB PO SCH ×2 (05:12→23:06)
[2017-10-01 05:34] LABS: #Lymphocytes 0.6 thou/uL (1.20-3.40); #Monocytes 0.5 thou/uL (0.11-0.59); #Neutrophils 6.6 thou/uL (1.40-6.50); %Eosinophils 0.6 % (0.0-10.0); %Monocytes 6.8 % (0.0-10.0); %Neutrophils 84.6 % (42.0-75.0); Hemoglobin 11.8 g/dL (14.0-18.0); Mean Corpuscular HGB CONC 32.2 g/dL (32.0-36.0); Mean Corpuscular Hemoglobin 26.4 pg (27.0-31.0); Mean Platelet Volume 10.1 fL (7.4-10.4); Platelet Count 178 thou/uL (130-400); Red Blood Cell (RBC) Count 4.48 mill/uL (4.70-6.10); White Blood Cell (WBC) Count 7.9 thou/uL (4.8-10.8)
[2017-10-01 05:38] LABS: Anion Gap 13 mmol/L (10-20); BUN (Urea Nitrogen) 62 mg/dL (8.4-25.7); Calc. Creatinine Clearance 27 mL/min (70-130); Calcium 8.1 mg/dL (7.8-10.44); Carbon Dioxide 22 mmol/L (22-29); Chloride 106 mmol/L (98-107); Estimated GFR-MDRD 12; Glucose 84 mg/dL (70-105); Potassium 5.5 mmol/L (3.5-5.1); Sodium 135 mmol/L (136-145)
[2017-10-01] MEDS: Dextrose 50% Abboject 50 ML SYRINGE SLOW IVP PRN ×2 (06:02→21:02)
--- NOTE | 2017-10-01 08:47 | PRG ---
DATE OF SERVICE: 10/01/2017 SUBJECTIVE: Mr. Kamara is a 52-year-old white male with ESRD - currently on maintenance peritoneal dialysis and being followed by [facility] for his continued peritoneal dialysis. He underwent pl acement of a cuffed hemodialysis catheter yesterday with Dr. Mullins. The plan is eventually to get i nto a [facility]. Since he is going to a [facility] he will not be able to perform the peritonea l dialysis, that is why he has been converted to hemodialysis. Arrangements are being made. No new complaints today. Denies any chest pain or change of breath. appetite. PHYSICAL EXAMINATION: VITAL SIGNS: Blood pressure is 98/69, heart rate 98, respiratory rate 20, temperature 97.7, pulse ox 100%. GENERAL: He is awake, slightly confused, but not in distress. SKIN: Adequate turgor. HEENT: Pinkish conjunctivae. Anicteric sclerae. NECK: No neck mass, no carotid bruits, no JVD. CHEST: No deformities. LUNGS: Clear breath sounds, no wheezing, no crackles. HEART: Normal sinus rhythm. No murmur, no gallops, no rubs. ABDOMEN: Globular, soft, nontender. No masses. Positive for PD catheter. EXTREMITIES: No edema, no deformities. BACK: Positive for sacral decubitus. MEDICATIONS: 10/01/2017 -Reviewed. LABORATORY DATA: 10/01/2017 - White count 7.9, hemoglobin 11.8, hematocrit 36.7. Sodium 135, potass ium 5.5, chloride 106, carbon dioxide 22, BUN 62, creatinine 5.02, glucose 84, calcium 8.1. ASSESSMENT AND PLAN: 1. End-stage renal disease - stable. Tolerating current peritoneal dialysis regimen. No changes wi ll be made with his current peritoneal dialysis. Tolerating said treatment. The plan is eventually to convert this patient to hemodialysis once he is discharged. Arrangements are being made at the pr esent time. 2. Anemia p.m. blood transfusion, continuing weekly Epogen. 3. Sepsis syndrome/peritonitis - the patient currently on Cipro 250 b.i.d. 4. Clostridium difficile colitis on oral vancomycin. Overall, prognosis remains guarded with this patient. He has not dramatically improved. Continue morejon pportive care. He is declining to consider palliative care and/or hospice. Recheck base met and CBC in a.m.
[2017-10-01] MEDS: Vancomycin HCl 25 MG/ML Oral PO SCH ×4 (09:43→23:07)
--- NOTE | 2017-10-01 12:20 | PDOC.PN ---
- Subjective Encounter Start Date: 10/01/17 Encounter Start Time: 12:20 Patient seen and examined. He has a h/o ESRD, polycystic kidney disease and recent colonoscopy which likely led to polyp peritonitis. He was admitted w sepsis, peritonitis. In addition, he had urinary retention requiring the placement of a suprapubic catheter. Over thecourse of his hospital stay various services have had conversations with patient regarding code status. he decided to remain full code. Surgical service consulted to place a dialysis catheter and patient will be converted to HD. CM consulted for placement options since he will likely need to be placed in a f[facility] after initiation of hemodialysis. No complaints this morning. No acute events overnight. - Objective Resuscitation Status: Resuscitation Status DNR:Do Not Resuscitate MAR Reviewed: Yes Vital Signs & Weight: Vital Signs (12 hours) Temp Pulse Resp BP Pulse Ox 10/01/17 12:00 97.6 F 92 20 98/57 L 100 10/01/17 07:59 97.7 F 98 20 98/69 100 10/01/17 05:10 97.9 F 94 22 H 143/59 H 100 Weight Admit Weight 205 lb 14.588 oz Weight 244 lb 9.6 oz Most Recent Monitor Data Heart Rate from ECG 110 NIBP 96/64 NIBP BP-Mean 72 Respiration from ECG 15 SpO2 100 I&O: 09/30/17 10/01/17 10/02/17 06:59 06:59 06:59 Intake Total 2066 890 Output Total 350 75 Balance 1716 815 Result Diagrams: 10/01/17 05:01 10/01/17 05:01 Additional Labs: Accuchecks 10/01/17 10/01/17 09/30/17 10:39 05:24 23:15 POC Glucose 93 48 L* 75 09/30/17 09/30/17 09/30/17 22:20 10:54 05:51 POC Glucose 52 L* 96 84 Phys Exam - Physical Examination Constitutional: NAD HEENT: moist MMs, sclera anicteric Neck: supple, full ROM Respiratory: no wheezing, no rales, no rhonchi, clear to auscultation bilateral Cardiovascular: RRR, no significant murmur, no rub Gastrointestinal: soft, non-tender, no distention, positive bowel sounds Musculoskeletal: pulses present, edema present Neurological: non-focal Deviation from normal: Skin breakdown, multiple areas Dx/Plan (1) C. difficile diarrhea Code(s): A04.72 - ENTEROCOLITIS D/T CLOSTRIDIUM DIFFICILE, NOT SPCF RECUR Status: Acute Comment: Stable.Continue PO vancomycin (2) Hypoalbuminemia due to protein-calorie malnutrition Code(s): E46 - UNSPECIFIED PROTEIN-CALORIE MALNUTRITION Status: Chronic Comment: Continue nutritional supplements. (3) Hypothyroidism Code(s): E03.9 - HYPOTHYROIDISM, UNSPECIFIED Status: Acute Qualifiers: Hypothyroidism type: unspecified Qualified Code(s): E03.9 - Hypothyroidism , unspecified Comment: Continue levothyroxine (started this admission). (4) Anemia due to end stage renal disease Code(s): N18.6 - END STAGE RENAL DISEASE; D63.1 - ANEMIA IN CHRONIC KIDNEY DISEASE Status: Chronic Comment: s/p 5 units PRBC. Hb stable. (5) Anxiety and depression Code(s): F41.9 - ANXIETY DISORDER, UNSPECIFIED; F32.9 - MAJOR DEPRESSIVE DISORDER, SINGLE EPISODE, UNSPECIFIED Status: Chronic (6) ESRD on peritoneal dialysis Code(s): N18.6 - END STAGE RENAL DISEASE; Z99.2 - DEPENDENCE ON RENAL DIALYSIS Status: Chronic Comment: Continue PD per nephrology. Being transitioned to HD. Dialysis catheter in place. (7) Physical deconditioning Code(s): R53.81 - OTHER MALAISE Status: Chronic Comment: PT/OT. patient will likely need NH placement. 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 Review of Systems - Medications/Allergies Allergies/Adverse Reactions: Allergies Allergy/AdvReac Type Severity Reaction Status Date / Time iron Allergy Verified 09/14/17 13:20 Sulfa (Sulfonamide Allergy Verified 09/14/17 13:20 Antibiotics) Medications: Current Medications Acetaminophen (Tylenol) 650 mg PO Q4H PRN PRN Reason: Headache/Fever or Pain Last Admin: 09/28/17 01:34 Dose: 650 mg Al Hydroxide/Mg Hydroxide (Maalox) 30 ml PO Q6H PRN PRN Reason: Heartburn or Indigestion Albuterol/Ipratropium (Duoneb) 3 ml NEB [id number] PRN PRN Reason: SOB &/or Wheezing Amiodarone HCl (Cordarone) 100 mg PO DAILY [facility] Last Admin: 09/30/17 09:46 Dose: 100 mg Artificial Tears (Tears Renewed 15ml Bottle) 0 drop EA EYE PRN PRN PRN Reason: Dry Eyes Calcitriol (Rocaltrol) 0.25 mcg PO DAILY [facility] Last Admin: 09/30/17 10:49 Dose: Not Given Calcium Acetate (Phoslo) 1,334 mg PO TID-[facility] Last Admin: 09/30/17 19:53 Dose: Not Given Ciprofloxacin (Cipro) 250 mg PO BID@0600,2000 [facility] Last Admin: 10/01/17 05:12 Dose: 250 mg Dextrose/Water (Dextrose 50%) 25 gm SLOW IVP PRN PRN PRN Reason: Hypoglycemia Last Admin: 10/01/17 06:02 Dose: 25 gm Epoetin Ayaz (Procrit) 10,000 units SC Q7D [facility] Last Admin: 09/29/17 11:21 Dose: 10,000 units Famotidine (Pepcid) 20 mg PO DAILY [facility] Last Admin: 09/30/17 10:48 Dose: Not Given Glucagon (Glucagon) 1 mg IM PRN PRN PRN Reason: Hypoglycemia Guaifenesin (Robitussin Sf) 200 mg PO Q4H PRN PRN Reason: Cough Dextrose/Sodium Chloride (D5 0.9% Ns) 1,000 mls @ 70 mls/hr IV .[id number] [facility] Last Admin: 09/30/17 22:03 Dose: 1,000 mls Dextrose/Water (D5w) 1,000 mls @ 0 mls/hr IV .Q0M PRN; As Directed PRN Reason: Hypoglycemia Last Admin: 09/30/17 14:14 Dose: 1,000 mls Insulin Human Lispro (Humalog) 0 units SC .MILD SLIDING SCALE PRN PRN Reason: Mild Correctional Scale Levothyroxine Sodium (Synthroid) 50 mcg PO 0600 [facility] Last Admin: 10/01/17 05:12 Dose: 50 mcg Lidocaine (Lidoderm 5% Patch) 1 patch TD QAM [facility] Last Admin: 09/30/17 09:59 Dose: Not Given Loperamide HCl (Imodium) 2 mg PO PRN PRN PRN Reason: Diarrhea/Loose Stools Magnesium Hydroxide (Milk Of Magnesium) 30 ml PO DAILYPRN PRN PRN Reason: Constipation Metoclopramide HCl (Reglan) 5 mg IVP Q8HR PRN PRN Reason: Nausea/Vomiting Metoprolol Tartrate (Lopressor) 25 mg PO BID [facility] Last Admin: 09/30/17 21:03 Dose: 25 mg Midodrine (Proamatine) 5 mg PO DAILY [facility] Last Admin: 09/30/17 10:48 Dose: Not Given Mineral Oil/White Petrolatum (Eucerin Cream) 0 gm TOP BIDPRN PRN PRN Reason: Dry Skin Miscellaneous Medication (Lidocaine Patch Removal) 1 each TOP QPM [facility] Last Admin: 10/01/17 00:00 Dose: Not Given Morphine Sulfate (Morphine) 1 mg SLOW IVP Q4H PRN PRN Reason: Pain Last Admin: 10/01/17 09:45 Dose: 1 mg Neomycin/Polymyxin/Bacitracin (Triple Antibiotic) 0 gm TOP BID [facility] Last Admin: 09/30/17 21:05 Dose: 1 gm Auryxia 210 Mg Tab- (3 Tablets) 0 each PO TID-[facility] Last Admin: 09/30/17 21:36 Dose: Not Given Phenol (Chloraseptic [place] 180 Ml Bot) 0 ml PO PRN PRN PRN Reason: Sore Throat Saccharomyces Boulardii (Florastor) 250 mg PO DAILY [facility] Last Admin: 09/30/17 10:48 Dose: Not Given Sevelamer Carbonate (Renvela) 2,400 mg PO TID [facility] Last Admin: 09/30/17 21:02 Dose: 2,400 mg Sodium Chloride ([place] Nasal [place] 0.65%) 0 ml EA NARE QIDPRN PRN PRN Reason: Nasal Congestion Sodium Chloride (Flush - Normal Saline) 10 ml IVF Q12HR [facility] Last Admin: 09/30/17 21:05 Dose: 10 ml Sodium Chloride (Flush - Normal Saline) 10 ml IVF PRN PRN PRN Reason: Saline Flush Sodium Chloride (Flush - Normal Saline) 10 ml IVF PRN PRN PRN Reason: Saline Flush Vancomycin HCl (First Vancomycin) 125 mg PO QID [facility] Last Admin: 10/01/17 09:43 Dose: 125 mg
[2017-10-01] MEDS: Calcium Acetate 667 MG CAP PO SCH ×3 (13:32→18:37)
[2017-10-01] MEDS: AURYXIA 210 MG PO SCH ×3 (13:32→18:30)
[2017-10-01] MEDS: Lidocaine 5% Patch TD SCH (13:32)
[2017-10-01] MEDS: Sevelamer Carbonate 800 MG TAB PO SCH ×3 (13:33→23:06)
[2017-10-01] MEDS: Potassium Chloride 20 MEQ TAB PO SCH (13:39)
[2017-10-01] MEDS: Dextrose 5 % And 0.9 % NaCl 1,000 ML IV SCH (14:37)
[2017-10-01] MEDS: Triple Antibiotic Oint 1 GM Packet TOP SCH ×2 (14:41→23:07)
[2017-10-01] MEDS: Famotidine 20 MG TAB PO SCH (14:42)
[2017-10-01] MEDS: Saccharomyces boulardii 250 MG CAP PO SCH (14:43)
[2017-10-01] MEDS: Calcitriol 0.25 MCG CAP PO SCH (14:43)
[2017-10-01] MEDS: Amiodarone 200 MG TAB PO SCH (14:43)
[2017-10-01] MEDS: Midodrine HCl 5 MG TAB PO SCH (14:45)
[2017-10-01] MEDS: Metoprolol Tartrate 25 MG TAB PO SCH ×2 (14:45→23:15)
[2017-10-01] MEDS: Dextrose 10% in Water 1,000 ML IV SCH (21:56)
[2017-10-01] MEDS: Mirtazapine 30 MG TAB PO SCH (23:06)
[2017-10-01] MEDS: Lidocaine Patch Removal 1 EACH TOP SCH ×2 (23:08)
[2017-10-02] MEDS: Levothyroxine Sodium 50 MCG TAB PO SCH (05:26)
[2017-10-02 05:37] LABS: Anion Gap 13 mmol/L (10-20); BUN (Urea Nitrogen) 53 mg/dL (8.4-25.7); Calc. Creatinine Clearance 29 mL/min (70-130); Calcium 7.7 mg/dL (7.8-10.44); Carbon Dioxide 23 mmol/L (22-29); Chloride 101 mmol/L (98-107); Estimated GFR-MDRD 13; Glucose 106 mg/dL (70-105); Potassium 4.7 mmol/L (3.5-5.1); Sodium 132 mmol/L (136-145)
[2017-10-02 05:39] LABS: #Eosinphils 0.1 thou/uL (0.0-0.7); #Lymphocytes 0.7 thou/uL (1.20-3.40); #Monocytes 0.7 thou/uL (0.11-0.59); #Neutrophils 9.1 thou/uL (1.40-6.50); %Eosinophils 0.9 % (0.0-10.0); %Lymphocytes 6.7 % (21.0-51.0); %Monocytes 6.7 % (0.0-10.0); %Neutrophils 85.7 % (42.0-75.0); Hemoglobin 8.6 g/dL (14.0-18.0); Mean Corpuscular Hemoglobin 25.7 pg (27.0-31.0); Mean Corpuscular Volume 82.7 fL (78.0-98.0); Mean Platelet Volume 9.2 fL (7.4-10.4); Platelet Count 219 thou/uL (130-400); RBC Distribution Width 17.9 % (11.5-14.5); Red Blood Cell (RBC) Count 3.33 mill/uL (4.70-6.10); White Blood Cell (WBC) Count 10.6 thou/uL (4.8-10.8)
[2017-10-02] MEDS: Calcium Acetate 667 MG CAP PO SCH ×3 (10:02→17:00)
[2017-10-02] MEDS: AURYXIA 210 MG PO SCH ×3 (10:04→17:01)
[2017-10-02] MEDS: Lidocaine 5% Patch TD SCH (10:07)
[2017-10-02] MEDS: Sevelamer Carbonate 800 MG TAB PO SCH ×3 (10:07→22:07)
[2017-10-02] MEDS: Triple Antibiotic Oint 1 GM Packet TOP SCH ×2 (10:07→22:07)
[2017-10-02] MEDS: Saccharomyces boulardii 250 MG CAP PO SCH (10:08)
[2017-10-02] MEDS: Midodrine HCl 5 MG TAB PO SCH (10:08)
[2017-10-02] MEDS: Amiodarone 200 MG TAB PO SCH (10:09)
[2017-10-02] MEDS: Famotidine 20 MG TAB PO SCH (10:10)
[2017-10-02] MEDS: Metoprolol Tartrate 25 MG TAB PO SCH ×2 (10:11→22:54)
[2017-10-02] MEDS: Calcitriol 0.25 MCG CAP PO SCH (10:20)
[2017-10-02] MEDS: Vancomycin HCl 25 MG/ML Oral PO SCH ×5 (10:20→22:06)
--- NOTE | 2017-10-02 10:30 | PRG ---
DATE OF SERVICE: 10/02/2017 RENAL MEDICINE SUBJECTIVE: Mr. Kamara is a 52-year-old white male with ESRD and currently on peritoneal dialysis. He underwent peritoneal dialysis last night without any difficulty. My plan is to convert him to h emodialysis in anticipation of discharge to a intermediate. This morning, patient looks lethargic an d is more confused. Hospice and palliative care has been discussed with the patient's family. The patient still declinin g to consider hospice. He has remained unimproved in the last several weeks. PHYSICAL EXAMINATION: VITAL SIGNS: Blood pressure is 178/67, heart rate 105, respiratory rate 22, temperature 98.9, pulse ox 99%. GENERAL: Awake, supine, lethargic, confused, not in distress. SKIN: Adequate turgor. HEENT: Slightly pale conjunctivae, anicteric sclerae. NECK: No neck mass, no carotid bruits, no JVD. CHEST: No deformities. LUNGS: Decreased breath sounds. HEART: Normal sinus rhythm. No murmurs, no gallops, no rubs. ABDOMEN: Globular, soft. Positive for PD catheter. BACK: Positive for sacral decubitus. EXTREMITIES: No edema. MEDICATIONS: Medications of 10/02/2017 was reviewed. LABORATORY DATA: Laboratories of 10/02/2017; white count 10.6, hemoglobin 8.6. Sodium 132, potassiu m 4.7, chloride 101, carbon dioxide 23, BUN 53, creatinine 4.71, glucose 107, calcium 7.1. ASSESSMENT AND PLAN: 1. End-stage renal disease - will convert to hemodialysis. My plan is to do a 1-hour hemodialysis t vanessa. No fluid removal will be done. We will prime the dialysis machine to ensure that he would be hemodynamically stable prior to the dialysis. 2. Anemia p.r.n. blood transfusion. Continue weekly Epogen. 3. Status post sepsis. Overall, patient is not doing well. His overall prognosis remains poor. Co nsideration for intermediate placement. Again, we discussed issues about hospice.
[2017-10-02] MEDS ORDERED: Heparin 1,000 UNITS/ML VIAL ONE (11:11)
[2017-10-02 14:06] LABS: HBSAg Index 0.22 S/CO (0-0.99); Hep B Core Total Ab Non-Reactive (NonReactive); Hep B Core Total Index 0.18 S/CO (0-0.79); Hep B Surf Ag Non-Reactive S/CO (NonReactive); Hep C IgG Ab Non-Reactive (NonReactive); Hep C Index 0.19 S/CO (0-0.79)
[2017-10-02 15:03] LABS: HBSAB Concentration 27.58 mIU/mL; Hep B Surf AB Reactive (NonReactive)
[2017-10-02] MEDS: Dextrose 10% in Water 1,000 ML IV SCH (17:02)
--- NOTE | 2017-10-02 17:05 | PDOC.PN ---
- Subjective Encounter Start Date: 10/03/17 Encounter Start Time: 14:05 Patient seen and examined. He has a h/o ESRD, polycystic kidney disease and recent colonoscopy which likely led to polyp peritonitis. He was admitted w sepsis, peritonitis. In addition, he had urinary retention requiring the placement of a suprapubic catheter. Over thecourse of his hospital stay various services have had conversations with patient regarding code status. he decided to remain full code. Surgical service consulted to place a dialysis catheter and patient will be converted to HD. CM consulted for placement options since he will likely need to be placed in a half-way after initiation of hemodialysis. - Objective Resuscitation Status: Resuscitation Status DNR:Do Not Resuscitate MAR Reviewed: Yes Vital Signs & Weight: Vital Signs (12 hours) Temp Pulse Resp BP Pulse Ox 10/02/17 16:00 98.9 F 120 H 20 120/76 100 10/02/17 11:15 97.9 F 114 H 20 110/68 100 10/02/17 08:01 98.3 F 114 H 16 99 10/02/17 07:35 98.3 F 114 H 16 107/66 99 Weight Admit Weight 205 lb 14.588 oz Weight 246 lb Most Recent Monitor Data Heart Rate from ECG 110 NIBP 96/64 NIBP BP-Mean 72 Respiration from ECG 15 SpO2 100 I&O: 10/01/17 10/02/17 10/03/17 06:59 06:59 06:59 Intake Total 890 1258 Output Total 75 Balance 815 1258 Result Diagrams: 10/03/17 05:55 10/03/17 05:55 Additional Labs: Accuchecks 10/02/17 10/02/17 10/02/17 11:24 05:32 05:15 POC Glucose 116 H 104 100 10/01/17 10/01/17 10/01/17 23:25 21:43 21:00 POC Glucose 128 H 155 H Less than 35 L* 10/01/17 16:40 POC Glucose 93 Phys Exam - Physical Examination Constitutional: NAD HEENT: moist MMs, sclera anicteric Neck: supple, full ROM Respiratory: no wheezing, no rales, no rhonchi, clear to auscultation bilateral Cardiovascular: RRR, no significant murmur, no rub Gastrointestinal: soft, non-tender, no distention, positive bowel sounds Musculoskeletal: pulses present, edema present Skin: no rash, normal turgor Dx/Plan (1) C. difficile diarrhea Code(s): A04.72 - ENTEROCOLITIS D/T CLOSTRIDIUM DIFFICILE, NOT SPCF RECUR Status: Acute Comment: Stable.Continue PO vancomycin (2) Hypoalbuminemia due to protein-calorie malnutrition Code(s): E46 - UNSPECIFIED PROTEIN-CALORIE MALNUTRITION Status: Chronic Comment: Continue nutritional supplements. (3) Hypothyroidism Code(s): E03.9 - HYPOTHYROIDISM, UNSPECIFIED Status: Acute Qualifiers: Hypothyroidism type: unspecified Qualified Code(s): E03.9 - Hypothyroidism , unspecified Comment: Continue levothyroxine (started this admission). (4) Anemia due to end stage renal disease Code(s): N18.6 - END STAGE RENAL DISEASE; D63.1 - ANEMIA IN CHRONIC KIDNEY DISEASE Status: Chronic Comment: s/p 5 units PRBC. Hb stable. (5) Anxiety and depression Code(s): F41.9 - ANXIETY DISORDER, UNSPECIFIED; F32.9 - MAJOR DEPRESSIVE DISORDER, SINGLE EPISODE, UNSPECIFIED Status: Chronic (6) ESRD on peritoneal dialysis Code(s): N18.6 - END STAGE RENAL DISEASE; Z99.2 - DEPENDENCE ON RENAL DIALYSIS Status: Chronic Comment: Continue PD per nephrology. Being transitioned to HD. Dialysis catheter in place. (7) Physical deconditioning Code(s): R53.81 - OTHER MALAISE Status: Chronic Comment: PT/OT. patient will likely need NH placement. (8) Secondary hyperparathyroidism of renal origin Code(s): N25.81 - SECONDARY HYPERPARATHYROIDISM OF RENAL ORIGIN Status: Chronic (9) Sepsis Code(s): A41.9 - SEPSIS, UNSPECIFIED ORGANISM Status: Resolved Qualifiers: Sepsis type: Pseudomonas Qualified Code(s): A41.52 - Sepsis due to Pseudomonas - Plan * . Review of Systems - Medications/Allergies Allergies/Adverse Reactions: Allergies Allergy/AdvReac Type Severity Reaction Status Date / Time iron Allergy Verified 09/14/17 13:20 Sulfa (Sulfonamide Allergy Verified 09/14/17 13:20 Antibiotics) Medications: Current Medications Acetaminophen (Tylenol) 650 mg PO Q4H PRN PRN Reason: Headache/Fever or Pain Last Admin: 09/28/17 01:34 Dose: 650 mg Al Hydroxide/Mg Hydroxide (Maalox) 30 ml PO Q6H PRN PRN Reason: Heartburn or Indigestion Albuterol/Ipratropium (Duoneb) 3 ml NEB [id number] PRN PRN Reason: SOB &/or Wheezing Amiodarone HCl (Cordarone) 100 mg PO DAILY [facility] Last Admin: 10/02/17 10:09 Dose: 100 mg Artificial Tears (Tears Renewed 15ml Bottle) 0 drop EA EYE PRN PRN PRN Reason: Dry Eyes Calcitriol (Rocaltrol) 0.25 mcg PO DAILY [facility] Last Admin: 10/02/17 10:20 Dose: 0.25 mcg Calcium Acetate (Phoslo) 1,334 mg PO TID[facility] Last Admin: 10/02/17 17:00 Dose: Not Given Dextrose/Water (Dextrose 50%) 25 gm SLOW IVP PRN PRN PRN Reason: Hypoglycemia Last Admin: 10/01/17 21:02 Dose: 25 gm Epoetin Ayaz (Procrit) 10,000 units SC Q7D [facility] Last Admin: 09/29/17 11:21 Dose: 10,000 units Famotidine (Pepcid) 20 mg PO DAILY [facility] Last Admin: 10/02/17 10:10 Dose: 20 mg Glucagon (Glucagon) 1 mg IM PRN PRN PRN Reason: Hypoglycemia Guaifenesin (Robitussin Sf) 200 mg PO Q4H PRN PRN Reason: Cough Dextrose/Water (D5w) 1,000 mls @ 0 mls/hr IV .Q0M PRN; As Directed PRN Reason: Hypoglycemia Last Admin: 09/30/17 14:14 Dose: 1,000 mls Dextrose/Water (Dextrose 10% In Water) 1,000 mls @ 50 mls/hr IV .Q20H [facility] Last Admin: 10/02/17 17:02 Dose: 1,000 mls Insulin Human Lispro (Humalog) 0 units SC .MILD SLIDING SCALE PRN PRN Reason: Mild Correctional Scale Levothyroxine Sodium (Synthroid) 50 mcg PO 0600 [facility] Last Admin: 10/02/17 05:26 Dose: 50 mcg Lidocaine (Lidoderm 5% Patch) 1 patch TD QAM [facility] Last Admin: 10/02/17 10:07 Dose: 1 patch Loperamide HCl (Imodium) 2 mg PO PRN PRN PRN Reason: Diarrhea/Loose Stools Magnesium Hydroxide (Milk Of Magnesium) 30 ml PO DAILYPRN PRN PRN Reason: Constipation Metoclopramide HCl (Reglan) 5 mg IVP Q8HR PRN PRN Reason: Nausea/Vomiting Metoprolol Tartrate (Lopressor) 25 mg PO BID [facility] Last Admin: 10/02/17 10:11 Dose: Not Given Midodrine (Proamatine) 5 mg PO DAILY [facility] Last Admin: 10/02/17 10:08 Dose: 5 mg Mineral Oil/White Petrolatum (Eucerin Cream) 0 gm TOP BIDPRN PRN PRN Reason: Dry Skin Mirtazapine (Remeron) 30 mg PO HS [facility] Last Admin: 10/01/17 23:06 Dose: 30 mg Miscellaneous Medication (Lidocaine Patch Removal) 1 each TOP QPM [facility] Last Admin: 10/01/17 23:08 Dose: Not Given Morphine Sulfate (Morphine) 1 mg SLOW IVP Q4H PRN PRN Reason: Pain Last Admin: 10/01/17 18:28 Dose: 1 mg Neomycin/Polymyxin/Bacitracin (Triple Antibiotic) 0 gm TOP BID [facility] Last Admin: 10/02/17 10:07 Dose: 1 gm Auryxia 210 Mg Tab- (3 Tablets) 0 each PO TID-[facility] Last Admin: 10/02/17 17:01 Dose: 3 each Phenol (Chloraseptic [place] 180 Ml Bot) 0 ml PO PRN PRN PRN Reason: Sore Throat Saccharomyces Boulardii (Florastor) 250 mg PO DAILY [facility] Last Admin: 10/02/17 10:08 Dose: 250 mg Sevelamer Carbonate (Renvela) 2,400 mg PO TID [facility] Last Admin: 10/02/17 16:59 Dose: 2,400 mg Sodium Chloride ([place] Nasal [place] 0.65%) 0 ml EA NARE QIDPRN PRN PRN Reason: Nasal Congestion Sodium Chloride (Flush - Normal Saline) 10 ml IVF Q12HR [facility] Last Admin: 10/02/17 10:09 Dose: 10 ml Sodium Chloride (Flush - Normal Saline) 10 ml IVF PRN PRN PRN Reason: Saline Flush Vancomycin HCl (First Vancomycin) 125 mg PO QID [facility] Last Admin: 10/02/17 17:05 Dose: 125 mg
[2017-10-02] MEDS: Mirtazapine 30 MG TAB PO SCH (22:07)
[2017-10-02] MEDS: Lidocaine Patch Removal 1 EACH TOP SCH (22:55)
[2017-10-03] MEDS: Dextrose 10% in Water 1,000 ML IV SCH (01:55)
[2017-10-03 06:03] LABS: #Lymphocytes 0.7 thou/uL (1.20-3.40); #Monocytes 0.7 thou/uL (0.11-0.59); #Neutrophils 8.2 thou/uL (1.40-6.50); %Basophils 0.3 % (0.0-1.0); %Eosinophils 0.5 % (0.0-10.0); %Neutrophils 85.3 % (42.0-75.0); Hemoglobin 8.1 g/dL (14.0-18.0); Mean Corpuscular HGB CONC 31.5 g/dL (32.0-36.0); Mean Corpuscular Hemoglobin 25.8 pg (27.0-31.0); Mean Platelet Volume 9.4 fL (7.4-10.4); Platelet Count 210 thou/uL (130-400); RBC Distribution Width 17.9 % (11.5-14.5); Red Blood Cell (RBC) Count 3.14 mill/uL (4.70-6.10); White Blood Cell (WBC) Count 9.6 thou/uL (4.8-10.8)
[2017-10-03 06:12] LABS: Anion Gap 9 mmol/L (10-20); BUN (Urea Nitrogen) 47 mg/dL (8.4-25.7); Calc. Creatinine Clearance 31 mL/min (70-130); Calcium 7.7 mg/dL (7.8-10.44); Carbon Dioxide 27 mmol/L (22-29); Chloride 102 mmol/L (98-107); Estimated GFR-MDRD 14; Glucose 62 mg/dL (70-105); Potassium 4.9 mmol/L (3.5-5.1); Sodium 133 mmol/L (136-145)
[2017-10-03] MEDS: Levothyroxine Sodium 50 MCG TAB PO SCH (07:07)
--- NOTE | 2017-10-03 08:55 | PRG ---
DATE OF SERVICE: 10/03/2017 SUBJECTIVE: Mr. Kamara is a 52-year-old white male with ESRD and recently converted from peritonea l dialysis to hemodialysis. He underwent 1 hour hemodialysis yesterday. He tolerated the said treat ment. This morning, he is more awake. He tolerated his breakfast. He denies any chest pain, no shawna rtness of breath. However, he still has episodes of confusion. No new complaints today. We have scheduled him for a short 2 hour hemodialysis today. Please note, peritoneal dialysis was not done last night. PHYSICAL EXAMINATION: VITAL SIGNS: Blood pressure 105/67, heart rate 112, respiratory rate 20, temperature 98, pulse ox 98 %. GENERAL: Awake, supine, comfortable, not in overt distress. SKIN: Adequate turgor. HEENT: He has pale conjunctivae, anicteric sclerae. NECK: No neck mass, no carotid bruits, no JVD. CHEST: No deformities. LUNGS: Clear breath sounds, no wheezing, no crackles. HEART: Normal sinus rhythm. No murmur, no gallops or rubs. ABDOMEN: Globular, soft, nontender. No masses. EXTREMITIES: No edema, no deformities. Please note he still has a PD catheter. MEDICATIONS: Of 10/03/2017 was reviewed. LABORATORY DATA: Of 10/03/2017, white count 9.6, hemoglobin 8.1, hematocrit 25.7, sodium 133, potass ium 4.9, chloride 102, carbon dioxide 27, BUN 47, creatinine 4.34, calcium 7.7. ASSESSMENT AND PLAN: 1. End-stage renal disease - continuing hemodialysis. We will do a 2-hour hemodialysis. Minimal to no fluid removal. We will prime him prior to initiation of dialysis - dispense giving a bolus 250 m L 2. Anemia, p.r.n. blood transfusion, continuing weekly Epogen. 3. Sepsis - clinically much improved. Over the next several days if he tolerates hemodialysis, cons ider removing PD catheter with this patient. Overall, prognosis remains guarded. Consider discontinuing the PhosLo.
[2017-10-03] MEDS: AURYXIA 210 MG PO SCH ×3 (08:59→18:15)
[2017-10-03] MEDS: Calcium Acetate 667 MG CAP PO SCH (09:00)
[2017-10-03] MEDS: Calcitriol 0.25 MCG CAP PO SCH (09:01)
[2017-10-03] MEDS: Famotidine 20 MG TAB PO SCH (09:01)
[2017-10-03] MEDS: Saccharomyces boulardii 250 MG CAP PO SCH (09:01)
[2017-10-03] MEDS: Sevelamer Carbonate 800 MG TAB PO SCH ×3 (09:01→22:40)
[2017-10-03] MEDS: Amiodarone 200 MG TAB PO SCH (09:02)
[2017-10-03] MEDS: Triple Antibiotic Oint 1 GM Packet TOP SCH ×2 (09:02→22:38)
[2017-10-03] MEDS: Lidocaine 5% Patch TD SCH (09:03)
[2017-10-03] MEDS: Metoprolol Tartrate 25 MG TAB PO SCH ×2 (09:03→22:38)
[2017-10-03] MEDS: Midodrine HCl 5 MG TAB PO SCH (09:03)
[2017-10-03] MEDS ORDERED: Heparin 1,000 UNITS/ML VIAL ONE (11:11)
[2017-10-03] MEDS: Vancomycin HCl 25 MG/ML Oral PO SCH (11:27)
--- NOTE | 2017-10-03 14:07 | PDOC.PN ---
- Subjective Encounter Start Date: 10/03/17 Encounter Start Time: 14:08 Patient seen and examined. He has a h/o ESRD, polycystic kidney disease and recent colonoscopy which likely led to polyp peritonitis. He was admitted w sepsis, peritonitis. Body fluid culture grew pseudomonas. In addition, he had urinary retention requiring the placement of a suprapubic catheter. Over the course of his extended hospital stay, various services have had conversations with patient regarding code status. He decided to remain full code. He has been switched to PO antibiotics. Surgical service consulted to place a dialysis catheter and patient will be transitioned to HD. CM has been consulted for placement options since he will likely need to be placed in a [place] [facility] and will need a HD center after initiation of hemodialysis. No complaints this morning. No acute events overnight. - Objective Resuscitation Status: Resuscitation Status DNR:Do Not Resuscitate MAR Reviewed: Yes Vital Signs & Weight: Vital Signs (12 hours) Temp Pulse Pulse Pulse Resp BP BP 10/03/17 11:39 98.7 F 116 H 18 10/03/17 10:43 116 H 112 H 116/74 104/70 10/03/17 08:59 98 F 112 H 20 10/03/17 07:51 98 F 112 H 20 10/03/17 04:00 99.0 F 119 H 18 BP Pulse Ox Pulse Ox Pulse Ox 10/03/17 11:39 114/74 95 10/03/17 10:43 95 96 10/03/17 08:59 98 10/03/17 07:51 105/67 98 10/03/17 04:00 94/58 L 100 Weight Admit Weight 205 lb 14.588 oz Weight 240 lb Most Recent Monitor Data Heart Rate from ECG 110 NIBP 96/64 NIBP BP-Mean 72 Respiration from ECG 15 SpO2 100 I&O: 10/02/17 10/03/17 10/04/17 06:59 06:59 06:59 Intake Total 1258 1826 Output Total 100 Balance 1258 1726 Result Diagrams: 10/03/17 05:55 10/03/17 05:55 Additional Labs: Accuchecks 10/03/17 10/02/17 10/02/17 06:05 20:59 17:10 POC Glucose 60 L 77 75 10/02/17 11:24 POC Glucose 116 H Phys Exam - Physical Examination Constitutional: NAD HEENT: sclera anicteric dry mucous membranes Neck: supple, full ROM Respiratory: no wheezing, no rales, no rhonchi, clear to auscultation bilateral Cardiovascular: RRR, no significant murmur, no rub Gastrointestinal: soft, non-tender, no distention, positive bowel sounds Musculoskeletal: no edema, pulses present Dx/Plan (1) C. difficile diarrhea Code(s): A04.72 - ENTEROCOLITIS D/T CLOSTRIDIUM DIFFICILE, NOT SPCF RECUR Status: Acute Comment: Diarrhea resolved. Continue PO vancomycin (2) Hypoalbuminemia due to protein-calorie malnutrition Code(s): E46 - UNSPECIFIED PROTEIN-CALORIE MALNUTRITION Status: Chronic Comment: Continue nutritional supplements. (3) Hypothyroidism Code(s): E03.9 - HYPOTHYROIDISM, UNSPECIFIED Status: Acute Qualifiers: Hypothyroidism type: unspecified Qualified Code(s): E03.9 - Hypothyroidism , unspecified Comment: Continue levothyroxine (started this admission). (4) Anemia due to end stage renal disease Code(s): N18.6 - END STAGE RENAL DISEASE; D63.1 - ANEMIA IN CHRONIC KIDNEY DISEASE Status: Chronic Comment: s/p 5 units PRBC. Hb stable. (5) Anxiety and depression Code(s): F41.9 - ANXIETY DISORDER, UNSPECIFIED; F32.9 - MAJOR DEPRESSIVE DISORDER, SINGLE EPISODE, UNSPECIFIED Status: Chronic (6) ESRD on peritoneal dialysis Code(s): N18.6 - END STAGE RENAL DISEASE; Z99.2 - DEPENDENCE ON RENAL DIALYSIS Status: Chronic Comment: Continue PD per nephrology. Being transitioned to HD. Dialysis catheter in place. (7) Physical deconditioning Code(s): R53.81 - OTHER MALAISE Status: Chronic Comment: PT/OT. patient will likely need NH placement. (8) Secondary hyperparathyroidism of renal origin Code(s): N25.81 - SECONDARY HYPERPARATHYROIDISM OF RENAL ORIGIN Status: Chronic (9) Sepsis Code(s): A41.9 - SEPSIS, UNSPECIFIED ORGANISM Status: Resolved Qualifiers: Sepsis type: Pseudomonas Qualified Code(s): A41.52 - Sepsis due to Pseudomonas (10) Tachycardia Code(s): R00.0 - TACHYCARDIA, UNSPECIFIED Status: Acute Plan: 2/2 Metoprolol held due to low blood pressures. - Plan cont current plan of care, continue antibiotics, PT/OT, social work msw, incentive spirometry, DVT proph w/SCDs f/u outsole caser regarding placement. Review of Systems - Medications/Allergies Allergies/Adverse Reactions: Allergies Allergy/AdvReac Type Severity Reaction Status Date / Time iron Allergy Verified 09/14/17 13:20 Sulfa (Sulfonamide Allergy Verified 09/14/17 13:20 Antibiotics) Medications: Current Medications Acetaminophen (Tylenol) 650 mg PO Q4H PRN PRN Reason: Headache/Fever or Pain Last Admin: 09/28/17 01:34 Dose: 650 mg Al Hydroxide/Mg Hydroxide (Maalox) 30 ml PO Q6H PRN PRN Reason: Heartburn or Indigestion Albuterol/Ipratropium (Duoneb) 3 ml NEB [id number] PRN PRN Reason: SOB &/or Wheezing Amiodarone HCl (Cordarone) 100 mg PO DAILY [facility] Last Admin: 10/03/17 09:02 Dose: 100 mg Artificial Tears (Tears Renewed 15ml Bottle) 0 drop EA EYE PRN PRN PRN Reason: Dry Eyes Calcitriol (Rocaltrol) 0.25 mcg PO DAILY [facility] Last Admin: 10/03/17 09:01 Dose: 0.25 mcg Dextrose/Water (Dextrose 50%) 25 gm SLOW IVP PRN PRN PRN Reason: Hypoglycemia Last Admin: 10/01/17 21:02 Dose: 25 gm Epoetin Ayaz (Procrit) 10,000 units SC Q7D [facility] Last Admin: 09/29/17 11:21 Dose: 10,000 units Famotidine (Pepcid) 20 mg PO DAILY [facility] Last Admin: 10/03/17 09:01 Dose: 20 mg Glucagon (Glucagon) 1 mg IM PRN PRN PRN Reason: Hypoglycemia Guaifenesin (Robitussin Sf) 200 mg PO Q4H PRN PRN Reason: Cough Dextrose/Water (D5w) 1,000 mls @ 0 mls/hr IV .Q0M PRN; As Directed PRN Reason: Hypoglycemia Last Admin: 09/30/17 14:14 Dose: 1,000 mls Dextrose/Water (Dextrose 10% In Water) 1,000 mls @ 50 mls/hr IV .Q20H [facility] Last Admin: 10/03/17 01:55 Dose: 1,000 mls Insulin Human Lispro (Humalog) 0 units SC .MILD SLIDING SCALE PRN PRN Reason: Mild Correctional Scale Levothyroxine Sodium (Synthroid) 50 mcg PO 0600 [facility] Last Admin: 10/03/17 07:07 Dose: 50 mcg Lidocaine (Lidoderm 5% Patch) 1 patch TD QAM [facility] Last Admin: 10/03/17 09:03 Dose: 1 patch Loperamide HCl (Imodium) 2 mg PO PRN PRN PRN Reason: Diarrhea/Loose Stools Magnesium Hydroxide (Milk Of Magnesium) 30 ml PO DAILYPRN PRN PRN Reason: Constipation Metoclopramide HCl (Reglan) 5 mg IVP Q8HR PRN PRN Reason: Nausea/Vomiting Metoprolol Tartrate (Lopressor) 25 mg PO BID [facility] Last Admin: 10/03/17 09:03 Dose: Not Given Midodrine (Proamatine) 5 mg PO DAILY [facility] Last Admin: 10/03/17 09:03 Dose: 5 mg Mineral Oil/White Petrolatum (Eucerin Cream) 0 gm TOP BIDPRN PRN PRN Reason: Dry Skin Mirtazapine (Remeron) 30 mg PO HS [facility] Last Admin: 10/02/17 22:07 Dose: 30 mg Miscellaneous Medication (Lidocaine Patch Removal) 1 each TOP QPM [facility] Last Admin: 10/02/17 22:55 Dose: Not Given Morphine Sulfate (Morphine) 1 mg SLOW IVP Q4H PRN PRN Reason: Pain Last Admin: 10/01/17 18:28 Dose: 1 mg Neomycin/Polymyxin/Bacitracin (Triple Antibiotic) 0 gm TOP BID [facility] Last Admin: 10/03/17 09:02 Dose: 1 gm Auryxia 210 Mg Tab- (3 Tablets) 0 each PO TID-[facility] Last Admin: 10/03/17 13:03 Dose: Not Given Phenol (Chloraseptic [place] 180 Ml Bot) 0 ml PO PRN PRN PRN Reason: Sore Throat Saccharomyces Boulardii (Florastor) 250 mg PO DAILY [facility] Last Admin: 10/03/17 09:01 Dose: 250 mg Sevelamer Carbonate (Renvela) 2,400 mg PO TID [facility] Last Admin: 10/03/17 09:01 Dose: 2,400 mg Sodium Chloride ([place] Nasal [place] 0.65%) 0 ml EA NARE QIDPRN PRN PRN Reason: Nasal Congestion Sodium Chloride (Flush - Normal Saline) 10 ml IVF Q12HR [facility] Last Admin: 10/03/17 09:02 Dose: 10 ml Sodium Chloride (Flush - Normal Saline) 10 ml IVF PRN PRN PRN Reason: Saline Flush Last Admin: 10/02/17 22:11 Dose: 10 ml
[2017-10-03] MEDS ORDERED: Dextrose 50% Abboject 50 ML SYRINGE ONE (18:57)
[2017-10-03] MEDS: Dextrose 50% Abboject 50 ML SYRINGE SLOW IVP PRN (19:00)
[2017-10-03] MEDS: Mirtazapine 30 MG TAB PO SCH (22:38)
[2017-10-03] MEDS: Lidocaine Patch Removal 1 EACH TOP SCH (22:39)
[2017-10-03 22:43] LABS: #Eosinphils 0.1 thou/uL (0.0-0.7); #Lymphocytes 0.6 thou/uL (1.20-3.40); #Monocytes 0.7 thou/uL (0.11-0.59); #Neutrophils 8.4 thou/uL (1.40-6.50); %Basophils 0.1 % (0.0-1.0); %Eosinophils 0.8 % (0.0-10.0); %Lymphocytes 6.5 % (21.0-51.0); %Monocytes 6.6 % (0.0-10.0); Hemoglobin 8.2 g/dL (14.0-18.0); Mean Corpuscular HGB CONC 32.2 g/dL (32.0-36.0); Mean Corpuscular Hemoglobin 26.4 pg (27.0-31.0); Mean Platelet Volume 8.7 fL (7.4-10.4); Platelet Count 216 thou/uL (130-400); RBC Distribution Width 17.7 % (11.5-14.5); Red Blood Cell (RBC) Count 3.12 mill/uL (4.70-6.10); White Blood Cell (WBC) Count 9.8 thou/uL (4.8-10.8)
[2017-10-03 22:56] LABS: Anion Gap 8 mmol/L (10-20); BUN (Urea Nitrogen) 33 mg/dL (8.4-25.7); Calc. Creatinine Clearance 40 mL/min (70-130); Calcium 7.6 mg/dL (7.8-10.44); Carbon Dioxide 27 mmol/L (22-29); Chloride 102 mmol/L (98-107); Estimated GFR-MDRD 20; Glucose 85 mg/dL (70-105); Potassium 4.1 mmol/L (3.5-5.1); Sodium 133 mmol/L (136-145)
[2017-10-04] MEDS: Dextrose 10% in Water 1,000 ML IV SCH ×2 (02:07→22:03)
[2017-10-04 06:14] LABS: Anion Gap 10 mmol/L (10-20); BUN (Urea Nitrogen) 34 mg/dL (8.4-25.7); Calc. Creatinine Clearance 38 mL/min (70-130); Calcium 7.7 mg/dL (7.8-10.44); Carbon Dioxide 27 mmol/L (22-29); Chloride 100 mmol/L (98-107); Estimated GFR-MDRD 18; Glucose 65 mg/dL (70-105); Potassium 4.3 mmol/L (3.5-5.1); Sodium 133 mmol/L (136-145)
[2017-10-04] MEDS: Levothyroxine Sodium 50 MCG TAB PO SCH (06:21)
[2017-10-04 06:33] LABS: Band 34 % (5-11); Eosinophils 1 % (0-10); Hemoglobin 8.2 g/dL (14.0-18.0); Lymphocytes 8 % (21-51); MDiff Complete? YES; Mean Corpuscular HGB CONC 32.1 g/dL (32.0-36.0); Mean Corpuscular Hemoglobin 26.3 pg (27.0-31.0); Mean Corpuscular Volume 81.9 fL (78.0-98.0); Mean Platelet Volume 8.9 fL (7.4-10.4); Monocytes 5 % (0-10); Neutrophil 52 % (42-75); PLT Morphology Comment Appears Adequate; Platelet Count 236 thou/uL (130-400); RBC Distribution Width 17.5 % (11.5-14.5); Red Blood Cell (RBC) Count 3.12 mill/uL (4.70-6.10); White Blood Cell (WBC) Count 10.6 thou/uL (4.8-10.8)
[2017-10-04] MEDS: Lidocaine 5% Patch TD SCH (09:39)
[2017-10-04] MEDS: AURYXIA 210 MG PO SCH ×5 (09:40→17:13)
[2017-10-04] MEDS: Calcitriol 0.25 MCG CAP PO SCH (09:41)
[2017-10-04] MEDS: Famotidine 20 MG TAB PO SCH (09:41)
[2017-10-04] MEDS: Triple Antibiotic Oint 1 GM Packet TOP SCH ×2 (09:41→21:49)
[2017-10-04] MEDS: Metoprolol Tartrate 25 MG TAB PO SCH ×2 (09:42→21:50)
[2017-10-04] MEDS: Saccharomyces boulardii 250 MG CAP PO SCH (09:42)
[2017-10-04] MEDS: Sevelamer Carbonate 800 MG TAB PO SCH ×2 (09:42→16:38)
[2017-10-04] MEDS: Midodrine HCl 5 MG TAB PO SCH (09:43)
[2017-10-04] MEDS: Amiodarone 200 MG TAB PO SCH (09:46)
--- NOTE | 2017-10-04 13:26 | PRG ---
DATE OF SERVICE: 10/04/2017 SUBJECTIVE: Mr. 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 He has been converted from peritoneal dialysis to hemodialysis. He tolerated the same treatment yesterday. No acute events noted. He is still confused. OBJECTIVE: VITAL SIGNS: Blood pressure is 105/65 with a heart rate of 129, respiratory rate 24, temperature 98. 6, and pulse ox 98%. GENERAL: Awake, confused, but not in overt distress. SKIN: Adequate turgor. HEENT: Slightly pale conjunctivae, anicteric sclerae. NECK: No neck mass, no carotid bruits, no JVD. CHEST: No deformities. LUNGS: Decreased breath sounds. HEART: Normal sinus rhythm. No murmur, no gallops, no rubs. Please note he is tachycardic this mor renetta. ABDOMEN: Globular, soft, nontender. Positive for PD catheter. EXTREMITIES: No edema. BACK: Positive for decubitus ulcer. MEDICATIONS: 10/04/2017 was reviewed. LABORATORY DATA: Laboratories of 10/04/2017. White count 10.6, hemoglobin 8.2. Sodium 133, potassi um 4.3, chloride 100, carbon dioxide 27, BUN 34, creatinine 3.51, glucose 35, phosphorus 3.0. Hemogl obin 8.2. ASSESSMENT AND PLAN: 1. Anemia, continuing weekly Epogen, p.r.n. blood transfusion. 2. End-stage renal disease - the patient has been converted to hemodialysis. Continue current 3 christiano es a week hemodialysis. Due to the low blood pressure, minimal fluid is being removed. We will sche dule him back for Thursday, Thursday, and Thursday dialysis. If he continues to tolerate this, consider removing PD catheter. 3. Sepsis - clinically improved. 4. Confusion - secondary to metabolic encephalopathy. His overall prognosis remains poor. We are awaiting senior living placement with this patient. Reche ck base met and CBC in a.m.
--- NOTE | 2017-10-04 15:54 | PDOC.PN ---
- Subjective Encounter Start Date: 10/04/17 Encounter Start Time: 15:52 DENIES COMPLAINTS. SAYS HE IS WAITING FOR [facility]. - Objective Resuscitation Status: Resuscitation Status DNR:Do Not Resuscitate Vital Signs & Weight: Vital Signs (12 hours) Temp Pulse Resp BP Pulse Ox 10/04/17 11:58 99.5 F 113 H 22 H 142/85 H 98 10/04/17 08:05 98.6 F 129 H 24 H 98 10/04/17 08:00 98.6 F 129 H 24 H 105/65 98 10/04/17 04:00 97.9 F 127 H 18 149/81 H 100 Weight Admit Weight 205 lb 14.588 oz Weight 240 lb 4.8 oz Most Recent Monitor Data Heart Rate from ECG 110 NIBP 96/64 NIBP BP-Mean 72 Respiration from ECG 15 SpO2 100 I&O: 10/03/17 10/04/17 10/05/17 06:59 06:59 06:59 Intake Total 2399 443 7416 Output Total 100 25 Balance 4736 883 3942 Result Diagrams: 10/04/17 05:30 10/04/17 05:30 Additional Labs: Accuchecks 10/04/17 10/04/17 10/04/17 09:44 05:33 02:06 POC Glucose 91 66 L 79 10/03/17 10/03/17 10/03/17 20:31 19:05 18:55 POC Glucose 102 65 L 37 L* 10/03/17 10/03/17 18:14 10:45 POC Glucose 53 L* 87 Phys Exam - Physical Examination Constitutional: NAD Respiratory: no wheezing, no rales, no rhonchi Cardiovascular: RRR, no significant murmur TACHY Gastrointestinal: soft, non-tender, no distention Deviation from normal: SEVERAL AREAS OF SUPERFICIAL SKIN EROSION OF THE CHEST WHERE TELE PADS WERE Dx/Plan (1) Polycystic kidney, adult type Code(s): Q61.2 - POLYCYSTIC KIDNEY, ADULT TYPE Status: Chronic Comment: ESRD. WAS ON PD. NOW CONVERTED TO HD. FOLLOWED BY NEPHROLOGY. TOLERATING WELL. (2) Tachycardia Code(s): R00.0 - TACHYCARDIA, UNSPECIFIED Status: Chronic (3) Physical deconditioning Code(s): R53.81 - OTHER MALAISE Status: Chronic Comment: PT/OT. patient will likely need NH placement. (4) Secondary hyperparathyroidism of renal origin Code(s): N25.81 - SECONDARY HYPERPARATHYROIDISM OF RENAL ORIGIN Status: Chronic (5) Confusion Code(s): R41.0 - DISORIENTATION, UNSPECIFIED Status: Chronic Comment: HAS BEEN PRESENT THROUGHOUT ADMISSION. CHRONIC. APPEARS TO BE CONSISTENT WITH EARLY ONSET DEMENTIA. - Plan * CM WORKING ON PLACEMENT.
[2017-10-04] MEDS: Mirtazapine 30 MG TAB PO SCH (21:49)
[2017-10-04] MEDS: Lidocaine Patch Removal 1 EACH TOP SCH (21:50)
[2017-10-05 05:42] LABS: Anion Gap 10 mmol/L (10-20); BUN (Urea Nitrogen) 42 mg/dL (8.4-25.7); Calc. Creatinine Clearance 33 mL/min (70-130); Calcium 7.8 mg/dL (7.8-10.44); Carbon Dioxide 27 mmol/L (22-29); Chloride 100 mmol/L (98-107); Estimated GFR-MDRD 16; Glucose 72 mg/dL (70-105); Potassium 4.2 mmol/L (3.5-5.1); Sodium 133 mmol/L (136-145)
[2017-10-05 06:01] LABS: Band 44 % (5-11); Eosinophils 2 % (0-10); Lymphocytes 6 % (21-51); MDiff Complete? YES; Mean Corpuscular HGB CONC 31.7 g/dL (32.0-36.0); Mean Corpuscular Hemoglobin 26.1 pg (27.0-31.0); Mean Corpuscular Volume 82.5 fL (78.0-98.0); Mean Platelet Volume 8.9 fL (7.4-10.4); Metamyelocyte 1 % (0-0); Monocytes 1 % (0-10); Neutrophil 46 % (42-75); PLT Morphology Comment Appears Adequate; Platelet Count 216 thou/uL (130-400); RBC Distribution Width 17.8 % (11.5-14.5); Red Blood Cell (RBC) Count 3.07 mill/uL (4.70-6.10); White Blood Cell (WBC) Count 10.9 thou/uL (4.8-10.8)
[2017-10-05] MEDS: Dextrose 10% in Water 1,000 ML IV SCH ×2 (06:42→18:19)
[2017-10-05] MEDS: Levothyroxine Sodium 50 MCG TAB PO SCH (06:43)
[2017-10-05] MEDS ORDERED: Sevelamer Carbonate 800 MG TAB PO SCH (08:00)
[2017-10-05] MEDS: AURYXIA 210 MG PO SCH ×3 (09:44→18:20)
[2017-10-05] MEDS: Lidocaine 5% Patch TD SCH (09:45)
[2017-10-05] MEDS: Saccharomyces boulardii 250 MG CAP PO SCH (09:47)
[2017-10-05] MEDS: Triple Antibiotic Oint 1 GM Packet TOP SCH ×2 (09:47→20:37)
[2017-10-05] MEDS: Calcitriol 0.25 MCG CAP PO SCH (09:48)
[2017-10-05] MEDS: Amiodarone 200 MG TAB PO SCH (09:48)
[2017-10-05] MEDS: Famotidine 20 MG TAB PO SCH (09:49)
[2017-10-05] MEDS: Metoprolol Tartrate 25 MG TAB PO SCH ×2 (09:49→20:36)
[2017-10-05] MEDS: Midodrine HCl 5 MG TAB PO SCH (09:50)
--- NOTE | 2017-10-05 09:51 | PRG ---
DATE OF SERVICE: 10/05/2017 SERVICE: Renal Medicine. SUBJECTIVE: Mr. Kamara is a 52-year-old white male with ESRD and being followed up for his mainten ance hemodialysis. He was recently converted from peritoneal dialysis to hemodialysis. No other com plaints today. He still has decreased appetite. OBJECTIVE: VITAL SIGNS: Blood pressure 137/74, heart rate 108, respiratory rate 24, pulse ox 100%, temperature 97.8. GENERAL: Awake, comfortable, not in distress, occasionally confused. SKIN: Adequate turgor. HEENT: He has pinkish conjunctivae, anicteric sclerae. NECK: No neck mass, no carotid bruits, no JVD. CHEST: No deformities. LUNGS: Clear breath sounds. HEART: Normal sinus rhythm. No murmur, no gallops, no rubs. ABDOMEN: Globular, soft, nontender. Positive for PD catheter. EXTREMITIES: No edema. BACK: Positive for sacral decubitus. MEDICATIONS: Of 10/05/2017 was reviewed. LABORATORY DATA: Of 10/05/2017, white count 10.9, hemoglobin 8. Sodium 133, potassium 4.2, chloride 100, carbon dioxide 27, BUN 42, creatinine 4.06, calcium 7.8. ASSESSMENT AND PLAN: 1. End-stage renal disease. We will continue a 3-hour hemodialysis with this patient. No fluid rem oval, challenge with IV fluid as needed due to the low blood pressure. 2. Anemia, continuing weekly Epogen, p.r.n. blood transfusion. 3. Sacral decubitus. Continue wound care. Continue supportive care. 4. Hypophosphatemia, off his phosphate binders. Overall, prognosis remains guarded. We will consult Surgery for PD catheter removal.
--- NOTE | 2017-10-05 15:16 | PDOC.PN ---
- Subjective Encounter Start Date: 10/05/17 Encounter Start Time: 09:00 Patient is seen today, alert and oriented. ,Mother at bedside, pt is on IV antibiotics for Peritonitis and waiting on PD cathter removal and Suprapubic removal. - Objective Resuscitation Status: Resuscitation Status DNR:Do Not Resuscitate MAR Reviewed: Yes Vital Signs & Weight: Vital Signs (12 hours) Temp Pulse Resp BP Pulse Ox 10/05/17 12:00 97.8 F 93 24 H 153/72 H 100 10/05/17 08:59 97.8 F 108 H 24 H 100 10/05/17 08:00 97.8 F 108 H 24 H 137/74 100 10/05/17 04:00 97.8 F 107 H 22 H 148/91 H 100 Weight Admit Weight 205 lb 14.588 oz Weight 240 lb 4.8 oz Most Recent Monitor Data Heart Rate from ECG 110 NIBP 96/64 NIBP BP-Mean 72 Respiration from ECG 15 SpO2 100 I&O: 10/04/17 10/05/17 10/06/17 06:59 06:59 06:59 Intake Total 934 2707 Output Total 25 150 Balance 909 2557 Result Diagrams: 10/05/17 05:24 10/05/17 05:24 Additional Labs: Accuchecks 10/05/17 10/05/17 10/05/17 10:09 05:17 00:16 POC Glucose 82 75 86 10/04/17 10/04/17 21:58 16:38 POC Glucose 65 L 98 Radiology Reviewed by me: Yes Phys Exam - Physical Examination HEENT: PERRLA, moist MMs Neck: no nodes, no JVD Respiratory: no wheezing, no rales Cardiovascular: RRR, no significant murmur Gastrointestinal: soft, non-tender Musculoskeletal: no edema, pulses present Neurological: non-focal, normal sensation Dx/Plan (1) Peritonitis Code(s): K65.9 - PERITONITIS, UNSPECIFIED Status: Acute Comment: likely polymicrobial (2) Anemia due to end stage renal disease Code(s): N18.6 - END STAGE RENAL DISEASE; D63.1 - ANEMIA IN CHRONIC KIDNEY DISEASE Status: Chronic Comment: s/p 5 units PRBC. Hb stable. (3) ESRD on peritoneal dialysis Code(s): N18.6 - END STAGE RENAL DISEASE; Z99.2 - DEPENDENCE ON RENAL DIALYSIS Status: Chronic Comment: Continue PD per nephrology. Being transitioned to HD. Dialysis catheter in place. Plan to remove tomorrow by nancy. (4) Hypoalbuminemia due to protein-calorie malnutrition Code(s): E46 - UNSPECIFIED PROTEIN-CALORIE MALNUTRITION Status: Chronic Comment: Continue nutritional supplements. (5) Physical deconditioning Code(s): R53.81 - OTHER MALAISE Status: Chronic Comment: PT/OT. patient will likely need NH placement. (6) Acute metabolic encephalopathy Code(s): G93.41 - METABOLIC ENCEPHALOPATHY Status: Resolved Comment: Improving. 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 Review of Systems - Review of Systems Constitutional: fever Eyes: negative: Pain, Vision Change, Conjunctivae Inflammation, Eyelid Inflammation, Redness, Other ENT: negative: Ear Pain, Ear Discharge, Nose Pain, Nose Discharge, Nose Congestion, Mouth Pain, Mouth Swelling, Throat Pain, Throat Swelling, Other Respiratory: negative: Cough, Dry, Shortness of Breath, Hemoptysis, SOB with Excertion, Pleuritic Pain, Sputum, Wheezing Cardiovascular: negative: chest pain, palpitations, orthopnea, paroxysmal nocturnal dyspnea, edema, light headedness, other Gastrointestinal: Nausea, Abdominal Pain Genitourinary: negative: Dysuria, Frequency, Incontinence, Hematuria, Retention , Other Musculoskeletal: negative: Neck Pain, Shoulder Pain, Arm Pain, Back Pain, Hand Pain, Leg Pain, Foot Pain, Other - Medications/Allergies Allergies/Adverse Reactions: Allergies Allergy/AdvReac Type Severity Reaction Status Date / Time iron Allergy Verified 09/14/17 13:20 Sulfa (Sulfonamide Allergy Verified 09/14/17 13:20 Antibiotics) Medications: Current Medications Acetaminophen (Tylenol) 650 mg PO Q4H PRN PRN Reason: Headache/Fever or Pain Last Admin: 09/28/17 01:34 Dose: 650 mg Al Hydroxide/Mg Hydroxide (Maalox) 30 ml PO Q6H PRN PRN Reason: Heartburn or Indigestion Albuterol/Ipratropium (Duoneb) 3 ml NEB [id number] PRN PRN Reason: SOB &/or Wheezing Amiodarone HCl (Cordarone) 100 mg PO DAILY [facility] Last Admin: 10/05/17 09:48 Dose: 100 mg Artificial Tears (Tears Renewed 15ml Bottle) 0 drop EA EYE PRN PRN PRN Reason: Dry Eyes Calcitriol (Rocaltrol) 0.25 mcg PO DAILY [facility] Last Admin: 10/05/17 09:48 Dose: 0.25 mcg Dextrose/Water (Dextrose 50%) 25 gm SLOW IVP PRN PRN PRN Reason: Hypoglycemia Last Admin: 10/03/17 19:00 Dose: 25 gm Epoetin Ayaz (Procrit) 10,000 units SC Q7D [facility] Last Admin: 09/29/17 11:21 Dose: 10,000 units Famotidine (Pepcid) 20 mg PO DAILY [facility] Last Admin: 10/05/17 09:49 Dose: 20 mg Glucagon (Glucagon) 1 mg IM PRN PRN PRN Reason: Hypoglycemia Guaifenesin (Robitussin Sf) 200 mg PO Q4H PRN PRN Reason: Cough Dextrose/Water (D5w) 1,000 mls @ 0 mls/hr IV .Q0M PRN; As Directed PRN Reason: Hypoglycemia Last Admin: 09/30/17 14:14 Dose: 1,000 mls Dextrose/Water (Dextrose 10% In Water) 1,000 mls @ 50 mls/hr IV .Q20H [facility] Last Admin: 10/05/17 06:42 Dose: Not Given Insulin Human Lispro (Humalog) 0 units SC .MILD SLIDING SCALE PRN PRN Reason: Mild Correctional Scale Levothyroxine Sodium (Synthroid) 50 mcg PO 0600 [facility] Last Admin: 10/05/17 06:43 Dose: Not Given Lidocaine (Lidoderm 5% Patch) 1 patch TD QAM [facility] Last Admin: 10/05/17 09:45 Dose: 1 patch Loperamide HCl (Imodium) 2 mg PO PRN PRN PRN Reason: Diarrhea/Loose Stools Last Admin: 10/04/17 21:49 Dose: 2 mg Magnesium Hydroxide (Milk Of Magnesium) 30 ml PO DAILYPRN PRN PRN Reason: Constipation Metoclopramide HCl (Reglan) 5 mg IVP Q8HR PRN PRN Reason: Nausea/Vomiting Metoprolol Tartrate (Lopressor) 25 mg PO BID [facility] Last Admin: 10/05/17 09:49 Dose: 25 mg Midodrine (Proamatine) 5 mg PO DAILY [facility] Last Admin: 10/05/17 09:50 Dose: 5 mg Mineral Oil/White Petrolatum (Eucerin Cream) 0 gm TOP BIDPRN PRN PRN Reason: Dry Skin Mirtazapine (Remeron) 30 mg PO HS [facility] Last Admin: 10/04/17 21:49 Dose: 30 mg Miscellaneous Medication (Lidocaine Patch Removal) 1 each TOP QPM [facility] Last Admin: 10/04/17 21:50 Dose: 1 each Morphine Sulfate (Morphine) 1 mg SLOW IVP Q4H PRN PRN Reason: Pain Last Admin: 10/01/17 18:28 Dose: 1 mg Neomycin/Polymyxin/Bacitracin (Triple Antibiotic) 0 gm TOP BID [facility] Last Admin: 10/05/17 09:47 Dose: 1 gm Auryxia 210 Mg Tab- (3 Tablets) 0 each PO TID-WM [facility] Last Admin: 10/05/17 12:49 Dose: 1 each Phenol (Chloraseptic [place] 180 Ml Bot) 0 ml PO PRN PRN PRN Reason: Sore Throat Saccharomyces Boulardii (Florastor) 250 mg PO DAILY [facility] Last Admin: 10/05/17 09:47 Dose: 250 mg Sodium Chloride ([place] Nasal [place] 0.65%) 0 ml EA NARE QIDPRN PRN PRN Reason: Nasal Congestion Sodium Chloride (Flush - Normal Saline) 10 ml IVF Q12HR [facility] Last Admin: 10/05/17 09:49 Dose: 10 ml Sodium Chloride (Flush - Normal Saline) 10 ml IVF PRN PRN PRN Reason: Saline Flush Last Admin: 10/03/17 22:40 Dose: 10 ml
[2017-10-05] MEDS: Mirtazapine 30 MG TAB PO SCH (20:36)
[2017-10-05] MEDS: Lidocaine Patch Removal 1 EACH TOP SCH (20:36)
[2017-10-06] MEDS: Levothyroxine Sodium 50 MCG TAB PO SCH (05:56)
--- NOTE | 2017-10-06 09:19 | PRG ---
DATE OF SERVICE: 10/06/2017 SUBJECTIVE: Mr. Kamara is a 52-year-old white male with ESRD, being followed up by the [facility]. He is recently been converted from peritoneal dialysis to hemodialysis in anticipation of discha rge to retirement. He underwent dialysis yesterday without any difficulty. Again, minimal fluid r emoval is being done due to the low blood pressure. He is more lethargic this morning; however, the patient is arousable. I have requested a surgical consult to have the PD catheter removed. OBJECTIVE: VITAL SIGNS: Blood pressure 99/57, heart rate 109, respiratory rate 20, temperature 97.8, pulse ox i s 100%. GENERAL: Patient is sleepy, but arousable, not in overt distress, obese. SKIN: Adequate turgor. HEENT: Slightly pale conjunctivae, anicteric sclerae. NECK: No neck mass, no carotid bruits, no JVD. CHEST: No deformities. LUNGS: Decreased breath sounds. HEART: Normal sinus rhythm. No murmur, no gallops, no rubs. ABDOMEN: Globular, soft, nontender, no masses. Positive for PD catheter. EXTREMITIES: No edema. MEDICATIONS: Of 10/06/2017 was reviewed. LABORATORY DATA: Laboratories of 10/06/2017, none done. Laboratories of 10/05/2017, hemoglobin 8, B UN 42, creatinine 4.06, potassium 4.2. ASSESSMENT AND PLAN: 1. End-stage renal disease, stable. We will continue current Thursday, Thursday, Thursday hemodialysis . Again, fluid removal only as tolerated. During the last several treatments, we have minimized flu id removal due to the low blood pressure. 2. Anemia, p.r.n. blood transfusion, continuing weekly Epogen 10,000 units subcutaneously every week . A surgical consult has been done to remove PD catheter. Overall, prognosis remains poor with this patient. He has declined palliative and hospice care. Recheck base met and CBC in a.m.
[2017-10-06 12:50] VITALS: BMI 33.5
[2017-10-06] MEDS: Amiodarone 200 MG TAB PO SCH (13:14)
[2017-10-06] MEDS: Midodrine HCl 5 MG TAB PO SCH (13:15)
[2017-10-06] MEDS: AURYXIA 210 MG PO SCH ×2 (13:19→18:47)
[2017-10-06] MEDS: Calcitriol 0.25 MCG CAP PO SCH (13:25)
[2017-10-06] MEDS: Famotidine 20 MG TAB PO SCH (13:25)
[2017-10-06] MEDS: Saccharomyces boulardii 250 MG CAP PO SCH (13:26)
[2017-10-06] MEDS: Metoprolol Tartrate 25 MG TAB PO SCH ×2 (13:26→22:59)
[2017-10-06] MEDS: Triple Antibiotic Oint 1 GM Packet TOP SCH ×2 (13:27→22:52)
[2017-10-06] MEDS: Epoetin (ESRD) 10,000 UNITS/ML VIAL SC SCH (13:27)
[2017-10-06] MEDS: Lidocaine 5% Patch TD SCH (13:28)
--- NOTE | 2017-10-06 16:43 | SPC ---
FLUOROSCOPIC GUIDED SUPRAPUBIC CATHETER REPLACEMENT 10/06/17 HISTORY: Urinary retention. Replacement and upsizing of the suprapubic catheter was requested. FLUOROSCOPY: Total fluoroscopy is one minute with total dose of 6312 mGy*cm. TECHNIQUE: After informed consent was obtained, the indwelling suprapubic catheter as well as surrounding area w ere meticulously prepped and draped in the usual sterile fashion. Contrast was injected through the s uprapubic catheter to opacify the urinary bladder. A 0.035 inch glide wire was placed through the distal side hole of the suprapubic catheter. Saline wa s removed from the distal balloon, and the balloon was removed over the glide wire. A new 16 Portuguese s uprapubic catheter was then placed through the existing tract. Contrast injection confirms placement in the urinary bladder. Distal balloon was filled with 9 mL of sterile water. Contrast injection conf irms placement within the urinary bladder. The contrast was allowed to drain from the urinary bladder . The catheter was then placed to gravity drainage. Dry sterile dressing was placed at catheter entry site. IMPRESSION: 1. Technically successful replacement of a suprapubic catheter with upsizing of the catheter fro m 14 Portuguese to 16 Portuguese. 2. Filling defects within the urinary bladder which may be related to debris within the urinary bladder. 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 3. Peritoneal dialysis catheter overlies the pelvis. POS: [facility]
[2017-10-06] MEDS ORDERED: Heparin 10,000 UNITS/ 10 ML VIAL ONE (17:18)
[2017-10-06] MEDS: Mirtazapine 30 MG TAB PO SCH (22:52)
[2017-10-06] MEDS: Dextrose 10% in Water 1,000 ML IV SCH (22:54)
[2017-10-06] MEDS: Lidocaine Patch Removal 1 EACH TOP SCH (22:59)
[2017-10-07 06:27] LABS: Band 41 % (5-11); Eosinophils 1 % (0-10); Hemoglobin 8.1 g/dL (14.0-18.0); Lymphocytes 10 % (21-51); MDiff Complete? YES; Mean Corpuscular HGB CONC 31.3 g/dL (32.0-36.0); Mean Corpuscular Hemoglobin 25.9 pg (27.0-31.0); Mean Corpuscular Volume 82.9 fL (78.0-98.0); Mean Platelet Volume 9.4 fL (7.4-10.4); Monocytes 3 % (0-10); Neutrophil 45 % (42-75); PLT Morphology Comment Appears Adequate; Platelet Count 185 thou/uL (130-400); RBC Distribution Width 17.8 % (11.5-14.5); Red Blood Cell (RBC) Count 3.14 mill/uL (4.70-6.10); White Blood Cell (WBC) Count 12.7 thou/uL (4.8-10.8)
[2017-10-07 06:29] LABS: Anion Gap 10 mmol/L (10-20); BUN (Urea Nitrogen) 29 mg/dL (8.4-25.7); Calc. Creatinine Clearance 42 mL/min (70-130); Calcium 8.1 mg/dL (7.8-10.44); Carbon Dioxide 26 mmol/L (22-29); Chloride 102 mmol/L (98-107); Estimated GFR-MDRD 21; Glucose 66 mg/dL (70-105); Potassium 3.5 mmol/L (3.5-5.1); Sodium 134 mmol/L (136-145)
[2017-10-07] MEDS: Levothyroxine Sodium 50 MCG TAB PO SCH (06:31)
[2017-10-07] MEDS: AURYXIA 210 MG PO SCH ×2 (08:59→12:30)
[2017-10-07] MEDS: Amiodarone 200 MG TAB PO SCH (09:00)
[2017-10-07] MEDS: Midodrine HCl 5 MG TAB PO SCH (09:01)
[2017-10-07] MEDS: Famotidine 20 MG TAB PO SCH (09:01)
[2017-10-07] MEDS: Lidocaine 5% Patch TD SCH (09:01)
[2017-10-07] MEDS: Calcitriol 0.25 MCG CAP PO SCH (09:01)
[2017-10-07] MEDS: Metoprolol Tartrate 25 MG TAB PO SCH (09:01)
[2017-10-07] MEDS: Triple Antibiotic Oint 1 GM Packet TOP SCH (09:02)
[2017-10-07] MEDS: Acetaminophen 325 MG TAB PO PRN (09:02)
[2017-10-07] MEDS: Saccharomyces boulardii 250 MG CAP PO SCH (09:02)
--- NOTE | 2017-10-07 09:27 | PDOC.PN ---
- Subjective Encounter Start Date: 10/06/17 Encounter Start Time: 14:00 Subjective: PAtient is seen today, Lethargic and Drowsy, Pt has Worseing Weakness -: and Mental Status. - Objective Resuscitation Status: Resuscitation Status DNR:Do Not Resuscitate MAR Reviewed: Yes Vital Signs & Weight: Vital Signs (12 hours) Temp Pulse Resp BP Pulse Ox 10/07/17 07:33 97.0 F L 102 H 20 92/68 100 10/07/17 04:00 97.6 F 110 H 18 88/62 L 100 10/07/17 00:00 97.6 F 108 H 18 83/50 L 100 10/06/17 23:11 86/62 L 10/06/17 22:40 98.1 F 124 H 18 18 L Weight Admit Weight 205 lb 14.588 oz Weight 240 lb 4.8 oz Most Recent Monitor Data Heart Rate from ECG 110 NIBP 96/64 NIBP BP-Mean 72 Respiration from ECG 15 SpO2 100 I&O: 10/06/17 10/07/17 10/08/17 06:59 06:59 06:59 Intake Total 2162 660 Output Total 380 50 Balance 1782 610 Result Diagrams: 10/07/17 05:14 10/07/17 05:14 Additional Labs: Accuchecks 10/07/17 10/06/17 10/06/17 05:59 20:53 18:18 POC Glucose 74 83 82 10/06/17 10/06/17 10/05/17 06:41 05:55 20:36 POC Glucose 108 64 L 101 Radiology Reviewed by me: Yes Phys Exam - Physical Examination HEENT: PERRLA, moist MMs Neck: no nodes, no JVD Respiratory: no wheezing, no rales Cardiovascular: RRR, no significant murmur Tenderness of Abdomen Musculoskeletal: edema present Dx/Plan (1) Peritonitis Code(s): K65.9 - PERITONITIS, UNSPECIFIED Status: Acute Comment: likely polymicrobial, NO Plans for PD cathter/ AV acess as surgeon said pt is Not a cadidate for procedures. Discussed about Hospice. (2) Anemia due to end stage renal disease Code(s): N18.6 - END STAGE RENAL DISEASE; D63.1 - ANEMIA IN CHRONIC KIDNEY DISEASE Status: Chronic Comment: s/p 5 units PRBC. Hb stable. (3) ESRD on peritoneal dialysis Code(s): N18.6 - END STAGE RENAL DISEASE; Z99.2 - DEPENDENCE ON RENAL DIALYSIS Status: Chronic Comment: Continue PD per nephrology. Being transitioned to HD. Dialysis catheter in place. Plan for surtgery failed as Mother is not consenting and also surgeon feels pt is too sick.. (4) Hypoalbuminemia due to protein-calorie malnutrition Code(s): E46 - UNSPECIFIED PROTEIN-CALORIE MALNUTRITION Status: Chronic Comment: Continue nutritional supplements. (5) Physical deconditioning Code(s): R53.81 - OTHER MALAISE Status: Chronic Comment: PT/OT. patient will likely need Hospice. (6) Acute metabolic encephalopathy Code(s): G93.41 - METABOLIC ENCEPHALOPATHY Status: Resolved Comment: Improving. (7) Sepsis Code(s): A41.9 - SEPSIS, UNSPECIFIED ORGANISM Status: Resolved Qualifiers: Sepsis type: Pseudomonas Qualified Code(s): A41.52 - Sepsis due to Pseudomonas - Plan cont current plan of care, plan discussed w/ family, case management social worker (Hospice planning tomorrow.) * . Review of Systems - Review of Systems Other: Unable to Obtain. - Medications/Allergies Allergies/Adverse Reactions: Allergies Allergy/AdvReac Type Severity Reaction Status Date / Time iron Allergy Verified 09/14/17 13:20 Sulfa (Sulfonamide Allergy Verified 09/14/17 13:20 Antibiotics) Medications: Current Medications Acetaminophen (Tylenol) 650 mg PO Q4H PRN PRN Reason: Headache/Fever or Pain Last Admin: 10/07/17 09:02 Dose: 650 mg Al Hydroxide/Mg Hydroxide (Maalox) 30 ml PO Q6H PRN PRN Reason: Heartburn or Indigestion Albuterol/Ipratropium (Duoneb) 3 ml NEB [id number] PRN PRN Reason: SOB &/or Wheezing Amiodarone HCl (Cordarone) 100 mg PO DAILY [facility] Last Admin: 10/07/17 09:00 Dose: 100 mg Artificial Tears (Tears Renewed 15ml Bottle) 0 drop EA EYE PRN PRN PRN Reason: Dry Eyes Calcitriol (Rocaltrol) 0.25 mcg PO DAILY [facility] Last Admin: 10/07/17 09:01 Dose: 0.25 mcg Dextrose/Water (Dextrose 50%) 25 gm SLOW IVP PRN PRN PRN Reason: Hypoglycemia Last Admin: 10/03/17 19:00 Dose: 25 gm Epoetin Ayaz (Procrit) 10,000 units SC Q7D [facility] Last Admin: 10/06/17 13:27 Dose: 10,000 units Famotidine (Pepcid) 20 mg PO DAILY [facility] Last Admin: 10/07/17 09:01 Dose: 20 mg Glucagon (Glucagon) 1 mg IM PRN PRN PRN Reason: Hypoglycemia Guaifenesin (Robitussin Sf) 200 mg PO Q4H PRN PRN Reason: Cough Dextrose/Water (D5w) 1,000 mls @ 0 mls/hr IV .Q0M PRN; As Directed PRN Reason: Hypoglycemia Last Admin: 09/30/17 14:14 Dose: 1,000 mls Dextrose/Water (Dextrose 10% In Water) 1,000 mls @ 50 mls/hr IV .Q20H [facility] Last Admin: 10/06/17 22:54 Dose: 1,000 mls Insulin Human Lispro (Humalog) 0 units SC .MILD SLIDING SCALE PRN PRN Reason: Mild Correctional Scale Levothyroxine Sodium (Synthroid) 50 mcg PO 0600 [facility] Last Admin: 10/07/17 06:31 Dose: Not Given Lidocaine (Lidoderm 5% Patch) 1 patch TD QAM [facility] Last Admin: 10/07/17 09:01 Dose: 1 patch Loperamide HCl (Imodium) 2 mg PO PRN PRN PRN Reason: Diarrhea/Loose Stools Last Admin: 10/04/17 21:49 Dose: 2 mg Magnesium Hydroxide (Milk Of Magnesium) 30 ml PO DAILYPRN PRN PRN Reason: Constipation Metoclopramide HCl (Reglan) 5 mg IVP Q8HR PRN PRN Reason: Nausea/Vomiting Metoprolol Tartrate (Lopressor) 25 mg PO BID [facility] Last Admin: 10/07/17 09:01 Dose: 25 mg Midodrine (Proamatine) 5 mg PO DAILY [facility] Last Admin: 10/07/17 09:01 Dose: 5 mg Mineral Oil/White Petrolatum (Eucerin Cream) 0 gm TOP BIDPRN PRN PRN Reason: Dry Skin Mirtazapine (Remeron) 30 mg PO HS [facility] Last Admin: 10/06/17 22:52 Dose: 30 mg Miscellaneous Medication (Lidocaine Patch Removal) 1 each TOP QPM [facility] Last Admin: 10/06/17 22:59 Dose: 1 each Morphine Sulfate (Morphine) 1 mg SLOW IVP Q4H PRN PRN Reason: Pain Last Admin: 10/01/17 18:28 Dose: 1 mg Neomycin/Polymyxin/Bacitracin (Triple Antibiotic) 0 gm TOP BID [facility] Last Admin: 10/07/17 09:02 Dose: 1 gm Auryxia 210 Mg Tab- (3 Tablets) 0 each PO TID-WM [facility] Last Admin: 10/07/17 08:59 Dose: 1 each Phenol (Chloraseptic [place] 180 Ml Bot) 0 ml PO PRN PRN PRN Reason: Sore Throat Saccharomyces Boulardii (Florastor) 250 mg PO DAILY [facility] Last Admin: 10/07/17 09:02 Dose: 250 mg Sodium Chloride ([place] Nasal [place] 0.65%) 0 ml EA NARE QIDPRN PRN PRN Reason: Nasal Congestion Sodium Chloride (Flush - Normal Saline) 10 ml IVF Q12HR [facility] Last Admin: 10/07/17 09:06 Dose: 10 ml Sodium Chloride (Flush - Normal Saline) 10 ml IVF PRN PRN PRN Reason: Saline Flush Last Admin: 10/07/17 09:02 Dose: 10 ml
--- NOTE | 2017-10-07 10:47 | PRG ---
DATE OF SERVICE: 10/07/2017 SUBJECTIVE: Mr. Kamara is a 52-year-old white male with ESRD and being followed by the Renal Servi ce for his maintenance hemodialysis. He was examined by the urologist. 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 Initially, the plan was to do surgery. 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 Please note he has been hypertensive for the last several weeks. It was deci ded not to pursue this. After a long discussion with the mother, it was decided to place the patient on inpatient hospice. This morning, patient voices no new complaints. He is confused and essentially not following command s. PHYSICAL EXAMINATION: VITAL SIGNS: Blood pressure 92/68, heart rate 102, respiratory rate 20, temperature 97, pulse ox 100 %. GENERAL: Noted to be lethargic, confused, not in overt distress. SKIN: Adequate turgor. HEENT: Slightly pale conjunctivae, anicteric sclerae. NECK: No neck mass, no carotid bruits, no JVD. CHEST: No deformities. LUNGS: Decreased breath sounds. HEART: Normal sinus rhythm. No murmurs, no gallops, no rubs. ABDOMEN: Globular, soft, nontender. Positive for PD catheter. EXTREMITIES: No edema. GENITALIA: Positive for penile gangrene/scrotal gangrene. MEDICATIONS: Medications of 10/07/2017 was reviewed. LABORATORY DATA: Laboratories of 10/07/2017 was reviewed. 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 The mother has agreed to place the patient under hospice. He will be transferred to an inpatient hospice service. We will be signing off. Please recall if needed.
--- NOTE | 2017-10-07 11:52 | PDOC.PN ---
- Subjective Encounter Start Date: 10/07/17 Encounter Start Time: 09:00 Subjective: lethargic, awakens, not fully oriented -: mother at bedside - Objective Resuscitation Status: Resuscitation Status DNR:Do Not Resuscitate MAR Reviewed: Yes Vital Signs & Weight: Vital Signs (12 hours) Temp Pulse Resp BP Pulse Ox 10/07/17 08:00 97.0 F L 102 H 20 100 10/07/17 07:33 97.0 F L 102 H 20 92/68 100 10/07/17 04:00 97.6 F 110 H 18 88/62 L 100 10/07/17 00:00 97.6 F 108 H 18 83/50 L 100 Weight Admit Weight 205 lb 14.588 oz Weight 240 lb 4.8 oz Most Recent Monitor Data Heart Rate from ECG 110 NIBP 96/64 NIBP BP-Mean 72 Respiration from ECG 15 SpO2 100 I&O: 10/06/17 10/07/17 10/08/17 06:59 06:59 06:59 Intake Total 2162 660 Output Total 380 50 Balance 1782 610 Result Diagrams: 10/07/17 05:14 10/07/17 05:14 Additional Labs: Accuchecks 10/07/17 10/06/17 10/06/17 05:59 20:53 18:18 POC Glucose 74 83 82 10/06/17 10/06/17 10/05/17 06:41 05:55 20:36 POC Glucose 108 64 L 101 Phys Exam - Physical Examination Multiple wounds all over including penis and scrotal maceration HEENT: PERRLA, sclera anicteric dry mucosa Neck: no JVD, supple Respiratory: no wheezing rales+ Cardiovascular: RRR, no rub Gastrointestinal: soft, positive bowel sounds distention++ Musculoskeletal: pulses present, edema present Neurological: non-focal, moves all 4 limbs Dx/Plan (1) Sepsis Code(s): A41.9 - SEPSIS, UNSPECIFIED ORGANISM Status: Acute Qualifiers: Sepsis type: Pseudomonas Qualified Code(s): A41.52 - Sepsis due to Pseudomonas (2) Peritonitis Code(s): K65.9 - PERITONITIS, UNSPECIFIED Status: Acute Comment: likely polymicrobial, NO Plans for PD cathter/ AV acess as surgeon said pt is Not a cadidate for procedures. Discussed about Hospice. (3) Acute metabolic encephalopathy Code(s): G93.41 - METABOLIC ENCEPHALOPATHY Status: Acute Comment: Improving. (4) C. difficile diarrhea Code(s): A04.72 - ENTEROCOLITIS D/T CLOSTRIDIUM DIFFICILE, NOT SPCF RECUR Status: Acute Comment: Diarrhea resolved. Continue PO vancomycin (5) Decubital ulcer Code(s): L89.90 - PRESSURE ULCER OF UNSPECIFIED SITE, UNSPECIFIED STAGE Status : Acute Qualifiers: Pressure ulcer location: buttock Comment: multiple all over the body (6) Hypoalbuminemia due to protein-calorie malnutrition Code(s): E46 - UNSPECIFIED PROTEIN-CALORIE MALNUTRITION Status: Chronic Comment: Continue nutritional supplements. (7) Hypothyroidism Code(s): E03.9 - HYPOTHYROIDISM, UNSPECIFIED Status: Acute Qualifiers: Hypothyroidism type: unspecified Qualified Code(s): E03.9 - Hypothyroidism , unspecified Comment: Continue levothyroxine (started this admission). (8) Anemia due to end stage renal disease Code(s): N18.6 - END STAGE RENAL DISEASE; D63.1 - ANEMIA IN CHRONIC KIDNEY DISEASE Status: Chronic Comment: s/p 5 units PRBC. Hb stable. (9) Anxiety and depression Code(s): F41.9 - ANXIETY DISORDER, UNSPECIFIED; F32.9 - MAJOR DEPRESSIVE DISORDER, SINGLE EPISODE, UNSPECIFIED Status: Chronic (10) ESRD on peritoneal dialysis Code(s): N18.6 - END STAGE RENAL DISEASE; Z99.2 - DEPENDENCE ON RENAL DIALYSIS Status: Chronic Comment: Continue PD per nephrology. Being transitioned to HD. Dialysis catheter in place. Plan for surtgery failed as Mother is not consenting and also surgeon feels pt is too sick.. 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 patient will likely need Hospice. - Plan Has severe deconditioning, multiple wounds which are increasing, low alb, -: failure to thrive, progressively worsoning. D/w mother at bedside. -: Per our discussion pt will be transfered to in hospice if accepted today -: Has very poor prognosis, dialysis will be stopped if he goes to hospice -: Multiorgan failure, needs comfort and hospice care * . Review of Systems - Medications/Allergies Allergies/Adverse Reactions: Allergies Allergy/AdvReac Type Severity Reaction Status Date / Time iron Allergy Verified 09/14/17 13:20 Sulfa (Sulfonamide Allergy Verified 09/14/17 13:20 Antibiotics) Medications: Current Medications Acetaminophen (Tylenol) 650 mg PO Q4H PRN PRN Reason: Headache/Fever or Pain Last Admin: 10/07/17 09:02 Dose: 650 mg Al Hydroxide/Mg Hydroxide (Maalox) 30 ml PO Q6H PRN PRN Reason: Heartburn or Indigestion Albuterol/Ipratropium (Duoneb) 3 ml NEB [id number] PRN PRN Reason: SOB &/or Wheezing Amiodarone HCl (Cordarone) 100 mg PO DAILY [facility] Last Admin: 10/07/17 09:00 Dose: 100 mg Artificial Tears (Tears Renewed 15ml Bottle) 0 drop EA EYE PRN PRN PRN Reason: Dry Eyes Calcitriol (Rocaltrol) 0.25 mcg PO DAILY [facility] Last Admin: 10/07/17 09:01 Dose: 0.25 mcg Dextrose/Water (Dextrose 50%) 25 gm SLOW IVP PRN PRN PRN Reason: Hypoglycemia Last Admin: 10/03/17 19:00 Dose: 25 gm Epoetin Ayaz (Procrit) 10,000 units SC Q7D [facility] Last Admin: 10/06/17 13:27 Dose: 10,000 units Famotidine (Pepcid) 20 mg PO DAILY [facility] Last Admin: 10/07/17 09:01 Dose: 20 mg Glucagon (Glucagon) 1 mg IM PRN PRN PRN Reason: Hypoglycemia Guaifenesin (Robitussin Sf) 200 mg PO Q4H PRN PRN Reason: Cough Dextrose/Water (D5w) 1,000 mls @ 0 mls/hr IV .Q0M PRN; As Directed PRN Reason: Hypoglycemia Last Admin: 09/30/17 14:14 Dose: 1,000 mls Dextrose/Water (Dextrose 10% In Water) 1,000 mls @ 50 mls/hr IV .Q20H [facility] Last Admin: 10/06/17 22:54 Dose: 1,000 mls Insulin Human Lispro (Humalog) 0 units SC .MILD SLIDING SCALE PRN PRN Reason: Mild Correctional Scale Levothyroxine Sodium (Synthroid) 50 mcg PO 0600 [facility] Last Admin: 10/07/17 06:31 Dose: Not Given Lidocaine (Lidoderm 5% Patch) 1 patch TD QAM [facility] Last Admin: 10/07/17 09:01 Dose: 1 patch Loperamide HCl (Imodium) 2 mg PO PRN PRN PRN Reason: Diarrhea/Loose Stools Last Admin: 10/04/17 21:49 Dose: 2 mg Magnesium Hydroxide (Milk Of Magnesium) 30 ml PO DAILYPRN PRN PRN Reason: Constipation Metoclopramide HCl (Reglan) 5 mg IVP Q8HR PRN PRN Reason: Nausea/Vomiting Metoprolol Tartrate (Lopressor) 25 mg PO BID [facility] Last Admin: 10/07/17 09:01 Dose: 25 mg Midodrine (Proamatine) 5 mg PO DAILY [facility] Last Admin: 10/07/17 09:01 Dose: 5 mg Mineral Oil/White Petrolatum (Eucerin Cream) 0 gm TOP BIDPRN PRN PRN Reason: Dry Skin Mirtazapine (Remeron) 30 mg PO HS [facility] Last Admin: 10/06/17 22:52 Dose: 30 mg Miscellaneous Medication (Lidocaine Patch Removal) 1 each TOP QPM [facility] Last Admin: 10/06/17 22:59 Dose: 1 each Morphine Sulfate (Morphine) 1 mg SLOW IVP Q4H PRN PRN Reason: Pain Last Admin: 10/01/17 18:28 Dose: 1 mg Neomycin/Polymyxin/Bacitracin (Triple Antibiotic) 0 gm TOP BID [facility] Last Admin: 10/07/17 09:02 Dose: 1 gm Auryxia 210 Mg Tab- (3 Tablets) 0 each PO TID-WM [facility] Last Admin: 10/07/17 08:59 Dose: 1 each Phenol (Chloraseptic [place] 180 Ml Bot) 0 ml PO PRN PRN PRN Reason: Sore Throat Saccharomyces Boulardii (Florastor) 250 mg PO DAILY [facility] Last Admin: 10/07/17 09:02 Dose: 250 mg Sodium Chloride ([place] Nasal [place] 0.65%) 0 ml EA NARE QIDPRN PRN PRN Reason: Nasal Congestion Sodium Chloride (Flush - Normal Saline) 10 ml IVF Q12HR [facility] Last Admin: 10/07/17 09:06 Dose: 10 ml Sodium Chloride (Flush - Normal Saline) 10 ml IVF PRN PRN PRN Reason: Saline Flush Last Admin: 10/07/17 09:02 Dose: 10 ml
[2017-10-07 13:20] VITALS: BP 104/69; TEMP 97.8
--- NOTE | 2017-10-07 14:22 | DIS ---
DATE OF ADMISSION: 09/14/2017 DATE OF DISCHARGE: 10/07/2017 DISCHARGE DISPOSITION: To Inpatient Hospice. PRIMARY DISCHARGE DIAGNOSES: Sepsis with peritonitis, multiple organ failures, severe physical decon ditioning, severe protein malnutrition, multiple decubitus, chronic anemia, C. difficile colitis, met abolic encephalopathy, hypothyroidism, possible mitral valve vegetation. PROCEDURES DONE DURING HOSPITALIZATION: Please note patient was hospitalized for nearly 23 days and refer to [facility] for an accurate description of all relevant procedures done. Patient had suprapubi c catheter placed by Interventional Radiology. Echo with 2D Doppler done on 09/16/2017 showed EF of 50%-55% with diastolic dysfunction, possible small vegetation on the anterior mitral valve leaflet 0. 6 mm. Abdominal and pelvic CAT scan done on 09/21/2017 showed severe adult type 2 polycystic kidney, distended urinary bladder suspicious for severe bilateral hydroureteronephrosis, bilateral pleural e ffusions, anasarca, left IJ central line done by Dr. Mullins on 09/28/2017. Peritoneal fluid cultures grew Pseudomonas sensitive to ceftazidime, ciprofloxacin, amikacin, and tobramycin. Discharge hemog lobin and hematocrit 8 and 26, platelet count 185. Discharge BUN 29, creatinine 3.1, albumin of 2.1 on 09/18/2017. DISCHARGE MEDICATIONS: Patient is for comfort and hospice care. He will be on Tylenol p.r.n., morph ine p.r.n., and lidocaine patch. INPATIENT CONSULTS: Dr. Raman for Nephrology, Dr. Mullins for General Surgery, Dr. Price for Pulmonar y or Critical Care. BRIEF COURSE DURING HOSPITALIZATION: Patient initially was sent from rehabilitation for hypotension and anemia. Prior to this, patient was hospitalized here and was sent to rehab for further recuperat ion. On arrival, patient was very lethargic and had a hemoglobin of 6.3 grams with if further droppi ng down to 5.8 grams. His systolic blood pressure was in the 90s. He was essentially admitted to IM [facility] and later downgraded to stroke unit. He was given blood transfusions. The patient had sepsis wit h peritonitis. The cultures from peritoneal fluid grew Pseudomonas. He also had acute encephalopath y, which did not really clear up until the day of discharge. He had severe deconditioning with sever e protein malnutrition, failure to thrive, and albumin of around 2. Patient had a large sacral decub itus ulcer and developed multiple ulcerations all over his body with his skin being very fragile. David platt has had progressive decline in his cognitive, physical condition and multiple organ failures. All through his hospitalization, his mother was given updates. She has finally decided to place him in hospice as she does not want him to suffer anymore. His overall prognosis is very poor at present . A total of 35 minutes was spent on discharge plan. Please see a [id number] documentation on [facility] for the day of discharge.
--- NOTE | 2017-10-08 12:59 | PQF ---
ANABELL CEDILLO, RHIANNON WATKINS MD [id number] [facility] [id number] CLINICAL DOCUMENTATION CLARIFICATION FORM: POST DISCHARGE DATE: 10/08/2017 ATTN: Dr. Neri Please exercise your independent, professional judgment in responding to the clarification form. Clinical indicators are provided on the bottom of this form for your review Please check appropriate box(s): [ ] Sepsis and peritonitis are a complication related to recent colonoscopy with polypectomy [ ] Sepsis and peritonitis are not a complication related to recent colonoscopy with polypectomy [ ] Sepsis due to (please specify) [ ] Peritonitis due to (please specify) [ ] Other diagnosis (please specify) [x ] Unable to determine In addition, please specify: Present on Admission (POA): [ ] Yes [ ] No [ ] Unable to determine CLINICAL INDICATORS - SIGNS / SYMPTOMS / LABS Per H&P: Acute hypotension and hypothermia. Suspected sepsis. Per 09/17 consultation: The patient subsequently developed peritonitis which was polymicrobial and Dr. Madison' impression was that the peritonitis might have been related to his polypectomy. Per 09/16 consultation note: Recent colonoscopy possibly a small area of perforation. The patient now has developed sepsis. Per progress notes: Recent colonoscopy with peritonitis probably from the procedure biopsy. Blood culture positive for Coagulase neg Staphylococcus. Peritoneal fluid positive for Pseudomonas aeruginosa. RISK FACTORS (per progress notes) Recent colonoscopy with polypectomy. TREATMENT: (per progress notes) Multiple IV Antibiotics. IV Fluids (This form is maintained as a part of the permanent medical record) 2014 [email or web address]. All Rights Reserved [email or web address] [phone] [email or web address]
== END 2017-10-07 14:27 | disposition hospice, inpatient (51) | DRG 853 ==
LOC: ERS 10:50 → CCU 15:24 → 2SE 09-19 14:27
PROVIDERS: ADMIT Internal Medicine; ATTEND Internal Medicine
PROC: 3E1M39Z Irrigation of Peritoneal Cavity using Dialysate, Percutaneous Approach (ICD-10-PCS; 2017-09-14)
PROC: 30233N1 Transfusion of Nonautologous Red Blood Cells into Peripheral Vein, Percutaneous Approach (ICD-10-PCS; 2017-09-14)
PROC: 0JB90ZZ Excision of Buttock Subcutaneous Tissue and Fascia, Open Approach (ICD-10-PCS; principal; 2017-09-23)
PROC: 0JB70ZZ Excision of Back Subcutaneous Tissue and Fascia, Open Approach (ICD-10-PCS; 2017-09-23)
PROC: 0T9B30Z Drainage of Bladder with Drainage Device, Percutaneous Approach (ICD-10-PCS; 2017-09-23)
PROC: 05HN33Z Insertion of Infusion Device into Left Internal Jugular Vein, Percutaneous Approach (ICD-10-PCS; 2017-09-29)
PROC: 0JH63XZ Insertion of Tunneled Vascular Access Device into Chest Subcutaneous Tissue and Fascia, Percutaneous Approach (ICD-10-PCS; 2017-09-30)
PROC: 02HV33Z Insertion of Infusion Device into Superior Vena Cava, Percutaneous Approach (ICD-10-PCS; 2017-09-30)
PROC: 5A1D70Z Performance of Urinary Filtration, Intermittent, Less than 6 Hours Per Day (ICD-10-PCS; 2017-10-02)
PROC: 5A1D70Z Performance of Urinary Filtration, Intermittent, Less than 6 Hours Per Day (ICD-10-PCS; 2017-10-03)
PROC: 5A1D70Z Performance of Urinary Filtration, Intermittent, Less than 6 Hours Per Day (ICD-10-PCS; 2017-10-05)
PROC: 0T2BX0Z Change Drainage Device in Bladder, External Approach (ICD-10-PCS; 2017-10-06)
DX: A41.52 Sepsis due to Pseudomonas (principal); N18.6 End stage renal disease; G93.41 Metabolic encephalopathy; K65.9 Peritonitis, unspecified; R65.21 Severe sepsis with septic shock; E43 Unspecified severe protein-calorie malnutrition; I33.0 Acute and subacute infective endocarditis; Q61.3 Polycystic kidney, unspecified; E87.1 Hypo-osmolality and hyponatremia; A04.72 Enterocolitis due to Clostridium difficile, not specified as recurrent; T82.510A Breakdown (mechanical) of surgically created arteriovenous fistula, initial encounter; L89.150 Pressure ulcer of sacral region, unstageable; D63.1 Anemia in chronic kidney disease; E21.3 Hyperparathyroidism, unspecified; I48.0 Paroxysmal atrial fibrillation; K21.9 Gastro-esophageal reflux disease without esophagitis; E78.5 Hyperlipidemia, unspecified; F41.9 Anxiety disorder, unspecified; F32.9 Major depressive disorder, single episode, unspecified; E86.0 Dehydration; E66.01 Morbid (severe) obesity due to excess calories; Z68.33 Body mass index [BMI] 33.0-33.9, adult; R33.9 Retention of urine, unspecified; E87.6 Hypokalemia; Z51.5 Encounter for palliative care; L89.320 Pressure ulcer of left buttock, unstageable; B96.5 Pseudomonas (aeruginosa) (mallei) (pseudomallei) as the cause of diseases classified elsewhere; N48.29 Other inflammatory disorders of penis; L89.310 Pressure ulcer of right buttock, unstageable; Z99.2 Dependence on renal dialysis; I95.89 Other hypotension; E87.5 Hyperkalemia; Z88.2 Allergy status to sulfonamides; Z79.899 Other long term (current) drug therapy; Y83.2 Surgical operation with anastomosis, bypass or graft as the cause of abnormal reaction of the patient, or of later complication, without mention of misadventure at the time of the procedure
CPT/HCPCS: 36415; 36416; 36430; 36556; 51102; 51600; 51705; 71045; 74176; 74177; 75984; 77002; 80048; 80053; 80202; 80400; 82140; 82533; 82550; 82553; 82728; 83605; 83735; 84100; 84443; 84484; 85025; 85060; 86704; 86706; 86803; 86850; 86900; 86901; 87040; 87070; 87077; 87086; 87149; 87186; 87205; 87324; 87340; 87449; 89051; 90935; 90945; 93005; 93010; 93306; 96360; A4216; C1752; C1769; C2627; G0257; G8978-GP-CN; G8979-GP-CL; G8987-GO-CM; G8988-GO-CJ; G8988-GO-CK; J0670; J0834; J1610; J1644; J2185; J2250; J2270; J2543; J2704; J3010; J3370; J3475; J3490; J7050; J7626; P9016; P9047; Q4081